=== PATIENT | female | born 1935 | race Asian ===

== ENCOUNTER 2020-01-21 08:48 | Inpatient (IN) | payer MEDICARE, MEDICAID ==
[~2020-01-21] VITALS: Ht 157.5 cm; Wt 60.3 kg
[2020-01-21 09:15] VITALS: BP 149/77
[2020-01-21] MEDS ORDERED: Sodium Chloride 1,900 ML IVLG ONE (09:30)
[2020-01-21 09:39] LABS: HEMATOCRIT 42.9 % (37.0-47.0); MEAN CORPUSCULAR VOLUME 89 FL (80-99); PLATELET COUNT 206 K/UL (150-450); RED BLOOD COUNT 4.83 M/UL (4.20-5.40)
[2020-01-21] MEDS ORDERED: Acetaminophen 500mg (ES) tab ORAL ONE (09:45)
[2020-01-21 09:46] LABS: WHITE BLOOD COUNT 27.1 K/UL (4.8-10.8)
--- NOTE | 2020-01-21 09:46 | Emergency Room Report ---
History of Present Illness General Chief Complaint: Syncope Source: Patient Present Illness HPI This patient is brought in by EMS. Patient reports generalized weakness and an episode of syncope. There is a language barrier and it is difficult to determine whether this was more of a generalized weakness unable to walk or a true syncope. She reports getting influenza vaccine 2 days ago. She denies chest pain or shortness of breath. She denies abdominal pain. She denies dysuria or hematuria. She has no other complaints. 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 Patient History Past Medical History: see triage record, HTN, GERD, other - HLP Social History: Denies: smoking, alcohol use, drug use Reviewed Nursing Documentation: PMH: Agreed; PSxH: Agreed Nursing Documentation-PMH Past Medical History Deferred: No Family Available Past Medical History: No History, Except For Hx Cardiac Problems: Yes Hx Cerebrovascular Accident: Yes Review of Systems All Other Systems: negative except mentioned in HPI Physical Exam Vital Signs Date Time Temp Pulse Resp B/P (MAP) Pulse Ox O2 Delivery O2 Flow Rate FiO2 01/21/20 08:58 100.8 122 26 145/67 (93) 95 Room Air Sp02 EP Interpretation: reviewed, normal General Appearance: no apparent distress, alert, GCS 15, non-toxic Head: normocephalic, atraumatic ENT: hearing grossly normal, no angioedema, normal voice Neck: full range of motion, supple/symm/no masses Respiratory: chest non-tender, lungs clear, normal breath sounds, no respiratory distress, no retraction, no accessory muscle use, speaking full sentences Cardiovascular #1: regular rate, rhythm, no edema, tachycardia Gastrointestinal: normal bowel sounds, non tender, soft, non-distended, no guarding, no rebound Rectal: deferred Musculoskeletal: back normal, normal range of motion, non-tender Neurologic: alert, oriented x3, sensory intact, responsive, speech normal, other - Hx CVA, at baseline per family Psychiatric: judgement/insight normal, memory normal, mood/affect normal, no suicidal/homicidal ideation Skin: normal color Medical Decision Making Diagnostic Impression: Primary Impression: Fever Additional Impressions: Leukocytosis Hypokalemia Pulmonary edema ER Course This patient is a very poor historian. I suspect this is secondary to both her age and the language barrier. The patient's family did not arrive to give me any information to include history. Based on laboratory work-up and my evaluation, I am concerned this patient has COVID-19 with respiratory involvement. The patient did maintain her oxygen saturations in the low 90s. The patient did not require any respiratory intervention. She did remain tachycardic in the 120s during her ED course. She was given some IV fluids gently. She is also given broad-spectrum antibiotics with Rocephin and azithromycin, given her fever and white blood cell count. This patient meets criteria for sepsis. This patient was evaluated in the context of the global COVID-19 pandemic, which necessitated consideration that the patient might be at risk for infection with the [id number] virus that causes COVID-19. Institutional protocols and algorithms that pertain to the evaluation of patients at risk for COVID-19 and the state of rapid change based on information released by multiple regulatory bodies including the CDC and federal and state organizations. These policies and algorithms were followed during the patient's care in the ED. This patient is critically ill. This patient required complex medical decision- making, aggressive intervention, extensive laboratory workup and monitoring. Critical care time: 40 minutes. Addendum: The patient's did finally arrive in the emergency department just before she was to be admitted. There is report that the patient has had a headache over the past couple days. Over the past days she has had generalized weakness to the point where she has been unable to stand up. There are no other specific complaints. She has felt a little nauseated. Laboratory Tests Test 01/21/20 09:00 01/21/20 09:30 White Blood Count 27.1 K/UL (4.8-10.8) *H Red Blood Count 4.83 M/UL (4.20-5.40) Hemoglobin 15.0 G/DL (12.0-16.0) Hematocrit 42.9 % (37.0-47.0) Mean Corpuscular Volume 89 FL (80-99) Mean Corpuscular Hemoglobin 31.0 PG (27.0-31.0) Mean Corpuscular Hemoglobin Concent 34.9 G/DL (32.0-36.0) Red Cell Distribution Width 11.0 % (11.6-14.8) L Platelet Count 206 K/UL (150-450) Mean Platelet Volume 5.4 FL (6.5-10.1) L Neutrophils (%) (Auto) % (45.0-75.0) Lymphocytes (%) (Auto) % (20.0-45.0) Monocytes (%) (Auto) % (1.0-10.0) Eosinophils (%) (Auto) % (0.0-3.0) Basophils (%) (Auto) % (0.0-2.0) Differential Total Cells Counted 100 Neutrophils % (Manual) 83 % (45-75) H Lymphocytes % (Manual) 2 % (20-45) L Monocytes % (Manual) 2 % (1-10) Eosinophils % (Manual) 0 % (0-3) Basophils % (Manual) 0 % (0-2) Band Neutrophils 13 % (0-8) H Platelet Estimate Adequate Platelet Morphology Normal Red Blood Cell Morphology Normal Prothrombin Time 10.9 SEC (9.30-11.50) Prothrombin Time INR 1.0 (0.9-1.1) Activated Partial Thromboplast Time 29 SEC (23-33) D-Dimer 7.21 mg/L FEU (0.00-0.49) H Sodium Level 129 MMOL/L (136-145) L Potassium Level 2.9 MMOL/L (3.5-5.1) L Chloride Level 93 MMOL/L (98-107) L Carbon Dioxide Level 25 MMOL/L (21-32) Anion Gap 11 mmol/L (5-15) Blood Urea Nitrogen 16 mg/dL (7-18) Creatinine 0.7 MG/DL (0.55-1.30) Estimated Glomerular Filtration Rate > 60 mL/min (>60) Glucose Level 155 MG/DL (74-106) H Lactic Acid Level 1.70 mmol/L (0.4-2.0) Calcium Level 8.8 MG/DL (8.5-10.1) Ferritin 964 NG/ML (8-388) H Total Bilirubin 1.4 MG/DL (0.2-1.0) H Direct Bilirubin 0.4 MG/DL (0.0-0.3) H Aspartate Amino Transferase (AST) 26 U/L (15-37) Alanine Aminotransferase (ALT) 17 U/L (12-78) Alkaline Phosphatase 124 U/L (46-116) H Lactate Dehydrogenase 162 U/L (81-234) Total Creatine Kinase 109 U/L (26-308) Creatine Kinase MB 1.1 NG/ML (0.0-3.6) Creatine Kinase MB Relative Index 1.0 Troponin I 0.001 ng/mL (0.000-0.056) C-Reactive Protein, Quantitative 31.6 mg/dL (0.00-0.90) H Total Protein 6.6 G/DL (6.4-8.2) Albumin 3.1 G/DL (3.4-5.0) L Globulin 3.5 g/dL Albumin/Globulin Ratio 0.9 (1.0-2.7) L Urine Color Yellow Urine Appearance Slightly cloudy Urine pH 6.5 (4.5-8.0) Urine Specific [place] 1.015 (1.005-1.035) Urine Protein 3+ (NEGATIVE) H Urine Glucose (UA) Negative (NEGATIVE) Urine Ketones 4+ (NEGATIVE) H Urine Blood 5+ (NEGATIVE) H Urine Nitrite Negative (NEGATIVE) Urine Bilirubin Negative (NEGATIVE) Urine Urobilinogen 4 MG/DL (0.0-1.0) H Urine Leukocyte Esterase 1+ (NEGATIVE) H Urine RBC 15-20 /HPF (0 - 2) H Urine WBC 2-4 /HPF (0 - 2) Urine Squamous Epithelial Cells Few /LPF (NONE/OCC) Urine Bacteria Few /HPF (NONE) Microbiology Date/Time Source Procedure Growth Status 01/21/20 09:20 Nasopharynx SARS-CoV-2 RdRp Gene Assay - Final Complete 01/21/20 09:20 Nasal Nares - Final Complete 01/21/20 09:20 Nasal Nares - Final Complete EKG Diagnostic Results Rate: tachycardiac Rhythm: other - S.tachycardia ST Segments: no acute changes Other Impression LAD, PAC's Rhythm Strip Diag. Results EP Interpretation: yes Rate: 120's Rhythm: no PVC's, other - PAC's, S. Tachycardia Chest X-Ray Diagnostic Results Chest X-Ray Diagnostic Results : Chest X-Ray Ordered: Yes # of Views/Limited/Complete: 1 View Indication: Other - syncope EP Interpretation: Yes Interpretation: other - Diffuse patchy opacities Impression: Other - Pulmonary edema: DD: viral, CHF CT/MRI/US Diagnostic Results CT/MRI/US Diagnostic Results : Imaging Test Ordered: CT head Impression No acute findings. Specifically no intracranial bleed, mass effect or edema. See official report. Last Vital Signs Date Time Temp Pulse Resp B/P (MAP) Pulse Ox O2 Delivery O2 Flow Rate FiO2 01/21/20 08:58 100.8 122 26 145/67 (93) 95 Room Air Disposition: ADMITTED INPATIENT Condition: Serious Referrals: NOT CHOSEN IPA/,REFERRING (PCP) Christine Rodriguez DO Jan 21, 2020 09:46
[2020-01-21 09:59] LABS: ANION GAP 11 mmol/L (5-15); BLOOD UREA NITROGEN 16 mg/dL (7-18); CALCIUM 8.8 MG/DL (8.5-10.1); CARBON DIOXIDE 25 MMOL/L (21-32); CHLORIDE 93 MMOL/L (98-107); CREATININE 0.7 MG/DL (0.55-1.30); POTASSIUM 2.9 MMOL/L (3.5-5.1); SODIUM 129 MMOL/L (136-145)
[2020-01-21] MEDS ORDERED: cefTRIAXone 1 GM in NS 55 ML IV SCH (10:00)
[2020-01-21] MEDS ORDERED: Azithromycin 500 MG in NS 275 ML IV SCH (10:00)
[2020-01-21 10:06] LABS: APPEARANCE,URINE SLIGHTLY CLOUDY; BILIRUBIN, URINE NEGATIVE (NEGATIVE); GLUCOSE, URINE (UA) NEGATIVE (NEGATIVE); KETONES,URINE 4+ (NEGATIVE); LEUKOCYTE ESTERASE ,URINE 1+ (NEGATIVE); NITRITE,URINE NEGATIVE (NEGATIVE); PH,URINE 6.5 (4.5-8.0); PROTEIN,URINE 3+ (NEGATIVE); UROBILINOGEN,URINE 4 MG/DL (0.0-1.0)
[2020-01-21 10:07] LABS: COLOR,URINE YELLOW
[2020-01-21] MEDS ORDERED: dexAMETHasone 10mg/ml Inj IV ONE (10:15)
[2020-01-21 10:16] LABS: ALANINE AMINOTRANSFERASE 17 U/L (12-78); ALBUMIN 3.1 G/DL (3.4-5.0); ALBUMIN/GLOBULIN RATIO 0.9 (1.0-2.7); ALKALINE PHOSPHATASE 124 U/L (46-116); ASPARTATE AMINO TRANSFERASE 26 U/L (15-37); BILIRUBIN,TOTAL 1.4 MG/DL (0.2-1.0); CKMB 1.1 NG/ML (0.0-3.6); CREATINE KINASE 109 U/L (26-308); FERRITIN 964 NG/ML (8-388); LACTATE DEHYDROGENASE 162 U/L (81-234)
[2020-01-21 10:27] LABS: BILIRUBIN,DIRECT 0.4 MG/DL (0.0-0.3)
[2020-01-21 11:00] VITALS: BP 152/82
--- NOTE | 2020-01-21 11:31 | Diagnostic Imaging Report ---
Indications: Syncope Technique: Spiral acquisitions obtained through the brain. Angled axial and coronal 5 x 5 mm slices were reconstructed. Total dose length product 1098 mGycm. CTDI vol(s) 53 mGy. Dose reduction achieved using automated exposure control Comparison: None. Findings: No acute intracranial hemorrhage or edema. No mass effect nor midline shift. There is age-related enlargement of the ventricles and extra axial CSF spaces. There is periventricular deep white matter low-attenuation, consistent with chronic microvascular ischemic changes. Old lacunar infarcts are seen in the basal ganglia bilaterally. The mastoids are clear. There is fairly extensive sphenoid and ethmoid sinus disease. The calvarium is intact. Impression: Chronic and age-related changes. Old bilateral basal ganglia lacunar infarcts. Negative for acute intracranial bleed or mass effect The CT scanner at [facility] is accredited by the [place] [employer] and the scans are performed using protocols designed to limit radiation exposure to as low as reasonably achievable to attain images of sufficient resolution adequate for diagnostic evaluation.
[2020-01-21] MEDS ORDERED: FOSAMAX70 MG ORAL (12:50)
[2020-01-21] MEDS ORDERED: LOSARTAN POTASS50 MG ORAL (12:50)
[2020-01-21] MEDS ORDERED: CREON DR 36,001 EACH PO (12:50)
[2020-01-21] MEDS ORDERED: RESTASIS1 EACH RIGHT EYE (12:50)
[2020-01-21] MEDS ORDERED: AMLODIPINE BESYL5 MG ORAL (12:50)
[2020-01-21] MEDS ORDERED: LEVOCETIRIZINE D5 MG ORAL (12:50)
[2020-01-21] MEDS ORDERED: DEXILANT60 MG ORAL (12:50)
[2020-01-21] MEDS ORDERED: ZOCOR20 M1 ORAL (12:50)
[2020-01-21] MEDS ORDERED: KLONOPIN1 MG ORAL (12:50)
[2020-01-21] MEDS ORDERED: METOPROLOL SUCC25 MG ORAL (12:50)
[2020-01-21 13:20] VITALS: BP 146/80
[2020-01-21] MEDS ORDERED: Albuterol/Ipratropium 3ml neb HHN PRN (14:00)
--- NOTE | 2020-01-21 14:15 | Diagnostic Imaging Report ---
Indication: Palpitations, cardiac arrhythmia Technique: One view of the chest Comparison: none Findings: There is questionable bilateral mild interstitial congestion. The heart size is normal. The aorta is elongated tortuous and ectatic. The heart size is normal. Impression: Questionable mild bilateral interstitial congestion. Correlate with clinical findings Other findings as noted
--- NOTE | 2020-01-21 15:27 | Infectious Diseases Prog Note ---
Assessment/Plan Assessment/Plan Full consult dictated: A) 1) possible sepsis, leukocytosis, fevers 2) source 3) pmh noted 4) allergies - pcn P) 1) ceftriaxone, flagyl and azithromycin 2) check cultures, labs and chest x-ray 3) will f/u 4) thank you Subjective Allergies: Uncoded Allergies: PENICILLIN (Allergy, Unknown, 01/21/20) Objective Last 24 Hour Vital Signs Date Time Temp Pulse Resp B/P (MAP) Pulse Ox O2 Delivery O2 Flow Rate FiO2 01/21/20 14:10 Room Air 01/21/20 13:20 97.7 95 20 146/80 (102) 94 01/21/20 11:00 99.5 110 25 152/82 94 Room Air 01/21/20 10:16 100.0 01/21/20 09:15 100.6 124 30 149/77 95 Room Air 01/21/20 08:58 100.8 122 26 145/67 (93) 95 Room Air Height (Feet): 5 Height (Inches): 3.00 Weight (Pounds): 140 Microbiology Date/Time Source Procedure Growth Status 01/21/20 09:20 Nasopharynx SARS-CoV-2 RdRp Gene Assay - Final Complete 01/21/20 09:20 Nasal Nares - Final Complete 01/21/20 09:20 Nasal Nares - Final Complete Laboratory Tests Test 01/21/20 09:00 01/21/20 09:30 White Blood Count 27.1 K/UL (4.8-10.8) *H Red Blood Count 4.83 M/UL (4.20-5.40) Hemoglobin 15.0 G/DL (12.0-16.0) Hematocrit 42.9 % (37.0-47.0) Mean Corpuscular Volume 89 FL (80-99) Mean Corpuscular Hemoglobin 31.0 PG (27.0-31.0) Mean Corpuscular Hemoglobin Concent 34.9 G/DL (32.0-36.0) Red Cell Distribution Width 11.0 % (11.6-14.8) L Platelet Count 206 K/UL (150-450) Mean Platelet Volume 5.4 FL (6.5-10.1) L Neutrophils (%) (Auto) % (45.0-75.0) Lymphocytes (%) (Auto) % (20.0-45.0) Monocytes (%) (Auto) % (1.0-10.0) Eosinophils (%) (Auto) % (0.0-3.0) Basophils (%) (Auto) % (0.0-2.0) Differential Total Cells Counted 100 Neutrophils % (Manual) 83 % (45-75) H Lymphocytes % (Manual) 2 % (20-45) L Monocytes % (Manual) 2 % (1-10) Eosinophils % (Manual) 0 % (0-3) Basophils % (Manual) 0 % (0-2) Band Neutrophils 13 % (0-8) H Platelet Estimate Adequate Platelet Morphology Normal Red Blood Cell Morphology Normal Prothrombin Time 10.9 SEC (9.30-11.50) Prothromb Time International Ratio 1.0 (0.9-1.1) Activated Partial Thromboplast Time 29 SEC (23-33) D-Dimer 7.21 mg/L FEU (0.00-0.49) H Sodium Level 129 MMOL/L (136-145) L Potassium Level 2.9 MMOL/L (3.5-5.1) L Chloride Level 93 MMOL/L (98-107) L Carbon Dioxide Level 25 MMOL/L (21-32) Anion Gap 11 mmol/L (5-15) Blood Urea Nitrogen 16 mg/dL (7-18) Creatinine 0.7 MG/DL (0.55-1.30) Estimat Glomerular Filtration Rate > 60 mL/min (>60) Glucose Level 155 MG/DL (74-106) H Lactic Acid Level 1.70 mmol/L (0.4-2.0) Calcium Level 8.8 MG/DL (8.5-10.1) Ferritin 964 NG/ML (8-388) H Total Bilirubin 1.4 MG/DL (0.2-1.0) H Direct Bilirubin 0.4 MG/DL (0.0-0.3) H Aspartate Amino Transf (AST/SGOT) 26 U/L (15-37) Alanine Aminotransferase (ALT/SGPT) 17 U/L (12-78) Alkaline Phosphatase 124 U/L (46-116) H Lactate Dehydrogenase 162 U/L (81-234) Total Creatine Kinase 109 U/L (26-308) Creatine Kinase MB 1.1 NG/ML (0.0-3.6) Creatine Kinase MB Relative Index 1.0 Troponin I 0.001 ng/mL (0.000-0.056) C-Reactive Protein, Quantitative 31.6 mg/dL (0.00-0.90) H Total Protein 6.6 G/DL (6.4-8.2) Albumin 3.1 G/DL (3.4-5.0) L Globulin 3.5 g/dL Albumin/Globulin Ratio 0.9 (1.0-2.7) L Urine Color Yellow Urine Appearance Slightly cloudy Urine pH 6.5 (4.5-8.0) Urine Specific [place] 1.015 (1.005-1.035) Urine Protein 3+ (NEGATIVE) H Urine Glucose (UA) Negative (NEGATIVE) Urine Ketones 4+ (NEGATIVE) H Urine Blood 5+ (NEGATIVE) H Urine Nitrite Negative (NEGATIVE) Urine Bilirubin Negative (NEGATIVE) Urine Urobilinogen 4 MG/DL (0.0-1.0) H Urine Leukocyte Esterase 1+ (NEGATIVE) H Urine RBC 15-20 /HPF (0 - 2) H Urine WBC 2-4 /HPF (0 - 2) Urine Squamous Epithelial Cells Few /LPF (NONE/OCC) Urine Bacteria Few /HPF (NONE) Current Medications Medications (Trade) Dose Ordered Sig/Altagracia Route PRN Reason Start Time Stop Time Status Last Admin Dose Admin Acetaminophen (Tylenol) 650 mg Q4H PRN ORAL Mild Pain (Pain Scale 1-3) 01/21/20 14:00 02/20/20 13:59 Acetaminophen (Tylenol) 650 mg Q4H PRN ORAL Temp >100.5 01/21/20 14:00 02/20/20 13:59 Albuterol/ Ipratropium (Albuterol/ Ipratropium) 3 ml Q4H PRN HHN Shortness of Breath 01/21/20 14:00 01/26/20 13:59 Alendronate Sodium (Fosamax) 70 mg ONCE A WEEK ORAL 01/22/20 06:30 02/21/20 06:29 Amlodipine Besylate (Norvasc) 5 mg DAILY ORAL 01/22/20 09:00 02/21/20 08:59 Amylase/Lipase/ Protease (Creon DR 36,000 units cap) 36,000 ea TID ORAL 01/21/20 18:00 04/20/20 17:59 UNV Azithromycin 500 mg/Dextrose 275 ml @ 275 mls/hr Q24HRS IV 01/22/20 09:00 01/28/20 09:59 Ceftriaxone Sodium 1 gm/ Dextrose 55 ml @ 110 mls/hr Q24H IVPB 01/22/20 09:00 01/29/20 08:59 Clonazepam (KlonoPIN) 1 mg Q6H PRN ORAL For Anxiety 01/21/20 15:15 01/28/20 15:14 Heparin Sodium (Porcine) (Heparin 5000 units/ml) 5,000 units EVERY 12 HOURS SUBQ 01/21/20 21:00 03/06/20 20:59 Losartan Potassium (Cozaar) 100 mg DAILY ORAL 01/22/20 09:00 02/21/20 08:59 Metoprolol Succinate (Toprol XL) 25 mg DAILY ORAL 01/22/20 09:00 04/21/20 08:59 Tiny Armijo MD Jan 21, 2020 15:27
[2020-01-21] MEDS ORDERED: Creon DR 36,000 units cap ORAL PRN (15:45)
[2020-01-21] MEDS ORDERED: Isovue-300 100ml vial INJ PRN (17:00)
--- NOTE | 2020-01-21 17:30 | Consultation ---
DATE OF CONSULTATION: 01/21/2020 ADDENDUM CONSULTING PHYSICIAN: Tiny Armijo MD. ATTENDING PHYSICIAN: Silvina Kohli MD. REFERRING PHYSICIAN: Silvina Kohli MD. The patient, again, will be continued on Rocephin, Flagyl, and azithromycin to cover sepsis, leukocytosis, and fevers pending workup. Tiny Armijo M.D. DR: ANA JOB#: [id number] CC:
--- NOTE | 2020-01-21 17:57 | Consultation ---
History of Present Illness General Chief Complaint: Syncope Present Illness Allergies: Uncoded Allergies: PENICILLIN (Allergy, Unknown, 01/21/20) Medication History Scheduled Alendronate Sodium* (Fosamax*), 70 MG ORAL ONCE A WEEK, (Reported) Amlodipine Besylate* (Amlodipine Besylate*), 5 MG ORAL DAILY, (Reported) Clonazepam* (Klonopin*), 1 MG ORAL Q6H, (Reported) Dexlansoprazole (Dexilant), 60 MG ORAL DAILY, (Reported) Levocetirizine Dihydrochloride (Levocetirizine Dihydrochloride), 5 MG ORAL DAILY, (Reported) Lipase/Protease/Amylase (Creon Dr 36,000 Units Capsule), 1 EACH PO TID, (Repor matthias) Losartan Potassium* (Losartan Potassium*), 100 MG ORAL DAILY, (Reported) Metoprolol Succinate* (Metoprolol Succinate*), 25 MG ORAL DAILY, (Reported) Simvastatin (Zocor), 20 MG ORAL BEDTIME, (Reported) Miscellaneous Medications Cyclosporine (Restasis), 1 DROP RIGHT EYE, (Reported) Patient History Healthcare decision maker Resuscitation status Advanced Directive on File Physical Exam Last 24 Hour Vital Signs Date Time Temp Pulse Resp B/P (MAP) Pulse Ox O2 Delivery O2 Flow Rate FiO2 01/21/20 16:00 Room Air 01/21/20 14:10 Room Air 01/21/20 13:20 97.7 95 20 146/80 (102) 94 01/21/20 12:45 99.1 103 24 143/86 95 Room Air 01/21/20 11:00 99.5 110 25 152/82 94 Room Air 01/21/20 10:16 100.0 01/21/20 09:15 100.6 124 30 149/77 95 Room Air 01/21/20 08:58 100.8 122 26 145/67 (93) 95 Room Air Laboratory Tests Test 01/21/20 09:00 01/21/20 09:30 White Blood Count 27.1 K/UL (4.8-10.8) *H Red Blood Count 4.83 M/UL (4.20-5.40) Hemoglobin 15.0 G/DL (12.0-16.0) Hematocrit 42.9 % (37.0-47.0) Mean Corpuscular Volume 89 FL (80-99) Mean Corpuscular Hemoglobin 31.0 PG (27.0-31.0) Mean Corpuscular Hemoglobin Concent 34.9 G/DL (32.0-36.0) Red Cell Distribution Width 11.0 % (11.6-14.8) L Platelet Count 206 K/UL (150-450) Mean Platelet Volume 5.4 FL (6.5-10.1) L Neutrophils (%) (Auto) % (45.0-75.0) Lymphocytes (%) (Auto) % (20.0-45.0) Monocytes (%) (Auto) % (1.0-10.0) Eosinophils (%) (Auto) % (0.0-3.0) Basophils (%) (Auto) % (0.0-2.0) Differential Total Cells Counted 100 Neutrophils % (Manual) 83 % (45-75) H Lymphocytes % (Manual) 2 % (20-45) L Monocytes % (Manual) 2 % (1-10) Eosinophils % (Manual) 0 % (0-3) Basophils % (Manual) 0 % (0-2) Band Neutrophils 13 % (0-8) H Platelet Estimate Adequate Platelet Morphology Normal Red Blood Cell Morphology Normal Prothrombin Time 10.9 SEC (9.30-11.50) Prothromb Time International Ratio 1.0 (0.9-1.1) Activated Partial Thromboplast Time 29 SEC (23-33) D-Dimer 7.21 mg/L FEU (0.00-0.49) H Sodium Level 129 MMOL/L (136-145) L Potassium Level 2.9 MMOL/L (3.5-5.1) L Chloride Level 93 MMOL/L (98-107) L Carbon Dioxide Level 25 MMOL/L (21-32) Anion Gap 11 mmol/L (5-15) Blood Urea Nitrogen 16 mg/dL (7-18) Creatinine 0.7 MG/DL (0.55-1.30) Estimat Glomerular Filtration Rate > 60 mL/min (>60) Glucose Level 155 MG/DL (74-106) H Lactic Acid Level 1.70 mmol/L (0.4-2.0) Calcium Level 8.8 MG/DL (8.5-10.1) Ferritin 964 NG/ML (8-388) H Total Bilirubin 1.4 MG/DL (0.2-1.0) H Direct Bilirubin 0.4 MG/DL (0.0-0.3) H Aspartate Amino Transf (AST/SGOT) 26 U/L (15-37) Alanine Aminotransferase (ALT/SGPT) 17 U/L (12-78) Alkaline Phosphatase 124 U/L (46-116) H Lactate Dehydrogenase 162 U/L (81-234) Total Creatine Kinase 109 U/L (26-308) Creatine Kinase MB 1.1 NG/ML (0.0-3.6) Creatine Kinase MB Relative Index 1.0 Troponin I 0.001 ng/mL (0.000-0.056) C-Reactive Protein, Quantitative 31.6 mg/dL (0.00-0.90) H Total Protein 6.6 G/DL (6.4-8.2) Albumin 3.1 G/DL (3.4-5.0) L Globulin 3.5 g/dL Albumin/Globulin Ratio 0.9 (1.0-2.7) L Urine Color Yellow Urine Appearance Slightly cloudy Urine pH 6.5 (4.5-8.0) Urine Specific [place] 1.015 (1.005-1.035) Urine Protein 3+ (NEGATIVE) H Urine Glucose (UA) Negative (NEGATIVE) Urine Ketones 4+ (NEGATIVE) H Urine Blood 5+ (NEGATIVE) H Urine Nitrite Negative (NEGATIVE) Urine Bilirubin Negative (NEGATIVE) Urine Urobilinogen 4 MG/DL (0.0-1.0) H Urine Leukocyte Esterase 1+ (NEGATIVE) H Urine RBC 15-20 /HPF (0 - 2) H Urine WBC 2-4 /HPF (0 - 2) Urine Squamous Epithelial Cells Few /LPF (NONE/OCC) Urine Bacteria Few /HPF (NONE) Microbiology Date/Time Source Procedure Growth Status 01/21/20 09:20 Nasopharynx SARS-CoV-2 RdRp Gene Assay - Final Complete 01/21/20 09:20 Nasal Nares - Final Complete 01/21/20 09:20 Nasal Nares - Final Complete Height (Feet): 5 Height (Inches): 3.00 Weight (Pounds): 140 Medications Current Medications Medications (Trade) Dose Ordered Sig/Altagracia Route PRN Reason Start Time Stop Time Status Last Admin Dose Admin Acetaminophen (Tylenol) 650 mg Q4H PRN ORAL Mild Pain (Pain Scale 1-3) 01/21/20 14:00 02/20/20 13:59 Acetaminophen (Tylenol) 650 mg Q4H PRN ORAL Temp >100.5 01/21/20 14:00 02/20/20 13:59 Albuterol/ Ipratropium (Albuterol/ Ipratropium) 3 ml Q4H PRN HHN Shortness of Breath 01/21/20 14:00 01/26/20 13:59 Alendronate Sodium (Fosamax) 70 mg ONCE A WEEK ORAL 01/22/20 06:30 02/21/20 06:29 Amlodipine Besylate (Norvasc) 5 mg DAILY ORAL 01/22/20 09:00 02/21/20 08:59 Amylase/Lipase/ Protease (Chelsy HUFF 36,000 units cap) 1 ea TIDPRN PRN ORAL Abdominal cramps 01/21/20 15:45 04/20/20 15:44 Azithromycin 500 mg/Dextrose 275 ml @ 275 mls/hr Q24HRS IV 01/22/20 09:00 01/28/20 09:59 Ceftriaxone Sodium 1 gm/ Dextrose 55 ml @ 110 mls/hr Q24H IVPB 01/22/20 09:00 01/29/20 08:59 Clonazepam (KlonoPIN) 1 mg Q6H PRN ORAL For Anxiety 01/21/20 15:15 01/28/20 15:14 Heparin Sodium (Porcine) (Heparin 5000 units/ml) 5,000 units EVERY 12 HOURS SUBQ 01/21/20 21:00 03/06/20 20:59 Iopamidol (Isovue-300 100ml) 100 ml NOW PRN INJ Radiology Procedure 01/21/20 17:00 01/23/20 16:59 Losartan Potassium (Cozaar) 100 mg DAILY ORAL 01/22/20 09:00 02/21/20 08:59 Metoprolol Succinate (Toprol XL) 25 mg DAILY ORAL 01/22/20 09:00 04/21/20 08:59 Metronidazole 100 ml @ 100 mls/hr Q8HR IVPB 01/21/20 22:00 01/28/20 21:59 Silvina Kohli M.D. Jan 21, 2020 17:57
[2020-01-21] MEDS ORDERED: Creon DR 36,000 units cap ORAL SCH (18:00)
--- NOTE | 2020-01-21 18:33 | History & Physical ---
History of Present Illness General Reason for Hospitalization: Syncope Present Illness HPI This patient is brought in by EMS. Patient reports generalized weakness and an episode of syncope. There is a language barrier and it is difficult to determine whether this was more of a generalized weakness unable to walk or a true syncope. She reports getting influenza vaccine 2 days ago. She denies chest pain or shortness of breath. She denies abdominal pain. She denies dysuria or hematuria. She has no other complaints. on presentation labs notable for leukocytosis, hyponatremia and hypokalemia Allergies: Uncoded Allergies: PENICILLIN (Allergy, Unknown, 01/21/20) COVID-19 Screening Contact w/high risk pt: No Experienced COVID-19 symptoms?: Yes Coronavirus symptoms experienc: Fever (T>100.4F or >38C) Medication History Scheduled Alendronate Sodium* (Fosamax*), 70 MG ORAL ONCE A WEEK, (Reported) Amlodipine Besylate* (Amlodipine Besylate*), 5 MG ORAL DAILY, (Reported) Clonazepam* (Klonopin*), 1 MG ORAL Q6H, (Reported) Dexlansoprazole (Dexilant), 60 MG ORAL DAILY, (Reported) Levocetirizine Dihydrochloride (Levocetirizine Dihydrochloride), 5 MG ORAL DAILY, (Reported) Lipase/Protease/Amylase (Creon Dr 36,000 Units Capsule), 1 EACH PO TID, (Report ed) Losartan Potassium* (Losartan Potassium*), 100 MG ORAL DAILY, (Reported) Metoprolol Succinate* (Metoprolol Succinate*), 25 MG ORAL DAILY, (Reported) Simvastatin (Zocor), 20 MG ORAL BEDTIME, (Reported) Miscellaneous Medications Cyclosporine (Restasis), 1 DROP RIGHT EYE, (Reported) Patient History Healthcare decision maker Resuscitation status Advanced Directive on File Review of Systems Review of Symptoms General ROS: no weight loss or fever Psychological ROS: no depression or mood changes, no memory loss Ophthalmic ROS: no visual changes or eye irritation ENT ROS: no nasal congestion, hearing loss, dizziness Allergy and Immunology ROS: no allergic symptoms or urticaria Hematological and Lymphatic ROS: no swollen glands, unusual bleeding or bruising Endocrine ROS: no polyuria, polydipsia, weight changes, temperature intolerance Respiratory ROS: no cough, shortness of breath, or wheezing Cardiovascular ROS: no chest pain or dyspnea on exertion Gastrointestinal ROS: denies abdominal pain, bright red blood in stool. Musculoskeletal ROS: no myalgias or arthralgias Neurological ROS: no TIA or stroke symptoms Dermatological ROS: no new or changing skin lesions, rashes or pruritis Physical Exam Physical Exam General appearance: alert, cooperative, no distress, appears stated age Head: Normocephalic, without obvious abnormality, atraumatic Eyes: conjunctivae/corneas clear. PERRL, EOM's intact. Fundi benign Throat: Lips, mucosa, and tongue normal. Teeth and gums normal Neck: supple, symmetrical, trachea midline, no adenopathy, thyroid: not enlarged, symmetric, no tenderness/mass/nodules, no carotid bruit and no JVD Lungs: clear to auscultation bilaterally Heart: regular rate and rhythm, S1, S2 normal, no murmur, click, rub or gallop Abdomen: soft, non-tender. Bowel sounds normal. No masses, no organomegaly Extremities: extremities normal, atraumatic, no cyanosis or edema Pulses: 2+ and symmetric Skin: Skin color, texture, turgor normal. No rashes or lesions Neurologic: Grossly normal Last 24 Hour Vital Signs Date Time Temp Pulse Resp B/P (MAP) Pulse Ox O2 Delivery O2 Flow Rate FiO2 01/21/20 16:00 Room Air 01/21/20 14:10 Room Air 01/21/20 13:20 97.7 95 20 146/80 (102) 94 01/21/20 12:45 99.1 103 24 143/86 95 Room Air 01/21/20 11:00 99.5 110 25 152/82 94 Room Air 01/21/20 10:16 100.0 01/21/20 09:15 100.6 124 30 149/77 95 Room Air 01/21/20 08:58 100.8 122 26 145/67 (93) 95 Room Air Laboratory Tests Test 01/21/20 09:00 01/21/20 09:30 White Blood Count 27.1 K/UL (4.8-10.8) *H Red Blood Count 4.83 M/UL (4.20-5.40) Hemoglobin 15.0 G/DL (12.0-16.0) Hematocrit 42.9 % (37.0-47.0) Mean Corpuscular Volume 89 FL (80-99) Mean Corpuscular Hemoglobin 31.0 PG (27.0-31.0) Mean Corpuscular Hemoglobin Concent 34.9 G/DL (32.0-36.0) Red Cell Distribution Width 11.0 % (11.6-14.8) L Platelet Count 206 K/UL (150-450) Mean Platelet Volume 5.4 FL (6.5-10.1) L Neutrophils (%) (Auto) % (45.0-75.0) Lymphocytes (%) (Auto) % (20.0-45.0) Monocytes (%) (Auto) % (1.0-10.0) Eosinophils (%) (Auto) % (0.0-3.0) Basophils (%) (Auto) % (0.0-2.0) Differential Total Cells Counted 100 Neutrophils % (Manual) 83 % (45-75) H Lymphocytes % (Manual) 2 % (20-45) L Monocytes % (Manual) 2 % (1-10) Eosinophils % (Manual) 0 % (0-3) Basophils % (Manual) 0 % (0-2) Band Neutrophils 13 % (0-8) H Platelet Estimate Adequate Platelet Morphology Normal Red Blood Cell Morphology Normal Prothrombin Time 10.9 SEC (9.30-11.50) Prothromb Time International Ratio 1.0 (0.9-1.1) Activated Partial Thromboplast Time 29 SEC (23-33) D-Dimer 7.21 mg/L FEU (0.00-0.49) H Sodium Level 129 MMOL/L (136-145) L Potassium Level 2.9 MMOL/L (3.5-5.1) L Chloride Level 93 MMOL/L (98-107) L Carbon Dioxide Level 25 MMOL/L (21-32) Anion Gap 11 mmol/L (5-15) Blood Urea Nitrogen 16 mg/dL (7-18) Creatinine 0.7 MG/DL (0.55-1.30) Estimat Glomerular Filtration Rate > 60 mL/min (>60) Glucose Level 155 MG/DL (74-106) H Lactic Acid Level 1.70 mmol/L (0.4-2.0) Calcium Level 8.8 MG/DL (8.5-10.1) Ferritin 964 NG/ML (8-388) H Total Bilirubin 1.4 MG/DL (0.2-1.0) H Direct Bilirubin 0.4 MG/DL (0.0-0.3) H Aspartate Amino Transf (AST/SGOT) 26 U/L (15-37) Alanine Aminotransferase (ALT/SGPT) 17 U/L (12-78) Alkaline Phosphatase 124 U/L (46-116) H Lactate Dehydrogenase 162 U/L (81-234) Total Creatine Kinase 109 U/L (26-308) Creatine Kinase MB 1.1 NG/ML (0.0-3.6) Creatine Kinase MB Relative Index 1.0 Troponin I 0.001 ng/mL (0.000-0.056) C-Reactive Protein, Quantitative 31.6 mg/dL (0.00-0.90) H Total Protein 6.6 G/DL (6.4-8.2) Albumin 3.1 G/DL (3.4-5.0) L Globulin 3.5 g/dL Albumin/Globulin Ratio 0.9 (1.0-2.7) L Urine Color Yellow Urine Appearance Slightly cloudy Urine pH 6.5 (4.5-8.0) Urine Specific [place] 1.015 (1.005-1.035) Urine Protein 3+ (NEGATIVE) H Urine Glucose (UA) Negative (NEGATIVE) Urine Ketones 4+ (NEGATIVE) H Urine Blood 5+ (NEGATIVE) H Urine Nitrite Negative (NEGATIVE) Urine Bilirubin Negative (NEGATIVE) Urine Urobilinogen 4 MG/DL (0.0-1.0) H Urine Leukocyte Esterase 1+ (NEGATIVE) H Urine RBC 15-20 /HPF (0 - 2) H Urine WBC 2-4 /HPF (0 - 2) Urine Squamous Epithelial Cells Few /LPF (NONE/OCC) Urine Bacteria Few /HPF (NONE) Microbiology Date/Time Source Procedure Growth Status 01/21/20 09:20 Nasopharynx SARS-CoV-2 RdRp Gene Assay - Final Complete 01/21/20 09:20 Nasal Nares - Final Complete 01/21/20 09:20 Nasal Nares - Final Complete Height (Feet): 5 Height (Inches): 3.00 Weight (Pounds): 140 Medications Current Medications Medications (Trade) Dose Ordered Sig/Altagracia Route PRN Reason Start Time Stop Time Status Last Admin Dose Admin Acetaminophen (Tylenol) 650 mg Q4H PRN ORAL Mild Pain (Pain Scale 1-3) 01/21/20 14:00 02/20/20 13:59 Acetaminophen (Tylenol) 650 mg Q4H PRN ORAL Temp >100.5 01/21/20 14:00 02/20/20 13:59 Albuterol/ Ipratropium (Albuterol/ Ipratropium) 3 ml Q4H PRN HHN Shortness of Breath 01/21/20 14:00 01/26/20 13:59 Alendronate Sodium (Fosamax) 70 mg ONCE A WEEK ORAL 01/22/20 06:30 02/21/20 06:29 Amlodipine Besylate (Norvasc) 5 mg DAILY ORAL 01/22/20 09:00 02/21/20 08:59 Amylase/Lipase/ Protease (Chelsy HUFF 36,000 units cap) 1 ea TIDPRN PRN ORAL Abdominal cramps 01/21/20 15:45 04/20/20 15:44 Azithromycin 500 mg/Dextrose 275 ml @ 275 mls/hr Q24HRS IV 01/22/20 09:00 01/28/20 09:59 Ceftriaxone Sodium 1 gm/ Dextrose 55 ml @ 110 mls/hr Q24H IVPB 01/22/20 09:00 01/29/20 08:59 Clonazepam (KlonoPIN) 1 mg Q6H PRN ORAL For Anxiety 01/21/20 15:15 01/28/20 15:14 Heparin Sodium (Porcine) (Heparin 5000 units/ml) 5,000 units EVERY 12 HOURS SUBQ 01/21/20 21:00 03/06/20 20:59 Iopamidol (Isovue-300 100ml) 100 ml NOW PRN INJ Radiology Procedure 01/21/20 17:00 01/23/20 16:59 Losartan Potassium (Cozaar) 100 mg DAILY ORAL 01/22/20 09:00 02/21/20 08:59 Metoprolol Succinate (Toprol XL) 25 mg DAILY ORAL 01/22/20 09:00 04/21/20 08:59 Metronidazole 100 ml @ 100 mls/hr Q8HR IVPB 01/21/20 22:00 01/28/20 21:59 Assessment/Plan Diagnosis [place] I: #Sepsis - r/o COVID #Leukocytosis #Hyponatremia #Possible syncope #Hypokalemia #HTN #Dementia - tele - IV abx per ID - on ceftriaxone, flagyl, azithro, and vanco - COVID r/o - ID consult - IVF - pulm eval - monitor BP - monitor resp status - cardiology eval for possible syncope [facility] Hospital declaration INPATIENT level of care is warranted for this patient because patient is a 89 year old with who presents with suspicion of . I have a high level of concern because . Patient is at high risk for . Plan of care/treatment include . Patient care is expected to be greater than 2 midnights. OBSERVATION level of care is warranted for this patient. Patient is a 89 year old with who presents with . Patient will be admitted for 1 midnight, but if additional night(s) is/are necessary, patient will be converted to inpatient status for the entire hospitalization Disposition: Once the patient is stable to leave the hospital, I anticipate the patient will likely be discharged to the following environment: Estimated discharge date: I spent 70 minutes on this patient's case, and minutes was dedicated to counseling and/or care coordination. MIPS (Merit-based Incentive Payment System) Applicable CPT: 99290, 40997 CHECK ALL THAT ARE MET: Measure #5 (CHF): All ages. Prescribe LANDEN/ARB upon discharge for patients with left ventricular systolic dysfunction. If not, the reason is clearly documented in the medical chart. Measure #8 (CHF): All ages. Prescribe a beta kushal upon discharge for patients with left ventricular systolic dysfunction. If not, the reason is clearly documented in the medical chart. Measure #47 Advance care plan or surrogate decision maker documented in the medical record. Measure #130 The provider has documented, updated, or reviewed the patients current medication list and has documented it in the patients note. Measure #374 (All): Send report to referring provider. Measure #407(Sepsis due to MSSA bacteremia): Age 18+ Patient treated with a beta-lactam antibiotic (Nafcillin, Oxacillin or Cefazolin) as definitive t herapy. MEDICAL COMPLEXITY High complexity medical decision making (need 2/3 categories) Problem - need 4 points Acute/new problem with new plan for workup (4 points, 1 max) Acute/new problem without additional workup (3 points, 1 max) Unstable chronic problem actively being managed (2 point each, 2 max) Stable chronic problem actively being managed (1 point each, 2 max) Self-limited/transient process (constipation, muscle ache, etc) (1 point each, 2 max) Data - need 4 points Reviewed labs/imaging studies (1 points, 2 max) Independent review of imaging (EKG, xrays, etc) (2 points, 2 max) Discussed case with consult/other MD/RN (2 points, 2 max) High Risk - qualify if have one of the following: Severe exacerbation of acute problem, acute mental status change, IV narcoti cs, monitoring drug levels (vancomycin, INR, tacrolimus etc) Silvina Kohli M.D. Jan 21, 2020 18:33
--- NOTE | 2020-01-21 20:00 | Consultation ---
DATE OF CONSULTATION: 01/21/2020 INFECTIOUS DISEASES CONSULTATION CONSULTING PHYSICIAN: Tiny Armijo MD ATTENDING PHYSICIAN: Cas Pathak MD REFERRING PHYSICIANS: 1. Cas Pathak MD 2. Silvina Kohli MD REASON FOR CONSULTATION: Sepsis, elevated white count, fevers. CHIEF COMPLAINT: The patient's chief complaint coming in to the hospital is sepsis. HISTORY OF PRESENT ILLNESS: This is a very pleasant 84-year-old female who presents to [facility]. The patient has been febrile. She had fairly benign urinalysis. Her COVID testing was negative, but that was the rapid test; the PCR is pending. The patient had initial chest x-ray that showed no obvious consolidation. The patient's white count was 27.1. Infectious Diseases consultation was requested for antibiotic management. The patient currently is on Rocephin and azithromycin. I am adding metronidazole for possible sepsis, leukocytosis, and fevers. MAR was noted. Orders were noted. Notes were reviewed. Of note, the patient's cultures are pending at this time. REVIEW OF SYSTEMS: GENERAL: The patient has generalized weakness and fevers. She has currently no chills. HEAD AND NECK: No head pain, neck stiffness, thrush, or dysphagia. CARDIAC: No chest pain. GASTROINTESTINAL: No nausea, vomiting, or diarrhea. GENITOURINARY: She does have a [place]. PULMONARY: No significant cough, congestion, or shortness of breath. SKIN: No rash or itching EXTREMITIES: No extremity pain. NEUROLOGIC: No seizures. No CVA tenderness. Generalized fatigue. No focal weakness. PAST MEDICAL HISTORY: Includes the following. The patient has a past medical history of hypertension, GERD, and possible hyperlipidemia. She also per the records has history of CVA in the nursing documentation and cardiac issues. ALLERGIES: She has allergy to penicillin. She tolerates Rocephin. SOCIAL HISTORY: Negative for smoking, alcohol, or drug abuse. FAMILY HISTORY: Noncontributory. No mention of exposure to tuberculosis or cancer. MEDICATIONS: Upon reviewing the MAR, she is on the following medications. She is on Rocephin, azithromycin, metoprolol, losartan, amlodipine, heparin, Fosamax, clonazepam, acetaminophen, and albuterol treatments. She was given a dose of dexamethasone. Again, antibiotics are Rocephin and azithromycin. I am adding Flagyl. Outside medications noted and reconciliated. PHYSICAL EXAMINATION: VITAL SIGNS: Temperature 97.7, pulse rate 95, respiratory rate 20, blood pressure 146/80, and saturation 94% on room air. T-max 100.8, pulse rate has been as high as 122, and respiratory rate as high as 26 and 30. GENERAL: The patient is alert, responsive, and in no acute distress. No significant shortness of breath noted. HEAD AND NECK: Oral exam, no thrush. Eye exam, no icterus. Normocephalic. Neck is supple. HEART: Regular. No gallop or murmur. LUNGS: Clear bilaterally. No rhonchi. No obvious rales. ABDOMEN: Soft. Positive bowel sounds. Nontender. SKIN: No rash. MUSCULOSKELETAL: No effusions. No evidence of septic arthritis or joint pain. Legs are without cellulitis. PERIPHERAL VASCULAR: On extremity exam, no gangrene. GENITOURINARY: The patient has a [place]. Urine is fairly clear. LINE SITES: Without phlebitis. NEUROLOGIC: Generalized weakness. Alert and responsive. LABORATORY AND DIAGNOSTIC DATA: White count 27.1, hemoglobin 15.0. Sodium 129, creatinine 0.7. Lactic acid 1.7. UA had only 2-4 white cells. SARS rapid testing was negative. Chest x-ray showed no acute consolidation. There is questionable mild bilateral interstitial congestion. ASSESSMENT AND PLAN: 1. The patient has possible sepsis, leukocytosis, fevers, and SIRS criteria. She came as with some sob; however, chest x-ray is negative. COVID testing, rapid testing is negative. The patient is currently on Rocephin and azithromycin. I am going to add Flagyl. We will continue Rocephin, azithromycin, and Flagyl for possible sepsis, elevated white count, and fevers. Check followup chest x-ray. Check cultures and laboratories. Monitor the patient's leukocytosis. Repeat COVID testing will be done by PCR. Followup chest x-ray has been ordered. The patient may need further imaging if her white count persists; however, there is no diagnosis. Continue Rocephin, azithromycin, and Flagyl for sepsis, leukocytosis, fevers, and SIRS criteria. 2. Hypertension. Blood pressure treatment per primary care team. 3. GERD. 4. HLP, which I think is hyperlipidemia, but I am not sure. 5. Per the records, history of CVA. 6. Cardiac disease. 7. Allergic to penicillin, tolerates cephalosporins. 8. Social History is negative. 9. Family History is noncontributory . 10. MAR was noted. 11. Case was discussed with RN. 12. Continue treatment per primary consultants. Tiny Armijo M.D. DR: Mikala JOB#: [id number] CC: DARI
[2020-01-21] MEDS: Heparin 5000 units/ml inj SUBQ SCH (21:13)
[2020-01-22 04:59] LABS: HEMATOCRIT 42.6 % (37.0-47.0); HEMOGLOBIN 14.4 G/DL (12.0-16.0); MEAN CORPUSCULAR VOLUME 89 FL (80-99); PLATELET COUNT 213 K/UL (150-450); RED BLOOD COUNT 4.81 M/UL (4.20-5.40)
[2020-01-22 05:33] LABS: ALANINE AMINOTRANSFERASE 21 U/L (12-78); ALBUMIN 2.5 G/DL (3.4-5.0); ALBUMIN/GLOBULIN RATIO 0.7 (1.0-2.7); ALKALINE PHOSPHATASE 141 U/L (46-116); ANION GAP 13 mmol/L (5-15); ASPARTATE AMINO TRANSFERASE 19 U/L (15-37); BILIRUBIN,TOTAL 0.6 MG/DL (0.2-1.0); BLOOD UREA NITROGEN 15 mg/dL (7-18); CALCIUM 8.2 MG/DL (8.5-10.1); CARBON DIOXIDE 19 MMOL/L (21-32); CHLORIDE 101 MMOL/L (98-107); CREATININE 0.7 MG/DL (0.55-1.30); PHOSPHORUS 1.7 MG/DL (2.5-4.9); POTASSIUM 3.4 MMOL/L (3.5-5.1); SODIUM 133 MMOL/L (136-145)
[2020-01-22 05:42] LABS: WHITE BLOOD COUNT 34.7 K/UL (4.8-10.8)
[2020-01-22] MEDS ORDERED: Vancomycin 1 GM in D5W 275 ML IVPB ONE (07:30)
[2020-01-22 08:00] VITALS: BP 116/76
[2020-01-22] MEDS ORDERED: Azithromycin 500 MG in D5W 275 ML IV SCH (09:00)
[2020-01-22] MEDS: cefTRIAXone 1 GM in D5W 55 ML IVPB SCH (09:00)
--- NOTE | 2020-01-22 09:18 | General Progress Note ---
Assessment/Plan Assessment/Plan: #Sepsis - r/o COVID #gram pos bacteremia #Leukocytosis #Hyponatremia #Possible syncope #Hypokalemia #HTN #Dementia - replace K - IVF - IV abx per ID - on ceftriaxone, flagyl, azithro, and vanco - COVID r/o - ID consult - IVF - pulm eval - monitor BP - monitor resp status - cardiology eval for possible syncope - continue metop 25 daily - amlodipine 10mg daily - continue losartan 100mg daily Subjective ROS Limited/Unobtainable: No Constitutional: Reports: chills, weakness Cardiovascular: Denies: no symptoms, chest pain, edema, irregular heart rate, lightheadedness, palpitations, syncope, other Neurologic/Psychiatric: Denies: no symptoms, anxiety, depressed, emotional problems, headache, numbness, paresthesia, pre-existing deficit, seizure, tingling, tremors, weakness, other Endocrine: Denies: no symptoms, excessive sweating, flushing, intolerance to cold, intolerance to heat, increased hunger, increased thirst, increased urine, unexplained weight gain, unexplained weight loss, other Hematologic/Lymphatic: Denies: no symptoms, anemia, easy bleeding, easy bruising, other Allergies: Uncoded Allergies: PENICILLIN (Allergy, Unknown, 01/21/20) Subjective continues to have low grade fevers and some chills WBC uptrending Blood cx growing gram pos cocci Objective Last 24 Hour Vital Signs Date Time Temp Pulse Resp B/P (MAP) Pulse Ox O2 Delivery O2 Flow Rate FiO2 01/22/20 08:00 97.6 97 20 116/76 (89) 95 01/22/20 04:45 99.8 01/22/20 04:00 Nasal Cannula 2.0 01/22/20 04:00 102 01/22/20 00:00 Nasal Cannula 2.0 01/21/20 23:36 97 01/21/20 21:42 100.0 01/21/20 20:00 Room Air 01/21/20 19:24 106 01/21/20 16:00 Room Air 01/21/20 14:10 Room Air 01/21/20 13:20 97.7 95 20 146/80 (102) 94 01/21/20 12:45 99.1 103 24 143/86 95 Room Air 10/27/20 11:00 99.5 110 25 152/82 94 Room Air 01/21/20 10:16 100.0 Intake and Output 01/21/20 01/22/20 19:00 07:00 Intake Total 1830 ml 200 ml Balance 1830 ml 200 ml Intake IV Total 1830 ml 200 ml # Voids 1 Laboratory Tests 01/21/20 09:30: Urine Color Yellow, Urine Appearance Slightly cloudy, Urine pH 6.5, Urine Specific [place] 1.015, Urine Protein 3+H, Urine Glucose (UA) Negative, Urine Ketones 4+H, Urine Blood 5+H, Urine Nitrite Negative, Urine Bilirubin Negative, Urine Urobilinogen 4H, Urine Leukocyte Esterase 1+H, Urine RBC 15-20H, Urine WBC 2-4, Urine Squamous Epithelial Cells Few, Urine Bacteria Few 01/22/20 04:00: White Blood Count 34.7*H, Red Blood Count 4.81, Hemoglobin 14.4, Hematocrit 42.6, Mean Corpuscular Volume 89, Mean Corpuscular Hemoglobin 30.0, Mean [place]lee uscular Hemoglobin Concent 33.9, Red Cell Distribution Width 11.0L, Platelet Count 213, Mean Platelet Volume 5.2L, Neutrophils (%) (Auto) , Lymphocytes (%) (Auto) , Monocytes (%) (Auto) , Eosinophils (%) (Auto) , Basophils (%) (Auto) , Differential Total Cells Counted 100, Neutrophils % (Manual) 79H, Lymphocytes % (Manual) 3L, Monocytes % (Manual) 4, Eosinophils % (Manual) 0, Basophils % (Manual) 0, Band Neutrophils 14H, Platelet Estimate Adequate, Platelet Morphology Normal, Red Blood Cell Morphology Normal, Sodium Level 133L, Potassium Level 3.4L, Chloride Level 101, Carbon Dioxide Level 19L, Anion Gap 13, Blood Urea Nitrogen 15, Creatinine 0.7, Estimat Glomerular Filtration Rate > 60, Glucose Level 151H, Calcium Level 8.2L, Phosphorus Level 1.7L, Magnesium Level 2.2, Total Bilirubin 0.6, Aspartate Amino Transf (AST/SGOT) 19, Alanine Aminotransferase (ALT/SGPT) 21, Alkaline Phosphatase 141H, Pro-B-Type Natriuretic Peptide 6214H, Total Protein 5.9L, Albumin 2.5L, Globulin 3.4, Albumin/Globulin Ratio 0.7L Height (Feet): 5 Height (Inches): 3.00 Weight (Pounds): 140 General Appearance: no apparent distress, alert EENT: PERRL/EOMI, normal ENT inspection Neck: non-tender, normal alignment Cardiovascular: normal peripheral pulses, normal rate, regular rhythm Respiratory/Chest: chest wall non-tender, lungs clear Abdomen: normal bowel sounds, non tender Extremities: normal range of motion, non-tender, normal inspection Neurologic: alert, oriented x 3 Silvina Kohli M.D. Jan 22, 2020 09:18
[2020-01-22] MEDS: Metoprolol Succinate XL 25mg tab ORAL SCH (09:30)
[2020-01-22] MEDS: Losartan 50mg tab ORAL SCH (09:31)
[2020-01-22] MEDS: Heparin 5000 units/ml inj SUBQ SCH ×2 (09:32→21:45)
[2020-01-22] MEDS: Potassium Phosphate 15mm/250ml 250 ML IVPB SCH ×2 (11:46→15:09)
[2020-01-22 12:00] VITALS: BP 130/72
--- NOTE | 2020-01-22 12:30 | Consultation ---
DATE OF CONSULTATION: 01/22/2020 PULMONARY CONSULTATION HISTORY OF PRESENT ILLNESS: This is an 84-year-old female who presented to the hospital with fever and shortness of breath. Her x-ray chest was done, which showed mild interstitial congestion, but no definite infiltrates. Remainder workup was negative except for marked leukocytosis 27,000 and now 34,000 this morning. She was also found to have elevated D-dimer, few RBCS on UA . The patient was seen by Diseases specialist and has been started on broad-spectrum antibiotics. Her microbiology so far is negative. However, she was noted to have a blood cultures positivity with gram-positive cocci in 2/2 bottles. Her COVID-19 rapid gene assay has been negative x2. At this time, the patient states she is feeling better. ALLERGIES: Penicillin. PAST MEDICAL HISTORY: Notable for hypertension, GERD, hyperlipidemia, previous CVA. REVIEW OF SYSTEMS: Denies any headaches, hematemesis, melena, or hematochezia. PHYSICAL EXAMINATION: GENERAL: Reveals a 84-year-old female. HEENT: Unremarkable. CHEST: Clear breath sounds bilaterally. ABDOMEN: Soft. EXTREMITIES: There is no edema. NEUROLOGIC: At this time is nonfocal. LABORATORY DATA: Lab testing as discussed above. IMPRESSION: 1. Sepsis with bacteremia. 2. Pulmonary vascular congestion. 3. GERD. 4. Hypertension. 5. Hyperlipidemia. 6. Previous CVA. DISCUSSION: Agree with admission and care. Currently she is saturating well on nasal oxygen. No further pulmonary intervention required. Broad-spectrum antibiotics. Await further cultures. Thierno Payan M.D. DR: Justyn JOB#: [id number] CC: DARI
[2020-01-22 15:57] VITALS: BP 151/74
--- NOTE | 2020-01-22 16:49 | Diagnostic Imaging Report ---
Indication: Chest infection Technique: One view of the chest Comparison: 01/21/2020 Findings: Increasing interstitial and airspace infiltrates are seen diffusely within the lungs bilaterally. The heart is borderline enlarged. There is torturous ectatic and calcified Impression: Increasing bilateral infiltrates versus edema, over one day
--- NOTE | 2020-01-22 17:00 | Consultation ---
DATE OF CONSULTATION: 01/22/2020 GASTROENTEROLOGY CONSULTATION CONSULTING PHYSICIAN: Jarocho Ugalde MD REFERRING PHYSICIAN: Silvina Kohli MD CHIEF COMPLAINT: Failure to thrive. HISTORY OF PRESENT ILLNESS: This is a very pleasant 84-year-old -[place], who was admitted to the hospital mainly for fever and leukocytosis. The patient has not been eating well, so GI consult requested for further evaluation. Since admission, the patient has been evaluated by ID. The patient had white count of over 20,000, and antibiotics. The patient does not like the hospital food. There were no obvious swallowing issues, but according to the nurses, they have to crush the medication to give it to her. PAST MEDICAL HISTORY: Significant for: 1. Hypertension. 2. GERD. 3. Hyperlipidemia. 4. History of CVA. PAST SURGICAL HISTORY: Unknown. ALLERGIES: Penicillin. SOCIAL HISTORY: Denies any history of tobacco, alcohol, or IV drug abuse. FAMILY HISTORY: Noncontributory. REVIEW OF SYSTEMS: Limited. PHYSICAL EXAMINATION: VITAL SIGNS: Temperature is 97.6, T-max is 99.8, pulse is 102, respiratory rate 20, blood pressure 116/76. HEENT: Normocephalic and atraumatic. Sclerae anicteric. NECK: Supple. No evidence of obvious lymphadenopathy. CARDIOVASCULAR: Regular rate and rhythm. Plus S1 and S2. LUNGS: Decreased breath sounds bilaterally based on supine exam. ABDOMEN: Soft, nontender. No rebound. No guarding. No peritoneal sign. EXTREMITIES: No cyanosis. No clubbing. No edema. LABORATORY AND DIAGNOSTIC DATA: White count is 34,000, hemoglobin 14, hematocrit 42, platelet count is 213,000. Chem- 7, sodium 130, potassium 3.4, BUN is 16, creatinine is 0.7. ASSESSMENT: This is an 84-year-old female with leukocytosis of unknown etiology. At this time, she has been followed by ID. GI standpoint mainly is failure to thrive. PLAN: Order swallow evaluation to see what kind of diet can be introduced safely to her. We will order calorie count. We will order Marinol 2.5 mg p.o. b.i.d. Discussion about the PEG on hold at this time given we are waiting for above to be done and also the patient has white count of 34,000, so not stable for it. I want to thank, Dr. Silvina Kohli, for this kind referral. Jarocho Ugalde M.D. DR: Andrae JOB#: [id number] CC: Silvina Kohli MD
[2020-01-22] MEDS: Dronabinol 2.5mg Cap ORAL SCH (19:03)
[2020-01-22 20:00] VITALS: BP 133/74
[2020-01-22] MEDS: Atorvastatin 20mg tab ORAL SCH (21:45)
[2020-01-23] VITALS: BP 125/62
[2020-01-23] MEDS: Pantoprazole Inj IVP SCH (06:24)
[2020-01-23 08:00] VITALS: BP 120/65
[2020-01-23] MEDS: cefTRIAXone 1 GM in D5W 55 ML IVPB SCH ×2 (09:00→18:37)
--- NOTE | 2020-01-23 09:20 | General Progress Note ---
Assessment/Plan Assessment/Plan: #Sepsis - r/o COVID #gram pos bacteremia #Leukocytosis #Hyponatremia #Possible syncope #Hypokalemia #HTN #Dementia - replace K - IVF - IV abx per ID - on ceftriaxone, flagyl, azithro, and vanco - COVID r/o - ID consult - IVF - pulm eval - monitor BP - monitor resp status - cardiology eval for possible syncope - continue metop 25 daily - amlodipine 10mg daily - continue losartan 100mg daily Subjective Allergies: Coded Allergies: PENICILLINS (Verified Allergy, Unknown, 01/23/20) nurse unable to enter a coded PENICILLIN allergy. still need to obtain reaction Subjective continues to have low grade fevers and some chills WBC uptrending Blood cx growing gram pos cocci Objective Last 24 Hour Vital Signs Date Time Temp Pulse Resp B/P (MAP) Pulse Ox O2 Delivery O2 Flow Rate FiO2 01/23/20 08:00 98.1 98 20 120/65 (83) 96 01/23/20 08:00 Nasal Cannula 2.0 01/23/20 05:30 99.0 01/23/20 04:00 Nasal Cannula 2.0 01/23/20 04:00 121 01/23/20 00:00 124 01/23/20 00:00 99.0 118 18 125/62 (83) 98 01/23/20 00:00 Nasal Cannula 2.0 01/22/20 20:00 92 01/22/20 20:00 Nasal Cannula 2.0 01/22/20 20:00 99.3 110 20 133/74 (93) 95 01/22/20 16:30 99.5 01/22/20 16:00 Nasal Cannula 2.0 01/22/20 15:57 100.8 114 20 151/74 (99) 95 01/22/20 15:40 122 01/22/20 12:00 Nasal Cannula 2.0 01/22/20 12:00 100 01/22/20 12:00 99.5 96 20 130/72 (91) 96 01/22/20 09:31 116/76 01/22/20 09:30 97 116/76 01/22/20 09:30 97 116/76 Intake and Output 01/22/20 01/23/20 19:00 07:00 Intake Total 470 ml 100 ml Output Total 600 ml Balance -130 ml 100 ml Intake Oral 470 ml IV Total 100 ml Output Urine Total 600 ml Height (Feet): 5 Height (Inches): 3.00 Weight (Pounds): 140 Silvina Kohli M.D. Jan 23, 2020 09:20
[2020-01-23] MEDS: Vancomycin 750mg/NS 275ml IVPB SCH ×2 (09:36)
[2020-01-23] MEDS: Dronabinol 2.5mg Cap ORAL SCH ×2 (09:37→18:36)
[2020-01-23] MEDS: Metoprolol Succinate XL 25mg tab ORAL SCH (09:38)
[2020-01-23] MEDS: Losartan 50mg tab ORAL SCH (09:38)
[2020-01-23] MEDS: Heparin 5000 units/ml inj SUBQ SCH ×2 (09:40→21:38)
--- NOTE | 2020-01-23 10:31 | Pulmonology Progress Note ---
Subjective ROS Limited/Unobtainable: No Interval Events: None new Constitutional: Reports: no symptoms HEENT: Repors: no symptoms Respiratory: Reports: no symptoms Allergies: Uncoded Allergies: unk (Allergy, Unknown, 01/23/20) Objective Last 24 Hour Vital Signs Date Time Temp Pulse Resp B/P (MAP) Pulse Ox O2 Delivery O2 Flow Rate FiO2 01/23/20 09:38 98 120/65 01/23/20 09:38 120/65 01/23/20 09:38 98 120/65 01/23/20 08:00 98.1 98 20 120/65 (83) 96 01/23/20 08:00 Nasal Cannula 2.0 01/23/20 05:30 99.0 01/23/20 04:00 Nasal Cannula 2.0 01/23/20 04:00 121 01/23/20 00:00 124 01/23/20 00:00 99.0 118 18 125/62 (83) 98 01/23/20 00:00 Nasal Cannula 2.0 01/22/20 20:00 92 01/22/20 20:00 Nasal Cannula 2.0 01/22/20 20:00 99.3 110 20 133/74 (93) 95 01/22/20 16:30 99.5 01/22/20 16:00 Nasal Cannula 2.0 01/22/20 15:57 100.8 114 20 151/74 (99) 95 01/22/20 15:40 122 01/22/20 12:00 Nasal Cannula 2.0 01/22/20 12:00 100 01/22/20 12:00 99.5 96 20 130/72 (91) 96 Intake and Output 01/22/20 01/23/20 19:00 07:00 Intake Total 470 ml 100 ml Output Total 600 ml Balance -130 ml 100 ml Intake Oral 470 ml IV Total 100 ml Output Urine Total 600 ml HEENT: normocephalic Respiratory: chest wall non-tender, lungs clear Cardiovascular: normal peripheral pulses, normal rate Microbiology Date/Time Source Procedure Growth Status 01/22/20 04:30 Nasopharynx SARS-CoV-2 RdRp Gene Assay - Final Complete 01/21/20 09:20 Nasopharynx SARS-CoV-2 RdRp Gene Assay - Final Complete 01/21/20 09:20 Nasal Nares - Final Complete 01/21/20 09:20 Nasal Nares - Final Complete 01/21/20 09:15 Blood Blood Culture - Preliminary Staphylococcus Aureus Resulted 01/21/20 09:00 Blood Blood Culture - Preliminary Staphylococcus Aureus Resulted Current Medications Medications (Trade) Dose Ordered Sig/Altagracia Route PRN Reason Start Time Stop Time Status Last Admin Dose Admin Acetaminophen (Tylenol) 650 mg Q4H PRN ORAL Mild Pain (Pain Scale 1-3) 01/21/20 14:00 02/20/20 13:59 01/22/20 16:00 Acetaminophen (Tylenol) 650 mg Q4H PRN ORAL Temp >100.5 01/21/20 14:00 02/20/20 13:59 01/23/20 05:00 Albuterol/ Ipratropium (Albuterol/ Ipratropium) 3 ml Q4H PRN HHN Shortness of Breath 01/21/20 14:00 01/26/20 13:59 Alendronate Sodium (Fosamax) 70 mg ONCE A WEEK ORAL 01/22/20 06:30 02/21/20 06:29 01/22/20 05:36 Amlodipine Besylate (Norvasc) 5 mg DAILY ORAL 01/22/20 09:00 02/21/20 08:59 01/23/20 09:38 Amylase/Lipase/ Protease (Chelsy HUFF 36,000 units cap) 1 ea TIDPRN PRN ORAL Abdominal cramps 01/21/20 15:45 04/20/20 15:44 Atorvastatin Calcium (Lipitor) 20 mg BEDTIME ORAL 01/22/20 21:00 04/21/20 20:59 01/22/20 21:45 Ceftriaxone Sodium 1 gm/ Dextrose 55 ml @ 110 mls/hr Q24H IVPB 01/22/20 09:00 01/29/20 08:59 Clonazepam (KlonoPIN) 1 mg Q6H PRN ORAL For Anxiety 01/21/20 15:15 01/28/20 15:14 Dronabinol (Marinol) 2.5 mg BID ORAL 01/22/20 18:00 04/21/20 17:59 01/23/20 09:37 Heparin Sodium (Porcine) (Heparin 5000 units/ml) 5,000 units EVERY 12 HOURS SUBQ 01/21/20 21:00 03/06/20 20:59 01/23/20 09:40 Iopamidol (Isovue-300 100ml) 100 ml NOW PRN INJ Radiology Procedure 01/21/20 17:00 01/23/20 16:59 Loratadine (Claritin 10mg) 10 mg DAILY ORAL 01/23/20 09:00 02/22/20 08:59 01/23/20 09:37 Losartan Potassium (Cozaar) 100 mg DAILY ORAL 01/22/20 09:00 02/21/20 08:59 01/23/20 09:38 Metoprolol Succinate (Toprol XL) 25 mg DAILY ORAL 01/22/20 09:00 04/21/20 08:59 01/23/20 09:38 Metronidazole 100 ml @ 100 mls/hr Q8HR IVPB 01/21/20 22:00 01/28/20 21:59 01/23/20 05:01 Pantoprazole (Protonix) 40 mg ACBREAKFAST IVP 01/23/20 06:30 02/22/20 06:29 01/23/20 06:24 Vancomycin HCl (Vanco pharmacy to dose) 1 ea DAILY PRN MISC Per rx protocol 01/22/20 08:00 02/21/20 07:59 Vancomycin HCl 750 mg/Sodium Chloride 275 ml @ 183.333 mls/hr Q24H IVPB 01/23/20 08:00 01/28/20 07:59 01/23/20 09:36 Assessment/Plan Assessment/Plan IMPRESSION: 1. Sepsis with bacteremia. 2. Pulmonary vascular congestion. 3. GERD. 4. Hypertension. 5. Hyperlipidemia. 6. Previous CVA. DISCUSSION: Continue nasal O2. No further pulmonary intervention required. Broad-spectrum antibiotics. Await further cultures. Gil Mattson Omar Syed MD Jan 23, 2020 10:31
[2020-01-23 10:38] LABS: HEMOGLOBIN 14.7 G/DL (12.0-16.0); MEAN CORPUSCULAR VOLUME 92 FL (80-99); PLATELET COUNT 196 K/UL (150-450); RED BLOOD COUNT 4.69 M/UL (4.20-5.40); RED CELL DISTRIBUTION WIDTH 11.5 % (11.6-14.8)
[2020-01-23 10:51] LABS: WHITE BLOOD COUNT 29.1 K/UL (4.8-10.8)
[2020-01-23 10:55] LABS: ANION GAP 6 mmol/L (5-15); BLOOD UREA NITROGEN 15 mg/dL (7-18); CALCIUM 8.1 MG/DL (8.5-10.1); CARBON DIOXIDE 26 MMOL/L (21-32); CHLORIDE 105 MMOL/L (98-107); CREATININE 0.7 MG/DL (0.55-1.30); PHOSPHORUS 2.2 MG/DL (2.5-4.9); POTASSIUM 3.3 MMOL/L (3.5-5.1); SODIUM 137 MMOL/L (136-145)
--- NOTE | 2020-01-23 11:59 | General Progress Note ---
Subjective Date patient seen: Jan 23, 2020 ROS Limited/Unobtainable: No Constitutional: Reports: fever, malaise, weakness HEENT: Reports: no symptoms, eye pain, blurred vision, tearing, double vision, ear pain, ear discharge, nose pain, nose congestion, throat pain, throat swe lling, mouth pain, mouth swelling, other - neck stiffness/apin Cardiovascular: Denies: no symptoms, chest pain, edema, irregular heart rate, lightheadedness, palpitations, syncope, other Respiratory: Denies: no symptoms, cough, orthopnea, shortness of breath, SOB with excertion, SOB at rest, sputum, stridor, wheezing, other Gastrointestinal/Abdominal: Denies: no symptoms, abdomen distended, abdominal pain, black stools, tarry stools, blood in stool, constipated, diarrhea, difficulty swallowing, nausea, poor appetite, poor fluid intake, rectal bleeding, vomiting, other Genitourinary: Denies: no symptoms, burning, discharge, frequency, flank pain, hematuria, incontinence, pain, urgency, other Neurologic/Psychiatric: Denies: no symptoms, anxiety, depressed, emotional problems, headache, numbness, paresthesia, pre-existing deficit, seizure, tingling, tremors, weakness, other Hematologic/Lymphatic: Denies: no symptoms, anemia, easy bleeding, easy bruising, other Allergies: Uncoded Allergies: PCN (Allergy, Unknown, 01/23/20) Subjective resting in bed. complaining of neck pain/stiffness. denies any other s'x including cough, SOB, chest pain, n/v, abd pain, TELLEZ Objective Last 24 Hour Vital Signs Date Time Temp Pulse Resp B/P (MAP) Pulse Ox O2 Delivery O2 Flow Rate FiO2 01/23/20 09:38 98 120/65 01/23/20 09:38 120/65 01/23/20 09:38 98 120/65 01/23/20 08:00 98.1 98 20 120/65 (83) 96 01/23/20 08:00 Nasal Cannula 2.0 01/23/20 05:30 99.0 01/23/20 04:00 Nasal Cannula 2.0 01/23/20 04:00 121 01/23/20 00:00 124 01/23/20 00:00 99.0 118 18 125/62 (83) 98 01/23/20 00:00 Nasal Cannula 2.0 01/22/20 20:00 92 01/22/20 20:00 Nasal Cannula 2.0 01/22/20 20:00 99.3 110 20 133/74 (93) 95 01/22/20 16:30 99.5 01/22/20 16:00 Nasal Cannula 2.0 01/22/20 15:57 100.8 114 20 151/74 (99) 95 01/22/20 15:40 122 01/22/20 12:00 Nasal Cannula 2.0 01/22/20 12:00 100 01/22/20 12:00 99.5 96 20 130/72 (91) 96 Intake and Output 01/22/20 01/23/20 19:00 07:00 Intake Total 470 ml 100 ml Output Total 600 ml Balance -130 ml 100 ml Intake Oral 470 ml IV Total 100 ml Output Urine Total 600 ml Laboratory Tests 01/23/20 10:14: White Blood Count 29.1*H, Red Blood Count 4.69, Hemoglobin 14.7, Hematocrit 43.0, Mean Corpuscular Volume 92, Mean Corpuscular Hemoglobin 31.3H, Mean Corpuscular Hemoglobin Concent 34.2, Red Cell Distribution Width 11.5L, Platelet Count 196, Mean Platelet Volume 5.4L, Neutrophils (%) (Auto) , Lymphocytes (%) (Auto) , Monocytes (%) (Auto) , Eosinophils (%) (Auto) , Basophils (%) (Auto) , Differential Total Cells Counted 100, Neutrophils % (Manual) 83H, Lymphocytes % (Manual) 10L, Monocytes % (Manual) 0L, Eosinophils % (Manual) 0, Basophils % (Manual) 0, Band Neutrophils 7, Platelet Estimate Adequate, Platelet Morphology Normal, Red Blood Cell Morphology Normal, Sodium Level 137, Potassium Level 3.3L , Chloride Level 105, Carbon Dioxide Level 26, Anion Gap 6, Blood Urea Nitrogen 15, Creatinine 0.7, Estimat Glomerular Filtration Rate > 60, Glucose Level 185H, Calcium Level 8.1L, Phosphorus Level 2.2L, Magnesium Level 2.2 Height (Feet): 5 Height (Inches): 3.00 Weight (Pounds): 140 General Appearance: no apparent distress, alert EENT: PERRL/EOMI Neck: limited range of motion, stiff neck Cardiovascular: normal rate, regular rhythm Respiratory/Chest: lungs clear, normal breath sounds Abdomen: non tender, soft Edema: non-pitting Neurologic: alert, oriented x 3 Assessment/Plan Problem List: (1) Bacteremia ICD Codes: R78.81 - Bacteremia SNOMED: 7203863 (2) Leukocytosis ICD Codes: D72.829 - Elevated white blood cell count, unspecified SNOMED: 585192368, 173332365 (3) Hypokalemia ICD Codes: E87.6 - Hypokalemia SNOMED: 00417171, 857999081 (4) Fever ICD Codes: R50.9 - Fever, unspecified SNOMED: 859648008 Status: stable Assessment/Plan: Ms. Walker is a 84 year old female with HTN, HLD who presented with syncope and weakness, found to have S. aureus bacteremia #Severe sepsis #Staph aureus bacteremia #Fever #Leukocytosis -ID following. -BCx with staph aureus, repeat BCx not ordered yet. unclear source of bacteremia. -Continue abx per ID -TTE wnl, no vegetations seen. -Possible CTH +/- LP given stiff neck, will defer to ID -UA relatively benign. -rapid COVID neg x2. PCR COVID test pending. -Continue COVID isolation for now. -PT once COVID neg. #HTN - continue metop 25 daily - amlodipine 10mg daily - continue losartan 100mg daily #Hypokalemia -replete -trend BMP Extra 32 mins spent on chart review of hospital record, including labs, imaging, medications and home service consultant notes. Camden Dominique MD Jan 23, 2020 11:59
[2020-01-23 12:00] VITALS: BP 142/71
--- NOTE | 2020-01-23 13:06 | Consultation ---
History of Present Illness General Date patient seen: Jan 23, 2020 Reason for Hospitalization: Syncope Present Illness HPI 84-year-old female [facility] patient presented with significant leukocytosis abnormal labs weakness failure to thrive admitted for care there care and management. BMI 22 low albumin seen by GI surgery called to evaluate assist with care patient seen, patient evaluated, chart reviewed Allergies: Coded Allergies: PENICILLINS (Verified Allergy, Unknown, 01/23/20) nurse unable to enter a coded PENICILLIN allergy. still need to obtain reaction COVID-19 Screening Contact w/high risk pt: No Experienced COVID-19 symptoms?: Yes Coronavirus symptoms experienc: Fever (T>100.4F or >38C) Medication History Scheduled Alendronate Sodium* (Fosamax*), 70 MG ORAL ONCE A WEEK, (Reported) Amlodipine Besylate* (Amlodipine Besylate*), 5 MG ORAL DAILY, (Reported) Clonazepam* (Klonopin*), 1 MG ORAL Q6H, (Reported) Dexlansoprazole (Dexilant), 60 MG ORAL DAILY, (Reported) Levocetirizine Dihydrochloride (Levocetirizine Dihydrochloride), 5 MG ORAL DAILY, (Reported) Lipase/Protease/Amylase (Creon Dr 36,000 Units Capsule), 1 EACH PO TID, (Reported) Losartan Potassium* (Losartan Potassium*), 100 MG ORAL DAILY, (Reported) Metoprolol Succinate* (Metoprolol Succinate*), 25 MG ORAL DAILY, (Reported) Simvastatin (Zocor), 20 MG ORAL BEDTIME, (Reported) Miscellaneous Medications Cyclosporine (Restasis), 1 DROP RIGHT EYE, (Reported) Patient History Limited by: age, medical condition History Provided By: Medical Record, PMD Healthcare decision maker Resuscitation status Advanced Directive on File Past Medical/Surgical History Past Medical/Surgical History: (1) Pulmonary edema (2) Hypokalemia (3) Leukocytosis (4) Fever (5) Bacteremia Review of Systems Review of Symptoms General ROS: no weight loss or fever Psychological ROS: no depression or mood changes, no memory loss Ophthalmic ROS: no visual changes or eye irritation ENT ROS: no nasal congestion, hearing loss, dizziness Allergy and Immunology ROS: no allergic symptoms or urticaria Hematological and Lymphatic ROS: no swollen glands, unusual bleeding or bruising Endocrine ROS: no polyuria, polydipsia, weight changes, temperature intolerance Respiratory ROS: no cough, shortness of breath, or wheezing Cardiovascular ROS: no chest pain or dyspnea on exertion Gastrointestinal ROS: denies abdominal pain, bright red blood in stool. Musculoskeletal ROS: no myalgias or arthralgias Neurological ROS: no TIA or stroke symptoms Dermatological ROS: no new or changing skin lesions, rashes or pruritis Physical Exam Physical Exam General appearance: alert, cooperative, no distress, appears stated age Head: Normocephalic, without obvious abnormality, atraumatic Eyes: conjunctivae/corneas clear. PERRL, EOM's intact. Fundi benign Throat: Lips, mucosa, and tongue normal. Teeth and gums normal Neck: supple, symmetrical, trachea midline, no adenopathy, thyroid: not enlarged, symmetric, no tenderness/mass/nodules, no carotid bruit and no JVD Lungs: clear to auscultation bilaterally Heart: regular rate and rhythm, S1, S2 normal, no murmur, click, rub or gallop Abdomen: soft, non-tender. Bowel sounds normal. No masses, no organomegaly Extremities: extremities normal, atraumatic, no cyanosis or edema Pulses: 2+ and symmetric Skin: Skin color, texture, turgor normal. No rashes or lesions Neurologic: Grossly normal Last 24 Hour Vital Signs Date Time Temp Pulse Resp B/P (MAP) Pulse Ox O2 Delivery O2 Flow Rate FiO2 01/23/20 09:38 98 120/65 01/23/20 09:38 120/65 01/23/20 09:38 98 120/65 01/23/20 08:00 98.1 98 20 120/65 (83) 96 01/23/20 08:00 99 01/23/20 08:00 Nasal Cannula 2.0 01/23/20 05:30 99.0 01/23/20 04:00 Nasal Cannula 2.0 01/23/20 04:00 121 01/23/20 00:00 124 01/23/20 00:00 99.0 118 18 125/62 (83) 98 01/23/20 00:00 Nasal Cannula 2.0 01/22/20 20:00 92 01/22/20 20:00 Nasal Cannula 2.0 01/22/20 20:00 99.3 110 20 133/74 (93) 95 01/22/20 16:30 99.5 01/22/20 16:00 Nasal Cannula 2.0 01/22/20 15:57 100.8 114 20 151/74 (99) 95 01/22/20 15:40 122 Intake and Output 01/22/20 01/23/20 19:00 07:00 Intake Total 470 ml 100 ml Output Total 600 ml Balance -130 ml 100 ml Intake Oral 470 ml IV Total 100 ml Output Urine Total 600 ml Laboratory Tests Test 01/23/20 10:14 White Blood Count 29.1 K/UL (4.8-10.8) *H Red Blood Count 4.69 M/UL (4.20-5.40) Hemoglobin 14.7 G/DL (12.0-16.0) Hematocrit 43.0 % (37.0-47.0) Mean Corpuscular Volume 92 FL (80-99) Mean Corpuscular Hemoglobin 31.3 PG (27.0-31.0) H Mean Corpuscular Hemoglobin Concent 34.2 G/DL (32.0-36.0) Red Cell Distribution Width 11.5 % (11.6-14.8) L Platelet Count 196 K/UL (150-450) Mean Platelet Volume 5.4 FL (6.5-10.1) L Neutrophils (%) (Auto) % (45.0-75.0) Lymphocytes (%) (Auto) % (20.0-45.0) Monocytes (%) (Auto) % (1.0-10.0) Eosinophils (%) (Auto) % (0.0-3.0) Basophils (%) (Auto) % (0.0-2.0) Differential Total Cells Counted 100 Neutrophils % (Manual) 83 % (45-75) H Lymphocytes % (Manual) 10 % (20-45) L Monocytes % (Manual) 0 % (1-10) L Eosinophils % (Manual) 0 % (0-3) Basophils % (Manual) 0 % (0-2) Band Neutrophils 7 % (0-8) Platelet Estimate Adequate Platelet Morphology Normal Red Blood Cell Morphology Normal Sodium Level 137 MMOL/L (136-145) Potassium Level 3.3 MMOL/L (3.5-5.1) L Chloride Level 105 MMOL/L (98-107) Carbon Dioxide Level 26 MMOL/L (21-32) Anion Gap 6 mmol/L (5-15) Blood Urea Nitrogen 15 mg/dL (7-18) Creatinine 0.7 MG/DL (0.55-1.30) Estimat Glomerular Filtration Rate > 60 mL/min (>60) Glucose Level 185 MG/DL (74-106) H Calcium Level 8.1 MG/DL (8.5-10.1) L Phosphorus Level 2.2 MG/DL (2.5-4.9) L Magnesium Level 2.2 MG/DL (1.8-2.4) Height (Feet): 5 Height (Inches): 3.00 Weight (Pounds): 140 Medications Current Medications Medications (Trade) Dose Ordered Sig/Altagracia Route PRN Reason Start Time Stop Time Status Last Admin Dose Admin Acetaminophen (Tylenol) 650 mg Q4H PRN ORAL Mild Pain (Pain Scale 1-3) 01/21/20 14:00 02/20/20 13:59 01/22/20 16:00 Acetaminophen (Tylenol) 650 mg Q4H PRN ORAL Temp >100.5 01/21/20 14:00 02/20/20 13:59 01/23/20 05:00 Albuterol/ Ipratropium (Albuterol/ Ipratropium) 3 ml Q4H PRN HHN Shortness of Breath 01/21/20 14:00 01/26/20 13:59 Alendronate Sodium (Fosamax) 70 mg ONCE A WEEK ORAL 01/22/20 06:30 02/21/20 06:29 01/22/20 05:36 Amlodipine Besylate (Norvasc) 5 mg DAILY ORAL 01/22/20 09:00 02/21/20 08:59 01/23/20 09:38 Amylase/Lipase/ Protease (Chelsy HUFF 36,000 units cap) 1 ea TIDPRN PRN ORAL Abdominal cramps 01/21/20 15:45 04/20/20 15:44 Atorvastatin Calcium (Lipitor) 20 mg BEDTIME ORAL 01/22/20 21:00 04/21/20 20:59 01/22/20 21:45 Clonazepam (KlonoPIN) 1 mg Q6H PRN ORAL For Anxiety 01/21/20 15:15 01/28/20 15:14 Dronabinol (Marinol) 2.5 mg BID ORAL 01/22/20 18:00 04/21/20 17:59 01/23/20 09:37 Heparin Sodium (Porcine) (Heparin 5000 units/ml) 5,000 units EVERY 12 HOURS SUBQ 01/21/20 21:00 03/06/20 20:59 01/23/20 09:40 Iopamidol (Isovue-300 100ml) 100 ml NOW PRN INJ Radiology Procedure 01/21/20 17:00 01/23/20 16:59 Loratadine (Claritin 10mg) 10 mg DAILY ORAL 01/23/20 09:00 02/22/20 08:59 01/23/20 09:37 Losartan Potassium (Cozaar) 100 mg DAILY ORAL 01/22/20 09:00 02/21/20 08:59 01/23/20 09:38 Metoprolol Succinate (Toprol XL) 25 mg DAILY ORAL 01/22/20 09:00 04/21/20 08:59 01/23/20 09:38 Metronidazole 100 ml @ 100 mls/hr Q8HR IVPB 01/21/20 22:00 01/28/20 21:59 01/23/20 05:01 Pantoprazole (Protonix) 40 mg ACBREAKFAST IVP 01/23/20 06:30 02/22/20 06:29 01/23/20 06:24 Potassium Phosphate 20 mm/ Sodium Chloride 281.6667 ml @ 46.944 m... ONCE IV 01/23/20 13:30 01/23/20 14:30 01/23/20 13:00 Potassium Chloride (K-Dur) 40 meq ONCE ORAL 01/23/20 12:30 01/23/20 13:30 01/23/20 12:59 Vancomycin HCl (Vanco pharmacy to dose) 1 ea DAILY PRN MISC Per rx protocol 01/22/20 08:00 02/21/20 07:59 Vancomycin HCl 750 mg/Sodium Chloride 275 ml @ 183.333 mls/hr Q24H IVPB 01/23/20 08:00 01/28/20 07:59 01/23/20 09:36 Assessment/Plan Problem List: (1) Pulmonary edema ICD Codes: J81.1 - Chronic pulmonary edema SNOMED: 97053627 (2) Hypokalemia ICD Codes: E87.6 - Hypokalemia SNOMED: 49146879, 841108270 (3) Leukocytosis Assessment & Plan: 84-year-old female afebrile hemodynamic stable bacteremia leukocytosis LFTs okay hypoalbuminemia BMI 22 failure to thrive. UTI /pna on antibiotics appreciate ID input. Agree with GI as to calorie count feeding trial swallow eval and continue Marinol. May need feeding tube given failure to thrive. Will follow with recommendations Participation's care No acute intracranial hemorrhage or edema. No mass effect nor midline shift. There is age-related enlargement of the ventricles and extra axial CSF spaces. There is periventricular deep white matter low-attenuation, consistent with chronic microvascular ischemic changes. Old lacunar infarcts are seen in the basal ganglia bilaterally. The mastoids are clear. There is fairly extensive sphenoid and ethmoid sinus disease. The calvarium is intact. Impression: Chronic and age-related changes. Old bilateral basal ganglia lacunar infarcts. Negative for acute intracranial bleed or mass effect Increasing interstitial and airspace infiltrates are seen diffusely within the lungs bilaterally. The heart is borderline enlarged. There is torturous ectatic and calcified Impression: Increasing bilateral infiltrates versus edema, over one day ICD Codes: D72.829 - Elevated white blood cell count, unspecified SNOMED: 378117024, 406414767 (4) Fever ICD Codes: R50.9 - Fever, unspecified SNOMED: 617943340 (5) Bacteremia ICD Codes: R78.81 - Bacteremia SNOMED: 4717018 Alvarado Tolliver Jan 23, 2020 13:06
[2020-01-23] MEDS ORDERED: Potassium Phosphate 20 MM in NS 275 ML IV SCH (13:30)
--- NOTE | 2020-01-23 13:52 | General Progress Note ---
Subjective ROS Limited/Unobtainable: No Allergies: Coded Allergies: PENICILLINS (Verified Allergy, Unknown, 01/23/20) nurse unable to enter a coded PENICILLIN allergy. still need to obtain reaction Objective Last 24 Hour Vital Signs Date Time Temp Pulse Resp B/P (MAP) Pulse Ox O2 Delivery O2 Flow Rate FiO2 01/23/20 12:00 99.2 107 20 142/71 (94) 94 01/23/20 09:38 98 120/65 01/23/20 09:38 120/65 01/23/20 09:38 98 120/65 01/23/20 08:00 98.1 98 20 120/65 (83) 96 01/23/20 08:00 99 01/23/20 08:00 Nasal Cannula 2.0 01/23/20 05:30 99.0 01/23/20 04:00 Nasal Cannula 2.0 01/23/20 04:00 121 01/23/20 00:00 124 01/23/20 00:00 99.0 118 18 125/62 (83) 98 01/23/20 00:00 Nasal Cannula 2.0 01/22/20 20:00 92 01/22/20 20:00 Nasal Cannula 2.0 01/22/20 20:00 99.3 110 20 133/74 (93) 95 01/22/20 16:30 99.5 01/22/20 16:00 Nasal Cannula 2.0 01/22/20 15:57 100.8 114 20 151/74 (99) 95 01/22/20 15:40 122 Intake and Output 01/22/20 01/23/20 19:00 07:00 Intake Total 470 ml 100 ml Output Total 600 ml Balance -130 ml 100 ml Intake Oral 470 ml IV Total 100 ml Output Urine Total 600 ml Laboratory Tests 01/23/20 10:14: White Blood Count 29.1*H, Red Blood Count 4.69, Hemoglobin 14.7, Hematocrit 43.0, Mean Corpuscular Volume 92, Mean Corpuscular Hemoglobin 31.3H, Mean Corpuscular Hemoglobin Concent 34.2, Red Cell Distribution Width 11.5L, Platelet Count 196, Mean Platelet Volume 5.4L, Neutrophils (%) (Auto) , Lymphocytes (%) (Auto) , Monocytes (%) (Auto) , Eosinophils (%) (Auto) , Basophils (%) (Auto) , Differential Total Cells Counted 100, Neutrophils % (Manual) 83H, Lymphocytes % (Manual) 10L, Monocytes % (Manual) 0L, Eosinophils % (Manual) 0, Basophils % (Manual) 0, Band Neutrophils 7, Platelet Estimate Adequate, Platelet Morphology Normal, Red Blood Cell Morphology Normal, Sodium Level 137, Potassium Level 3.3L , Chloride Level 105, Carbon Dioxide Level 26, Anion Gap 6, Blood Urea Nitrogen 15, Creatinine 0.7, Estimat Glomerular Filtration Rate > 60, Glucose Level 185H, Calcium Level 8.1L, Phosphorus Level 2.2L, Magnesium Level 2.2 Height (Feet): 5 Height (Inches): 3.00 Weight (Pounds): 140 General Appearance: no apparent distress EENT: normal ENT inspection Neck: supple Cardiovascular: normal rate Respiratory/Chest: decreased breath sounds Abdomen: hypoactive bowel sounds Extremities: non-tender Assessment/Plan Status: stable Assessment/Plan: 1. Hypertension. 2. GERD. 3. Hyperlipidemia. 4. History of CVA. 5. FTT marinol add ensure TID calorie count swallow eval abx per ID will Jarocho Clarke MD Jan 23, 2020 13:52
--- NOTE | 2020-01-23 15:36 | Infectious Diseases Prog Note ---
Assessment/Plan Assessment/Plan ASSESSMENT AND PLAN: 1. staph aureus bacteremia, sepsis, leukocytosis, fevers, ? pna, ? cap, ? aspiration risk, staph aureus septic emboli, ? endocarditis, ? meningitis, TELLEZ, neck pain - vancomycin, ceftriaxone, flagyl - consider CT scan - chest, abdomen and pelvis - consider LP - monitor labs, cultures, chest x-ray - f/u on TTE, may need KENNETH if bacteremia persists - communicated with Dr. Dominique 2. Hypertension. Blood pressure treatment per primary care team. 3. GERD. 4. HLP, which I think is hyperlipidemia, but I am not sure. 5. Per the records, history of CVA. 6. Cardiac disease. 7. Allergic to penicillin, tolerates cephalosporins. 8. Social History is negative. 9. Family History is noncontributory . 10. MAR was noted. 11. Case was discussed with RN. 12. Continue treatment per primary consultants. Subjective Constitutional: Reports: fever, fatigue HEENT: Reports: other - neck pain; Denies: dysphagia, congestion Respiratory: Denies: shortness of breath Cardiovascular: Denies: chest pain, palpitations Gastrointestinal/Abdominal: Denies: nausea, vomiting, diarrhea Genitourinary: Reports: other - no nieves Neurologic: Reports: headache Psychiatric: Reports: other - NA Skin: Denies: rash Hematologic: Denies: bleeding Musculoskeletal: Denies: pain Allergies: Coded Allergies: PENICILLINS (Verified Allergy, Unknown, 01/23/20) nurse unable to enter a coded PENICILLIN allergy. still need to obtain reaction Objective Last 24 Hour Vital Signs Date Time Temp Pulse Resp B/P (MAP) Pulse Ox O2 Delivery O2 Flow Rate FiO2 01/23/20 12:00 99.2 107 20 142/71 (94) 94 01/23/20 12:00 90 01/23/20 09:38 98 120/65 01/23/20 09:38 120/65 01/23/20 09:38 98 120/65 01/23/20 08:00 98.1 98 20 120/65 (83) 96 01/23/20 08:00 99 01/23/20 08:00 Nasal Cannula 2.0 01/23/20 05:30 99.0 01/23/20 04:00 Nasal Cannula 2.0 01/23/20 04:00 121 01/23/20 00:00 124 10/29/20 00:00 99.0 118 18 125/62 (83) 98 01/23/20 00:00 Nasal Cannula 2.0 01/22/20 20:00 92 01/22/20 20:00 Nasal Cannula 2.0 01/22/20 20:00 99.3 110 20 133/74 (93) 95 01/22/20 16:30 99.5 01/22/20 16:00 Nasal Cannula 2.0 01/22/20 15:57 100.8 114 20 151/74 (99) 95 01/22/20 15:40 122 Height (Feet): 5 Height (Inches): 3.00 Weight (Pounds): 140 General Appearance: no acute distress HEENT: normocephalic, atraumatic, anicteric, mucous membranes moist Respiratory/Chest: crackles/rales, rhonchi - bilaterally Cardiovascular: normal rate, regular rhythm, no gallop/murmur, no JVD Abdomen: normal bowel sounds, soft, non tender, no organomegaly, non distended Genitourinary: other - no nieves, no cva pain Extremities: no cyanosis Skin: no rash Neurologic/Psychiatric: manager intelligence II-XII grossly normal, alert, responsive Lymphatic: no neck adenopathy Musculoskeletal: no effusion Chest x-ray - 01/22/20 - Procedure: XRAY Chest 1v Indication: Chest infection Technique: One view of the chest Comparison: 01/21/2020 Findings: Increasing interstitial and airspace infiltrates are seen diffusely within the lungs bilaterally. The heart is borderline enlarged. There is torturous ectatic and calcified Impression: Increasing bilateral infiltrates versus edema, over one day Microbiology Date/Time Source Procedure Growth Status 01/22/20 20:10 Blood Blood Culture - Preliminary Resulted 01/22/20 19:50 Blood Blood Culture - Preliminary Resulted 01/22/20 04:30 Nasopharynx SARS-CoV-2 RdRp Gene Assay - Final Complete 01/21/20 09:20 Nasopharynx SARS-CoV-2 RdRp Gene Assay - Final Complete 01/21/20 09:20 Nasal Nares - Final Complete 01/21/20 09:20 Nasal Nares - Final Complete 01/21/20 09:15 Blood Blood Culture - Preliminary Staphylococcus Aureus Resulted 01/21/20 09:00 Blood Blood Culture - Preliminary Staphylococcus Aureus Resulted Laboratory Tests Test 01/23/20 10:14 White Blood Count 29.1 K/UL (4.8-10.8) *H Red Blood Count 4.69 M/UL (4.20-5.40) Hemoglobin 14.7 G/DL (12.0-16.0) Hematocrit 43.0 % (37.0-47.0) Mean Corpuscular Volume 92 FL (80-99) Mean Corpuscular Hemoglobin 31.3 PG (27.0-31.0) H Mean Corpuscular Hemoglobin Concent 34.2 G/DL (32.0-36.0) Red Cell Distribution Width 11.5 % (11.6-14.8) L Platelet Count 196 K/UL (150-450) Mean Platelet Volume 5.4 FL (6.5-10.1) L Neutrophils (%) (Auto) % (45.0-75.0) Lymphocytes (%) (Auto) % (20.0-45.0) Monocytes (%) (Auto) % (1.0-10.0) Eosinophils (%) (Auto) % (0.0-3.0) Basophils (%) (Auto) % (0.0-2.0) Differential Total Cells Counted 100 Neutrophils % (Manual) 83 % (45-75) H Lymphocytes % (Manual) 10 % (20-45) L Monocytes % (Manual) 0 % (1-10) L Eosinophils % (Manual) 0 % (0-3) Basophils % (Manual) 0 % (0-2) Band Neutrophils 7 % (0-8) Platelet Estimate Adequate Platelet Morphology Normal Red Blood Cell Morphology Normal Sodium Level 137 MMOL/L (136-145) Potassium Level 3.3 MMOL/L (3.5-5.1) L Chloride Level 105 MMOL/L (98-107) Carbon Dioxide Level 26 MMOL/L (21-32) Anion Gap 6 mmol/L (5-15) Blood Urea Nitrogen 15 mg/dL (7-18) Creatinine 0.7 MG/DL (0.55-1.30) Estimat Glomerular Filtration Rate > 60 mL/min (>60) Glucose Level 185 MG/DL (74-106) H Calcium Level 8.1 MG/DL (8.5-10.1) L Phosphorus Level 2.2 MG/DL (2.5-4.9) L Magnesium Level 2.2 MG/DL (1.8-2.4) Current Medications Medications (Trade) Dose Ordered Sig/Altagracia Route PRN Reason Start Time Stop Time Status Last Admin Dose Admin Acetaminophen (Tylenol) 650 mg Q4H PRN ORAL Mild Pain (Pain Scale 1-3) 01/21/20 14:00 02/20/20 13:59 01/22/20 16:00 Acetaminophen (Tylenol) 650 mg Q4H PRN ORAL Temp >100.5 01/21/20 14:00 02/20/20 13:59 01/23/20 05:00 Albuterol/ Ipratropium (Albuterol/ Ipratropium) 3 ml Q4H PRN HHN Shortness of Breath 01/21/20 14:00 01/26/20 13:59 Alendronate Sodium (Fosamax) 70 mg ONCE A WEEK ORAL 01/22/20 06:30 02/21/20 06:29 01/22/20 05:36 Amlodipine Besylate (Norvasc) 5 mg DAILY ORAL 01/22/20 09:00 02/21/20 08:59 01/23/20 09:38 Amylase/Lipase/ Protease (Chelsy HUFF 36,000 units cap) 1 ea TIDPRN PRN ORAL Abdominal cramps 01/21/20 15:45 04/20/20 15:44 Atorvastatin Calcium (Lipitor) 20 mg BEDTIME ORAL 01/22/20 21:00 04/21/20 20:59 01/22/20 21:45 Clonazepam (KlonoPIN) 1 mg Q6H PRN ORAL For Anxiety 01/21/20 15:15 01/28/20 15:14 Dronabinol (Marinol) 2.5 mg BID ORAL 01/22/20 18:00 04/21/20 17:59 01/23/20 09:37 Heparin Sodium (Porcine) (Heparin 5000 units/ml) 5,000 units EVERY 12 HOURS SUBQ 01/21/20 21:00 03/06/20 20:59 01/23/20 09:40 Iopamidol (Isovue-300 100ml) 100 ml NOW PRN INJ Radiology Procedure 01/21/20 17:00 01/23/20 16:59 Loratadine (Claritin 10mg) 10 mg DAILY ORAL 01/23/20 09:00 02/22/20 08:59 01/23/20 09:37 Losartan Potassium (Cozaar) 100 mg DAILY ORAL 01/22/20 09:00 02/21/20 08:59 01/23/20 09:38 Metoprolol Succinate (Toprol XL) 25 mg DAILY ORAL 01/22/20 09:00 04/21/20 08:59 01/23/20 09:38 Pantoprazole (Protonix) 40 mg ACBREAKFAST IVP 01/23/20 06:30 02/22/20 06:29 01/23/20 06:24 [facility] 1 [facility]a DAILY PRN MISC Per rx protocol 01/22/20 08:00 02/21/20 07:59 Vancomycin HCl 750 mg/Sodium Chloride 275 ml @ 183.333 mls/hr Q24H IVPB 01/23/20 08:00 01/28/20 07:59 01/23/20 09:36 Tiny Armijo MD Jan 23, 2020 15:36
[2020-01-23] MEDS: Atorvastatin 20mg tab ORAL SCH (21:37)
[2020-01-24 04:46] LABS: HEMATOCRIT 37.8 % (37.0-47.0); HEMOGLOBIN 13.7 G/DL (12.0-16.0); MEAN CORPUSCULAR VOLUME 89 FL (80-99); PLATELET COUNT 174 K/UL (150-450); RED BLOOD COUNT 4.27 M/UL (4.20-5.40); RED CELL DISTRIBUTION WIDTH 12.6 % (11.6-14.8)
[2020-01-24 04:50] LABS: BLOOD UREA NITROGEN 15 mg/dL (7-18); CALCIUM 8.1 MG/DL (8.5-10.1); CARBON DIOXIDE 26 MMOL/L (21-32); CHLORIDE 105 MMOL/L (98-107); CREATININE 0.6 MG/DL (0.55-1.30); PHOSPHORUS 1.9 MG/DL (2.5-4.9); POTASSIUM 3.5 MMOL/L (3.5-5.1); SODIUM 140 MMOL/L (136-145)
[2020-01-24 04:56] LABS: WHITE BLOOD COUNT 22.9 K/UL (4.8-10.8)
[2020-01-24] MEDS: Pantoprazole Inj IVP SCH (06:10)
--- NOTE | 2020-01-24 06:59 | Pulmonology Progress Note ---
Subjective ROS Limited/Unobtainable: No Interval Events: None new Constitutional: Reports: fever, fatigue HEENT: Repors: no symptoms Respiratory: Reports: no symptoms Gastrointestinal/Abdominal: Denies: nausea, vomiting, diarrhea Psychiatric: Reports: other - NA Skin: Denies: rash Musculoskeletal: Denies: pain Allergies: Coded Allergies: PENICILLINS (Verified Allergy, Unknown, 01/23/20) nurse unable to enter a coded PENICILLIN allergy. still need to obtain reaction Objective Last 24 Hour Vital Signs Date Time Temp Pulse Resp B/P (MAP) Pulse Ox O2 Delivery O2 Flow Rate FiO2 01/24/20 04:00 118 01/24/20 04:00 Nasal Cannula 2.0 01/24/20 00:00 Nasal Cannula 2.0 01/24/20 00:00 104 01/23/20 20:00 105 01/23/20 20:00 Nasal Cannula 2.0 01/23/20 16:00 Nasal Cannula 2.0 01/23/20 16:00 112 01/23/20 12:00 99.2 107 20 142/71 (94) 94 01/23/20 12:00 Nasal Cannula 2.0 01/23/20 12:00 90 01/23/20 09:38 98 120/65 01/23/20 09:38 120/65 01/23/20 09:38 98 120/65 01/23/20 08:00 98.1 98 20 120/65 (83) 96 01/23/20 08:00 99 01/23/20 08:00 Nasal Cannula 2.0 Intake and Output 01/23/20 01/24/20 19:00 07:00 Intake Total 998.330 ml 55 ml Output Total 650 ml 800 ml Balance 348.330 ml -745 ml Intake Oral 350 ml IV Total 648.330 ml 55 ml Output Urine Total 650 ml 800 ml # Bowel Movements 1 HEENT: normocephalic Respiratory: chest wall non-tender, lungs clear Cardiovascular: normal peripheral pulses, normal rate Microbiology Date/Time Source Procedure Growth Status 01/22/20 20:10 Blood Blood Culture - Final Staphylococcus Aureus Complete 01/22/20 19:50 Blood Blood Culture - Final Staphylococcus Aureus Complete 01/22/20 04:30 Nasopharynx Coronavirus COVID-19 PCR ([facility]) - Final Complete 01/22/20 04:30 Nasopharynx SARS-CoV-2 RdRp Gene Assay - Final Complete 01/21/20 09:20 Nasopharynx SARS-CoV-2 RdRp Gene Assay - Final Complete 01/21/20 09:20 Nasal Nares - Final Complete 01/21/20 09:20 Nasal Nares - Final Complete 01/21/20 09:15 Blood Blood Culture - Final Staphylococcus Aureus - Mrsa Complete 01/21/20 09:00 Blood Blood Culture - Final Staphylococcus Aureus - Mrsa Complete Laboratory Tests 01/23/20 10:14: White Blood Count 29.1*H, Red Blood Count 4.69, Hemoglobin 14.7, Hematocrit 43.0, Mean Corpuscular Volume 92, Mean Corpuscular Hemoglobin 31.3H, Mean Corpuscular Hemoglobin Concent 34.2, Red Cell Distribution Width 11.5L, Platelet Count 196, Mean Platelet Volume 5.4L, Neutrophils (%) (Auto) , Lymphocytes (%) (Auto) , Monocytes (%) (Auto) , Eosinophils (%) (Auto) , Basophils (%) (Auto) , Differential Total Cells Counted 100, Neutrophils % (Manual) 83H, Lymphocytes % (Manual) 10L, Monocytes % (Manual) 0L, Eosinophils % (Manual) 0, Basophils % (Manual) 0, Band Neutrophils 7, Platelet Estimate Adequate, Platelet Morphology Normal, Red Blood Cell Morphology Normal, Sodium Level 137, Potassium Level 3.3L , Chloride Level 105, Carbon Dioxide Level 26, Anion Gap 6, Blood Urea Nitrogen 15, Creatinine 0.7, Estimat Glomerular Filtration Rate > 60, Glucose Level 185H, Calcium Level 8.1L, Phosphorus Level 2.2L, Magnesium Level 2.2 01/24/20 03:25: White Blood Count 22.9*H, Red Blood Count 4.27, Hemoglobin 13.7, Hematocrit 37.8, Mean Corpuscular Volume 89, Mean Corpuscular Hemoglobin 31.9H, Mean Corpuscular Hemoglobin Concent 36.1H, Red Cell Distribution Width 12.6, Platelet Count 174, Mean Platelet Volume 6.0L, Neutrophils (%) (Auto) , Lymphocytes (%) (Auto) , Monocytes (%) (Auto) , Eosinophils (%) (Auto) , Basophils (%) (Auto) , Neutrophils % (Manual) [Pending], Lymphocytes % (Manual) [Pending], Platelet Estimate [Pending], Platelet Morphology [Pending], Sodium Level 140, Potassium Level 3.5, Chloride Level 105, Carbon Dioxide Level 26, Blood Urea Nitrogen 15, Creatinine 0.6, Estimat Glomerular Filtration Rate > 60, Glucose Level 167H, Calcium Level 8.1L, Phosphorus Level 1.9L, Magnesium Level 2.1 Current Medications Medications (Trade) Dose Ordered Sig/Altagracia Route PRN Reason Start Time Stop Time Status Last Admin Dose Admin Acetaminophen (Tylenol) 650 mg Q4H PRN ORAL Mild Pain (Pain Scale 1-3) 01/21/20 14:00 02/20/20 13:59 01/22/20 16:00 Acetaminophen (Tylenol) 650 mg Q4H PRN ORAL Temp >100.5 01/21/20 14:00 02/20/20 13:59 01/23/20 05:00 Albuterol/ Ipratropium (Albuterol/ Ipratropium) 3 ml Q4H PRN HHN Shortness of Breath 01/21/20 14:00 01/26/20 13:59 Alendronate Sodium (Fosamax) 70 mg ONCE A WEEK ORAL 01/22/20 06:30 02/21/20 06:29 01/22/20 05:36 Amlodipine Besylate (Norvasc) 5 mg DAILY ORAL 01/22/20 09:00 02/21/20 08:59 01/23/20 09:38 Amylase/Lipase/ Protease (Chelsy HUFF 36,000 units cap) 1 ea TIDPRN PRN ORAL Abdominal cramps 01/21/20 15:45 04/20/20 15:44 Atorvastatin Calcium (Lipitor) 20 mg BEDTIME ORAL 01/22/20 21:00 04/21/20 20:59 01/23/20 21:37 Ceftriaxone Sodium 1 gm/ Dextrose 55 ml @ 110 mls/hr Q24H IVPB 01/23/20 17:00 01/30/20 16:59 01/23/20 18:37 Clonazepam (KlonoPIN) 1 mg Q6H PRN ORAL For Anxiety 01/21/20 15:15 01/28/20 15:14 Dronabinol (Marinol) 2.5 mg BID ORAL 01/22/20 18:00 04/21/20 17:59 10/29/20 18:36 Heparin Sodium (Porcine) (Heparin 5000 units/ml) 5,000 units EVERY 12 HOURS SUBQ 01/21/20 21:00 03/06/20 20:59 01/23/20 21:38 Loratadine (Claritin 10mg) 10 mg DAILY ORAL 01/23/20 09:00 02/22/20 08:59 01/23/20 09:37 Losartan Potassium (Cozaar) 100 mg DAILY ORAL 01/22/20 09:00 02/21/20 08:59 01/23/20 09:38 Metoprolol Succinate (Toprol XL) 25 mg DAILY ORAL 01/22/20 09:00 04/21/20 08:59 01/23/20 09:38 Metronidazole 100 ml @ 100 mls/hr Q8HR IVPB 01/23/20 22:00 01/30/20 21:59 01/24/20 06:10 Pantoprazole (Protonix) 40 mg ACBREAKFAST IVP 01/23/20 06:30 02/22/20 06:29 01/24/20 06:10 Vancomycin HCl ([facility] pharmacy to dose) 1 ea DAILY PRN MISC Per rx protocol 01/22/20 08:00 02/21/20 07:59 Vancomycin HCl 750 mg/Sodium Chloride 275 ml @ 183.333 mls/hr Q24H IVPB 01/23/20 08:00 01/28/20 07:59 01/23/20 09:36 Assessment/Plan Assessment/Plan IMPRESSION: 1. Sepsis with bacteremia. 2. Pulmonary vascular congestion. 3. GERD. 4. Hypertension. 5. Hyperlipidemia. 6. Previous CVA. DISCUSSION: Continue nasal O2. No additional pulmonary intervention required. Broad-spectrum antibiotics. Will follow Gil Mattson Omar Syed MD Jan 24, 2020 06:59
[2020-01-24 08:00] VITALS: BP 146/75
[2020-01-24] MEDS: Vancomycin 750mg/NS 275ml IVPB SCH ×2 (09:19)
[2020-01-24] MEDS: Metoprolol Succinate XL 25mg tab ORAL SCH ×2 (09:20→12:08)
[2020-01-24] MEDS: Heparin 5000 units/ml inj SUBQ SCH ×2 (09:24→21:12)
--- NOTE | 2020-01-24 09:40 | General Progress Note ---
Subjective ROS Limited/Unobtainable: Yes Allergies: Coded Allergies: PENICILLINS (Verified Allergy, Unknown, 01/23/20) nurse unable to enter a coded PENICILLIN allergy. still need to obtain reaction Objective Last 24 Hour Vital Signs Date Time Temp Pulse Resp B/P (MAP) Pulse Ox O2 Delivery O2 Flow Rate FiO2 01/24/20 08:00 97.5 102 20 146/75 (98) 95 01/24/20 08:00 Nasal Cannula 2.0 01/24/20 04:00 118 01/24/20 04:00 Nasal Cannula 2.0 01/24/20 00:00 Nasal Cannula 2.0 01/24/20 00:00 104 01/23/20 20:00 105 01/23/20 20:00 Nasal Cannula 2.0 01/23/20 16:00 Nasal Cannula 2.0 01/23/20 16:00 112 01/23/20 12:00 99.2 107 20 142/71 (94) 94 01/23/20 12:00 Nasal Cannula 2.0 01/23/20 12:00 90 Intake and Output 01/23/20 01/24/20 19:00 07:00 Intake Total 998.330 ml 55 ml Output Total 650 ml 1000 ml Balance 348.330 ml -945 ml Intake Oral 350 ml IV Total 648.330 ml 55 ml Output Urine Total 650 ml 1000 ml # Bowel Movements 1 Laboratory Tests 01/23/20 10:14: White Blood Count 29.1*H, Red Blood Count 4.69, Hemoglobin 14.7, Hematocrit 43.0, Mean Corpuscular Volume 92, Mean Corpuscular Hemoglobin 31.3H, Mean Corpuscular Hemoglobin Concent 34.2, Red Cell Distribution Width 11.5L, Platelet Count 196, Mean Platelet Volume 5.4L, Neutrophils (%) (Auto) , Lymphocytes (%) (Auto) , Monocytes (%) (Auto) , Eosinophils (%) (Auto) , Basophils (%) (Auto) , Differential Total Cells Counted 100, Neutrophils % (Manual) 83H, Lymphocytes % (Manual) 10L, Monocytes % (Manual) 0L, Eosinophils % (Manual) 0, Basophils % (Manual) 0, Band Neutrophils 7, Platelet Estimate Adequate, Platelet Morphology Normal, Red Blood Cell Morphology Normal, Sodium Level 137, Potassium Level 3.3L , Chloride Level 105, Carbon Dioxide Level 26, Anion Gap 6, Blood Urea Nitrogen 15, Creatinine 0.7, Estimat Glomerular Filtration Rate > 60, Glucose Level 185H, Calcium Level 8.1L, Phosphorus Level 2.2L, Magnesium Level 2.2 01/24/20 03:25: White Blood Count 22.9*H, Red Blood Count 4.27, Hemoglobin 13.7, Hematocrit 37.8, Mean Corpuscular Volume 89, Mean Corpuscular Hemoglobin 31.9H, Mean Corpuscular Hemoglobin Concent 36.1H, Red Cell Distribution Width 12.6, Platelet Count 174, Mean Platelet Volume 6.0L, Neutrophils (%) (Auto) , Lymphocytes (%) (Auto) , Monocytes (%) (Auto) , Eosinophils (%) (Auto) , Basophils (%) (Auto) , Differential Total Cells Counted 100, Neutrophils % (Manual) 82H, Lymphocytes % (Manual) 10L, Monocytes % (Manual) 7, Eosinophils % (Manual) 0, Basophils % (Manual) 0, Band Neutrophils 1, Platelet Estimate Adequate, Platelet Morphology Normal, Red Blood Cell Morphology Normal, Sodium Level 140, Potassium Level 3.5, Chloride Level 105, Carbon Dioxide Level 26, Blood Urea Nitrogen 15, Creatinine 0.6, Estimat Glomerular Filtration Rate > 60, Glucose Level 167H, Calcium Level 8.1L, Phosphorus Level 1.9L, Magnesium Level 2.1 Height (Feet): 5 Height (Inches): 3.00 Weight (Pounds): 140 General Appearance: alert EENT: normal ENT inspection Neck: supple Cardiovascular: normal rate Respiratory/Chest: decreased breath sounds Abdomen: hypoactive bowel sounds Extremities: non-tender Assessment/Plan Status: stable Assessment/Plan: 1. Hypertension. 2. GERD. 3. Hyperlipidemia. 4. History of CVA. 5. FTT marinol ensure TID calorie count swallow eval appreciated abx per ID will Jarocho Clarke MD Jan 24, 2020 09:40
--- NOTE | 2020-01-24 11:05 | General Progress Note ---
Assessment/Plan Status: stable Assessment/Plan: #Sepsis - r/o COVID #gram pos bacteremia #Leukocytosis #Hyponatremia #Possible syncope #Hypokalemia #HTN #Dementia - replace phos - IVF - IV abx per ID - on ceftriaxone, flagyl, azithro, and vanco - COVID r/o - ID consult - IVF - pulm eval - monitor BP - monitor resp status - cardiology eval for possible syncope - continue metop 25 daily - amlodipine 10mg daily - continue losartan 100mg daily Subjective ROS Limited/Unobtainable: No Constitutional: Reports: weakness HEENT: Denies: no symptoms, eye pain, blurred vision, tearing, double vision, ear pain, ear discharge, nose pain, nose congestion, throat pain, throat swelling, mouth pain, mouth swelling, other Cardiovascular: Denies: no symptoms, chest pain, edema, irregular heart rate, lightheadedness, palpitations, syncope, other Gastrointestinal/Abdominal: Denies: no symptoms, abdomen distended, abdominal pain, black stools, tarry stools, blood in stool, constipated, diarrhea, difficulty swallowing, nausea, poor appetite, poor fluid intake, rectal bleeding, vomiting, other Genitourinary: Denies: no symptoms, burning, discharge, frequency, flank pain, hematuria, incontinence, pain, urgency, other Neurologic/Psychiatric: Denies: no symptoms, anxiety, depressed, emotional problems, headache, numbness, paresthesia, pre-existing deficit, seizure, tingling, tremors, weakness, other Endocrine: Denies: no symptoms, excessive sweating, flushing, intolerance to cold, intolerance to heat, increased hunger, increased thirst, increased urine, unexplained weight gain, unexplained weight loss, other Allergies: Coded Allergies: PENICILLINS (Verified Allergy, Unknown, 01/23/20) nurse unable to enter a coded PENICILLIN allergy. still need to obtain reaction All Systems: reviewed and negative except above Subjective continues to have low grade fevers and some chills WBC uptrending Blood cx growing gram pos cocci Objective Last 24 Hour Vital Signs Date Time Temp Pulse Resp B/P (MAP) Pulse Ox O2 Delivery O2 Flow Rate FiO2 01/24/20 08:00 97.5 102 20 146/75 (98) 95 01/24/20 08:00 Nasal Cannula 2.0 01/24/20 04:00 118 01/24/20 04:00 Nasal Cannula 2.0 01/24/20 00:00 Nasal Cannula 2.0 01/24/20 00:00 104 01/23/20 20:00 105 01/23/20 20:00 Nasal Cannula 2.0 01/23/20 16:00 Nasal Cannula 2.0 01/23/20 16:00 112 01/23/20 12:00 99.2 107 20 142/71 (94) 94 01/23/20 12:00 Nasal Cannula 2.0 01/23/20 12:00 90 Intake and Output 01/23/20 01/24/20 19:00 07:00 Intake Total 998.330 ml 55 ml Output Total 650 ml 1000 ml Balance 348.330 ml -945 ml Intake Oral 350 ml IV Total 648.330 ml 55 ml Output Urine Total 650 ml 1000 ml # Bowel Movements 1 Laboratory Tests 01/24/20 03:25: White Blood Count 22.9*H, Red Blood Count 4.27, Hemoglobin 13.7, Hematocrit 37.8, Mean Corpuscular Volume 89, Mean Corpuscular Hemoglobin 31.9H, Mean Corpuscular Hemoglobin Concent 36.1H, Red Cell Distribution Width 12.6, Platelet Count 174, Mean Platelet Volume 6.0L, Neutrophils (%) (Auto) , Lymphocytes (%) (Auto) , Monocytes (%) (Auto) , Eosinophils (%) (Auto) , Basophils (%) (Auto) , Differential Total Cells Counted 100, Neutrophils % (Manual) 82H, Lymphocytes % (Manual) 10L, Monocytes % (Manual) 7, Eosinophils % (Manual) 0, Basophils % (Manual) 0, Band Neutrophils 1, Platelet Estimate Adequate, Platelet Morphology Normal, Red Blood Cell Morphology Normal, Sodium Level 140, Potassium Level 3.5, Chloride Level 105, Carbon Dioxide Level 26, Blood Urea Nitrogen 15, Creatinine 0.6, Estimat Glomerular Filtration Rate > 60, Glucose Level 167H, Calcium Level 8.1L, Phosphorus Level 1.9L, Magnesium Level 2.1 Height (Feet): 5 Height (Inches): 3.00 Weight (Pounds): 140 Silvina Kohli M.D. Jan 24, 2020 11:05
--- NOTE | 2020-01-24 11:47 | General Progress Note ---
Advance Care Planning Advance Care Planning Advance Care Planning [facility] An independent Hospitalist group, where every patient is our [facility] Internal Medicine Hospitalist Advanced Care Planning Note Please contact us at Date of Discussion: A [id number] discussion with the patient regarding the patient's advanced care planning took place during this hospitalization on the above date. The discussion included the explanation and discussion of advance directives and associated forms/documents, as well as the patient's current code status. We also discussed at length the patient's medical conditions (both acute and chroni c), general prognosis, treatment options, and goals of care. The following summarizes the discussion: Advance Care Planning/Goals of Care: - Will attempt to fill out an AD and/or POLST with the patient prior to discharge, if not already completed - Continue current evaluation and management of any acute and chronic medical issues - Will continue to support the patient/family - Will continue to discuss both short- and long-term goals of care DPOA-HC/Surrogate Decision Maker: Son (Christian Walker) Code Status: Full Code Advanced Care Planning Forms/Documents Completed: Deferred until later encounter/visit A total of 16 minutes was spent on this discussion, including counseling, answering questions, and completing, if any, pertinent advanced care planning forms/documents. Time of note may not reflect time of encounter. Camden Dominique MD Jan 24, 2020 11:47
--- NOTE | 2020-01-24 11:52 | General Progress Note ---
Subjective Date patient seen: Jan 24, 2020 Constitutional: Reports: no symptoms, chills, diaphoresis, fever, malaise, weakness, other HEENT: Denies: no symptoms, eye pain, blurred vision, tearing, double vision, ear pain, ear discharge, nose pain, nose congestion, throat pain, throat swelling, mouth pain, mouth swelling, other Cardiovascular: Denies: no symptoms, chest pain, edema, irregular heart rate, lightheadedness, palpitations, syncope, other Respiratory: Denies: no symptoms, cough, orthopnea, shortness of breath, SOB with excertion, SOB at rest, sputum, stridor, wheezing, other Gastrointestinal/Abdominal: Denies: no symptoms, abdomen distended, abdominal pain, black stools, tarry stools, blood in stool, constipated, diarrhea, difficulty swallowing, nausea, poor appetite, poor fluid intake, rectal bleeding, vomiting, other Genitourinary: Denies: no symptoms, burning, discharge, frequency, flank pain, hematuria, incontinence, pain, urgency, other Neurologic/Psychiatric: Denies: no symptoms, anxiety, depressed, emotional problems, headache, numbness, paresthesia, pre-existing deficit, seizure, tingling, tremors, weakness, other Allergies: Coded Allergies: PENICILLINS (Verified Allergy, Unknown, 01/23/20) nurse unable to enter a coded PENICILLIN allergy. still need to obtain reaction Subjective resting in bed, wants to go home. also wants to drink water and eat something (has been NPO for CT scan). denies any other symptoms. overall feels slightly improved. Objective Last 24 Hour Vital Signs Date Time Temp Pulse Resp B/P (MAP) Pulse Ox O2 Delivery O2 Flow Rate FiO2 01/24/20 08:00 97.5 102 20 146/75 (98) 95 01/24/20 08:00 Nasal Cannula 2.0 01/24/20 04:00 118 01/24/20 04:00 Nasal Cannula 2.0 01/24/20 00:00 Nasal Cannula 2.0 01/24/20 00:00 104 01/23/20 20:00 105 01/23/20 20:00 Nasal Cannula 2.0 01/23/20 16:00 Nasal Cannula 2.0 01/23/20 16:00 112 01/23/20 12:00 99.2 107 20 142/71 (94) 94 01/23/20 12:00 Nasal Cannula 2.0 01/23/20 12:00 90 Intake and Output 01/23/20 01/24/20 19:00 07:00 Intake Total 998.330 ml 55 ml Output Total 650 ml 1000 ml Balance 348.330 ml -945 ml Intake Oral 350 ml IV Total 648.330 ml 55 ml Output Urine Total 650 ml 1000 ml # Bowel Movements 1 Laboratory Tests 01/24/20 03:25: White Blood Count 22.9*H, Red Blood Count 4.27, Hemoglobin 13.7, Hematocrit 37.8, Mean Corpuscular Volume 89, Mean Corpuscular Hemoglobin 31.9H, Mean Corpuscular Hemoglobin Concent 36.1H, Red Cell Distribution Width 12.6, Platelet Count 174, Mean Platelet Volume 6.0L, Neutrophils (%) (Auto) , Lymphocytes (%) (Auto) , Monocytes (%) (Auto) , Eosinophils (%) (Auto) , Basophils (%) (Auto) , Differential Total Cells Counted 100, Neutrophils % (Manual) 82H, Lymphocytes % (Manual) 10L, Monocytes % (Manual) 7, Eosinophils % (Manual) 0, Basophils % (Manual) 0, Band Neutrophils 1, Platelet Estimate Adequate, Platelet Morphology Normal, Red Blood Cell Morphology Normal, Sodium Level 140, Potassium Level 3.5, Chloride Level 105, Carbon Dioxide Level 26, Blood Urea Nitrogen 15, Creatinine 0.6, Estimat Glomerular Filtration Rate > 60, Glucose Level 167H, Calcium Level 8.1L, Phosphorus Level 1.9L, Magnesium Level 2.1 Height (Feet): 5 Height (Inches): 3.00 Weight (Pounds): 140 General Appearance: no apparent distress, alert EENT: PERRL/EOMI Neck: supple Cardiovascular: normal rate, regular rhythm Respiratory/Chest: lungs clear, normal breath sounds Abdomen: non tender, soft Edema: non-pitting Neurologic: alert, oriented x 3, normal mood/affect Assessment/Plan Problem List: (1) Bacteremia ICD Codes: R78.81 - Bacteremia SNOMED: 7370411 (2) Leukocytosis ICD Codes: D72.829 - Elevated white blood cell count, unspecified SNOMED: 064197012, 133005692 (3) Hypokalemia ICD Codes: E87.6 - Hypokalemia SNOMED: 64407930, 920120338 (4) Fever ICD Codes: R50.9 - Fever, unspecified SNOMED: 595483258 Status: stable Assessment/Plan: Ms. Walker is a 84 year old female with HTN, HLD who presented with syncope and weakness, found to have S. aureus bacteremia #Severe sepsis #MRSA bacteremia #Fever #Leukocytosis -ID following. -BCx + MRSA (01/21, and 01/22, still bacteremic). repeat BCx until clearance. -Continue abx per ID -TTE wnl, no vegetations seen. -CTH with old infarcts seen, no acute pathology. -CT A/P/C ordered per ID to eval for source of infectioln. -Possible LP given stiff neck, will defer to ID -UA relatively benign. -rapid COVID neg x2. PCR COVID neg x1. remove isolation. -PT ordered #HTN - continue metop 25 daily - amlodipine 10mg daily - continue losartan 100mg daily #Hypokalemia -replete -trend BMP Time spent on encounter, 38 mins. 25 on counseling, coordination of care. d/w RN, consultants. Time of note doesn't accurately reflect time of encounter. Camden Dominique MD Jan 24, 2020 11:52
[2020-01-24 12:00] VITALS: BP 146/87
[2020-01-24] MEDS: Dronabinol 2.5mg Cap ORAL SCH ×2 (12:06→18:12)
[2020-01-24] MEDS: Losartan 50mg tab ORAL SCH (12:08)
[2020-01-24] MEDS ORDERED: Potassium Phosphate 15mm/250ml 250 ML IVPB SCH (12:30)
--- NOTE | 2020-01-24 15:41 | Diagnostic Imaging Report ---
CLINICAL INDICATION:Staph aureus bacteremia, sepsis,, history of septic emboli, possible history of endocarditis leukocytosis, fevers, history of cardiac disease TECHNIQUE: Patient ingested oral contrast . IV administration nonionic contrast. Multiphasic spiral acquisitions obtained through the chest, abdomen, and pelvis. Multiplanar reconstructions were generated. Total dose length product 582 mGycm. CTDIvol(s) 2, 63, 4, 4 mGy. Radiation dose was minimized using automated exposure control COMPARISON: none FINDINGS Chest: Irregular patchy and nodular airspace airspace opacities are seen scattered throughout both lungs. There are posterior dependent atelectatic changes. There are small bilateral pleural effusions. There is suggestion of mild pulmonary venous congestion. The heart is mildly enlarged. No pericardial effusion. No mediastinal or hilar mass or adenopathy. Included portion of the thyroid is unremarkable. Unremarkable esophagus. No axillary or chest wall mass or adenopathy. Abdomen pelvis: Normal appendix. No evidence of diverticulosis or diverticulitis. No small bowel distention. Ingested contrast is seen throughout the entire small bowel and most of the colon. No small bowel distention. No small bowel wall thickening. No free or loculated intraperitoneal gas or fluid is evident. There is a small duodenal diverticulum incidentally noted. The liver demonstrates 2 subcentimeter low-attenuation lesions in segment 4A. The gallbladder is unremarkable. Bile ducts are nondilated. The pancreas is unremarkable. 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 There is a 12 mm nodule in the left adrenal. This demonstrates nonspecific attenuation. The kidneys demonstrate bilateral parapelvic cysts, as well as subcentimeter low-attenuation cortical lesions which most likely represent benign simple cysts. The uterus and adnexal structures are unremarkable. The bladder contains a Escalante catheter. There is a small amount of urine within the bladder despite the Escalante catheter. The bones are unremarkable except for mild degenerative spondylosis changes. IMPRESSION: Lungs demonstrate bilateral multifocal patchy and nodular infiltrates. This most likely represents multifocal pneumonia, May correlate with stated clinical history of suspected septic emboli. Generalized pulmonary venous congestion, may indicate central venous hypertension Small bilateral pleural effusions Mild cardiomegaly No acute abdominal or pelvic abnormality 12 mm left adrenal nodule. This is nonspecific in appearance. 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
--- NOTE | 2020-01-24 16:49 | Surgery Progress Note ---
Surgery Progress Note Subjective Additional Comments afebrile, HD stable comfortable labs noted. wbc trending down exam stable Objective Last 24 Hour Vital Signs Date Time Temp Pulse Resp B/P (MAP) Pulse Ox O2 Delivery O2 Flow Rate FiO2 01/24/20 16:00 95 01/24/20 12:08 102 146/75 01/24/20 12:08 146/75 01/24/20 12:07 102 146/75 01/24/20 12:00 Nasal Cannula 2.0 01/24/20 12:00 104 01/24/20 12:00 98.4 106 20 146/87 (106) 97 01/24/20 08:00 97.5 102 20 146/75 (98) 95 01/24/20 08:00 Nasal Cannula 2.0 01/24/20 08:00 104 01/24/20 04:00 118 01/24/20 04:00 Nasal Cannula 2.0 01/24/20 00:00 Nasal Cannula 2.0 01/24/20 00:00 104 01/23/20 20:00 105 01/23/20 20:00 Nasal Cannula 2.0 I&O Intake and Output 01/23/20 01/24/20 19:00 07:00 Intake Total 998.330 ml 55 ml Output Total 650 ml 1000 ml Balance 348.330 ml -945 ml Intake Oral 350 ml IV Total 648.330 ml 55 ml Output Urine Total 650 ml 1000 ml # Bowel Movements 1 Dressing: saturated Cardiovascular: RSR Respiratory: decreased breath sounds Abdomen: non-tender, present bowel sounds Extremities: no tenderness, no cyanosis Laboratory Tests Test 01/24/20 03:25 White Blood Count 22.9 K/UL (4.8-10.8) *H Red Blood Count 4.27 M/UL (4.20-5.40) Hemoglobin 13.7 G/DL (12.0-16.0) Hematocrit 37.8 % (37.0-47.0) Mean Corpuscular Volume 89 FL (80-99) Mean Corpuscular Hemoglobin 31.9 PG (27.0-31.0) H Mean Corpuscular Hemoglobin Concent 36.1 G/DL (32.0-36.0) H Red Cell Distribution Width 12.6 % (11.6-14.8) Platelet Count 174 K/UL (150-450) Mean Platelet Volume 6.0 FL (6.5-10.1) L Neutrophils (%) (Auto) % (45.0-75.0) Lymphocytes (%) (Auto) % (20.0-45.0) Monocytes (%) (Auto) % (1.0-10.0) Eosinophils (%) (Auto) % (0.0-3.0) Basophils (%) (Auto) % (0.0-2.0) Differential Total Cells Counted 100 Neutrophils % (Manual) 82 % (45-75) H Lymphocytes % (Manual) 10 % (20-45) L Monocytes % (Manual) 7 % (1-10) Eosinophils % (Manual) 0 % (0-3) Basophils % (Manual) 0 % (0-2) Band Neutrophils 1 % (0-8) Platelet Estimate Adequate Platelet Morphology Normal Red Blood Cell Morphology Normal Sodium Level 140 MMOL/L (136-145) Potassium Level 3.5 MMOL/L (3.5-5.1) Chloride Level 105 MMOL/L (98-107) Carbon Dioxide Level 26 MMOL/L (21-32) Blood Urea Nitrogen 15 mg/dL (7-18) Creatinine 0.6 MG/DL (0.55-1.30) Estimat Glomerular Filtration Rate > 60 mL/min (>60) Glucose Level 167 MG/DL (74-106) H Calcium Level 8.1 MG/DL (8.5-10.1) L Phosphorus Level 1.9 MG/DL (2.5-4.9) L Magnesium Level 2.1 MG/DL (1.8-2.4) Plan Problems: (1) Pulmonary edema (2) Hypokalemia (3) Leukocytosis Assessment & Plan: 84-year-old female afebrile hemodynamic stable bacteremia leukocytosis LFTs okay hypoalbuminemia BMI 22 failure to thrive. UTI /pna on antibiotics appreciate ID input. Agree with GI as to calorie count feeding trial swallow eval and continue Marinol. May need feeding tube given failure to thrive. Will follow with recommendations Participation's care No acute intracranial hemorrhage or edema. No mass effect nor midline shift. There is age-related enlargement of the ventricles and extra axial CSF spaces. There is periventricular deep white matter low-attenuation, consistent with chronic microvascular ischemic changes. Old lacunar infarcts are seen in the basal ganglia bilaterally. The mastoids are clear. There is fairly extensive sphenoid and ethmoid sinus disease. The calvarium is intact. Impression: Chronic and age-related changes. Old bilateral basal ganglia lacunar infarcts. Negative for acute intracranial bleed or mass effect Increasing interstitial and airspace infiltrates are seen diffusely within the lungs bilaterally. The heart is borderline enlarged. There is torturous ectatic and calcified Impression: Increasing bilateral infiltrates versus edema, over one day (4) Fever (5) Bacteremia Alvarado Tolliver Jan 24, 2020 16:49
[2020-01-24] MEDS: cefTRIAXone 1 GM in D5W 55 ML IVPB SCH (18:12)
[2020-01-24] MEDS: Atorvastatin 20mg tab ORAL SCH (21:08)
[2020-01-25] MEDS: Pantoprazole Inj IVP SCH (05:47)
[2020-01-25] MEDS ORDERED: Tubing IV Secondary IV ONE (06:59)
[2020-01-25] MEDS ORDERED: NS 275ml ONE (06:59)
[2020-01-25 08:00] VITALS: BP 124/68
--- NOTE | 2020-01-25 08:15 | General Progress Note ---
Subjective ROS Limited/Unobtainable: No Allergies: Coded Allergies: PENICILLINS (Verified Allergy, Unknown, 01/23/20) nurse unable to enter a coded PENICILLIN allergy. still need to obtain reaction Objective Last 24 Hour Vital Signs Date Time Temp Pulse Resp B/P (MAP) Pulse Ox O2 Delivery O2 Flow Rate FiO2 01/25/20 08:00 100.0 76 18 124/68 (86) 96 01/25/20 07:10 95 Nasal Cannula 2.0 28 01/25/20 04:00 88 01/25/20 04:00 Nasal Cannula 2.0 01/25/20 00:00 95 01/25/20 00:00 Nasal Cannula 2.0 01/24/20 20:01 98 01/24/20 20:00 Nasal Cannula 2.0 01/24/20 19:43 95 Nasal Cannula 2.0 28 01/24/20 16:00 Nasal Cannula 2.0 01/24/20 16:00 95 01/24/20 12:08 102 146/75 01/24/20 12:08 146/75 01/24/20 12:07 102 146/75 01/24/20 12:00 Nasal Cannula 2.0 01/24/20 12:00 104 01/24/20 12:00 98.4 106 20 146/87 (106) 97 Intake and Output 01/24/20 01/25/20 19:00 07:00 Intake Total 730 ml 400 ml Output Total 800 ml 400 ml Balance -70 ml 0 ml Intake Oral 730 ml 300 ml IV Total 100 ml Output Urine Total 800 ml 400 ml # Bowel Movements 2 IMPRESSION: Lungs demonstrate bilateral multifocal patchy and nodular infiltrates. This most likely represents multifocal pneumonia, May correlate with stated clinical history of suspected septic emboli. Generalized pulmonary venous congestion, may indicate central venous hypertension Small bilateral pleural effusions Mild cardiomegaly No acute abdominal or pelvic abnormality 12 mm left adrenal nodule. This is nonspecific in appearance. 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 Hypertension. 2. GERD. 3. Hyperlipidemia. 4. History of CVA. 5. FTT 6. PNA marinol ensure TID calorie count swallow eval appreciated abx per ID abd/chest CT reviewed will Jarocho Clarke MD Jan 25, 2020 08:15
--- NOTE | 2020-01-25 08:37 | Diagnostic Imaging Report ---
EXAM: XR Chest, 1 View CLINICAL HISTORY: INFECT TECHNIQUE: Frontal view of the chest. COMPARISON: No relevant prior studies available. FINDINGS/IMPRESSION: Low lung volume secondary to poor inspiration. Mild, patchy airspace opacity within the left upper lung field, suspicious for infiltrate. Follow-up 2 view chest radiograph recommended. No pleural effusion or pneumothorax. Cardiomegaly. Calcified aorta.
[2020-01-25] MEDS: Losartan 50mg tab ORAL SCH (09:00)
[2020-01-25] MEDS: Dronabinol 2.5mg Cap ORAL SCH ×2 (09:00→17:05)
[2020-01-25] MEDS: Metoprolol Succinate XL 25mg tab ORAL SCH (09:00)
[2020-01-25] MEDS: Heparin 5000 units/ml inj SUBQ SCH ×2 (09:02→20:03)
[2020-01-25] MEDS: Vancomycin 750mg/NS 275ml IVPB SCH ×6 (09:02→23:12)
--- NOTE | 2020-01-25 09:04 | Surgery Progress Note ---
Surgery Progress Note Subjective Additional Comments leukocytosis comfortable no n/v no complaints Objective Last 24 Hour Vital Signs Date Time Temp Pulse Resp B/P (MAP) Pulse Ox O2 Delivery O2 Flow Rate FiO2 01/25/20 09:00 76 124/68 01/25/20 09:00 124/68 01/25/20 09:00 76 124/68 01/25/20 08:00 100.0 76 18 124/68 (86) 96 01/25/20 07:10 95 Nasal Cannula 2.0 28 01/25/20 04:00 88 01/25/20 04:00 Nasal Cannula 2.0 01/25/20 00:00 95 01/25/20 00:00 Nasal Cannula 2.0 01/24/20 20:01 98 01/24/20 20:00 Nasal Cannula 2.0 01/24/20 19:43 95 Nasal Cannula 2.0 28 01/24/20 16:00 Nasal Cannula 2.0 01/24/20 16:00 95 01/24/20 12:08 102 146/75 01/24/20 12:08 146/75 01/24/20 12:07 102 146/75 01/24/20 12:00 Nasal Cannula 2.0 01/24/20 12:00 104 01/24/20 12:00 98.4 106 20 146/87 (106) 97 I&O Intake and Output 01/24/20 01/25/20 19:00 07:00 Intake Total 730 ml 400 ml Output Total 800 ml 400 ml Balance -70 ml 0 ml Intake Oral 730 ml 300 ml IV Total 100 ml Output Urine Total 800 ml 400 ml # Bowel Movements 2 Dressing: saturated Cardiovascular: RSR Respiratory: decreased breath sounds Abdomen: soft, non-tender, present bowel sounds Extremities: no tenderness, no cyanosis Laboratory Tests Test 01/25/20 07:40 Vancomycin Level Trough Pending Plan Problems: (1) Pulmonary edema (2) Hypokalemia (3) Leukocytosis Assessment & Plan: 84-year-old female afebrile hemodynamic stable bacteremia leukocytosis LFTs okay hypoalbuminemia BMI 22 failure to thrive. UTI /pna on antibiotics appreciate ID input. Agree with GI as to calorie count feeding trial swallow eval and continue Marinol. May need feeding tube given failure to thrive. Will follow with recommendations Participation's care No acute intracranial hemorrhage or edema. No mass effect nor midline shift. There is age-related enlargement of the ventricles and extra axial CSF spaces. There is periventricular deep white matter low-attenuation, consistent with chronic microvascular ischemic changes. Old lacunar infarcts are seen in the basal ganglia bilaterally. The mastoids are clear. There is fairly extensive sphenoid and ethmoid sinus disease. The calvarium is intact. Impression: Chronic and age-related changes. Old bilateral basal ganglia lacunar infarcts. Negative for acute intracranial bleed or mass effect Increasing interstitial and airspace infiltrates are seen diffusely within the lungs bilaterally. The heart is borderline enlarged. There is torturous ectatic and calcified Impression: Increasing bilateral infiltrates versus edema, over one day (4) Fever (5) Bacteremia Alvarado Tolliver Jan 25, 2020 09:04
[2020-01-25 11:03] LABS: ANION GAP 6 mmol/L (5-15); BLOOD UREA NITROGEN 17 mg/dL (7-18); CALCIUM 7.5 MG/DL (8.5-10.1); CARBON DIOXIDE 29 MMOL/L (21-32); CHLORIDE 104 MMOL/L (98-107); CREATININE 0.5 MG/DL (0.55-1.30); POTASSIUM 3.5 MMOL/L (3.5-5.1); SODIUM 139 MMOL/L (136-145)
[2020-01-25 11:04] LABS: BASOPHILS % (AUTO) 0.3 % (0.0-2.0); EOSINOPHILS % (AUTO) 0.3 % (0.0-3.0); HEMATOCRIT 36.9 % (37.0-47.0); HEMOGLOBIN 12.6 G/DL (12.0-16.0); LYMPHOCYTES % (AUTO) 11.6 % (20.0-45.0); MEAN CORPUSCULAR VOLUME 93 FL (80-99); MONOCYTES % (AUTO) 8.9 % (1.0-10.0); NEUTROPHILS % (AUTO) 78.9 % (45.0-75.0); PLATELET COUNT 180 K/UL (150-450); RED BLOOD COUNT 3.98 M/UL (4.20-5.40); RED CELL DISTRIBUTION WIDTH 11.4 % (11.6-14.8); WHITE BLOOD COUNT 16.9 K/UL (4.8-10.8)
--- NOTE | 2020-01-25 11:17 | General Progress Note ---
Subjective Date patient seen: Jan 25, 2020 ROS Limited/Unobtainable: No Constitutional: Denies: no symptoms, chills, diaphoresis, fever, malaise, weakness, other HEENT: Reports: no symptoms, eye pain, blurred vision, tearing, double vision, ear pain, ear discharge, nose pain, nose congestion, throat pain, throat swell ing, mouth pain, mouth swelling, other - headache Cardiovascular: Denies: no symptoms, chest pain, edema, irregular heart rate, lightheadedness, palpitations, syncope, other Respiratory: Denies: no symptoms, cough, orthopnea, shortness of breath, SOB with excertion, SOB at rest, sputum, stridor, wheezing, other Gastrointestinal/Abdominal: Denies: no symptoms, abdomen distended, abdominal pain, black stools, tarry stools, blood in stool, constipated, diarrhea, difficulty swallowing, nausea, poor appetite, poor fluid intake, rectal bleeding, vomiting, other Genitourinary: Denies: no symptoms, burning, discharge, frequency, flank pain, hematuria, incontinence, pain, urgency, other Neurologic/Psychiatric: Denies: no symptoms, anxiety, depressed, emotional problems, headache, numbness, paresthesia, pre-existing deficit, seizure, tingl ing, tremors, weakness, other Allergies: Coded Allergies: PENICILLINS (Verified Allergy, Unknown, 01/23/20) nurse unable to enter a coded PENICILLIN allergy. still need to obtain reaction Subjective resting in bed, having a lot of headache, didn't ask for pain meds. denies any other symptoms. neck pain resolved. wants to go home. Objective Last 24 Hour Vital Signs Date Time Temp Pulse Resp B/P (MAP) Pulse Ox O2 Delivery O2 Flow Rate FiO2 01/25/20 09:00 Nasal Cannula 2.0 01/25/20 09:00 76 124/68 01/25/20 09:00 124/68 01/25/20 09:00 76 124/68 01/25/20 08:00 100.0 76 18 124/68 (86) 96 01/25/20 08:00 91 01/25/20 07:10 95 Nasal Cannula 2.0 28 01/25/20 04:00 88 01/25/20 04:00 Nasal Cannula 2.0 01/25/20 00:00 95 01/25/20 00:00 Nasal Cannula 2.0 01/24/20 20:01 98 01/24/20 20:00 Nasal Cannula 2.0 01/24/20 19:43 95 Nasal Cannula 2.0 28 01/24/20 16:00 Nasal Cannula 2.0 01/24/20 16:00 95 01/24/20 12:08 102 146/75 01/24/20 12:08 146/75 01/24/20 12:07 102 146/75 01/24/20 12:00 Nasal Cannula 2.0 01/24/20 12:00 104 01/24/20 12:00 98.4 106 20 146/87 (106) 97 Intake and Output 01/24/20 01/25/20 19:00 07:00 Intake Total 730 ml 400 ml Output Total 800 ml 400 ml Balance -70 ml 0 ml Intake Oral 730 ml 300 ml IV Total 100 ml Output Urine Total 800 ml 400 ml # Bowel Movements 2 Laboratory Tests 01/25/20 07:40: White Blood Count 16.9H, Red Blood Count 3.98L, Hemoglobin 12.6, Hematocrit 36.9L, Mean Corpuscular Volume 93, Mean Corpuscular Hemoglobin 31.6H, Mean Corpuscular Hemoglobin Concent 34.1, Red Cell Distribution Width 11.4L, Platelet Count 180, Mean Platelet Volume 6.0L, Neutrophils (%) (Auto) 78.9H, Lymphocytes (%) (Auto) 11.6L, Monocytes (%) (Auto) 8.9, Eosinophils (%) (Auto) 0.3, Basophils (%) (Auto) 0.3, Sodium Level 139, Potassium Level 3.5, Chloride Level 104, Carbon Dioxide Level 29, Anion Gap 6, Blood Urea Nitrogen 17, Creatinine 0.5L, Estimat Glomerular Filtration Rate > 60, Glucose Level 138H, Calcium Level 7.5L, Vancomycin Level Trough 1.3L Height (Feet): 5 Height (Inches): 3.00 Weight (Pounds): 140 General Appearance: alert, mild distress EENT: PERRL/EOMI Neck: supple Cardiovascular: normal rate, regular rhythm Respiratory/Chest: lungs clear, normal breath sounds Abdomen: non tender, soft Edema: non-pitting Neurologic: alert, oriented x 3 Assessment/Plan Problem List: (1) Bacteremia ICD Codes: R78.81 - Bacteremia SNOMED: 2986235 (2) Leukocytosis ICD Codes: D72.829 - Elevated white blood cell count, unspecified SNOMED: 208297660, 814042291 (3) Hypokalemia ICD Codes: E87.6 - Hypokalemia SNOMED: 88936325, 970607700 (4) Fever ICD Codes: R50.9 - Fever, unspecified SNOMED: 914014413 Status: stable Assessment/Plan: Ms. Walker is a 84 year old female with HTN, HLD who presented with syncope and weakness, found to have S. aureus bacteremia #Severe sepsis #MRSA bacteremia #Fever #Leukocytosis #Multifocal PNA -ID following. -BCx + MRSA (01/21, and 01/22, still bacteremic). repeat BCx until clearance. (01/23, NGTD) -Continue abx per ID -TTE wnl, no vegetations seen. -CTH with old infarcts seen, no acute pathology. -CT A/P/C ordered per ID to eval for source of infection -> multifocal PNA seen, but no respiratory symptoms. -UA relatively benign. -rapid COVID neg x2. PCR COVID neg x1. remove isolation. -PT ordered -Remove nieves. get patient out of bed #Headache -Tylenol q6h scheduled, given language barrier and patient not asking for it. #HTN - continue metop 25 daily - amlodipine 10mg daily - continue losartan 100mg daily #Hypokalemia -replete -trend BMP Time spent on encounter, 40 mins. 25 on counseling, coordination of care. d/w RN, consultants. Time of note doesn't accurately reflect time of encounter. Camden Dominique MD Jan 25, 2020 11:17
--- NOTE | 2020-01-25 11:25 | Pulmonology Progress Note ---
Subjective ROS Limited/Unobtainable: No Interval Events: None new Constitutional: Reports: fever, fatigue HEENT: Repors: no symptoms Respiratory: Reports: no symptoms Gastrointestinal/Abdominal: Denies: nausea, vomiting, diarrhea Psychiatric: Reports: other - NA Skin: Denies: rash Musculoskeletal: Denies: pain Allergies: Coded Allergies: PENICILLINS (Verified Allergy, Unknown, 01/23/20) nurse unable to enter a coded PENICILLIN allergy. still need to obtain reaction All Systems: reviewed and negative except above Objective Last 24 Hour Vital Signs Date Time Temp Pulse Resp B/P (MAP) Pulse Ox O2 Delivery O2 Flow Rate FiO2 01/25/20 09:00 Nasal Cannula 2.0 01/25/20 09:00 76 124/68 01/25/20 09:00 124/68 01/25/20 09:00 76 124/68 01/25/20 08:00 100.0 76 18 124/68 (86) 96 01/25/20 08:00 91 01/25/20 07:10 95 Nasal Cannula 2.0 28 01/25/20 04:00 88 01/25/20 04:00 Nasal Cannula 2.0 01/25/20 00:00 95 01/25/20 00:00 Nasal Cannula 2.0 01/24/20 20:01 98 01/24/20 20:00 Nasal Cannula 2.0 01/24/20 19:43 95 Nasal Cannula 2.0 28 01/24/20 16:00 Nasal Cannula 2.0 01/24/20 16:00 95 01/24/20 12:08 102 146/75 01/24/20 12:08 146/75 01/24/20 12:07 102 146/75 01/24/20 12:00 Nasal Cannula 2.0 01/24/20 12:00 104 01/24/20 12:00 98.4 106 20 146/87 (106) 97 Intake and Output 01/24/20 01/25/20 19:00 07:00 Intake Total 730 ml 400 ml Output Total 800 ml 400 ml Balance -70 ml 0 ml Intake Oral 730 ml 300 ml IV Total 100 ml Output Urine Total 800 ml 400 ml # Bowel Movements 2 HEENT: normocephalic Respiratory: chest wall non-tender, lungs clear Cardiovascular: normal peripheral pulses, normal rate Microbiology Date/Time Source Procedure Growth Status 01/24/20 03:30 Blood Blood Culture - Preliminary Resulted 01/24/20 03:25 Blood Blood Culture - Preliminary Resulted 01/22/20 20:10 Blood Blood Culture - Final Staphylococcus Aureus Complete 01/22/20 19:50 Blood Blood Culture - Final Staphylococcus Aureus Complete Laboratory Tests 01/25/20 07:40: White Blood Count 16.9H, Red Blood Count 3.98L, Hemoglobin 12.6, Hematocrit 36.9L, Mean Corpuscular Volume 93, Mean Corpuscular Hemoglobin 31.6H, Mean Corpuscular Hemoglobin Concent 34.1, Red Cell Distribution Width 11.4L, Platelet Count 180, Mean Platelet Volume 6.0L, Neutrophils (%) (Auto) 78.9H, Lymphocytes (%) (Auto) 11.6L, Monocytes (%) (Auto) 8.9, Eosinophils (%) (Auto) 0.3, Basophils (%) (Auto) 0.3, Sodium Level 139, Potassium Level 3.5, Chloride Level 104, Carbon Dioxide Level 29, Anion Gap 6, Blood Urea Nitrogen 17, Creatinine 0.5L, Estimat Glomerular Filtration Rate > 60, Glucose Level 138H, Calcium Level 7.5L, Vancomycin Level Trough 1.3L Current Medications Medications (Trade) Dose Ordered Sig/Altagracia Route PRN Reason Start Time Stop Time Status Last Admin Dose Admin Acetaminophen (Tylenol) 650 mg Q4H PRN ORAL Temp >100.5 01/21/20 14:00 02/20/20 13:59 01/23/20 05:00 Acetaminophen (Tylenol) 650 mg Q4H PRN ORAL Mild Pain (Pain Scale 1-3) 01/21/20 14:00 02/20/20 13:59 01/25/20 10:50 Acetaminophen (Tylenol) 650 mg Q6H ORAL 01/25/20 11:30 02/24/20 11:29 Albuterol/ Ipratropium (Albuterol/ Ipratropium) 3 ml Q4H PRN HHN Shortness of Breath 01/21/20 14:00 02/01/20 13:59 Alendronate Sodium (Fosamax) 70 mg ONCE A WEEK ORAL 01/22/20 06:30 02/21/20 06:29 01/22/20 05:36 Amlodipine Besylate (Norvasc) 5 mg DAILY ORAL 01/22/20 09:00 02/21/20 08:59 01/24/20 12:07 Amylase/Lipase/ Protease (Chelsy HUFF 36,000 units cap) 1 ea TIDPRN PRN ORAL Abdominal cramps 01/21/20 15:45 04/20/20 15:44 Atorvastatin Calcium (Lipitor) 20 mg BEDTIME ORAL 01/22/20 21:00 04/21/20 20:59 01/24/20 21:08 Ceftriaxone Sodium 1 gm/ Dextrose 55 ml @ 110 mls/hr Q24H IVPB 01/23/20 17:00 01/30/20 16:59 01/24/20 18:12 Clonazepam (KlonoPIN) 1 mg Q6H PRN ORAL For Anxiety 01/21/20 15:15 01/28/20 15:14 Dronabinol (Marinol) 2.5 mg BID ORAL 01/22/20 18:00 04/21/20 17:59 01/25/20 09:00 Heparin Sodium (Porcine) (Heparin 5000 units/ml) 5,000 units EVERY 12 HOURS SUBQ 01/21/20 21:00 03/06/20 20:59 01/25/20 09:02 Loratadine (Claritin 10mg) 10 mg DAILY ORAL 01/23/20 09:00 02/22/20 08:59 01/25/20 09:00 Losartan Potassium (Cozaar) 100 mg DAILY ORAL 01/22/20 09:00 02/21/20 08:59 01/25/20 09:00 Metoprolol Succinate (Toprol XL) 25 mg DAILY ORAL 01/22/20 09:00 04/21/20 08:59 01/25/20 09:00 Metronidazole 100 ml @ 100 mls/hr Q8HR IVPB 01/23/20 22:00 01/30/20 21:59 01/25/20 05:07 Pantoprazole (Protonix) 40 mg ACBREAKFAST IVP 01/23/20 06:30 02/22/20 06:29 01/25/20 05:47 Vancomycin HCl (Vanco pharmacy to dose) 1 ea DAILY PRN MISC Per rx protocol 01/22/20 08:00 02/21/20 07:59 Vancomycin HCl 750 mg/Sodium Chloride 275 ml @ 183.333 mls/hr Q12HR@1100,2300 IVPB 01/25/20 11:00 01/30/20 10:59 Assessment/Plan Assessment/Plan IMPRESSION: 1. Sepsis with bacteremia. 2. Pulmonary vascular congestion. 3. GERD. 4. Hypertension. 5. Hyperlipidemia. 6. Previous CVA. DISCUSSION: Continue nasal O2. No additional pulmonary intervention required. Broad-spectrum antibiotics. Will follow Thierno Payan M.D. Thierno Payan MD Jan 25, 2020 11:25
[2020-01-25 12:00] VITALS: BP 135/65
--- NOTE | 2020-01-25 14:39 | Infectious Diseases Prog Note ---
Assessment/Plan Assessment/Plan ASSESSMENT AND PLAN: 1. staph aureus bacteremia, sepsis, leukocytosis, fevers, ? pna, ? cap, ? aspiration risk, staph aureus septic emboli, ? endocarditis, ? meningitis, TELLEZ, neck pain - vancomycin, ceftriaxone, flagyl - CT - abdomen/pelvis/chest - noted, ? pna, ? septic emboli, no abscess - monitor labs, f/u on c cultures, monitor chest x-ray - surveillance blood cultures persists - f/u on TTE, may need KENNETH if bacteremia persists 2. Hypertension. Blood pressure treatment per primary care team. 3. GERD. 4. HLP, which I think is hyperlipidemia, but I am not sure. 5. Per the records, history of CVA. 6. Cardiac disease. 7. Allergic to penicillin, tolerates cephalosporins. 8. Social History is negative. 9. Family History is noncontributory . 10. MAR was noted. 11. Case was discussed with RN. 12. Continue treatment per primary consultants. Subjective Constitutional: Denies: fever HEENT: Denies: congestion Respiratory: Denies: shortness of breath Cardiovascular: Denies: chest pain Gastrointestinal/Abdominal: Denies: nausea, vomiting, diarrhea Genitourinary: Reports: other - no nieves Neurologic: Denies: headache Psychiatric: Denies: depression Skin: Denies: rash Hematologic: Denies: bleeding Musculoskeletal: Denies: pain Allergies: Coded Allergies: PENICILLINS (Verified Allergy, Unknown, 01/23/20) nurse unable to enter a coded PENICILLIN allergy. still need to obtain reaction Objective Last 24 Hour Vital Signs Date Time Temp Pulse Resp B/P (MAP) Pulse Ox O2 Delivery O2 Flow Rate FiO2 01/25/20 12:00 85 01/25/20 09:00 Nasal Cannula 2.0 01/25/20 09:00 76 124/68 01/25/20 09:00 124/68 01/25/20 09:00 76 124/68 01/25/20 08:00 100.0 76 18 124/68 (86) 96 01/25/20 08:00 91 01/25/20 07:10 95 Nasal Cannula 2.0 28 01/25/20 04:00 88 01/25/20 04:00 Nasal Cannula 2.0 01/25/20 00:00 95 01/25/20 00:00 Nasal Cannula 2.0 01/24/20 20:01 98 01/24/20 20:00 Nasal Cannula 2.0 01/24/20 19:43 95 Nasal Cannula 2.0 28 01/24/20 16:00 Nasal Cannula 2.0 01/24/20 16:00 95 Height (Feet): 5 Height (Inches): 3.00 Weight (Pounds): 140 General Appearance: no acute distress HEENT: normocephalic, atraumatic, anicteric, mucous membranes moist Respiratory/Chest: lungs clear, normal breath sounds, no respiratory distress, no accessory muscle use Cardiovascular: normal rate, regular rhythm, no gallop/murmur, no JVD Abdomen: normal bowel sounds, soft, non tender, no organomegaly, non distended Genitourinary: other - no fooley Extremities: no cyanosis Skin: no rash 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 The heart is borderline enlarged. There is torturous ectatic and calcified Impression: Increasing bilateral infiltrates versus edema, over one day Microbiology Date/Time Source Procedure Growth Status 01/24/20 03:30 Blood Blood Culture - Preliminary Resulted 01/24/20 03:25 Blood Blood Culture - Preliminary Resulted 01/22/20 20:10 Blood Blood Culture - Final Staphylococcus Aureus Complete 01/22/20 19:50 Blood Blood Culture - Final Staphylococcus Aureus Complete Laboratory Tests Test 01/25/20 07:40 White Blood Count 16.9 K/UL (4.8-10.8) H Red Blood Count 3.98 M/UL (4.20-5.40) L Hemoglobin 12.6 G/DL (12.0-16.0) Hematocrit 36.9 % (37.0-47.0) L Mean Corpuscular Volume 93 FL (80-99) Mean Corpuscular Hemoglobin 31.6 PG (27.0-31.0) H Mean Corpuscular Hemoglobin Concent 34.1 G/DL (32.0-36.0) Red Cell Distribution Width 11.4 % (11.6-14.8) L Platelet Count 180 K/UL (150-450) Mean Platelet Volume 6.0 FL (6.5-10.1) L Neutrophils (%) (Auto) 78.9 % (45.0-75.0) H Lymphocytes (%) (Auto) 11.6 % (20.0-45.0) L Monocytes (%) (Auto) 8.9 % (1.0-10.0) Eosinophils (%) (Auto) 0.3 % (0.0-3.0) Basophils (%) (Auto) 0.3 % (0.0-2.0) Sodium Level 139 MMOL/L (136-145) Potassium Level 3.5 MMOL/L (3.5-5.1) Chloride Level 104 MMOL/L (98-107) Carbon Dioxide Level 29 MMOL/L (21-32) Anion Gap 6 mmol/L (5-15) Blood Urea Nitrogen 17 mg/dL (7-18) Creatinine 0.5 MG/DL (0.55-1.30) L Estimat Glomerular Filtration Rate > 60 mL/min (>60) Glucose Level 138 MG/DL (74-106) H Calcium Level 7.5 MG/DL (8.5-10.1) L Vancomycin Level Trough 1.3 ug/mL (5.0-12.0) L Current Medications Medications (Trade) Dose Ordered Sig/Altagracia Route PRN Reason Start Time Stop Time Status Last Admin Dose Admin Acetaminophen (Tylenol) 650 mg Q4H PRN ORAL Temp >100.5 01/21/20 14:00 02/20/20 13:59 01/23/20 05:00 Acetaminophen (Tylenol) 650 mg Q4H PRN ORAL Mild Pain (Pain Scale 1-3) 01/21/20 14:00 02/20/20 13:59 01/25/20 10:50 Acetaminophen (Tylenol) 650 mg Q6H ORAL 01/25/20 11:30 02/24/20 11:29 Albuterol/ Ipratropium (Albuterol/ Ipratropium) 3 ml Q4H PRN HHN Shortness of Breath 01/21/20 14:00 02/01/20 13:59 Alendronate Sodium (Fosamax) 70 mg ONCE A WEEK ORAL 01/22/20 06:30 02/21/20 06:29 01/22/20 05:36 Amlodipine Besylate (Norvasc) 5 mg DAILY ORAL 01/22/20 09:00 02/21/20 08:59 01/24/20 12:07 Amylase/Lipase/ Protease (Chelsy HUFF 36,000 units cap) 1 ea TIDPRN PRN ORAL Abdominal cramps 01/21/20 15:45 04/20/20 15:44 Atorvastatin Calcium (Lipitor) 20 mg BEDTIME ORAL 01/22/20 21:00 04/21/20 20:59 01/24/20 21:08 Ceftriaxone Sodium 1 gm/ Dextrose 55 ml @ 110 mls/hr Q24H IVPB 01/23/20 17:00 01/30/20 16:59 01/24/20 18:12 Clonazepam (KlonoPIN) 1 mg Q6H PRN ORAL For Anxiety 01/21/20 15:15 01/28/20 15:14 Dronabinol (Marinol) 2.5 mg BID ORAL 01/22/20 18:00 04/21/20 17:59 01/25/20 09:00 Heparin Sodium (Porcine) (Heparin 5000 units/ml) 5,000 units EVERY 12 HOURS SUBQ 01/21/20 21:00 03/06/20 20:59 01/25/20 09:02 Loratadine (Claritin 10mg) 10 mg DAILY ORAL 01/23/20 09:00 02/22/20 08:59 01/25/20 09:00 Losartan Potassium (Cozaar) 100 mg DAILY ORAL 01/22/20 09:00 02/21/20 08:59 01/25/20 09:00 Metoprolol Succinate (Toprol XL) 25 mg DAILY ORAL 01/22/20 09:00 04/21/20 08:59 01/25/20 09:00 Metronidazole 100 ml @ 100 mls/hr Q8HR IVPB 01/23/20 22:00 01/30/20 21:59 01/25/20 14:05 Pantoprazole (Protonix) 40 mg ACBREAKFAST IVP 01/23/20 06:30 02/22/20 06:29 01/25/20 05:47 Vancomycin HCl (Vanco pharmacy to dose) 1 ea DAILY PRN MISC Per rx protocol 01/22/20 08:00 02/21/20 07:59 Vancomycin HCl 750 mg/Sodium Chloride 275 ml @ 183.333 mls/hr Q12HR@1100,2300 IVPB 01/25/20 11:00 01/30/20 10:59 01/25/20 11:34 Tiny Armijo MD Jan 25, 2020 14:38
--- NOTE | 2020-01-25 14:48 | Infectious Diseases Prog Note ---
Assessment/Plan Assessment/Plan ASSESSMENT AND PLAN: 1. staph aureus bacteremia - mrsa bacteremia, sepsis, leukocytosis, fevers, ? pna, ? cap, ? aspiration risk, ? staph aureus septic emboli, ? endocarditis - vancomycin, ceftriaxone, flagyl - CT - abdomen/pelvis/chest - noted, ? pna, ? septic emboli, no abscess - monitor labs, f/u on c cultures, monitor chest x-ray - surveillance blood cultures persists - f/u on TTE, may need KENNETH if bacteremia persists 2. Hypertension. Blood pressure treatment per primary care team. 3. GERD. 4. HLP, which I think is hyperlipidemia, but I am not sure. 5. Per the records, history of CVA. 6. Cardiac disease. 7. Allergic to penicillin, tolerates cephalosporins. 8. Social History is negative. 9. Family History is noncontributory . 10. MAR was noted. 11. Case was discussed with RN. 12. Continue treatment per primary consultants. Subjective Constitutional: Reports: fever - lgt, fatigue HEENT: Reports: other - ? neck pain ; Denies: congestion Respiratory: Denies: shortness of breath Cardiovascular: Denies: chest pain Gastrointestinal/Abdominal: Denies: nausea, vomiting, diarrhea Genitourinary: Reports: other - no nieves Neurologic: Reports: other; Denies: headache Psychiatric: Reports: other - NA Skin: Denies: rash Hematologic: Denies: bleeding Musculoskeletal: Reports: pain - ? neck pain Allergies: Coded Allergies: PENICILLINS (Verified Allergy, Unknown, 01/23/20) nurse unable to enter a coded PENICILLIN allergy. still need to obtain reaction Objective Last 24 Hour Vital Signs Date Time Temp Pulse Resp B/P (MAP) Pulse Ox O2 Delivery O2 Flow Rate FiO2 01/25/20 12:00 85 01/25/20 09:00 Nasal Cannula 2.0 01/25/20 09:00 76 124/68 01/25/20 09:00 124/68 01/25/20 09:00 76 124/68 01/25/20 08:00 100.0 76 18 124/68 (86) 96 01/25/20 08:00 91 01/25/20 07:10 95 Nasal Cannula 2.0 28 01/25/20 04:00 88 01/25/20 04:00 Nasal Cannula 2.0 01/25/20 00:00 95 01/25/20 00:00 Nasal Cannula 2.0 01/24/20 20:01 98 01/24/20 20:00 Nasal Cannula 2.0 01/24/20 19:43 95 Nasal Cannula 2.0 28 01/24/20 16:00 Nasal Cannula 2.0 01/24/20 16:00 95 Height (Feet): 5 Height (Inches): 3.00 Weight (Pounds): 140 General Appearance: no acute distress HEENT: normocephalic, atraumatic, anicteric, mucous membranes moist, EOMI, pharynx normal, supple, no JVD Respiratory/Chest: no accessory muscle use, crackles/rales, rhonchi - bilaterally Cardiovascular: normal rate, regular rhythm, no gallop/murmur, no JVD Abdomen: normal bowel sounds, soft, non tender, no organomegaly, non distended Genitourinary: other - no nieves, no cva pain Extremities: no cyanosis Skin: no rash 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 The heart is borderline enlarged. There is torturous ectatic and calcified Impression: Increasing bilateral infiltrates versus edema, over one day Chest x-ray - 01/25/20 - Procedure: XRAY Chest 1v EXAM: XR Chest, 1 View CLINICAL HISTORY: INFECT TECHNIQUE: Frontal view of the chest. COMPARISON: No relevant prior studies available. FINDINGS/IMPRESSION: Low lung volume secondary to poor inspiration. Mild, patchy airspace opacity within the left upper lung field, suspicious for infiltrate. Follow-up 2 view chest radiograph recommended. No pleural effusion or pneumothorax. CT chest/abdomen/pelvis: IMPRESSION: Lungs demonstrate bilateral multifocal patchy and nodular infiltrates. This most likely represents multifocal pneumonia, May correlate with stated clinical history of suspected septic emboli. Generalized pulmonary venous congestion, may indicate central venous hypertension Small bilateral pleural effusions Mild cardiomegaly No acute abdominal or pelvic abnormality 12 mm left adrenal nodule. This is nonspecific in appearance. 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 Nieves catheter within the bladder Other findings as noted, including bilateral renal parapelvic cysts, probable bilateral renal cortical cysts, degenerative spondylosis changes, duodenal diverticulum, probable subce Microbiology Date/Time Source Procedure Growth Status 01/24/20 03:30 Blood Blood Culture - Preliminary Resulted 01/22/20 04:30 Nasopharynx Coronavirus COVID-19 PCR ([facility]) - Final Complete Microbiology Date/Time Source Procedure Growth Status 01/24/20 03:30 Blood Blood Culture - Preliminary Resulted 01/24/20 03:25 Blood Blood Culture - Preliminary Resulted 01/22/20 20:10 Blood Blood Culture - Final Staphylococcus Aureus Complete 01/22/20 19:50 Blood Blood Culture - Final Staphylococcus Aureus Complete Laboratory Tests Test 01/25/20 07:40 White Blood Count 16.9 K/UL (4.8-10.8) H Red Blood Count 3.98 M/UL (4.20-5.40) L Hemoglobin 12.6 G/DL (12.0-16.0) Hematocrit 36.9 % (37.0-47.0) L Mean Corpuscular Volume 93 FL (80-99) Mean Corpuscular Hemoglobin 31.6 PG (27.0-31.0) H Mean Corpuscular Hemoglobin Concent 34.1 G/DL (32.0-36.0) Red Cell Distribution Width 11.4 % (11.6-14.8) L Platelet Count 180 K/UL (150-450) Mean Platelet Volume 6.0 FL (6.5-10.1) L Neutrophils (%) (Auto) 78.9 % (45.0-75.0) H Lymphocytes (%) (Auto) 11.6 % (20.0-45.0) L Monocytes (%) (Auto) 8.9 % (1.0-10.0) Eosinophils (%) (Auto) 0.3 % (0.0-3.0) Basophils (%) (Auto) 0.3 % (0.0-2.0) Sodium Level 139 MMOL/L (136-145) Potassium Level 3.5 MMOL/L (3.5-5.1) Chloride Level 104 MMOL/L (98-107) Carbon Dioxide Level 29 MMOL/L (21-32) Anion Gap 6 mmol/L (5-15) Blood Urea Nitrogen 17 mg/dL (7-18) Creatinine 0.5 MG/DL (0.55-1.30) L Estimat Glomerular Filtration Rate > 60 mL/min (>60) Glucose Level 138 MG/DL (74-106) H Calcium Level 7.5 MG/DL (8.5-10.1) L Vancomycin Level Trough 1.3 ug/mL (5.0-12.0) L Current Medications Medications (Trade) Dose Ordered Sig/Altagracia Route PRN Reason Start Time Stop Time Status Last Admin Dose Admin Acetaminophen (Tylenol) 650 mg Q4H PRN ORAL Temp >100.5 01/21/20 14:00 02/20/20 13:59 01/23/20 05:00 Acetaminophen (Tylenol) 650 mg Q4H PRN ORAL Mild Pain (Pain Scale 1-3) 01/21/20 14:00 02/20/20 13:59 01/25/20 10:50 Acetaminophen (Tylenol) 650 mg Q6H ORAL 01/25/20 11:30 02/24/20 11:29 Albuterol/ Ipratropium (Albuterol/ Ipratropium) 3 ml Q4H PRN HHN Shortness of Breath 01/21/20 14:00 02/01/20 13:59 Alendronate Sodium (Fosamax) 70 mg ONCE A WEEK ORAL 01/22/20 06:30 02/21/20 06:29 01/22/20 05:36 Amlodipine Besylate (Norvasc) 5 mg DAILY ORAL 01/22/20 09:00 02/21/20 08:59 01/24/20 12:07 Amylase/Lipase/ Protease (Chelsy HUFF 36,000 units cap) 1 ea TIDPRN PRN ORAL Abdominal cramps 01/21/20 15:45 04/20/20 15:44 Atorvastatin Calcium (Lipitor) 20 mg BEDTIME ORAL 01/22/20 21:00 04/21/20 20:59 01/24/20 21:08 Ceftriaxone Sodium 1 gm/ Dextrose 55 ml @ 110 mls/hr Q24H IVPB 01/23/20 17:00 01/30/20 16:59 01/24/20 18:12 Clonazepam (KlonoPIN) 1 mg Q6H PRN ORAL For Anxiety 01/21/20 15:15 01/28/20 15:14 Dronabinol (Marinol) 2.5 mg BID ORAL 01/22/20 18:00 04/21/20 17:59 01/25/20 09:00 Heparin Sodium (Porcine) (Heparin 5000 units/ml) 5,000 units EVERY 12 HOURS SUBQ 01/21/20 21:00 03/06/20 20:59 01/25/20 09:02 Loratadine (Claritin 10mg) 10 mg DAILY ORAL 01/23/20 09:00 02/22/20 08:59 01/25/20 09:00 Losartan Potassium (Cozaar) 100 mg DAILY ORAL 01/22/20 09:00 02/21/20 08:59 01/25/20 09:00 Metoprolol Succinate (Toprol XL) 25 mg DAILY ORAL 01/22/20 09:00 04/21/20 08:59 01/25/20 09:00 Metronidazole 100 ml @ 100 mls/hr Q8HR IVPB 01/23/20 22:00 01/30/20 21:59 01/25/20 14:05 Pantoprazole (Protonix) 40 mg ACBREAKFAST IVP 01/23/20 06:30 02/22/20 06:29 01/25/20 05:47 Vancomycin HCl (Vanco pharmacy to dose) 1 ea DAILY PRN MISC Per rx protocol 01/22/20 08:00 02/21/20 07:59 Vancomycin HCl 750 mg/Sodium Chloride 275 ml @ 183.333 mls/hr Q12HR@1100,2300 IVPB 01/25/20 11:00 01/30/20 10:59 01/25/20 11:34 Tiny Armijo MD Jan 25, 2020 14:48
[2020-01-25 16:00] VITALS: BP 120/72
[2020-01-25] MEDS: cefTRIAXone 1 GM in D5W 55 ML IVPB SCH (17:05)
--- NOTE | 2020-01-25 19:17 | General Progress Note ---
Assessment/Plan Status: stable Assessment/Plan: #Sepsis - r/o COVID #gram pos bacteremia #Leukocytosis #Hyponatremia #Possible syncope #Hypokalemia #HTN #Dementia - replace phos - IVF - IV abx per ID - on ceftriaxone, flagyl, azithro, and vanco - COVID r/o - ID consult - IVF - pulm eval - monitor BP - monitor resp status - cardiology eval for possible syncope - continue metop 25 daily - amlodipine 10mg daily - continue losartan 100mg daily Subjective ROS Limited/Unobtainable: No Constitutional: Reports: weakness HEENT: Denies: no symptoms, eye pain, blurred vision, tearing, double vision, ear pain, ear discharge, nose pain, nose congestion, throat pain, throat swelling, mouth pain, mouth swelling, other Cardiovascular: Denies: no symptoms, chest pain, edema, irregular heart rate, lightheadedness, palpitations, syncope, other Respiratory: Denies: no symptoms, cough, orthopnea, shortness of breath, SOB with excertion, SOB at rest, sputum, stridor, wheezing, other Gastrointestinal/Abdominal: Denies: no symptoms, abdomen distended, abdominal pain, black stools, tarry stools, blood in stool, constipated, diarrhea, difficulty swallowing, nausea, poor appetite, poor fluid intake, rectal bl eeding, vomiting, other Genitourinary: Denies: no symptoms, burning, discharge, frequency, flank pain, hematuria, incontinence, pain, urgency, other Neurologic/Psychiatric: Denies: no symptoms, anxiety, depressed, emotional problems, headache, numbness, paresthesia, pre-existing deficit, seizure, tingling, tremors, weakness, other Endocrine: Denies: no symptoms, excessive sweating, flushing, intolerance to cold, intolerance to heat, increased hunger, increased thirst, increased urine, unexplained weight gain, unexplained weight loss, other Hematologic/Lymphatic: Denies: no symptoms, anemia, easy bleeding, easy bruising, other Allergies: Coded Allergies: PENICILLINS (Verified Allergy, Unknown, 01/23/20) nurse unable to enter a coded PENICILLIN allergy. still need to obtain reaction All Systems: reviewed and negative except above Subjective continues to have low grade fevers and some chills WBC uptrending Blood cx growing gram pos cocci Objective Last 24 Hour Vital Signs Date Time Temp Pulse Resp B/P (MAP) Pulse Ox O2 Delivery O2 Flow Rate FiO2 01/25/20 16:00 97.9 82 18 120/72 (88) 96 01/25/20 16:00 80 01/25/20 12:00 97.9 86 20 135/65 (88) 96 01/25/20 12:00 85 01/25/20 09:00 Nasal Cannula 2.0 01/25/20 09:00 76 124/68 01/25/20 09:00 124/68 01/25/20 09:00 76 124/68 01/25/20 08:00 100.0 76 18 124/68 (86) 96 01/25/20 08:00 91 01/25/20 07:10 95 Nasal Cannula 2.0 28 01/25/20 04:00 88 01/25/20 04:00 Nasal Cannula 2.0 01/25/20 00:00 95 01/25/20 00:00 Nasal Cannula 2.0 01/24/20 20:01 98 01/24/20 20:00 Nasal Cannula 2.0 01/24/20 19:43 95 Nasal Cannula 2.0 28 Intake and Output 01/24/20 01/25/20 19:00 07:00 Intake Total 730 ml 400 ml Output Total 800 ml 400 ml Balance -70 ml 0 ml Intake Oral 730 ml 300 ml IV Total 100 ml Output Urine Total 800 ml 400 ml # Bowel Movements 2 Laboratory Tests 01/25/20 07:40: White Blood Count 16.9H, Red Blood Count 3.98L, Hemoglobin 12.6, Hematocrit 36.9L, Mean Corpuscular Volume 93, Mean Corpuscular Hemoglobin 31.6H, Mean Corpuscular Hemoglobin Concent 34.1, Red Cell Distribution Width 11.4L, Platelet Count 180, Mean Platelet Volume 6.0L, Neutrophils (%) (Auto) 78.9H, Lymphocytes (%) (Auto) 11.6L, Monocytes (%) (Auto) 8.9, Eosinophils (%) (Auto) 0.3, Basophils (%) (Auto) 0.3, Sodium Level 139, Potassium Level 3.5, Chloride Level 104, Carbon Dioxide Level 29, Anion Gap 6, Blood Urea Nitrogen 17, Creatinine 0.5L, Estimat Glomerular Filtration Rate > 60, Glucose Level 138H, Calcium Level 7.5L, Vancomycin Level Trough 1.3L Height (Feet): 5 Height (Inches): 3.00 Weight (Pounds): 140 Silvina Kohli M.D. Jan 25, 2020 19:17
[2020-01-25 20:00] VITALS: BP 128/68
[2020-01-25] MEDS: Atorvastatin 20mg tab ORAL SCH (20:03)
[2020-01-26] VITALS: BP 146/72
[2020-01-26 04:00] VITALS: BP 153/87
[2020-01-26] MEDS: Pantoprazole Inj IVP SCH (06:16)
--- NOTE | 2020-01-26 07:41 | General Progress Note ---
Subjective ROS Limited/Unobtainable: Yes Allergies: Coded Allergies: PENICILLINS (Verified Allergy, Unknown, 01/23/20) nurse unable to enter a coded PENICILLIN allergy. still need to obtain reaction Objective Last 24 Hour Vital Signs Date Time Temp Pulse Resp B/P (MAP) Pulse Ox O2 Delivery O2 Flow Rate FiO2 01/26/20 04:00 99.4 98 20 153/87 (109) 94 01/26/20 04:00 99 01/26/20 00:00 91 01/26/20 00:00 99.7 93 20 146/72 (96) 95 01/25/20 21:00 Nasal Cannula 1.0 01/25/20 20:00 94 Nasal Cannula 1.0 24 01/25/20 20:00 101 01/25/20 20:00 99.7 81 20 128/68 (88) 98 01/25/20 16:00 97.9 82 18 120/72 (88) 96 01/25/20 16:00 80 01/25/20 12:00 97.9 86 20 135/65 (88) 96 01/25/20 12:00 85 01/25/20 09:00 Nasal Cannula 2.0 01/25/20 09:00 76 124/68 01/25/20 09:00 124/68 01/25/20 09:00 76 124/68 01/25/20 08:00 100.0 76 18 124/68 (86) 96 01/25/20 08:00 91 Intake and Output 01/25/20 01/26/20 19:00 07:00 # Bowel Movements 2 1 Height (Feet): 5 Height (Inches): 3.00 Weight (Pounds): 140 General Appearance: no apparent distress EENT: normal ENT inspection Neck: supple Cardiovascular: normal rate Respiratory/Chest: decreased breath sounds Abdomen: normal bowel sounds, non tender, soft Extremities: non-tender Assessment/Plan Status: stable Assessment/Plan: 1. Hypertension. 2. GERD. 3. Hyperlipidemia. 4. History of CVA. 5. FTT 6. PNA marinol ensure TID calorie count swallow eval appreciated abx per IDneg stool for C.diff abd/chest CT reviewed will Jarocho Clarke MD Jan 26, 2020 07:41
[2020-01-26 08:00] VITALS: BP 128/68
[2020-01-26 08:29] LABS: ANION GAP 11 mmol/L (5-15); BLOOD UREA NITROGEN 12 mg/dL (7-18); CALCIUM 7.3 MG/DL (8.5-10.1); CARBON DIOXIDE 27 MMOL/L (21-32); CHLORIDE 100 MMOL/L (98-107); CREATININE 0.5 MG/DL (0.55-1.30); SODIUM 137 MMOL/L (136-145)
[2020-01-26 08:35] LABS: HEMATOCRIT 36.9 % (37.0-47.0); HEMOGLOBIN 12.7 G/DL (12.0-16.0); MEAN CORPUSCULAR VOLUME 92 FL (80-99); PLATELET COUNT 183 K/UL (150-450); RED BLOOD COUNT 4.01 M/UL (4.20-5.40); RED CELL DISTRIBUTION WIDTH 11.1 % (11.6-14.8); WHITE BLOOD COUNT 18.1 K/UL (4.8-10.8)
[2020-01-26] MEDS: Dronabinol 2.5mg Cap ORAL SCH ×2 (08:35→16:56)
[2020-01-26] MEDS: Losartan 50mg tab ORAL SCH (08:35)
[2020-01-26] MEDS: Metoprolol Succinate XL 25mg tab ORAL SCH (08:35)
--- NOTE | 2020-01-26 08:35 | Pulmonology Progress Note ---
Subjective ROS Limited/Unobtainable: Yes Interval Events: None new Constitutional: Reports: fever - lgt, fatigue HEENT: Repors: no symptoms Respiratory: Reports: no symptoms Gastrointestinal/Abdominal: Denies: nausea, vomiting, diarrhea Psychiatric: Reports: other - NA Skin: Denies: rash Musculoskeletal: Reports: pain - ? neck pain Allergies: Coded Allergies: PENICILLINS (Verified Allergy, Unknown, 01/23/20) nurse unable to enter a coded PENICILLIN allergy. still need to obtain reaction All Systems: reviewed and negative except above Objective Last 24 Hour Vital Signs Date Time Temp Pulse Resp B/P (MAP) Pulse Ox O2 Delivery O2 Flow Rate FiO2 01/26/20 04:00 99.4 98 20 153/87 (109) 94 01/26/20 04:00 99 01/26/20 00:00 91 01/26/20 00:00 99.7 93 20 146/72 (96) 95 01/25/20 21:00 Nasal Cannula 1.0 01/25/20 20:00 94 Nasal Cannula 1.0 24 01/25/20 20:00 101 01/25/20 20:00 99.7 81 20 128/68 (88) 98 01/25/20 16:00 97.9 82 18 120/72 (88) 96 01/25/20 16:00 80 01/25/20 12:00 97.9 86 20 135/65 (88) 96 01/25/20 12:00 85 01/25/20 09:00 Nasal Cannula 2.0 01/25/20 09:00 76 124/68 01/25/20 09:00 124/68 01/25/20 09:00 76 124/68 Intake and Output 01/25/20 01/26/20 19:00 07:00 # Bowel Movements 2 1 HEENT: normocephalic Respiratory: chest wall non-tender, lungs clear Cardiovascular: normal peripheral pulses, normal rate Microbiology Date/Time Source Procedure Growth Status 01/25/20 18:00 Stool Clostridium difficile Toxin Assay - Final Complete 01/24/20 03:30 Blood Blood Culture - Preliminary Resulted 01/24/20 03:25 Blood Blood Culture - Preliminary Resulted Laboratory Tests 01/26/20 06:55: White Blood Count [Pending], Red Blood Count [Pending], Hemoglobin [Pending], Hematocrit [Pending], Mean Corpuscular Volume [Pending], Mean Corpuscular Hemoglobin [Pending], Mean Corpuscular Hemoglobin Concent [Pending], Red Cell Distribution Width [Pending], Platelet Count [Pending], Mean Platelet Volume [Pending], Neutrophils (%) (Auto) [Pending], Lymphocytes (%) (Auto) [Pending], Monocytes (%) (Auto) [Pending], Eosinophils (%) (Auto) [Pending], Basophils (%) (Auto) [Pending], Sodium Level 137, Potassium Level 3.0L, Chloride Level 100, Carbon Dioxide Level 27, Anion Gap 11, Blood Urea Nitrogen 12, Creatinine 0.5L, Estimat Glomerular Filtration Rate > 60, Glucose Level 120H, Calcium Level 7.3L, Phosphorus Level [Pending], Magnesium Level [Pending] Current Medications Medications (Trade) Dose Ordered Sig/Altagracia Route PRN Reason Start Time Stop Time Status Last Admin Dose Admin Acetaminophen (Tylenol) 650 mg Q4H PRN ORAL Temp >100.5 01/21/20 14:00 02/20/20 13:59 01/23/20 05:00 Acetaminophen (Tylenol) 650 mg Q4H PRN ORAL Mild Pain (Pain Scale 1-3) 01/21/20 14:00 02/20/20 13:59 01/25/20 10:50 Acetaminophen (Tylenol) 650 mg Q6H ORAL 01/25/20 11:30 02/24/20 11:29 01/26/20 05:14 Albuterol/ Ipratropium (Albuterol/ Ipratropium) 3 ml Q4H PRN HHN Shortness of Breath 01/21/20 14:00 02/01/20 13:59 Alendronate Sodium (Fosamax) 70 mg ONCE A WEEK ORAL 01/22/20 06:30 02/21/20 06:29 01/22/20 05:36 Amlodipine Besylate (Norvasc) 5 mg DAILY ORAL 01/22/20 09:00 02/21/20 08:59 01/24/20 12:07 Amylase/Lipase/ Protease (Creon DR 36,000 units cap) 1 ea TIDPRN PRN ORAL Abdominal cramps 01/21/20 15:45 04/20/20 15:44 Atorvastatin Calcium (Lipitor) 20 mg BEDTIME ORAL 01/22/20 21:00 04/21/20 20:59 01/25/20 20:03 Ceftriaxone Sodium 1 gm/ Dextrose 55 ml @ 110 mls/hr Q24H IVPB 01/23/20 17:00 01/30/20 16:59 01/25/20 17:05 Clonazepam (KlonoPIN) 1 mg Q6H PRN ORAL For Anxiety 01/21/20 15:15 01/28/20 15:14 Dronabinol (Marinol) 2.5 mg BID ORAL 01/22/20 18:00 04/21/20 17:59 01/25/20 17:05 Heparin Sodium (Porcine) (Heparin 5000 units/ml) 5,000 units EVERY 12 HOURS SUBQ 01/21/20 21:00 03/06/20 20:59 01/25/20 20:03 Loratadine (Claritin 10mg) 10 mg DAILY ORAL 01/23/20 09:00 02/22/20 08:59 01/25/20 09:00 Losartan Potassium (Cozaar) 100 mg DAILY ORAL 01/22/20 09:00 02/21/20 08:59 01/25/20 09:00 Metoprolol Succinate (Toprol XL) 25 mg DAILY ORAL 01/22/20 09:00 04/21/20 08:59 01/25/20 09:00 Metronidazole 100 ml @ 100 mls/hr Q8HR IVPB 01/23/20 22:00 01/30/20 21:59 01/26/20 05:13 Pantoprazole (Protonix) 40 mg ACBREAKFAST IVP 01/23/20 06:30 02/22/20 06:29 01/26/20 06:16 Vancomycin HCl (Vanco pharmacy to dose) 1 ea DAILY PRN MISC Per rx protocol 01/22/20 08:00 02/21/20 07:59 Vancomycin HCl 750 mg/Sodium Chloride 275 ml @ 183.333 mls/hr Q12HR@1100,2300 IVPB 01/25/20 11:00 01/30/20 10:59 01/25/20 23:12 Assessment/Plan Assessment/Plan IMPRESSION: 1. Sepsis with bacteremia. 2. Pulmonary vascular congestion. 3. GERD. 4. Hypertension. 5. Hyperlipidemia. 6. Previous CVA. DISCUSSION: Continue nasal O2. No additional pulmonary intervention required. Broad-spectrum antibiotics. Will follow Gil Mattson Omar Syed MD Jan 26, 2020 08:35
[2020-01-26] MEDS: Heparin 5000 units/ml inj SUBQ SCH ×2 (08:38→21:17)
[2020-01-26 09:21] LABS: PHOSPHORUS 3.2 MG/DL (2.5-4.9)
--- NOTE | 2020-01-26 10:58 | Surgery Progress Note ---
Surgery Progress Note Subjective Additional Comments wbc trending down family at bedside working with pt/ot Objective Last 24 Hour Vital Signs Date Time Temp Pulse Resp B/P (MAP) Pulse Ox O2 Delivery O2 Flow Rate FiO2 01/26/20 09:48 96 17 95 Nasal Cannula 2.0 28 01/26/20 09:48 95 Nasal Cannula 2.0 24 01/26/20 09:00 Nasal Cannula 1.0 01/26/20 08:36 98 128/68 01/26/20 08:35 98 128/68 01/26/20 08:35 128/68 01/26/20 08:00 97.7 98 18 128/68 (88) 01/26/20 08:00 83 01/26/20 04:00 99.4 98 20 153/87 (109) 94 01/26/20 04:00 99 01/26/20 00:00 91 01/26/20 00:00 99.7 93 20 146/72 (96) 95 01/25/20 21:00 Nasal Cannula 1.0 01/25/20 20:00 94 Nasal Cannula 1.0 24 01/25/20 20:00 101 01/25/20 20:00 99.7 81 20 128/68 (88) 98 01/25/20 16:00 97.9 82 18 120/72 (88) 96 01/25/20 16:00 80 01/25/20 12:00 97.9 86 20 135/65 (88) 96 01/25/20 12:00 85 I&O Intake and Output 01/25/20 01/26/20 19:00 07:00 # Bowel Movements 2 1 Cardiovascular: RSR Respiratory: clear Abdomen: soft, non-tender, present bowel sounds Extremities: no edema, no tenderness, no cyanosis Laboratory Tests Test 01/26/20 06:55 White Blood Count 18.1 K/UL (4.8-10.8) H Red Blood Count 4.01 M/UL (4.20-5.40) L Hemoglobin 12.7 G/DL (12.0-16.0) Hematocrit 36.9 % (37.0-47.0) L Mean Corpuscular Volume 92 FL (80-99) Mean Corpuscular Hemoglobin 31.5 PG (27.0-31.0) H Mean Corpuscular Hemoglobin Concent 34.3 G/DL (32.0-36.0) Red Cell Distribution Width 11.1 % (11.6-14.8) L Platelet Count 183 K/UL (150-450) Mean Platelet Volume 6.0 FL (6.5-10.1) L Neutrophils (%) (Auto) % (45.0-75.0) Lymphocytes (%) (Auto) % (20.0-45.0) Monocytes (%) (Auto) % (1.0-10.0) Eosinophils (%) (Auto) % (0.0-3.0) Basophils (%) (Auto) % (0.0-2.0) Neutrophils % (Manual) Pending Lymphocytes % (Manual) Pending Platelet Estimate Pending Platelet Morphology Pending Sodium Level 137 MMOL/L (136-145) Potassium Level 3.0 MMOL/L (3.5-5.1) L Chloride Level 100 MMOL/L (98-107) Carbon Dioxide Level 27 MMOL/L (21-32) Anion Gap 11 mmol/L (5-15) Blood Urea Nitrogen 12 mg/dL (7-18) Creatinine 0.5 MG/DL (0.55-1.30) L Estimat Glomerular Filtration Rate > 60 mL/min (>60) Glucose Level 120 MG/DL (74-106) H Calcium Level 7.3 MG/DL (8.5-10.1) L Phosphorus Level 3.2 MG/DL (2.5-4.9) Magnesium Level 2.5 MG/DL (1.8-2.4) H Plan Problems: (1) Pulmonary edema (2) Hypokalemia (3) Leukocytosis Assessment & Plan: 84-year-old female afebrile hemodynamic stable bacteremia leukocytosis LFTs okay hypoalbuminemia BMI 22 failure to thrive. UTI /pna on antibiotics appreciate ID input. Agree with GI as to calorie count feeding trial swallow eval and continue Marinol. May need feeding tube given failure to thrive. Will follow with recommendations Participation's care labs improving on abx cont abx comfortable diet as tolerated No acute intracranial hemorrhage or edema. No mass effect nor midline shift. There is age-related enlargement of the ventricles and extra axial CSF spaces. There is periventricular deep white matter low-attenuation, consistent with chronic microvascular ischemic changes. Old lacunar infarcts are seen in the basal ganglia bilaterally. The mastoids are clear. There is fairly extensive sphenoid and ethmoid sinus disease. The calvarium is intact. Impression: Chronic and age-related changes. Old bilateral basal ganglia lacunar infarcts. Negative for acute intracranial bleed or mass effect Increasing interstitial and airspace infiltrates are seen diffusely within the lungs bilaterally. The heart is borderline enlarged. There is torturous ectatic and calcified Impression: Increasing bilateral infiltrates versus edema, over one day (4) Fever (5) Bacteremia Alvarado Tolliver Jan 26, 2020 10:58
[2020-01-26] MEDS: Vancomycin 750mg/NS 275ml IVPB SCH ×2 (11:33)
[2020-01-26 12:00] VITALS: BP 136/72
--- NOTE | 2020-01-26 12:50 | General Progress Note ---
Assessment/Plan Status: stable Assessment/Plan: #Sepsis - r/o COVID #staff bacteremia #Leukocytosis #Hyponatremia #Possible syncope #Hypokalemia #HTN #Dementia - c diff neg - repeat blood cx - IV abx per ID - COVID r/o - pulm eval - monitor BP - monitor resp status - cardiology eval for possible syncope - continue metop 25 daily - amlodipine 10mg daily - continue losartan 100mg daily Subjective Allergies: Coded Allergies: PENICILLINS (Verified Allergy, Unknown, 01/23/20) nurse unable to enter a coded PENICILLIN allergy. still need to obtain reaction All Systems: reviewed and negative except above Subjective IMPRESSION: Lungs demonstrate bilateral multifocal patchy and nodular infiltrates. This most likely represents multifocal pneumonia, May correlate with stated clinical history of suspected septic emboli. blood cx growing staph + diarrhea neg c diff Objective Last 24 Hour Vital Signs Date Time Temp Pulse Resp B/P (MAP) Pulse Ox O2 Delivery O2 Flow Rate FiO2 01/26/20 12:00 98.8 89 18 136/72 (93) 01/26/20 09:48 96 17 95 Nasal Cannula 2.0 28 01/26/20 09:48 95 Nasal Cannula 2.0 24 01/26/20 09:00 Nasal Cannula 1.0 01/26/20 08:36 98 128/68 01/26/20 08:35 98 128/68 01/26/20 08:35 128/68 01/26/20 08:00 97.7 98 18 128/68 (88) 01/26/20 08:00 83 01/26/20 04:00 99.4 98 20 153/87 (109) 94 01/26/20 04:00 99 01/26/20 00:00 91 01/26/20 00:00 99.7 93 20 146/72 (96) 95 01/25/20 21:00 Nasal Cannula 1.0 01/25/20 20:00 94 Nasal Cannula 1.0 24 01/25/20 20:00 101 01/25/20 20:00 99.7 81 20 128/68 (88) 98 01/25/20 16:00 97.9 82 18 120/72 (88) 96 01/25/20 16:00 80 Intake and Output 01/25/20 01/26/20 19:00 07:00 # Bowel Movements 2 1 Laboratory Tests 01/26/20 06:55: White Blood Count 18.1H, Red Blood Count 4.01L, Hemoglobin 12.7, Hematocrit 36.9L, Mean Corpuscular Volume 92, Mean Corpuscular Hemoglobin 31.5H, Mean Corpuscular Hemoglobin Concent 34.3, Red Cell Distribution Width 11.1L, Platelet Count 183, Mean Platelet Volume 6.0L, Neutrophils (%) (Auto) , Lymphocytes (%) (Auto) , Monocytes (%) (Auto) , Eosinophils (%) (Auto) , Basophils (%) (Auto) , Differential Total Cells Counted 100, Neutrophils % (Manual) 78H, Lymphocytes % (Manual) 14L, Monocytes % (Manual) 6, Eosinophils % (Manual) 0, Basophils % (Manual) 0, Band Neutrophils 2, Platelet Estimate Adequate, Platelet Morphology Normal, Red Blood Cell Morphology Normal, Sodium Level 137, Potassium Level 3.0L , Chloride Level 100, Carbon Dioxide Level 27, Anion Gap 11, Blood Urea Nitrogen 12, Creatinine 0.5L, Estimat Glomerular Filtration Rate > 60, Glucose Level 120H , Calcium Level 7.3L, Phosphorus Level 3.2, Magnesium Level 2.5H Height (Feet): 5 Height (Inches): 3.00 Weight (Pounds): 140 Silvina Kohli M.D. Jan 26, 2020 12:50
[2020-01-26 16:00] VITALS: BP 157/84
--- NOTE | 2020-01-26 16:07 | General Progress Note ---
Subjective Date patient seen: Jan 26, 2020 ROS Limited/Unobtainable: No Constitutional: Denies: no symptoms, chills, diaphoresis, fever, malaise, weakness, other HEENT: Denies: no symptoms, eye pain, blurred vision, tearing, double vision, ear pain, ear discharge, nose pain, nose congestion, throat pain, throat swelling, mouth pain, mouth swelling, other Cardiovascular: Denies: no symptoms, chest pain, edema, irregular heart rate, lightheadedness, palpitations, syncope, other Respiratory: Denies: no symptoms, cough, orthopnea, shortness of breath, SOB with excertion, SOB at rest, sputum, stridor, wheezing, other Gastrointestinal/Abdominal: Denies: no symptoms, abdomen distended, abdominal pain, black stools, tarry stools, blood in stool, constipated, diarrhea, difficulty swallowing, nausea, poor appetite, poor fluid intake, rectal bleeding, vomiting, other Genitourinary: Denies: no symptoms, burning, discharge, frequency, flank pain, hematuria, incontinence, pain, urgency, other Neurologic/Psychiatric: Denies: no symptoms, anxiety, depressed, emotional pr oblems, headache, numbness, paresthesia, pre-existing deficit, seizure, tingling, tremors, weakness, other Allergies: Coded Allergies: PENICILLINS (Verified Allergy, Unknown, 01/23/20) nurse unable to enter a coded PENICILLIN allergy. still need to obtain reaction Subjective sleeping in bed with eyes covered. Headache improved, no neck pain. no other issues. Objective Last 24 Hour Vital Signs Date Time Temp Pulse Resp B/P (MAP) Pulse Ox O2 Delivery O2 Flow Rate FiO2 01/26/20 12:00 98.8 89 18 136/72 (93) 01/26/20 12:00 85 01/26/20 09:48 96 17 95 Nasal Cannula 2.0 28 01/26/20 09:48 95 Nasal Cannula 2.0 24 01/26/20 09:00 Nasal Cannula 1.0 01/26/20 08:36 98 128/68 01/26/20 08:35 98 128/68 01/26/20 08:35 128/68 01/26/20 08:00 97.7 98 18 128/68 (88) 01/26/20 08:00 83 01/26/20 04:00 99.4 98 20 153/87 (109) 94 01/26/20 04:00 99 01/26/20 00:00 91 01/26/20 00:00 99.7 93 20 146/72 (96) 95 01/25/20 21:00 Nasal Cannula 1.0 01/25/20 20:00 94 Nasal Cannula 1.0 24 01/25/20 20:00 101 01/25/20 20:00 99.7 81 20 128/68 (88) 98 Intake and Output 01/25/20 01/26/20 19:00 07:00 # Bowel Movements 2 1 Laboratory Tests 01/26/20 06:55: White Blood Count 18.1H, Red Blood Count 4.01L, Hemoglobin 12.7, Hematocrit 36.9L, Mean Corpuscular Volume 92, Mean Corpuscular Hemoglobin 31.5H, Mean Corpuscular Hemoglobin Concent 34.3, Red Cell Distribution Width 11.1L, Platelet Count 183, Mean Platelet Volume 6.0L, Neutrophils (%) (Auto) , Lymphocytes (%) (Auto) , Monocytes (%) (Auto) , Eosinophils (%) (Auto) , Basophils (%) (Auto) , Differential Total Cells Counted 100, Neutrophils % (Manual) 78H, Lymphocytes % (Manual) 14L, Monocytes % (Manual) 6, Eosinophils % (Manual) 0, Basophils % (Manual) 0, Band Neutrophils 2, Platelet Estimate Adequate, Platelet Morphology Normal, Red Blood Cell Morphology Normal, Sodium Level 137, Potassium Level 3.0L , Chloride Level 100, Carbon Dioxide Level 27, Anion Gap 11, Blood Urea Nitrogen 12, Creatinine 0.5L, Estimat Glomerular Filtration Rate > 60, Glucose Level 120H , Calcium Level 7.3L, Phosphorus Level 3.2, Magnesium Level 2.5H Height (Feet): 5 Height (Inches): 3.00 Weight (Pounds): 140 General Appearance: no apparent distress, alert EENT: PERRL/EOMI Neck: supple Cardiovascular: normal rate, regular rhythm Respiratory/Chest: lungs clear, normal breath sounds Abdomen: non tender, soft Edema: non-pitting Neurologic: alert, oriented x 3 Assessment/Plan Problem List: (1) Bacteremia ICD Codes: R78.81 - Bacteremia SNOMED: 1780874 (2) Leukocytosis ICD Codes: D72.829 - Elevated white blood cell count, unspecified SNOMED: 507678347, 672985668 (3) Hypokalemia ICD Codes: E87.6 - Hypokalemia SNOMED: 74903205, 902213664 (4) Fever ICD Codes: R50.9 - Fever, unspecified SNOMED: 189911605 Status: stable Assessment/Plan: Ms. Walker is a 84 year old female with HTN, HLD who presented with syncope and weakness, found to have S. aureus bacteremia #Severe sepsis #MRSA bacteremia #Fever #Leukocytosis #Multifocal PNA -ID following. -BCx + MRSA (01/21, and 01/22, still bacteremic). repeat BCx until clearance. (01/23, NGTD) -Continue abx per ID -TTE wnl, no vegetations seen. -CTH with old infarcts seen, no acute pathology. -CT A/P/C ordered per ID to eval for source of infection -> multifocal PNA seen, but no respiratory symptoms. -UA relatively benign. -rapid COVID neg x2. PCR COVID neg x1. remove isolation. -PT ordered -Remove nieves. get patient out of bed #Headache -Tylenol q6h scheduled, given language barrier and patient not asking for it. #HTN - continue metop 25 daily - amlodipine 10mg daily - continue losartan 100mg daily #Hypokalemia -replete -trend BMP Time spent on encounter, 37 mins. 25 on counseling, coordination of care. d/w RN, consultants. Time of note doesn't accurately reflect time of encounter. Camden Dominique MD Jan 26, 2020 16:07
[2020-01-26] MEDS ORDERED: Tubing IV Secondary IV ONE (16:54)
[2020-01-26] MEDS ORDERED: NS 275ml ONE (16:54)
[2020-01-26] MEDS: cefTRIAXone 1 GM in D5W 55 ML IVPB SCH (16:55)
[2020-01-26 20:00] VITALS: BP 102/63
[2020-01-26] MEDS: Atorvastatin 20mg tab ORAL SCH (21:15)
[2020-01-27] VITALS: BP 136/78
[2020-01-27] MEDS: Vancomycin 1gm in Dextrose 275ml IVPB SCH ×3 (00:03→16:00)
[2020-01-27 04:00] VITALS: BP 117/70
[2020-01-27] MEDS: Pantoprazole Inj IVP SCH (05:41)
[2020-01-27 08:00] VITALS: BP 128/65
[2020-01-27] MEDS: Metoprolol Succinate XL 25mg tab ORAL SCH (08:21)
[2020-01-27] MEDS: Dronabinol 2.5mg Cap ORAL SCH ×2 (08:21→17:49)
[2020-01-27] MEDS: Losartan 50mg tab ORAL SCH (08:21)
[2020-01-27] MEDS: Heparin 5000 units/ml inj SUBQ SCH ×2 (08:23→20:25)
--- NOTE | 2020-01-27 08:47 | General Progress Note ---
Subjective ROS Limited/Unobtainable: Yes - c/o headache Allergies: Coded Allergies: PENICILLINS (Verified Allergy, Unknown, 01/23/20) nurse unable to enter a coded PENICILLIN allergy. still need to obtain reaction Objective Last 24 Hour Vital Signs Date Time Temp Pulse Resp B/P (MAP) Pulse Ox O2 Delivery O2 Flow Rate FiO2 01/27/20 08:21 81 128/65 01/27/20 08:21 128/65 01/27/20 08:21 81 128/65 01/27/20 08:00 96.6 81 18 128/65 (86) 99 01/27/20 04:00 97.7 77 20 117/70 (86) 97 01/27/20 04:00 78 01/27/20 00:00 97.7 85 24 136/78 (97) 95 01/27/20 00:00 88 01/26/20 21:00 Nasal Cannula 2.0 01/26/20 20:43 95 Nasal Cannula 2.0 28 01/26/20 20:41 91 18 94 Nasal Cannula 2.0 28 01/26/20 20:00 97.0 93 22 102/63 (76) 97 01/26/20 20:00 85 01/26/20 17:32 97.1 100 18 01/26/20 17:29 99.9 01/26/20 16:00 99.9 102 18 157/84 (108) 94 01/26/20 16:00 106 01/26/20 12:00 98.8 89 18 136/72 (93) 01/26/20 12:00 85 01/26/20 09:48 96 17 95 Nasal Cannula 2.0 28 01/26/20 09:48 95 Nasal Cannula 2.0 24 01/26/20 09:00 Nasal Cannula 1.0 Intake and Output 01/26/20 01/27/20 19:00 07:00 Intake Total 240 ml Output Total 100 ml 650 ml Balance -100 ml -410 ml Intake Oral 240 ml Output Urine Total 100 ml 650 ml # Bowel Movements 2 1 Laboratory Tests 01/26/20 22:18: Vancomycin Level Trough 4.5L Height (Feet): 5 Height (Inches): 3.00 Weight (Pounds): 140 General Appearance: alert EENT: normal ENT inspection Neck: supple Cardiovascular: normal rate Respiratory/Chest: decreased breath sounds Abdomen: normal bowel sounds, non tender, soft Extremities: non-tender Assessment/Plan Status: stable Assessment/Plan: 1. Hypertension. 2. GERD. 3. Hyperlipidemia. 4. History of CVA. 5. FTT 6. PNA marinol>>will increase to 5 mg ensure TID calorie count swallow eval appreciated abx per ID neg stool for C.diff abd/chest CT reviewed will Jarocho Clarke MD Jan 27, 2020 08:47
[2020-01-27] MEDS ORDERED: Dronabinol 2.5mg Cap ORAL SCH (09:00)
[2020-01-27 09:05] LABS: BASOPHILS % (AUTO) 0.6 % (0.0-2.0); EOSINOPHILS % (AUTO) 0.2 % (0.0-3.0); HEMATOCRIT 36.7 % (37.0-47.0); HEMOGLOBIN 12.3 G/DL (12.0-16.0); LYMPHOCYTES % (AUTO) 11.7 % (20.0-45.0); MEAN CORPUSCULAR VOLUME 93 FL (80-99); MONOCYTES % (AUTO) 7.4 % (1.0-10.0); NEUTROPHILS % (AUTO) 80.2 % (45.0-75.0); PLATELET COUNT 199 K/UL (150-450); RED BLOOD COUNT 3.95 M/UL (4.20-5.40); RED CELL DISTRIBUTION WIDTH 11.2 % (11.6-14.8); WHITE BLOOD COUNT 14.5 K/UL (4.8-10.8)
[2020-01-27 09:23] LABS: ANION GAP 5 mmol/L (5-15); BLOOD UREA NITROGEN 10 mg/dL (7-18); CALCIUM 7.6 MG/DL (8.5-10.1); CARBON DIOXIDE 29 MMOL/L (21-32); CHLORIDE 102 MMOL/L (98-107); CREATININE 0.5 MG/DL (0.55-1.30); POTASSIUM 3.5 MMOL/L (3.5-5.1); SODIUM 136 MMOL/L (136-145)
[2020-01-27] MEDS ORDERED: Dronabinol 2.5mg Cap ORAL ONE (10:00)
--- NOTE | 2020-01-27 10:27 | Pulmonology Progress Note ---
Subjective ROS Limited/Unobtainable: Yes - c/o headache Interval Events: None new Constitutional: Reports: fever - lgt, fatigue HEENT: Repors: no symptoms Respiratory: Reports: no symptoms Gastrointestinal/Abdominal: Denies: nausea, vomiting, diarrhea Psychiatric: Reports: other - NA Skin: Denies: rash Musculoskeletal: Reports: pain - ? neck pain Allergies: Coded Allergies: PENICILLINS (Verified Allergy, Unknown, 01/23/20) nurse unable to enter a coded PENICILLIN allergy. still need to obtain reaction All Systems: reviewed and negative except above Objective Last 24 Hour Vital Signs Date Time Temp Pulse Resp B/P (MAP) Pulse Ox O2 Delivery O2 Flow Rate FiO2 01/27/20 08:21 81 128/65 01/27/20 08:21 128/65 01/27/20 08:21 81 128/65 01/27/20 08:00 77 01/27/20 08:00 96.6 81 18 128/65 (86) 99 01/27/20 04:00 97.7 77 20 117/70 (86) 97 01/27/20 04:00 78 01/27/20 00:00 97.7 85 24 136/78 (97) 95 01/27/20 00:00 88 01/26/20 21:00 Nasal Cannula 2.0 01/26/20 20:43 95 Nasal Cannula 2.0 28 01/26/20 20:41 91 18 94 Nasal Cannula 2.0 28 01/26/20 20:00 97.0 93 22 102/63 (76) 97 01/26/20 20:00 85 01/26/20 17:32 97.1 100 18 01/26/20 17:29 99.9 01/26/20 16:00 99.9 102 18 157/84 (108) 94 01/26/20 16:00 106 01/26/20 12:00 98.8 89 18 136/72 (93) 01/26/20 12:00 85 Intake and Output 01/26/20 01/27/20 19:00 07:00 Intake Total 240 ml Output Total 100 ml 650 ml Balance -100 ml -410 ml Intake Oral 240 ml Output Urine Total 100 ml 650 ml # Bowel Movements 2 1 HEENT: normocephalic Respiratory: chest wall non-tender, lungs clear Cardiovascular: normal peripheral pulses, normal rate Microbiology Date/Time Source Procedure Growth Status 10/31/20 18:00 Stool Clostridium difficile Toxin Assay - Final Complete Laboratory Tests 01/26/20 22:18: Vancomycin Level Trough 4.5L 01/27/20 08:20: White Blood Count 14.5H, Red Blood Count 3.95L, Hemoglobin 12.3, Hematocrit 36.7L, Mean Corpuscular Volume 93, Mean Corpuscular Hemoglobin 31.2H, Mean Corpuscular Hemoglobin Concent 33.6, Red Cell Distribution Width 11.2L, Platelet Count 199, Mean Platelet Volume 5.8L, Neutrophils (%) (Auto) 80.2H, Lymphocytes (%) (Auto) 11.7L, Monocytes (%) (Auto) 7.4, Eosinophils (%) (Auto) 0.2, Basophils (%) (Auto) 0.6, Sodium Level 136, Potassium Level 3.5, Chloride Level 102, Carbon Dioxide Level 29, Anion Gap 5, Blood Urea Nitrogen 10, Creatinine 0.5L, Estimat Glomerular Filtration Rate > 60, Glucose Level 127H, Calcium Level 7.6L Current Medications Medications (Trade) Dose Ordered Sig/Altagracia Route PRN Reason Start Time Stop Time Status Last Admin Dose Admin Acetaminophen (Tylenol) 650 mg Q4H PRN ORAL Temp >100.5 01/21/20 14:00 02/20/20 13:59 01/23/20 05:00 Acetaminophen (Tylenol) 650 mg Q4H PRN ORAL Mild Pain (Pain Scale 1-3) 01/21/20 14:00 02/20/20 13:59 01/25/20 10:50 Acetaminophen (Tylenol) 650 mg Q6H ORAL 01/25/20 11:30 02/24/20 11:29 01/27/20 05:29 Albuterol/ Ipratropium (Albuterol/ Ipratropium) 3 ml Q4H PRN HHN Shortness of Breath 01/21/20 14:00 02/01/20 13:59 Alendronate Sodium (Fosamax) 70 mg ONCE A WEEK ORAL 01/22/20 06:30 02/21/20 06:29 01/22/20 05:36 Amlodipine Besylate (Norvasc) 5 mg DAILY ORAL 01/22/20 09:00 02/21/20 08:59 01/27/20 08:21 Amylase/Lipase/ Protease (Chelsy HUFF 36,000 units cap) 1 ea TIDPRN PRN ORAL Abdominal cramps 01/21/20 15:45 04/20/20 15:44 Atorvastatin Calcium (Lipitor) 20 mg BEDTIME ORAL 01/22/20 21:00 04/21/20 20:59 01/26/20 21:15 Ceftriaxone Sodium 1 gm/ Dextrose 55 ml @ 110 mls/hr Q24H IVPB 01/23/20 17:00 01/30/20 16:59 01/26/20 16:55 Clonazepam (KlonoPIN) 1 mg Q6H PRN ORAL For Anxiety 01/27/20 09:15 02/03/20 09:14 Dronabinol (Marinol) 5 mg BID ORAL 01/27/20 18:00 04/26/20 17:59 Heparin Sodium (Porcine) (Heparin 5000 units/ml) 5,000 units EVERY 12 HOURS SUBQ 01/21/20 21:00 03/06/20 20:59 01/27/20 08:23 Loratadine (Claritin 10mg) 10 mg DAILY ORAL 01/23/20 09:00 02/22/20 08:59 01/27/20 08:21 Losartan Potassium (Cozaar) 100 mg DAILY ORAL 01/22/20 09:00 02/21/20 08:59 01/27/20 08:21 Metoprolol Succinate (Toprol XL) 25 mg DAILY ORAL 01/22/20 09:00 04/21/20 08:59 01/27/20 08:21 Metronidazole 100 ml @ 100 mls/hr Q8HR IVPB 01/23/20 22:00 01/30/20 21:59 01/27/20 05:30 Pantoprazole (Protonix) 40 mg ACBREAKFAST IVP 01/23/20 06:30 02/22/20 06:29 01/27/20 05:41 Vancomycin HCl (Vanco pharmacy to dose) 1 ea DAILY PRN MISC Per rx protocol 01/22/20 08:00 02/21/20 07:59 Vancomycin HCl 1 gm/Dextrose 275 ml @ 184 mls/hr Q8H IVPB 01/27/20 00:00 02/01/20 00:00 01/27/20 09:41 Assessment/Plan Assessment/Plan IMPRESSION: 1. Sepsis with bacteremia. 2. Pulmonary vascular congestion. 3. GERD. 4. Hypertension. 5. Hyperlipidemia. 6. Previous CVA. DISCUSSION: Continue nasal O2. No additional pulmonary intervention required. Broad-spectrum antibiotics. Will follow Gil Mattson Omar Syed MD Jan 27, 2020 10:27
[2020-01-27 12:00] VITALS: BP 127/68
--- NOTE | 2020-01-27 13:11 | General Progress Note ---
Assessment/Plan Status: stable Assessment/Plan: #Sepsis - r/o COVID #staph bacteremia #Leukocytosis #Hyponatremia #Possible syncope #Hypokalemia #HTN #Dementia - repeat blood cx - plan for KENNETH - cardiology consulted - IV abx per ID - COVID r/o - pulm eval - monitor BP - monitor resp status - cardiology eval for possible syncope - continue metop 25 daily - amlodipine 10mg daily - continue losartan 100mg daily Subjective ROS Limited/Unobtainable: No Constitutional: Reports: weakness HEENT: Denies: no symptoms, eye pain, blurred vision, tearing, double vision, ear pain, ear discharge, nose pain, nose congestion, throat pain, throat swelling, mouth pain, mouth swelling, other Cardiovascular: Denies: no symptoms, chest pain, edema, irregular heart rate, lightheadedness, palpitations, syncope, other Respiratory: Denies: no symptoms, cough, orthopnea, shortness of breath, SOB with excertion, SOB at rest, sputum, stridor, wheezing, other Gastrointestinal/Abdominal: Denies: no symptoms, abdomen distended, abdominal pain, black stools, tarry stools, blood in stool, constipated, diarrhea, difficulty swallowing, nausea, poor appetite, poor fluid intake, rectal bleeding, vomiting, other Neurologic/Psychiatric: Denies: no symptoms, anxiety, depressed, emotional problems, headache, numbness, paresthesia, pre-existing deficit, seizure, tingling, tremors, weakness, other Endocrine: Denies: no symptoms, excessive sweating, flushing, intolerance to cold, intolerance to heat, increased hunger, increased thirst, increased urine, unexplained weight gain, unexplained weight loss, other Hematologic/Lymphatic: Denies: no symptoms, anemia, easy bleeding, easy bruising, other Allergies: Coded Allergies: PENICILLINS (Verified Allergy, Unknown, 01/23/20) nurse unable to enter a coded PENICILLIN allergy. still need to obtain reaction All Systems: reviewed and negative except above Subjective IMPRESSION: Lungs demonstrate bilateral multifocal patchy and nodular infiltrates. This most likely represents multifocal pneumonia, May correlate with stated clinical history of suspected septic emboli. blood cx growing staph + diarrhea neg c diff plan for KENNETH Objective Last 24 Hour Vital Signs Date Time Temp Pulse Resp B/P (MAP) Pulse Ox O2 Delivery O2 Flow Rate FiO2 01/27/20 12:00 97.9 80 18 127/68 (87) 98 01/27/20 09:00 Room Air 01/27/20 08:21 81 128/65 01/27/20 08:21 128/65 01/27/20 08:21 81 128/65 01/27/20 08:00 77 01/27/20 08:00 96.6 81 18 128/65 (86) 99 01/27/20 04:00 97.7 77 20 117/70 (86) 97 01/27/20 04:00 78 01/27/20 00:00 97.7 85 24 136/78 (97) 95 01/27/20 00:00 88 01/26/20 21:00 Nasal Cannula 2.0 01/26/20 20:43 95 Nasal Cannula 2.0 28 01/26/20 20:41 91 18 94 Nasal Cannula 2.0 28 01/26/20 20:00 97.0 93 22 102/63 (76) 97 01/26/20 20:00 85 01/26/20 17:32 97.1 100 18 01/26/20 17:29 99.9 01/26/20 16:00 99.9 102 18 157/84 (108) 94 01/26/20 16:00 106 Intake and Output 01/26/20 01/27/20 19:00 07:00 Intake Total 240 ml Output Total 100 ml 650 ml Balance -100 ml -410 ml Intake Oral 240 ml Output Urine Total 100 ml 650 ml # Bowel Movements 2 1 Laboratory Tests 01/26/20 22:18: Vancomycin Level Trough 4.5L 01/27/20 08:20: White Blood Count 14.5H, Red Blood Count 3.95L, Hemoglobin 12.3, Hematocrit 36.7L, Mean Corpuscular Volume 93, Mean Corpuscular Hemoglobin 31.2H, Mean Corpuscular Hemoglobin Concent 33.6, Red Cell Distribution Width 11.2L, Platelet Count 199, Mean Platelet Volume 5.8L, Neutrophils (%) (Auto) 80.2H, Lymphocytes (%) (Auto) 11.7L, Monocytes (%) (Auto) 7.4, Eosinophils (%) (Auto) 0.2, Basophils (%) (Auto) 0.6, Sodium Level 136, Potassium Level 3.5, Chloride Level 102, Carbon Dioxide Level 29, Anion Gap 5, Blood Urea Nitrogen 10, Creatinine 0.5L, Estimat Glomerular Filtration Rate > 60, Glucose Level 127H, Calcium Level 7.6L Height (Feet): 5 Height (Inches): 3.00 Weight (Pounds): 140 Silvina Kohli M.D. Jan 27, 2020 13:11
--- NOTE | 2020-01-27 14:24 | General Progress Note ---
Subjective Date patient seen: Jan 27, 2020 ROS Limited/Unobtainable: No Constitutional: Denies: no symptoms, chills, diaphoresis, fever, malaise, weakness, other HEENT: Denies: no symptoms, eye pain, blurred vision, tearing, double vision, ear pain, ear discharge, nose pain, nose congestion, throat pain, throat swelling, mouth pain, mouth swelling, other Cardiovascular: Denies: no symptoms, chest pain, edema, irregular heart rate, lightheadedness, palpitations, syncope, other Respiratory: Denies: no symptoms, cough, orthopnea, shortness of breath, SOB with excertion, SOB at rest, sputum, stridor, wheezing, other Gastrointestinal/Abdominal: Denies: no symptoms, abdomen distended, abdominal pain, black stools, tarry stools, blood in stool, constipated, diarrhea, difficulty swallowing, nausea, poor appetite, poor fluid intake, rectal bleeding, vomiting, other Genitourinary: Denies: no symptoms, burning, discharge, frequency, flank pain, hematuria, incontinence, pain, urgency, other Neurologic/Psychiatric: Denies: no symptoms, anxiety, depressed, emotional pr oblems, headache, numbness, paresthesia, pre-existing deficit, seizure, tingling, tremors, weakness, other Allergies: Coded Allergies: PENICILLINS (Verified Allergy, Unknown, 01/23/20) nurse unable to enter a coded PENICILLIN allergy. still need to obtain reaction Subjective headache much better. no other symptoms. has no appetite. Objective Last 24 Hour Vital Signs Date Time Temp Pulse Resp B/P (MAP) Pulse Ox O2 Delivery O2 Flow Rate FiO2 01/27/20 12:00 82 01/27/20 12:00 97.9 80 18 127/68 (87) 98 01/27/20 09:00 Room Air 01/27/20 08:21 81 128/65 01/27/20 08:21 128/65 01/27/20 08:21 81 128/65 01/27/20 08:00 77 01/27/20 08:00 96.6 81 18 128/65 (86) 99 01/27/20 04:00 97.7 77 20 117/70 (86) 97 01/27/20 04:00 78 01/27/20 00:00 97.7 85 24 136/78 (97) 95 01/27/20 00:00 88 01/26/20 21:00 Nasal Cannula 2.0 01/26/20 20:43 95 Nasal Cannula 2.0 28 01/26/20 20:41 91 18 94 Nasal Cannula 2.0 28 01/26/20 20:00 97.0 93 22 102/63 (76) 97 01/26/20 20:00 85 01/26/20 17:32 97.1 100 18 01/26/20 17:29 99.9 01/26/20 16:00 99.9 102 18 157/84 (108) 94 01/26/20 16:00 106 Intake and Output 01/26/20 01/27/20 19:00 07:00 Intake Total 240 ml Output Total 100 ml 650 ml Balance -100 ml -410 ml Intake Oral 240 ml Output Urine Total 100 ml 650 ml # Bowel Movements 2 1 Laboratory Tests 01/26/20 22:18: Vancomycin Level Trough 4.5L 01/27/20 08:20: White Blood Count 14.5H, Red Blood Count 3.95L, Hemoglobin 12.3, Hematocrit 36.7L, Mean Corpuscular Volume 93, Mean Corpuscular Hemoglobin 31.2H, Mean Corpuscular Hemoglobin Concent 33.6, Red Cell Distribution Width 11.2L, Platelet Count 199, Mean Platelet Volume 5.8L, Neutrophils (%) (Auto) 80.2H, Lymphocytes (%) (Auto) 11.7L, Monocytes (%) (Auto) 7.4, Eosinophils (%) (Auto) 0.2, Basophils (%) (Auto) 0.6, Sodium Level 136, Potassium Level 3.5, Chloride Level 102, Carbon Dioxide Level 29, Anion Gap 5, Blood Urea Nitrogen 10, Creatinine 0.5L, Estimat Glomerular Filtration Rate > 60, Glucose Level 127H, Calcium Level 7.6L Height (Feet): 5 Height (Inches): 3.00 Weight (Pounds): 140 General Appearance: no apparent distress, alert EENT: PERRL/EOMI Neck: supple Cardiovascular: normal rate, regular rhythm Respiratory/Chest: lungs clear, normal breath sounds Abdomen: non tender, soft Edema: non-pitting Neurologic: alert, oriented x 3 Assessment/Plan Problem List: (1) Bacteremia ICD Codes: R78.81 - Bacteremia SNOMED: 1232003 (2) Leukocytosis ICD Codes: D72.829 - Elevated white blood cell count, unspecified SNOMED: 006968033, 412584092 (3) Hypokalemia ICD Codes: E87.6 - Hypokalemia SNOMED: 43118854, 900622055 (4) Fever ICD Codes: R50.9 - Fever, unspecified SNOMED: 246907042 Status: stable Assessment/Plan: Ms. Wakler is a 84 year old female with HTN, HLD who presented with syncope and weakness, found to have S. aureus bacteremia #Severe sepsis #MRSA bacteremia #Fever #Leukocytosis #Multifocal PNA -ID following. -BCx + MRSA (01/21, and 01/22, 01/23 still bacteremic). repeat BCx ordered 01/26, f/u for clearance. -Continue abx per ID -TTE wnl, no vegetations seen. -CTH with old infarcts seen, no acute pathology. -CT A/P/C ordered per ID to eval for source of infection -> multifocal PNA seen, but no respiratory symptoms. -UA relatively benign. -rapid COVID neg x2. PCR COVID neg x1. remove isolation. -PT ordered -Remove nieves. get patient out of bed #Headache -Tylenol q6h scheduled, given language barrier and patient not asking for it. #HTN - continue metop 25 daily - amlodipine 10mg daily - continue losartan 100mg daily #Hypokalemia -replete -trend BMP #Low appetite #Suspected depression #Flat affect -GI following -Marinol increased to 5 mg -Start remeron 15 mg qhs. monitor. Time spent on encounter, 37 mins. 25 on counseling, coordination of care. d/w RN, consultants. Time of note doesn't accurately reflect time of encounter. Camden Dominique MD Jan 27, 2020 14:23
--- NOTE | 2020-01-27 14:28 | Surgery Progress Note ---
Surgery Progress Note Subjective Additional Comments no acute events feels better no n/v/f/c labs noted exam stable Objective Last 24 Hour Vital Signs Date Time Temp Pulse Resp B/P (MAP) Pulse Ox O2 Delivery O2 Flow Rate FiO2 01/27/20 12:00 82 01/27/20 12:00 97.9 80 18 127/68 (87) 98 01/27/20 09:00 Room Air 01/27/20 08:21 81 128/65 01/27/20 08:21 128/65 01/27/20 08:21 81 128/65 01/27/20 08:00 77 01/27/20 08:00 96.6 81 18 128/65 (86) 99 01/27/20 04:00 97.7 77 20 117/70 (86) 97 01/27/20 04:00 78 01/27/20 00:00 97.7 85 24 136/78 (97) 95 01/27/20 00:00 88 01/26/20 21:00 Nasal Cannula 2.0 01/26/20 20:43 95 Nasal Cannula 2.0 28 01/26/20 20:41 91 18 94 Nasal Cannula 2.0 28 01/26/20 20:00 97.0 93 22 102/63 (76) 97 01/26/20 20:00 85 01/26/20 17:32 97.1 100 18 01/26/20 17:29 99.9 01/26/20 16:00 99.9 102 18 157/84 (108) 94 01/26/20 16:00 106 I&O Intake and Output 01/26/20 01/27/20 19:00 07:00 Intake Total 240 ml Output Total 100 ml 650 ml Balance -100 ml -410 ml Intake Oral 240 ml Output Urine Total 100 ml 650 ml # Bowel Movements 2 1 Dressing: other Wound: other Cardiovascular: RSR Respiratory: decreased breath sounds Abdomen: soft, non-tender, present bowel sounds Extremities: no tenderness, no cyanosis Laboratory Tests Test 01/26/20 22:18 01/27/20 08:20 Vancomycin Level Trough 4.5 ug/mL (5.0-12.0) L White Blood Count 14.5 K/UL (4.8-10.8) H Red Blood Count 3.95 M/UL (4.20-5.40) L Hemoglobin 12.3 G/DL (12.0-16.0) Hematocrit 36.7 % (37.0-47.0) L Mean Corpuscular Volume 93 FL (80-99) Mean Corpuscular Hemoglobin 31.2 PG (27.0-31.0) H Mean Corpuscular Hemoglobin Concent 33.6 G/DL (32.0-36.0) Red Cell Distribution Width 11.2 % (11.6-14.8) L Platelet Count 199 K/UL (150-450) Mean Platelet Volume 5.8 FL (6.5-10.1) L Neutrophils (%) (Auto) 80.2 % (45.0-75.0) H Lymphocytes (%) (Auto) 11.7 % (20.0-45.0) L Monocytes (%) (Auto) 7.4 % (1.0-10.0) Eosinophils (%) (Auto) 0.2 % (0.0-3.0) Basophils (%) (Auto) 0.6 % (0.0-2.0) Sodium Level 136 MMOL/L (136-145) Potassium Level 3.5 MMOL/L (3.5-5.1) Chloride Level 102 MMOL/L (98-107) Carbon Dioxide Level 29 MMOL/L (21-32) Anion Gap 5 mmol/L (5-15) Blood Urea Nitrogen 10 mg/dL (7-18) Creatinine 0.5 MG/DL (0.55-1.30) L Estimat Glomerular Filtration Rate > 60 mL/min (>60) Glucose Level 127 MG/DL (74-106) H Calcium Level 7.6 MG/DL (8.5-10.1) L Plan Problems: (1) Pulmonary edema (2) Hypokalemia (3) Leukocytosis Assessment & Plan: 84-year-old female afebrile hemodynamic stable bacteremia leukocytosis LFTs okay hypoalbuminemia BMI 22 failure to thrive. UTI /pna on antibiotics appreciate ID input. Agree with GI as to calorie count feeding trial swallow eval and continue Marinol. May need feeding tube given failure to thrive. Will follow with recommendations Participation's care labs improving on abx cont abx comfortable diet as tolerated diet as tolerated No acute intracranial hemorrhage or edema. No mass effect nor midline shift. There is age-related enlargement of the ventricles and extra axial CSF spaces. There is periventricular deep white matter low-attenuation, consistent with chronic microvascular ischemic changes. Old lacunar infarcts are seen in the basal ganglia bilaterally. The mastoids are clear. There is fairly extensive sphenoid and ethmoid sinus disease. The calvarium is intact. Impression: Chronic and age-related changes. Old bilateral basal ganglia lacunar infarcts. Negative for acute intracranial bleed or mass effect Increasing interstitial and airspace infiltrates are seen diffusely within the lungs bilaterally. The heart is borderline enlarged. There is torturous ectatic and calcified Impression: Increasing bilateral infiltrates versus edema, over one day (4) Fever (5) Bacteremia ShareeAlvarado Jan 27, 2020 14:28
--- NOTE | 2020-01-27 14:56 | Consultation ---
History of Present Illness General Date patient seen: Jan 27, 2020 Time patient seen: 14:48 Chief Complaint: Syncope Reason for Consultation: Endocarditis Present Illness HPI This patient is brought in by EMS. Patient reports generalized weakness and an episode of syncope. There is a language barrier and it is difficult to determine whether this was more of a generalized weakness unable to walk or a true syncope. She reports getting influenza vaccine 2 days ago. She denies chest pain or shortness of breath. She denies abdominal pain. She denies dysuria or hematuria. She has no other complaints. Cardiology consulted for KENNETH to evaluate for endocarditis given persistent bacteremia Allergies: Coded Allergies: PENICILLINS (Verified Allergy, Unknown, 01/23/20) nurse unable to enter a coded PENICILLIN allergy. still need to obtain reaction Medication History Scheduled Alendronate Sodium* (Fosamax*), 70 MG ORAL ONCE A WEEK, (Reported) Amlodipine Besylate* (Amlodipine Besylate*), 5 MG ORAL DAILY, (Reported) Clonazepam* (Klonopin*), 1 MG ORAL Q6H, (Reported) Dexlansoprazole (Dexilant), 60 MG ORAL DAILY, (Reported) Levocetirizine Dihydrochloride (Levocetirizine Dihydrochloride), 5 MG ORAL DAILY, (Reported) Lipase/Protease/Amylase (Creon Dr 36,000 Units Capsule), 1 EACH PO TID, (Reported) Losartan Potassium* (Losartan Potassium*), 100 MG ORAL DAILY, (Reported) Metoprolol Succinate* (Metoprolol Succinate*), 25 MG ORAL DAILY, (Reported) Simvastatin (Zocor), 20 MG ORAL BEDTIME, (Reported) Miscellaneous Medications Cyclosporine (Restasis), 1 DROP RIGHT EYE, (Reported) Patient History Healthcare decision maker Resuscitation status Advanced Directive on File Review of Systems Constitutional: Reports: no symptoms Eye: Reports: no symptoms ENT: Reports: no symptoms Respiratory: Reports: no symptoms Cardiovascular: Reports: no symptoms Gastrointestinal: Reports: no symptoms Musculoskeletal: Reports: no symptoms Skin: Reports: no symptoms Psychiatric: Reports: no symptoms Neurological: Reports: no symptoms Endocrine: Reports: no symptoms Physical Exam General Appearance: no apparent distress, lethargic Lines, tubes and drains: peripheral HEENT: normocephalic, atraumatic Neck: non-tender, supple Respiratory/Chest: chest wall non-tender, lungs clear Cardiovascular/Chest: normal peripheral pulses, normal rate, regularly irregular Abdomen: normal bowel sounds, decreased bowel sounds, distended Extremities: normal range of motion, normal inspection Skin Exam: warm/dry 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, no motor/sensory deficits Last 24 Hour Vital Signs Date Time Temp Pulse Resp B/P (MAP) Pulse Ox O2 Delivery O2 Flow Rate FiO2 01/27/20 12:00 82 01/27/20 12:00 97.9 80 18 127/68 (87) 98 01/27/20 09:00 Room Air 01/27/20 08:21 81 128/65 01/27/20 08:21 128/65 01/27/20 08:21 81 128/65 01/27/20 08:00 77 01/27/20 08:00 96.6 81 18 128/65 (86) 99 01/27/20 04:00 97.7 77 20 117/70 (86) 97 01/27/20 04:00 78 01/27/20 00:00 97.7 85 24 136/78 (97) 95 01/27/20 00:00 88 01/26/20 21:00 Nasal Cannula 2.0 01/26/20 20:43 95 Nasal Cannula 2.0 28 01/26/20 20:41 91 18 94 Nasal Cannula 2.0 28 01/26/20 20:00 97.0 93 22 102/63 (76) 97 01/26/20 20:00 85 01/26/20 17:32 97.1 100 18 01/26/20 17:29 99.9 01/26/20 16:00 99.9 102 18 157/84 (108) 94 01/26/20 16:00 106 Intake and Output 01/26/20 01/27/20 19:00 07:00 Intake Total 240 ml Output Total 100 ml 650 ml Balance -100 ml -410 ml Intake Oral 240 ml Output Urine Total 100 ml 650 ml # Bowel Movements 2 1 Laboratory Tests Test 01/26/20 22:18 01/27/20 08:20 Vancomycin Level Trough 4.5 ug/mL (5.0-12.0) L White Blood Count 14.5 K/UL (4.8-10.8) H Red Blood Count 3.95 M/UL (4.20-5.40) L Hemoglobin 12.3 G/DL (12.0-16.0) Hematocrit 36.7 % (37.0-47.0) L Mean Corpuscular Volume 93 FL (80-99) Mean Corpuscular Hemoglobin 31.2 PG (27.0-31.0) H Mean Corpuscular Hemoglobin Concent 33.6 G/DL (32.0-36.0) Red Cell Distribution Width 11.2 % (11.6-14.8) L Platelet Count 199 K/UL (150-450) Mean Platelet Volume 5.8 FL (6.5-10.1) L Neutrophils (%) (Auto) 80.2 % (45.0-75.0) H Lymphocytes (%) (Auto) 11.7 % (20.0-45.0) L Monocytes (%) (Auto) 7.4 % (1.0-10.0) Eosinophils (%) (Auto) 0.2 % (0.0-3.0) Basophils (%) (Auto) 0.6 % (0.0-2.0) Sodium Level 136 MMOL/L (136-145) Potassium Level 3.5 MMOL/L (3.5-5.1) Chloride Level 102 MMOL/L (98-107) Carbon Dioxide Level 29 MMOL/L (21-32) Anion Gap 5 mmol/L (5-15) Blood Urea Nitrogen 10 mg/dL (7-18) Creatinine 0.5 MG/DL (0.55-1.30) L Estimat Glomerular Filtration Rate > 60 mL/min (>60) Glucose Level 127 MG/DL (74-106) H Calcium Level 7.6 MG/DL (8.5-10.1) L Height (Feet): 5 Height (Inches): 3.00 Weight (Pounds): 140 Medications Current Medications Medications (Trade) Dose Ordered Sig/Altagracia Route PRN Reason Start Time Stop Time Status Last Admin Dose Admin Acetaminophen (Tylenol) 650 mg Q4H PRN ORAL Temp >100.5 01/21/20 14:00 02/20/20 13:59 01/23/20 05:00 Acetaminophen (Tylenol) 650 mg Q4H PRN ORAL Mild Pain (Pain Scale 1-3) 01/21/20 14:00 02/20/20 13:59 01/25/20 10:50 Acetaminophen (Tylenol) 650 mg Q6H ORAL 01/25/20 11:30 02/24/20 11:29 01/27/20 11:27 Albuterol/ Ipratropium (Albuterol/ Ipratropium) 3 ml Q4H PRN HHN Shortness of Breath 01/21/20 14:00 02/01/20 13:59 Alendronate Sodium (Fosamax) 70 mg ONCE A WEEK ORAL 01/22/20 06:30 02/21/20 06:29 01/22/20 05:36 Amlodipine Besylate (Norvasc) 5 mg DAILY ORAL 01/22/20 09:00 02/21/20 08:59 01/27/20 08:21 Amylase/Lipase/ Protease (Chelsy HUFF 36,000 units cap) 1 ea TIDPRN PRN ORAL Abdominal cramps 01/21/20 15:45 04/20/20 15:44 Atorvastatin Calcium (Lipitor) 20 mg BEDTIME ORAL 01/22/20 21:00 04/21/20 20:59 01/26/20 21:15 Clonazepam (KlonoPIN) 1 mg Q6H PRN ORAL For Anxiety 01/27/20 09:15 02/03/20 09:14 Dronabinol (Marinol) 5 mg BID ORAL 01/27/20 18:00 04/26/20 17:59 Heparin Sodium (Porcine) (Heparin 5000 units/ml) 5,000 units EVERY 12 HOURS SUBQ 01/21/20 21:00 03/06/20 20:59 01/27/20 08:23 Loratadine (Claritin 10mg) 10 mg DAILY ORAL 01/23/20 09:00 02/22/20 08:59 01/27/20 08:21 Losartan Potassium (Cozaar) 100 mg DAILY ORAL 01/22/20 09:00 02/21/20 08:59 01/27/20 08:21 Metoprolol Succinate (Toprol XL) 25 mg DAILY ORAL 01/22/20 09:00 04/21/20 08:59 01/27/20 08:21 Mirtazapine (Remeron) 15 mg BEDTIME ORAL 01/27/20 21:00 04/26/20 20:59 Pantoprazole (Protonix) 40 mg ACBREAKFAST IVP 01/23/20 06:30 02/22/20 06:29 01/27/20 05:41 Vancomycin HCl (Vanco pharmacy to dose) 1 ea DAILY PRN MISC Per rx protocol 01/22/20 08:00 02/21/20 07:59 Vancomycin HCl 1 gm/Dextrose 275 ml @ 184 mls/hr Q8H IVPB 01/27/20 00:00 02/01/20 00:00 01/27/20 09:41 Assessment/Plan Status: stable Assessment/Plan: ASSESSMENT #Severe sepsis #MRSA bacteremia #Fever #Leukocytosis #Multifocal PNA #Headache #HTN #Hypokalemia #Low appetite #Suspected depression #syncope PLAN: Arrange for KENNETH NPO Continue metoprolol, norvasc, losartan for HTN DASH diet Continue broad spectrum antibiotics Rodney Huggins MD Jan 27, 2020 14:56
--- NOTE | 2020-01-27 14:59 | Infectious Diseases Prog Note ---
Assessment/Plan Assessment/Plan ASSESSMENT AND PLAN: 1. staph aureus bacteremia - mrsa bacteremia, sepsis, leukocytosis, fevers, ? pna, ? cap, ? aspiration risk, ? staph aureus septic emboli, ? endocarditis - vancomycin, discontinue other antibiotics - CT - abdomen/pelvis/chest - noted, ? pna, ? septic emboli, no abscess - monitor labs and chest x-ray, leukocytosis better - surveillance blood cultures persistently + - TTE results - no discrete vegetations per report - likely will need KENNETH - d/w Dr. Dominique about cardiology consult and KENNETH 2. Hypertension. Blood pressure treatment per primary care team. 3. GERD. 4. HLP, which I think is hyperlipidemia, but I am not sure. 5. Per the records, history of CVA. 6. Cardiac disease. 7. Allergic to penicillin, tolerates cephalosporins. 8. Social History is negative. 9. Family History is noncontributory . 10. MAR was noted. 11. Case was discussed with RN. 12. Continue treatment per primary consultants. Subjective Constitutional: Reports: fever - low grade temps noted HEENT: Reports: other - no neck pain ; Denies: congestion Respiratory: Denies: shortness of breath Cardiovascular: Denies: chest pain Gastrointestinal/Abdominal: Denies: nausea, vomiting, diarrhea Genitourinary: Reports: other - no nieves Neurologic: Denies: headache Psychiatric: Denies: depression Skin: Denies: rash Hematologic: Denies: bleeding Musculoskeletal: Denies: pain Allergies: Coded Allergies: PENICILLINS (Verified Allergy, Unknown, 01/23/20) nurse unable to enter a coded PENICILLIN allergy. still need to obtain reaction Objective Last 24 Hour Vital Signs Date Time Temp Pulse Resp B/P (MAP) Pulse Ox O2 Delivery O2 Flow Rate FiO2 01/27/20 12:00 82 01/27/20 12:00 97.9 80 18 127/68 (87) 98 01/27/20 09:00 Room Air 01/27/20 08:21 81 128/65 01/27/20 08:21 128/65 01/27/20 08:21 81 128/65 01/27/20 08:00 77 01/27/20 08:00 96.6 81 18 128/65 (86) 99 01/27/20 04:00 97.7 77 20 117/70 (86) 97 01/27/20 04:00 78 01/27/20 00:00 97.7 85 24 136/78 (97) 95 01/27/20 00:00 88 01/26/20 21:00 Nasal Cannula 2.0 01/26/20 20:43 95 Nasal Cannula 2.0 28 01/26/20 20:41 91 18 94 Nasal Cannula 2.0 28 01/26/20 20:00 97.0 93 22 102/63 (76) 97 01/26/20 20:00 85 01/26/20 17:32 97.1 100 18 01/26/20 17:29 99.9 01/26/20 16:00 99.9 102 18 157/84 (108) 94 01/26/20 16:00 106 Height (Feet): 5 Height (Inches): 3.00 Weight (Pounds): 140 General Appearance: no acute distress HEENT: normocephalic, atraumatic, anicteric, mucous membranes moist, EOMI, supple, no JVD Respiratory/Chest: no respiratory distress, no accessory muscle use, crackles/rales, rhonchi - bilaterally Cardiovascular: normal rate, regular rhythm, no gallop/murmur Abdomen: soft, non tender, no organomegaly, non distended Genitourinary: other - no nieves Extremities: no cyanosis Skin: no rash Neurologic/Psychiatric: alert, responsive Lymphatic: no neck adenopathy Musculoskeletal: no effusion, other - no septic joints or joint pain Chest x-ray - 01/22/20 - Procedure: XRAY Chest 1v Indication: Chest infection Technique: One view of the chest Comparison: 01/21/2020 Findings: Increasing interstitial and airspace infiltrates are seen diffusely within the lungs bilaterally. The heart is borderline enlarged. There is torturous ectatic and calcified Impression: Increasing bilateral infiltrates versus edema, over one day Chest x-ray - 01/25/20 - Procedure: XRAY Chest 1v EXAM: XR Chest, 1 View CLINICAL HISTORY: INFECT TECHNIQUE: Frontal view of the chest. COMPARISON: No relevant prior studies available. FINDINGS/IMPRESSION: Low lung volume secondary to poor inspiration. Mild, patchy airspace opacity within the left upper lung field, suspicious for infiltrate. Follow-up 2 view chest radiograph recommended. No pleural effusion or pneumothorax. CT chest/abdomen/pelvis: IMPRESSION: Lungs demonstrate bilateral multifocal patchy and nodular infi ltrates. This most likely represents multifocal pneumonia, May correlate with stated clinical history of suspected septic emboli. Generalized pulmonary venous congestion, may indicate central venous hypertension Small bilateral pleural effusions Mild cardiomegaly No acute abdominal or pelvic abnormality 12 mm left adrenal nodule. This is nonspecific in appearance. 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 Nieves catheter within the bladder Other findings as noted, including bilateral renal parapelvic cysts, probable bilateral renal cortical cysts, degenerative spondylosis changes, duodenal diverticulum, probable subce Microbiology Date/Time Source Procedure Growth Status 01/25/20 18:00 Stool Clostridium difficile Toxin Assay - Final Complete 01/24/20 03:30 Blood Blood Culture - Preliminary Resulted 01/22/20 04:30 Nasopharynx Coronavirus COVID-19 PCR ([facility]) - Final Complete Microbiology Date/Time Source Procedure Growth Status 01/25/20 18:00 Stool Clostridium difficile Toxin Assay - Final Complete Laboratory Tests Test 01/26/20 22:18 01/27/20 08:20 Vancomycin Level Trough 4.5 ug/mL (5.0-12.0) L White Blood Count 14.5 K/UL (4.8-10.8) H Red Blood Count 3.95 M/UL (4.20-5.40) L Hemoglobin 12.3 G/DL (12.0-16.0) Hematocrit 36.7 % (37.0-47.0) L Mean Corpuscular Volume 93 FL (80-99) Mean Corpuscular Hemoglobin 31.2 PG (27.0-31.0) H Mean Corpuscular Hemoglobin Concent 33.6 G/DL (32.0-36.0) Red Cell Distribution Width 11.2 % (11.6-14.8) L Platelet Count 199 K/UL (150-450) Mean Platelet Volume 5.8 FL (6.5-10.1) L Neutrophils (%) (Auto) 80.2 % (45.0-75.0) H Lymphocytes (%) (Auto) 11.7 % (20.0-45.0) L Monocytes (%) (Auto) 7.4 % (1.0-10.0) Eosinophils (%) (Auto) 0.2 % (0.0-3.0) Basophils (%) (Auto) 0.6 % (0.0-2.0) Sodium Level 136 MMOL/L (136-145) Potassium Level 3.5 MMOL/L (3.5-5.1) Chloride Level 102 MMOL/L (98-107) Carbon Dioxide Level 29 MMOL/L (21-32) Anion Gap 5 mmol/L (5-15) Blood Urea Nitrogen 10 mg/dL (7-18) Creatinine 0.5 MG/DL (0.55-1.30) L Estimat Glomerular Filtration Rate > 60 mL/min (>60) Glucose Level 127 MG/DL (74-106) H Calcium Level 7.6 MG/DL (8.5-10.1) L Current Medications Medications (Trade) Dose Ordered Sig/Altagracia Route PRN Reason Start Time Stop Time Status Last Admin Dose Admin Acetaminophen (Tylenol) 650 mg Q4H PRN ORAL Temp >100.5 01/21/20 14:00 02/20/20 13:59 01/23/20 05:00 Acetaminophen (Tylenol) 650 mg Q4H PRN ORAL Mild Pain (Pain Scale 1-3) 01/21/20 14:00 02/20/20 13:59 01/25/20 10:50 Acetaminophen (Tylenol) 650 mg Q6H ORAL 01/25/20 11:30 02/24/20 11:29 01/27/20 11:27 Albuterol/ Ipratropium (Albuterol/ Ipratropium) 3 ml Q4H PRN HHN Shortness of Breath 01/21/20 14:00 02/01/20 13:59 Alendronate Sodium (Fosamax) 70 mg ONCE A WEEK ORAL 01/22/20 06:30 02/21/20 06:29 01/22/20 05:36 Amlodipine Besylate (Norvasc) 5 mg DAILY ORAL 01/22/20 09:00 02/21/20 08:59 01/27/20 08:21 Amylase/Lipase/ Protease (Chelsy HUFF 36,000 units cap) 1 ea TIDPRN PRN ORAL Abdominal cramps 01/21/20 15:45 04/20/20 15:44 Atorvastatin Calcium (Lipitor) 20 mg BEDTIME ORAL 01/22/20 21:00 04/21/20 20:59 01/26/20 21:15 Ceftriaxone Sodium 1 gm/ Dextrose 55 ml @ 110 mls/hr Q24H IVPB 01/23/20 17:00 01/30/20 16:59 01/26/20 16:55 Clonazepam (KlonoPIN) 1 mg Q6H PRN ORAL For Anxiety 01/27/20 09:15 02/03/20 09:14 Dronabinol (Marinol) 5 mg BID ORAL 01/27/20 18:00 04/26/20 17:59 Heparin Sodium (Porcine) (Heparin 5000 units/ml) 5,000 units EVERY 12 HOURS SUBQ 01/21/20 21:00 03/06/20 20:59 01/27/20 08:23 Loratadine (Claritin 10mg) 10 mg DAILY ORAL 01/23/20 09:00 02/22/20 08:59 01/27/20 08:21 Losartan Potassium (Cozaar) 100 mg DAILY ORAL 01/22/20 09:00 02/21/20 08:59 01/27/20 08:21 Metoprolol Succinate (Toprol XL) 25 mg DAILY ORAL 01/22/20 09:00 04/21/20 08:59 01/27/20 08:21 Metronidazole 100 ml @ 100 mls/hr Q8HR IVPB 01/23/20 22:00 01/30/20 21:59 01/27/20 14:06 Mirtazapine (Remeron) 15 mg BEDTIME ORAL 01/27/20 21:00 04/26/20 20:59 Pantoprazole (Protonix) 40 mg ACBREAKFAST IVP 01/23/20 06:30 02/22/20 06:29 01/27/20 05:41 Vancomycin HCl (Vanco pharmacy to dose) 1 ea DAILY PRN MISC Per rx protocol 01/22/20 08:00 02/21/20 07:59 Vancomycin HCl 1 gm/Dextrose 275 ml @ 184 mls/hr Q8H IVPB 01/27/20 00:00 02/01/20 00:00 01/27/20 09:41 Tiny Armijo MD Jan 27, 2020 14:59
[2020-01-27 16:00] VITALS: BP 135/69
[2020-01-27 20:00] VITALS: BP 139/82
[2020-01-27] MEDS: Atorvastatin 20mg tab ORAL SCH (20:24)
[2020-01-28] VITALS (8 sets, daily range): BP systolic 111–154; BP diastolic 67–86
[2020-01-28] MEDS: Vancomycin 1gm in Dextrose 275ml IVPB SCH ×4 (00:08→23:03)
[2020-01-28] MEDS: Pantoprazole Inj IVP SCH (05:53)
--- NOTE | 2020-01-28 06:55 | General Progress Note ---
Subjective ROS Limited/Unobtainable: No Allergies: Coded Allergies: PENICILLINS (Verified Allergy, Unknown, 01/23/20) nurse unable to enter a coded PENICILLIN allergy. still need to obtain reaction Objective Last 24 Hour Vital Signs Date Time Temp Pulse Resp B/P (MAP) Pulse Ox O2 Delivery O2 Flow Rate FiO2 01/28/20 04:00 97.3 99 16 143/85 (104) 92 01/28/20 00:00 98.1 102 16 145/81 (102) 92 01/27/20 21:00 Room Air 01/27/20 20:00 98.2 110 16 139/82 (101) 92 01/27/20 16:00 97.9 81 18 135/69 (91) 96 01/27/20 16:00 88 01/27/20 12:00 82 01/27/20 12:00 97.9 80 18 127/68 (87) 98 01/27/20 09:00 Room Air 01/27/20 08:21 81 128/65 01/27/20 08:21 128/65 01/27/20 08:21 81 128/65 01/27/20 08:00 77 01/27/20 08:00 96.6 81 18 128/65 (86) 99 Intake and Output 01/27/20 01/28/20 19:00 07:00 Intake Total 368 ml Output Total 800 ml Balance -800 ml 368 ml IV Total 368 ml Output Urine Total 800 ml # Voids 1 3 # Bowel Movements 1 1 Laboratory Tests 01/27/20 08:20: White Blood Count 14.5H, Red Blood Count 3.95L, Hemoglobin 12.3, Hematocrit 36.7L, Mean Corpuscular Volume 93, Mean Corpuscular Hemoglobin 31.2H, Mean Corpuscular Hemoglobin Concent 33.6, Red Cell Distribution Width 11.2L, Platelet Count 199, Mean Platelet Volume 5.8L, Neutrophils (%) (Auto) 80.2H, Lymphocytes (%) (Auto) 11.7L, Monocytes (%) (Auto) 7.4, Eosinophils (%) (Auto) 0.2, Basophils (%) (Auto) 0.6, Sodium Level 136, Potassium Level 3.5, Chloride Level 102, Carbon Dioxide Level 29, Anion Gap 5, Blood Urea Nitrogen 10, Creatinine 0.5L, Estimat Glomerular Filtration Rate > 60, Glucose Level 127H, Calcium Level 7.6L Height (Feet): 5 Height (Inches): 3.00 Weight (Pounds): 140 General Appearance: no apparent distress EENT: normal ENT inspection Neck: supple Cardiovascular: normal rate Respiratory/Chest: lungs clear Abdomen: hypoactive bowel sounds Extremities: non-tender Assessment/Plan Status: stable Assessment/Plan: 1. Hypertension. 2. GERD. 3. Hyperlipidemia. 4. History of CVA. 5. FTT 6. PNA marinol> 5 mg ensure TID calorie count swallow eval appreciated abx per ID neg stool for C.diff abd/chest CT reviewed will Jarocho Clarke MD Jan 28, 2020 06:55
[2020-01-28 07:24] LABS: BASOPHILS % (AUTO) 0.6 % (0.0-2.0); EOSINOPHILS % (AUTO) 0.3 % (0.0-3.0); HEMOGLOBIN 13.6 G/DL (12.0-16.0); LYMPHOCYTES % (AUTO) 11.1 % (20.0-45.0); MEAN CORPUSCULAR VOLUME 94 FL (80-99); MONOCYTES % (AUTO) 6.5 % (1.0-10.0); NEUTROPHILS % (AUTO) 81.6 % (45.0-75.0); PLATELET COUNT 256 K/UL (150-450); RED BLOOD COUNT 4.37 M/UL (4.20-5.40); RED CELL DISTRIBUTION WIDTH 11.1 % (11.6-14.8); WHITE BLOOD COUNT 13.5 K/UL (4.8-10.8)
[2020-01-28 07:49] LABS: ANION GAP 8 mmol/L (5-15); BLOOD UREA NITROGEN 7 mg/dL (7-18); CALCIUM 7.8 MG/DL (8.5-10.1); CARBON DIOXIDE 27 MMOL/L (21-32); CHLORIDE 100 MMOL/L (98-107); CREATININE 0.5 MG/DL (0.55-1.30); POTASSIUM 3.4 MMOL/L (3.5-5.1); SODIUM 135 MMOL/L (136-145)
--- NOTE | 2020-01-28 08:38 | General Progress Note ---
Subjective Constitutional: Denies: no symptoms, chills, diaphoresis, fever, malaise, weakness, other HEENT: Denies: no symptoms, eye pain, blurred vision, tearing, double vision, ear pain, ear discharge, nose pain, nose congestion, throat pain, throat swelling, mouth pain, mouth swelling, other Cardiovascular: Denies: no symptoms, chest pain, edema, irregular heart rate, lightheadedness, palpitations, syncope, other Respiratory: Denies: no symptoms, cough, orthopnea, shortness of breath, SOB with excertion, SOB at rest, sputum, stridor, wheezing, other Gastrointestinal/Abdominal: Denies: no symptoms, abdomen distended, abdominal pain, black stools, tarry stools, blood in stool, constipated, diarrhea, difficulty swallowing, nausea, poor appetite, poor fluid intake, rectal bleeding, vomiting, other Genitourinary: Denies: no symptoms, burning, discharge, frequency, flank pain, hematuria, incontinence, pain, urgency, other Neurologic/Psychiatric: Denies: no symptoms, anxiety, depressed, emotional problems, headache, numbness, paresthesia, pre-existing deficit, seizure, tingling, tremors, weakness, other Endocrine: Denies: no symptoms, excessive sweating, flushing, intolerance to cold, intolerance to heat, increased hunger, increased thirst, increased urine, unexplained weight gain, unexplained weight loss, other Hematologic/Lymphatic: Denies: no symptoms, anemia, easy bleeding, easy bruising, other Allergies: Coded Allergies: PENICILLINS (Verified Allergy, Unknown, 01/23/20) nurse unable to enter a coded PENICILLIN allergy. still need to obtain reaction Subjective no acute events overnight. Has poor oral consumption. No fevers. Pending KENNETH possibly today. Objective Last 24 Hour Vital Signs Date Time Temp Pulse Resp B/P (MAP) Pulse Ox O2 Delivery O2 Flow Rate FiO2 01/28/20 08:00 98.0 95 20 148/80 (102) 99 01/28/20 04:00 97.3 99 16 143/85 (104) 92 01/28/20 00:00 98.1 102 16 145/81 (102) 92 01/27/20 21:00 Room Air 01/27/20 20:00 98.2 110 16 139/82 (101) 92 01/27/20 16:00 97.9 81 18 135/69 (91) 96 01/27/20 16:00 88 01/27/20 12:00 82 01/27/20 12:00 97.9 80 18 127/68 (87) 98 01/27/20 09:00 Room Air Intake and Output 01/27/20 01/28/20 19:00 07:00 Intake Total 368 ml Output Total 800 ml Balance -800 ml 368 ml IV Total 368 ml Output Urine Total 800 ml # Voids 1 3 # Bowel Movements 1 1 Laboratory Tests 01/28/20 07:06: White Blood Count 13.5H, Red Blood Count 4.37, Hemoglobin 13.6, Hematocrit 41.0, Mean Corpuscular Volume 94, Mean Corpuscular Hemoglobin 31.2H, Mean Corpuscular Hemoglobin Concent 33.3, Red Cell Distribution Width 11.1L, Platelet Count 256, Mean Platelet Volume 5.7L, Neutrophils (%) (Auto) 81.6H, Lymphocytes (%) (Auto) 11.1L, Monocytes (%) (Auto) 6.5, Eosinophils (%) (Auto) 0.3, Basophils (%) (Auto) 0.6, Sodium Level 135L, Potassium Level 3.4L, Chloride Level 100, Carbon Dioxide Level 27, Anion Gap 8, Blood Urea Nitrogen 7, Creatinine 0.5L, Estimat Glomerular Filtration Rate > 60, Glucose Level 116H, Calcium Level 7.8L, Vancomycin Level Trough 14.6H Height (Feet): 5 Height (Inches): 3.00 Weight (Pounds): 140 General Appearance: no apparent distress, alert, alert oriented x3 EENT: PERRL/EOMI Neck: non-tender, supple Cardiovascular: normal rate, regular rhythm, no JVD Respiratory/Chest: lungs clear, normal breath sounds, no respiratory distress Abdomen: normal bowel sounds, non tender, soft Extremities: normal range of motion, non-tender Edema: no edema noted Arm (L), no edema noted Arm (R), no edema noted Leg (L), no edema noted Leg (R), no edema noted Pedal (L), no edema noted Pedal (R), no edema noted Generalized 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 Aaron is a 84 year old female with HTN, HLD who presented with syncope and weakness, found to have S. aureus bacteremia #Severe sepsis #MRSA bacteremia #Fever #Leukocytosis #Multifocal PNA -ID following. -BCx + MRSA (01/21, and 01/22, 01/23 still bacteremic). repeat BCx ordered 01/26, f/u for clearance. -Continue abx per ID -TTE wnl, no vegetations seen. -CTH with old infarcts seen, no acute pathology. -CT A/P/C ordered per ID to eval for source of infection -> multifocal PNA seen, but no respiratory symptoms. -UA relatively benign. -rapid COVID neg x2. PCR COVID neg x1. remove isolation. -PT ordered -Remove nieves. get patient out of bed - Pending KENNETH today per Dr. Huggins #Headache -Tylenol q6h scheduled, given language barrier and patient not asking for it. #HTN - continue metop 25 daily - amlodipine 10mg daily - continue losartan 100mg daily #Hypokalemia -replete -trend BMP #Low appetite #Suspected depression #Flat affect -GI following -Marinol continue 5 mg -continue remeron 15 mg qhs. monitor. Time spent on encounter, 31 mins. 21 on counseling, coordination of care. d/w RN, consultants. Time of note doesn't accurately reflect time of encounter. Kyle Sauer D.O Jan 28, 2020 08:38
--- NOTE | 2020-01-28 08:57 | General Progress Note ---
Assessment/Plan Status: stable Assessment/Plan: #Sepsis - r/o COVID #staph bacteremia #Leukocytosis #Hyponatremia #Possible syncope #Hypokalemia #HTN #Dementia - repeat blood cx - plan for KENNETH - cardiology consulted - IV abx per ID - COVID r/o - pulm eval - monitor BP - monitor resp status - cardiology eval for possible syncope - continue metop 25 daily - amlodipine 10mg daily - continue losartan 100mg daily Subjective Allergies: Coded Allergies: PENICILLINS (Verified Allergy, Unknown, 01/23/20) nurse unable to enter a coded PENICILLIN allergy. still need to obtain reaction Subjective IMPRESSION: Lungs demonstrate bilateral multifocal patchy and nodular infiltrates. This most likely represents multifocal pneumonia, May correlate with stated clinical history of suspected septic emboli. blood cx growing staph + diarrhea neg c diff plan for KENNETH Objective Last 24 Hour Vital Signs Date Time Temp Pulse Resp B/P (MAP) Pulse Ox O2 Delivery O2 Flow Rate FiO2 01/28/20 08:00 98.0 95 20 148/80 (102) 99 01/28/20 04:00 97.3 99 16 143/85 (104) 92 01/28/20 00:00 98.1 102 16 145/81 (102) 92 01/27/20 21:00 Room Air 01/27/20 20:00 98.2 110 16 139/82 (101) 92 01/27/20 16:00 97.9 81 18 135/69 (91) 96 01/27/20 16:00 88 01/27/20 12:00 82 01/27/20 12:00 97.9 80 18 127/68 (87) 98 01/27/20 09:00 Room Air Intake and Output 01/27/20 01/28/20 19:00 07:00 Intake Total 368 ml Output Total 800 ml Balance -800 ml 368 ml IV Total 368 ml Output Urine Total 800 ml # Voids 1 3 # Bowel Movements 1 1 Laboratory Tests 01/28/20 07:06: White Blood Count 13.5H, Red Blood Count 4.37, Hemoglobin 13.6, Hematocrit 41.0, Mean Corpuscular Volume 94, Mean Corpuscular Hemoglobin 31.2H, Mean Corpuscular Hemoglobin Concent 33.3, Red Cell Distribution Width 11.1L, Platelet Count 256, Mean Platelet Volume 5.7L, Neutrophils (%) (Auto) 81.6H, Lymphocytes (%) (Auto) 11.1L, Monocytes (%) (Auto) 6.5, Eosinophils (%) (Auto) 0.3, Basophils (%) (Auto) 0.6, Sodium Level 135L, Potassium Level 3.4L, Chloride Level 100, Carbon Dioxide Level 27, Anion Gap 8, Blood Urea Nitrogen 7, Creatinine 0.5L, Estimat Glomerular Filtration Rate > 60, Glucose Level 116H, Calcium Level 7.8L, Vancomycin Level Trough 14.6H Height (Feet): 5 Height (Inches): 3.00 Weight (Pounds): 140 Silvina Kohli M.D. Jan 28, 2020 08:57
[2020-01-28] MEDS: Losartan 50mg tab ORAL SCH ×2 (09:00→14:09)
[2020-01-28] MEDS: Dronabinol 2.5mg Cap ORAL SCH ×2 (09:00→17:33)
[2020-01-28] MEDS: Heparin 5000 units/ml inj SUBQ SCH ×2 (09:00→21:09)
[2020-01-28] MEDS: Metoprolol Succinate XL 25mg tab ORAL SCH ×2 (09:00→14:09)
--- NOTE | 2020-01-28 10:27 | Surgery Progress Note ---
Surgery Progress Note Subjective Additional Comments afebrile, HD stable comfortable n on/v Objective Last 24 Hour Vital Signs Date Time Temp Pulse Resp B/P (MAP) Pulse Ox O2 Delivery O2 Flow Rate FiO2 01/28/20 09:00 Room Air 01/28/20 09:00 95 148/80 01/28/20 09:00 148/80 01/28/20 09:00 95 148/80 01/28/20 08:00 98.0 95 20 148/80 (102) 99 01/28/20 04:00 97.3 99 16 143/85 (104) 92 01/28/20 00:00 98.1 102 16 145/81 (102) 92 01/27/20 21:00 Room Air 01/27/20 20:00 98.2 110 16 139/82 (101) 92 01/27/20 16:00 97.9 81 18 135/69 (91) 96 01/27/20 16:00 88 01/27/20 12:00 82 01/27/20 12:00 97.9 80 18 127/68 (87) 98 I&O Intake and Output 01/27/20 01/28/20 19:00 07:00 Intake Total 368 ml Output Total 800 ml Balance -800 ml 368 ml IV Total 368 ml Output Urine Total 800 ml # Voids 1 3 # Bowel Movements 1 1 Cardiovascular: RSR Respiratory: decreased breath sounds Abdomen: non-tender, present bowel sounds Extremities: no edema, no tenderness Laboratory Tests Test 01/28/20 07:06 White Blood Count 13.5 K/UL (4.8-10.8) H Red Blood Count 4.37 M/UL (4.20-5.40) Hemoglobin 13.6 G/DL (12.0-16.0) Hematocrit 41.0 % (37.0-47.0) Mean Corpuscular Volume 94 FL (80-99) Mean Corpuscular Hemoglobin 31.2 PG (27.0-31.0) H Mean Corpuscular Hemoglobin Concent 33.3 G/DL (32.0-36.0) Red Cell Distribution Width 11.1 % (11.6-14.8) L Platelet Count 256 K/UL (150-450) Mean Platelet Volume 5.7 FL (6.5-10.1) L Neutrophils (%) (Auto) 81.6 % (45.0-75.0) H Lymphocytes (%) (Auto) 11.1 % (20.0-45.0) L Monocytes (%) (Auto) 6.5 % (1.0-10.0) Eosinophils (%) (Auto) 0.3 % (0.0-3.0) Basophils (%) (Auto) 0.6 % (0.0-2.0) Sodium Level 135 MMOL/L (136-145) L Potassium Level 3.4 MMOL/L (3.5-5.1) L Chloride Level 100 MMOL/L (98-107) Carbon Dioxide Level 27 MMOL/L (21-32) Anion Gap 8 mmol/L (5-15) Blood Urea Nitrogen 7 mg/dL (7-18) Creatinine 0.5 MG/DL (0.55-1.30) L Estimat Glomerular Filtration Rate > 60 mL/min (>60) Glucose Level 116 MG/DL (74-106) H Calcium Level 7.8 MG/DL (8.5-10.1) L Vancomycin Level Trough 14.6 ug/mL (5.0-12.0) H Plan Problems: (1) Pulmonary edema (2) Hypokalemia (3) Leukocytosis Assessment & Plan: 84-year-old female afebrile hemodynamic stable bacteremia leukocytosis LFTs okay hypoalbuminemia BMI 22 failure to thrive. UTI /pna on antibiotics appreciate ID input. Agree with GI as to calorie count feeding trial swallow eval and continue Marinol. May need feeding tube given failure to thrive. Will follow with recommendations Participation's care labs improving on abx cont abx comfortable diet as tolerated No acute intracranial hemorrhage or edema. No mass effect nor midline shift. There is age-related enlargement of the ventricles and extra axial CSF spaces. There is periventricular deep white matter low-attenuation, consistent with chronic microvascular ischemic changes. Old lacunar infarcts are seen in the basal ganglia bilaterally. The mastoids are clear. There is fairly extensive sphenoid and ethmoid sinus disease. The calvarium is intact. Impression: Chronic and age-related changes. Old bilateral basal ganglia lacunar infarcts. Negative for acute intracranial bleed or mass effect Increasing interstitial and airspace infiltrates are seen diffusely within the lungs bilaterally. The heart is borderline enlarged. There is torturous ectatic and calcified Impression: Increasing bilateral infiltrates versus edema, over one day (4) Fever (5) Bacteremia Alvarado Tolliver Jan 28, 2020 10:27
--- NOTE | 2020-01-28 10:52 | Pulmonology Progress Note ---
Subjective ROS Limited/Unobtainable: No Interval Events: None new Constitutional: Reports: fever - low grade temps noted HEENT: Repors: no symptoms Respiratory: Reports: no symptoms Cardiovascular: Reports: no symptoms Gastrointestinal/Abdominal: Denies: nausea, vomiting, diarrhea Psychiatric: Denies: depression Skin: Denies: rash Musculoskeletal: Denies: pain Allergies: Coded Allergies: PENICILLINS (Verified Allergy, Unknown, 01/23/20) nurse unable to enter a coded PENICILLIN allergy. still need to obtain reaction All Systems: reviewed and negative except above Objective Last 24 Hour Vital Signs Date Time Temp Pulse Resp B/P (MAP) Pulse Ox O2 Delivery O2 Flow Rate FiO2 01/28/20 10:43 97.9 98 20 143/83 (103) 99 01/28/20 09:00 Room Air 01/28/20 09:00 95 148/80 01/28/20 09:00 148/80 01/28/20 09:00 95 148/80 01/28/20 08:00 98.0 95 20 148/80 (102) 99 01/28/20 04:00 97.3 99 16 143/85 (104) 92 01/28/20 00:00 98.1 102 16 145/81 (102) 92 01/27/20 21:00 Room Air 01/27/20 20:00 98.2 110 16 139/82 (101) 92 01/27/20 16:00 97.9 81 18 135/69 (91) 96 01/27/20 16:00 88 01/27/20 12:00 82 01/27/20 12:00 97.9 80 18 127/68 (87) 98 Intake and Output 01/27/20 01/28/20 19:00 07:00 Intake Total 368 ml Output Total 800 ml Balance -800 ml 368 ml IV Total 368 ml Output Urine Total 800 ml # Voids 1 3 # Bowel Movements 1 1 HEENT: normocephalic Respiratory: chest wall non-tender, lungs clear Cardiovascular: normal peripheral pulses, normal rate Microbiology Date/Time Source Procedure Growth Status 01/25/20 18:00 Stool Clostridium difficile Toxin Assay - Final Complete Laboratory Tests 01/28/20 07:06: White Blood Count 13.5H, Red Blood Count 4.37, Hemoglobin 13.6, Hematocrit 41.0, Mean Corpuscular Volume 94, Mean Corpuscular Hemoglobin 31.2H, Mean Corpuscular Hemoglobin Concent 33.3, Red Cell Distribution Width 11.1L, Platelet Count 256, Mean Platelet Volume 5.7L, Neutrophils (%) (Auto) 81.6H, Lymphocytes (%) (Auto) 11.1L, Monocytes (%) (Auto) 6.5, Eosinophils (%) (Auto) 0.3, Basophils (%) (Auto) 0.6, Sodium Level 135L, Potassium Level 3.4L, Chloride Level 100, Carbon Dioxide Level 27, Anion Gap 8, Blood Urea Nitrogen 7, Creatinine 0.5L, Estimat Glomerular Filtration Rate > 60, Glucose Level 116H, Calcium Level 7.8L, Vanco mycin Level Trough 14.6H Current Medications Medications (Trade) Dose Ordered Sig/Altagracia Route PRN Reason Start Time Stop Time Status Last Admin Dose Admin Acetaminophen (Tylenol) 650 mg Q4H PRN ORAL Temp >100.5 01/21/20 14:00 02/20/20 13:59 01/23/20 05:00 Acetaminophen (Tylenol) 650 mg Q4H PRN ORAL Mild Pain (Pain Scale 1-3) 01/21/20 14:00 02/20/20 13:59 01/25/20 10:50 Acetaminophen (Tylenol) 650 mg Q6H ORAL 01/25/20 11:30 02/24/20 11:29 01/28/20 05:53 Albuterol/ Ipratropium (Albuterol/ Ipratropium) 3 ml Q4H PRN HHN Shortness of Breath 01/21/20 14:00 02/01/20 13:59 Alendronate Sodium (Fosamax) 70 mg ONCE A WEEK ORAL 01/22/20 06:30 02/21/20 06:29 01/22/20 05:36 Amlodipine Besylate (Norvasc) 5 mg DAILY ORAL 01/22/20 09:00 02/21/20 08:59 01/27/20 08:21 Amylase/Lipase/ Protease (Chelsy HUFF 36,000 units cap) 1 ea TIDPRN PRN ORAL Abdominal cramps 01/21/20 15:45 04/20/20 15:44 Atorvastatin Calcium (Lipitor) 20 mg BEDTIME ORAL 01/22/20 21:00 04/21/20 20:59 01/27/20 20:24 Clonazepam (KlonoPIN) 1 mg Q6H PRN ORAL For Anxiety 01/27/20 09:15 02/03/20 09:14 Dronabinol (Marinol) 5 mg BID ORAL 01/27/20 18:00 04/26/20 17:59 01/27/20 17:49 Heparin Sodium (Porcine) (Heparin 5000 units/ml) 5,000 units EVERY 12 HOURS SUBQ 01/21/20 21:00 03/06/20 20:59 01/27/20 20:25 Loratadine (Claritin 10mg) 10 mg DAILY ORAL 01/23/20 09:00 02/22/20 08:59 01/27/20 08:21 Losartan Potassium (Cozaar) 100 mg DAILY ORAL 01/22/20 09:00 02/21/20 08:59 01/27/20 08:21 Metoprolol Succinate (Toprol XL) 25 mg DAILY ORAL 01/22/20 09:00 04/21/20 08:59 01/27/20 08:21 Mirtazapine (Remeron) 15 mg BEDTIME ORAL 01/27/20 21:00 04/26/20 20:59 01/27/20 20:24 Pantoprazole (Protonix) 40 mg ACBREAKFAST IVP 01/23/20 06:30 02/22/20 06:29 01/28/20 05:53 Potassium Chloride 100 ml @ 100 mls/hr Q1HR IVPB 01/28/20 10:00 01/28/20 11:59 01/28/20 10:37 Vancomycin HCl (Vanco pharmacy to dose) 1 ea DAILY PRN MISC Per rx protocol 01/22/20 08:00 02/21/20 07:59 Vancomycin HCl 1 gm/Dextrose 275 ml @ 184 mls/hr Q8H IVPB 01/27/20 00:00 02/01/20 00:00 01/28/20 08:36 Assessment/Plan Assessment/Plan IMPRESSION: 1. Sepsis with bacteremia. 2. Pulmonary vascular congestion. 3. GERD. 4. Hypertension. 5. Hyperlipidemia. 6. Previous CVA. DISCUSSION: Continue nasal O2. No additional pulmonary intervention required. Broad-spectrum antibiotics. Will follow Gil Mattson Omar Syed MD Jan 28, 2020 10:52
[2020-01-28] MEDS: Acyclovir 200mg Cap ORAL SCH ×2 (14:08→21:05)
[2020-01-28] MEDS: Atorvastatin 20mg tab ORAL SCH (21:05)
[2020-01-29] VITALS: BP 114/66
[2020-01-29 04:00] VITALS: BP 129/69
--- NOTE | 2020-01-29 04:12 | Cardiology Report ---
APPROVED REPORT EXAM: Two-dimensional and M-mode echocardiogram with Doppler and color Doppler. INDICATION [employer] M-Mode DIMENSIONS IVSd1.3 (0.7-1.1cm)Left Atrium (MM)4.0 (1.6-4.0cm) LVDd3.8 (3.5-5.6cm)Aortic Root3.0 (2.0-3.7cm) PWd1.0 (0.7-1.1cm)Aortic Cusp Exc.1.8 (1.5-2.0cm) IVSs1.7 cmEPSS0.5 (>1.0cm) LVDs1.8 (2.5-4.0cm) PWs1.8 cm <Conclusion> Technically difficult study due to poor acoustic windows. Study quality precludes accurate assessment of regional wall motion. Normal left ventricular chamber size, systolic function and wall motion. Left ventricular ejection fraction estimated to be 60 %. Mild left ventricular hypertrophy. No evidence of pericardial effusion. All other cardiac chamber sizes are within normal limits. Focal aortic valve sclerosis with adequate cusp excursion. Thickened mitral valve leaflets with normal excursion. Mitral annulus and aortic root calcification. Pulmonic valve not well visualized. Normal tricuspid valve structure. IVC is normal in size with physiological collapse. No discrete vegetations seen, however SBE may not be excluded by transthoracic 2-D echo. A color flow and spectral Doppler study was performed and revealed: No aortic regurgitation. Trace mitral regurgitation. Mitral diastolic velocities suggest mild left ventricular diastolic dysfunction (Grade I). Trace tricuspid regurgitation. Tricuspid systolic velocities suggests peak right ventricular systolic pressure of 31 mmHg. No pulmonic regurgitation present.
--- NOTE | 2020-01-29 04:19 | Cardiology Report ---
APPROVED REPORT EKG Measurement Heart [id number] <Conclusion> Sinus tachycardia with premature atrial complexes Left axis deviation Abnormal ECG
[2020-01-29] MEDS: Pantoprazole Inj IVP SCH (05:54)
[2020-01-29] MEDS: Acyclovir 200mg Cap ORAL SCH ×3 (05:54→21:06)
[2020-01-29 05:58] LABS: BASOPHILS % (AUTO) 0.5 % (0.0-2.0); EOSINOPHILS % (AUTO) 0.1 % (0.0-3.0); HEMATOCRIT 43.3 % (37.0-47.0); HEMOGLOBIN 14.2 G/DL (12.0-16.0); LYMPHOCYTES % (AUTO) 11.6 % (20.0-45.0); MEAN CORPUSCULAR VOLUME 95 FL (80-99); MONOCYTES % (AUTO) 6.7 % (1.0-10.0); PLATELET COUNT 323 K/UL (150-450); RED BLOOD COUNT 4.56 M/UL (4.20-5.40); WHITE BLOOD COUNT 14.8 K/UL (4.8-10.8)
[2020-01-29 06:30] LABS: ALANINE AMINOTRANSFERASE 78 U/L (12-78); ALBUMIN 2.2 G/DL (3.4-5.0); ALBUMIN/GLOBULIN RATIO 0.6 (1.0-2.7); ALKALINE PHOSPHATASE 141 U/L (46-116); ANION GAP 7 mmol/L (5-15); ASPARTATE AMINO TRANSFERASE 65 U/L (15-37); BILIRUBIN,TOTAL 0.5 MG/DL (0.2-1.0); BLOOD UREA NITROGEN 9 mg/dL (7-18); CALCIUM 7.9 MG/DL (8.5-10.1); CARBON DIOXIDE 27 MMOL/L (21-32); CHLORIDE 101 MMOL/L (98-107); CREATININE 0.6 MG/DL (0.55-1.30); POTASSIUM 3.6 MMOL/L (3.5-5.1); SODIUM 135 MMOL/L (136-145)
[2020-01-29 06:54] LABS: PHOSPHORUS 2.5 MG/DL (2.5-4.9)
[2020-01-29 08:00] VITALS: BP 116/63
--- NOTE | 2020-01-29 08:00 | Pulmonology Progress Note ---
Subjective ROS Limited/Unobtainable: No Interval Events: None new Constitutional: Reports: no symptoms HEENT: Repors: no symptoms Respiratory: Reports: no symptoms Cardiovascular: Reports: no symptoms Gastrointestinal/Abdominal: Denies: nausea, vomiting, diarrhea Psychiatric: Denies: depression Skin: Denies: rash Musculoskeletal: Denies: pain Allergies: Coded Allergies: PENICILLINS (Verified Allergy, Unknown, 01/23/20) nurse unable to enter a coded PENICILLIN allergy. still need to obtain reaction All Systems: reviewed and negative except above Objective Last 24 Hour Vital Signs Date Time Temp Pulse Resp B/P (MAP) Pulse Ox O2 Delivery O2 Flow Rate FiO2 01/29/20 06:24 98.1 01/29/20 04:00 98.1 99 20 129/69 (89) 95 01/29/20 00:00 99.0 94 20 114/66 (82) 99 01/28/20 23:33 98.1 01/28/20 21:00 Room Air 01/28/20 20:00 98.1 99 20 111/67 (82) 98 01/28/20 19:38 93 Room Air 21 01/28/20 19:37 102 18 93 Room Air 21 01/28/20 16:00 97.8 111 20 140/81 (100) 94 01/28/20 14:09 107 139/86 01/28/20 14:09 139/86 01/28/20 14:00 108 139/86 (103) 01/28/20 12:00 97.7 105 20 154/84 (107) 94 01/28/20 11:23 98 143/83 01/28/20 10:43 97.9 98 20 143/83 (103) 99 01/28/20 09:00 Room Air 01/28/20 08:00 98.0 95 20 148/80 (102) 99 Intake and Output 01/28/20 01/29/20 19:00 07:00 Intake Total 550 ml Balance 550 ml IV Total 550 ml # Voids 2 2 # Bowel Movements 3 HEENT: normocephalic Respiratory: chest wall non-tender, lungs clear Cardiovascular: normal peripheral pulses, normal rate Laboratory Tests 01/29/20 04:54: White Blood Count 14.8H, Red Blood Count 4.56, Hemoglobin 14.2, Hematocrit 43.3, Mean Corpuscular Volume 95, Mean Corpuscular Hemoglobin 31.1H, Mean Corpuscular Hemoglobin Concent 32.7, Red Cell Distribution Width 11.0L, Platelet Count 323, Mean Platelet Volume 5.1L, Neutrophils (%) (Auto) 81.0H, Lymphocytes (%) (Auto) 11.6L, Monocytes (%) (Auto) 6.7, Eosinophils (%) (Auto) 0.1, Basophils (%) (Auto) 0.5, Sodium Level 135L, Potassium Level 3.6, Chloride Level 101, Carbon Dioxide Level 27, Anion Gap 7, Blood Urea Nitrogen 9, Creatinine 0.6, Estimat Glomerular Filtration Rate > 60, Glucose Level 113H, Calcium Level 7.9L, Phosphorus Level 2.5, Magnesium Level 2.0, Total Bilirubin 0.5, Aspartate Amino Transf (AST/SGOT) 65H, Alanine Aminotransferase (ALT/SGPT) 78, Alkaline Phosphatase 141H, Total Protein 5.9L, Albumin 2.2L, Globulin 3.7, Albumin/Dena bulin Ratio 0.6L Current Medications Medications (Trade) Dose Ordered Sig/Altagracia Route PRN Reason Start Time Stop Time Status Last Admin Dose Admin Acetaminophen (Tylenol) 650 mg Q4H PRN ORAL Temp >100.5 01/21/20 14:00 02/20/20 13:59 01/23/20 05:00 Acetaminophen (Tylenol) 650 mg Q4H PRN ORAL Mild Pain (Pain Scale 1-3) 01/21/20 14:00 02/20/20 13:59 01/25/20 10:50 Acetaminophen (Tylenol) 650 mg Q6H ORAL 01/25/20 11:30 02/24/20 11:29 01/29/20 05:54 Acyclovir (Zovirax) 400 mg EVERY 8 HOURS ORAL 01/28/20 14:00 02/27/20 13:59 01/29/20 05:54 Albuterol/ Ipratropium (Albuterol/ Ipratropium) 3 ml Q4H PRN HHN Shortness of Breath 01/21/20 14:00 02/01/20 13:59 Alendronate Sodium (Fosamax) 70 mg ONCE A WEEK ORAL 01/22/20 06:30 02/21/20 06:29 01/22/20 05:36 Amlodipine Besylate (Norvasc) 5 mg DAILY ORAL 01/22/20 09:00 02/21/20 08:59 01/28/20 11:23 Amylase/Lipase/ Protease (Chelsy HUFF 36,000 units cap) 1 ea TIDPRN PRN ORAL Abdominal cramps 01/21/20 15:45 04/20/20 15:44 Atorvastatin Calcium (Lipitor) 20 mg BEDTIME ORAL 01/22/20 21:00 04/21/20 20:59 01/28/20 21:05 Clonazepam (KlonoPIN) 1 mg Q6H PRN ORAL For Anxiety 01/27/20 09:15 02/03/20 09:14 Dronabinol (Marinol) 5 mg BID ORAL 01/27/20 18:00 04/26/20 17:59 01/28/20 17:33 Heparin Sodium (Porcine) (Heparin 5000 units/ml) 5,000 units EVERY 12 HOURS SUBQ 01/21/20 21:00 03/06/20 20:59 01/28/20 21:09 Loratadine (Claritin 10mg) 10 mg DAILY ORAL 01/23/20 09:00 02/22/20 08:59 01/27/20 08:21 Losartan Potassium (Cozaar) 100 mg DAILY ORAL 01/22/20 09:00 02/21/20 08:59 01/28/20 14:09 Metoprolol Succinate (Toprol XL) 25 mg DAILY ORAL 01/22/20 09:00 04/21/20 08:59 01/28/20 14:09 Mirtazapine (Remeron) 15 mg BEDTIME ORAL 01/27/20 21:00 04/26/20 20:59 01/28/20 21:05 Pantoprazole (Protonix) 40 mg ACBREAKFAST IVP 01/23/20 06:30 02/22/20 06:29 01/29/20 05:54 Vancomycin HCl (Vanco pharmacy to dose) 1 ea DAILY PRN MISC Per rx protocol 01/22/20 08:00 02/21/20 07:59 Vancomycin HCl 1 gm/Dextrose 275 ml @ 184 mls/hr Q8H IVPB 01/27/20 00:00 02/01/20 00:00 01/28/20 23:03 Assessment/Plan Assessment/Plan IMPRESSION: 1. Sepsis with bacteremia. 2. Pulmonary vascular congestion. 3. GERD. 4. Hypertension. 5. Hyperlipidemia. 6. Previous CVA. DISCUSSION: Continue nasal O2. prn Currently saturating well on RA No additional pulmonary intervention required. Broad-spectrum antibiotics. Will follow Gil Mattson Omar Syed MD Jan 29, 2020 08:00
[2020-01-29] MEDS: Dronabinol 2.5mg Cap ORAL SCH ×2 (09:00→17:21)
[2020-01-29] MEDS: Losartan 50mg tab ORAL SCH (09:00)
[2020-01-29] MEDS: Metoprolol Succinate XL 25mg tab ORAL SCH (09:00)
--- NOTE | 2020-01-29 09:08 | Surgery Progress Note ---
Surgery Progress Note Subjective Additional Comments leukocytsis exam stable no complaints resting Objective Last 24 Hour Vital Signs Date Time Temp Pulse Resp B/P (MAP) Pulse Ox O2 Delivery O2 Flow Rate FiO2 01/29/20 08:09 95 Room Air 21 01/29/20 08:08 98 15 95 Room Air 21 01/29/20 06:24 98.1 01/29/20 04:00 98.1 99 20 129/69 (89) 95 01/29/20 00:00 99.0 94 20 114/66 (82) 99 01/28/20 23:33 98.1 01/28/20 21:00 Room Air 01/28/20 20:00 98.1 99 20 111/67 (82) 98 01/28/20 19:38 93 Room Air 01/28/20 19:37 102 18 93 Room Air 21 01/28/20 16:00 97.8 111 20 140/81 (100) 94 01/28/20 14:09 107 139/86 01/28/20 14:09 139/86 01/28/20 14:00 108 139/86 (103) 01/28/20 12:00 97.7 105 20 154/84 (107) 94 01/28/20 11:23 98 143/83 01/28/20 10:43 97.9 98 20 143/83 (103) 99 I&O Intake and Output 01/28/20 01/29/20 19:00 07:00 Intake Total 550 ml Balance 550 ml IV Total 550 ml # Voids 2 2 # Bowel Movements 3 Dressing: saturated Cardiovascular: RSR Respiratory: decreased breath sounds Abdomen: soft, non-tender, present bowel sounds Extremities: no edema, no tenderness, no cyanosis Laboratory Tests Test 01/29/20 04:54 White Blood Count 14.8 K/UL (4.8-10.8) H Red Blood Count 4.56 M/UL (4.20-5.40) Hemoglobin 14.2 G/DL (12.0-16.0) Hematocrit 43.3 % (37.0-47.0) Mean Corpuscular Volume 95 FL (80-99) Mean Corpuscular Hemoglobin 31.1 PG (27.0-31.0) H Mean Corpuscular Hemoglobin Concent 32.7 G/DL (32.0-36.0) Red Cell Distribution Width 11.0 % (11.6-14.8) L Platelet Count 323 K/UL (150-450) Mean Platelet Volume 5.1 FL (6.5-10.1) L Neutrophils (%) (Auto) 81.0 % (45.0-75.0) H Lymphocytes (%) (Auto) 11.6 % (20.0-45.0) L Monocytes (%) (Auto) 6.7 % (1.0-10.0) Eosinophils (%) (Auto) 0.1 % (0.0-3.0) Basophils (%) (Auto) 0.5 % (0.0-2.0) Sodium Level 135 MMOL/L (136-145) L Potassium Level 3.6 MMOL/L (3.5-5.1) Chloride Level 101 MMOL/L (98-107) Carbon Dioxide Level 27 MMOL/L (21-32) Anion Gap 7 mmol/L (5-15) Blood Urea Nitrogen 9 mg/dL (7-18) Creatinine 0.6 MG/DL (0.55-1.30) Estimat Glomerular Filtration Rate > 60 mL/min (>60) Glucose Level 113 MG/DL (74-106) H Calcium Level 7.9 MG/DL (8.5-10.1) L Phosphorus Level 2.5 MG/DL (2.5-4.9) Magnesium Level 2.0 MG/DL (1.8-2.4) Total Bilirubin 0.5 MG/DL (0.2-1.0) Aspartate Amino Transf (AST/SGOT) 65 U/L (15-37) H Alanine Aminotransferase (ALT/SGPT) 78 U/L (12-78) Alkaline Phosphatase 141 U/L (46-116) H Total Protein 5.9 G/DL (6.4-8.2) L Albumin 2.2 G/DL (3.4-5.0) L Globulin 3.7 g/dL Albumin/Globulin Ratio 0.6 (1.0-2.7) L Plan Problems: (1) Pulmonary edema (2) Hypokalemia (3) Leukocytosis Assessment & Plan: 84-year-old female afebrile hemodynamic stable bacteremia leukocytosis LFTs okay hypoalbuminemia BMI 22 failure to thrive. UTI /pna on antibiotics appreciate ID input. Agree with GI as to calorie count feeding trial swallow eval and continue Marinol. May need feeding tube given failure to thrive. Will follow with recommendations Participation's care labs improving on abx cont abx comfortable diet as tolerated No acute intracranial hemorrhage or edema. No mass effect nor midline shift. There is age-related enlargement of the ventricles and extra axial CSF spaces. There is periventricular deep white matter low-attenuation, consistent with chronic microvascular ischemic changes. Old lacunar infarcts are seen in the basal ganglia bilaterally. The mastoids are clear. There is fairly extensive sphenoid and ethmoid sinus disease. The calvarium is intact. Impression: Chronic and age-related changes. Old bilateral basal ganglia lacunar infarcts. Negative for acute intracranial bleed or mass effect Increasing interstitial and airspace infiltrates are seen diffusely within the lungs bilaterally. The heart is borderline enlarged. There is torturous ectatic and calcified Impression: Increasing bilateral infiltrates versus edema, over one day (4) Fever (5) Bacteremia Alvarado Tolliver Jan 29, 2020 09:08
[2020-01-29] MEDS: Vancomycin 1gm in Dextrose 275ml IVPB SCH ×3 (10:09→21:06)
[2020-01-29] MEDS: Heparin 5000 units/ml inj SUBQ SCH ×2 (10:10→21:05)
--- NOTE | 2020-01-29 10:14 | General Progress Note ---
Subjective ROS Limited/Unobtainable: No Allergies: Coded Allergies: PENICILLINS (Verified Allergy, Unknown, 01/23/20) nurse unable to enter a coded PENICILLIN allergy. still need to obtain reaction Objective Last 24 Hour Vital Signs Date Time Temp Pulse Resp B/P (MAP) Pulse Ox O2 Delivery O2 Flow Rate FiO2 01/29/20 09:00 99 116/63 01/29/20 09:00 129/69 01/29/20 09:00 99 116/63 01/29/20 08:09 95 Room Air 21 01/29/20 08:08 98 15 95 Room Air 21 01/29/20 06:24 98.1 01/29/20 04:00 98.1 99 20 129/69 (89) 95 01/29/20 00:00 99.0 94 20 114/66 (82) 99 01/28/20 23:33 98.1 01/28/20 21:00 Room Air 01/28/20 20:00 98.1 99 20 111/67 (82) 98 01/28/20 19:38 93 Room Air 21 01/28/20 19:37 102 18 93 Room Air 21 01/28/20 16:00 97.8 111 20 140/81 (100) 94 01/28/20 14:09 107 139/86 01/28/20 14:09 139/86 01/28/20 14:00 108 139/86 (103) 01/28/20 12:00 97.7 105 20 154/84 (107) 94 01/28/20 11:23 98 143/83 01/28/20 10:43 97.9 98 20 143/83 (103) 99 Intake and Output 01/28/20 01/29/20 19:00 07:00 Intake Total 550 ml Balance 550 ml IV Total 550 ml # Voids 2 2 # Bowel Movements 3 Laboratory Tests 01/29/20 04:54: White Blood Count 14.8H, Red Blood Count 4.56, Hemoglobin 14.2, Hematocrit 43.3, Mean Corpuscular Volume 95, Mean Corpuscular Hemoglobin 31.1H, Mean Corpuscular Hemoglobin Concent 32.7, Red Cell Distribution Width 11.0L, Platelet Count 323, Mean Platelet Volume 5.1L, Neutrophils (%) (Auto) 81.0H, Lymphocytes (%) (Auto) 11.6L, Monocytes (%) (Auto) 6.7, Eosinophils (%) (Auto) 0.1, Basophils (%) (Auto) 0.5, Sodium Level 135L, Potassium Level 3.6, Chloride Level 101, Carbon Dioxide Level 27, Anion Gap 7, Blood Urea Nitrogen 9, Creatinine 0.6, Estimat Glomerular Filtration Rate > 60, Glucose Level 113H, Calcium Level 7.9L, Phosphorus Level 2.5, Magnesium Level 2.0, Total Bilirubin 0.5, Aspartate Amino Transf (AST/SGOT) 65H, Alanine Aminotransferase (ALT/SGPT) 78, Alkaline Phosphatase 141H, Total Protein 5.9L, Albumin 2.2L, Globulin 3.7, Albumin/Globulin Ratio 0.6L Height (Feet): 5 Height (Inches): 3.00 Weight (Pounds): 140 General Appearance: no apparent distress EENT: normal ENT inspection Neck: supple Cardiovascular: normal rate Respiratory/Chest: decreased breath sounds Abdomen: normal bowel sounds, non tender, soft Extremities: non-tender Assessment/Plan Status: stable Assessment/Plan: 1. Hypertension. 2. GERD. 3. Hyperlipidemia. 4. History of CVA. 5. FTT 6. PNA 7. bacteremia marinol> 5 mg ensure TID calorie count swallow eval appreciated abx per ID neg stool for C.diff abd/chest CT reviewed ? pending KENNETH will Jarocho Clarke MD Jan 29, 2020 10:13
[2020-01-29 12:00] VITALS: BP 119/75
--- NOTE | 2020-01-29 12:01 | General Progress Note ---
Subjective Constitutional: Denies: no symptoms, chills, diaphoresis, fever, malaise, weakness, other HEENT: Denies: no symptoms, eye pain, blurred vision, tearing, double vision, ear pain, ear discharge, nose pain, nose congestion, throat pain, throat swelling, mouth pain, mouth swelling, other Cardiovascular: Denies: no symptoms, chest pain, edema, irregular heart rate, lightheadedness, palpitations, syncope, other Respiratory: Denies: no symptoms, cough, orthopnea, shortness of breath, SOB with excertion, SOB at rest, sputum, stridor, wheezing, other Gastrointestinal/Abdominal: Denies: no symptoms, abdomen distended, abdominal pain, black stools, tarry stools, blood in stool, constipated, diarrhea, difficulty swallowing, nausea, poor appetite, poor fluid intake, rectal bleeding, vomiting, other Genitourinary: Denies: no symptoms, burning, discharge, frequency, flank pain, hematuria, incontinence, pain, urgency, other Neurologic/Psychiatric: Denies: no symptoms, anxiety, depressed, emotional problems, headache, numbness, paresthesia, pre-existing deficit, seizure, tingling, tremors, weakness, other Endocrine: Denies: no symptoms, excessive sweating, flushing, intolerance to cold, intolerance to heat, increased hunger, increased thirst, increased urine, unexplained weight gain, unexplained weight loss, other Hematologic/Lymphatic: Denies: no symptoms, anemia, easy bleeding, easy bruising, other Allergies: Coded Allergies: PENICILLINS (Verified Allergy, Unknown, 01/23/20) nurse unable to enter a coded PENICILLIN allergy. still need to obtain reaction Subjective no acute events overnight. at bedside and helped with translation. Patient having increased worsening headache. Headache located in frontal lobe and occipatl region. Has pain when flexing head forward. No vision changes, neurological deficits or fevers. KENNETH cancelled due to herpes infection on lip. Objective Last 24 Hour Vital Signs Date Time Temp Pulse Resp B/P (MAP) Pulse Ox O2 Delivery O2 Flow Rate FiO2 01/29/20 09:00 Room Air 01/29/20 09:00 99 116/63 01/29/20 09:00 129/69 01/29/20 09:00 99 116/63 01/29/20 08:09 95 Room Air 21 01/29/20 08:08 98 15 95 Room Air 21 01/29/20 08:00 97.9 99 20 116/63 (80) 93 01/29/20 06:24 98.1 01/29/20 04:00 98.1 99 20 129/69 (89) 95 01/29/20 00:00 99.0 94 20 114/66 (82) 99 01/28/20 23:33 98.1 01/28/20 21:00 Room Air 01/28/20 20:00 98.1 99 20 111/67 (82) 98 01/28/20 19:38 93 Room Air 21 01/28/20 19:37 102 18 93 Room Air 21 01/28/20 16:00 97.8 111 20 140/81 (100) 94 01/28/20 14:09 107 139/86 01/28/20 14:09 139/86 01/28/20 14:00 108 139/86 (103) 01/28/20 12:00 97.7 105 20 154/84 (107) 94 Intake and Output 01/28/20 01/29/20 19:00 07:00 Intake Total 550 ml Balance 550 ml IV Total 550 ml # Voids 2 2 # Bowel Movements 3 Laboratory Tests 01/29/20 04:54: White Blood Count 14.8H, Red Blood Count 4.56, Hemoglobin 14.2, Hematocrit 43.3, Mean Corpuscular Volume 95, Mean Corpuscular Hemoglobin 31.1H, Mean Corpuscular Hemoglobin Concent 32.7, Red Cell Distribution Width 11.0L, Platelet Count 323, Mean Platelet Volume 5.1L, Neutrophils (%) (Auto) 81.0H, Lymphocytes (%) (Auto) 11.6L, Monocytes (%) (Auto) 6.7, Eosinophils (%) (Auto) 0.1, Basophils (%) (Auto) 0.5, Sodium Level 135L, Potassium Level 3.6, Chloride Level 101, Carbon Dioxide Level 27, Anion Gap 7, Blood Urea Nitrogen 9, Creatinine 0.6, Estimat Glomerular Filtration Rate > 60, Glucose Level 113H, Calcium Level 7.9L, Phosphorus Level 2.5, Magnesium Level 2.0, Total Bilirubin 0.5, Aspartate Amino Transf (AST/SGOT) 65H, Alanine Aminotransferase (ALT/SGPT) 78, Alkaline Phosphatase 141H, Total Protein 5.9L, Albumin 2.2L, Globulin 3.7, Albumin/Globulin Ratio 0.6L Height (Feet): 5 Height (Inches): 3.00 Weight (Pounds): 140 General Appearance: mild distress, alert oriented x3, other - some tenderness to cervical paraspinal region EENT: PERRL/EOMI Neck: limited range of motion, paraspinous muscle tender, stiff neck, tenderness Cardiovascular: normal rate, regular rhythm, no JVD Respiratory/Chest: chest wall non-tender, lungs clear, no respiratory distress Abdomen: non tender, soft, no mass Extremities: normal range of motion Edema: no edema noted Arm (L), no edema noted Arm (R), no edema noted Leg (L), no edema noted Leg (R), no edema noted Pedal (L), no edema noted Pedal (R), no edema noted Generalized 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 Walker is a 84 year old female with HTN, HLD who presented with syncope and weakness, found to have S. 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 -CTH with old infarcts seen, no acute pathology. -CT A/P/C ordered per ID to eval for source of infection -> multifocal PNA seen, but no respiratory symptoms. - KENNETH cancelled yesterday due to fear of HSV transmission, will be able to do KENNETH in a few days once HSV starts crusting - F/u LP to r/o meningitis/encephalitis as etiology of headaches -PT ordered #Headache -Tylenol q6h scheduled, given language barrier and patient not asking for it. #HTN - continue metop 25 daily - amlodipine 5mg daily - continue losartan 100mg daily #Hypokalemia -replete -trend BMP #Low appetite #Suspected depression #Flat affect -GI following -Marinol continue 5 mg -continue remeron 15 mg qhs. monitor. CODE: Full DVT: Heparin 5000U BID Time spent on encounter, 35 mins. 21 on counseling, coordination of care. d/w RN, consultants. Time of note doesn't accurately reflect time of encounter. Kyle Sauer D.O Jan 29, 2020 12:01
--- NOTE | 2020-01-29 14:19 | Infectious Diseases Prog Note ---
Assessment/Plan Assessment/Plan ASSESSMENT AND PLAN: 1. mrsa bacteremia, sepsis, leukocytosis, fevers, ? endocarditis, persistent bacteremia, ? other source ? pna? staph aureus septic emboli, ? endocarditis persistent TELLEZ - ? meningitis oral herpes simplex virus infection - vancomycin - d/w pharmacy about vancomycin dosing for therapeutic trough - acyclovir - day # 2 - CT - abdomen/pelvis/chest - noted, ? pna, ? septic emboli, no abscess - monitor labs and chest x-ray, surveillance blood cultures - surveillance blood cultures persistently + - TTE results - no discrete vegetations per report - KENNETH planned for persistent bacteremia, ? endocarditis - will order indium scan for persistent bacteremia - LP to rule out meningitis - d/w Dr. Sauer - d/w cardiology 2. Hypertension. Blood pressure treatment per primary care team. 3. GERD. 4. HLP, which I think is hyperlipidemia, but I am not sure. 5. Per the records, history of CVA. 6. Cardiac disease. 7. Allergic to penicillin, tolerates cephalosporins. 8. Social History is negative. 9. Family History is noncontributory . 10. MAR was noted. 11. Case was discussed with RN. 12. Continue treatment per primary consultants. 13. multiple orders entered Subjective Constitutional: Reports: fatigue; Denies: fever HEENT: Reports: other - oral lesions Respiratory: Denies: shortness of breath Cardiovascular: Denies: chest pain Gastrointestinal/Abdominal: Denies: nausea, vomiting Genitourinary: Reports: other - no nieves, no cva pain Neurologic: Reports: headache Psychiatric: Reports: other - NA Skin: Denies: rash Hematologic: Denies: bleeding Musculoskeletal: Denies: pain Allergies: Coded Allergies: PENICILLINS (Verified Allergy, Unknown, 01/23/20) nurse unable to enter a coded PENICILLIN allergy. still need to obtain reaction Objective Last 24 Hour Vital Signs Date Time Temp Pulse Resp B/P (MAP) Pulse Ox O2 Delivery O2 Flow Rate FiO2 01/29/20 12:00 98.8 119 18 119/75 (90) 94 01/29/20 09:00 Room Air 01/29/20 09:00 99 116/63 01/29/20 09:00 129/69 01/29/20 09:00 99 116/63 01/29/20 08:09 95 Room Air 21 01/29/20 08:08 98 15 95 Room Air 21 01/29/20 08:00 97.9 99 20 116/63 (80) 93 01/29/20 06:24 98.1 01/29/20 04:00 98.1 99 20 129/69 (89) 95 01/29/20 00:00 99.0 94 20 114/66 (82) 99 01/28/20 23:33 98.1 01/28/20 21:00 Room Air 01/28/20 20:00 98.1 99 20 111/67 (82) 98 01/28/20 19:38 93 Room Air 21 01/28/20 19:37 102 18 93 Room Air 21 01/28/20 16:00 97.8 111 20 140/81 (100) 94 01/28/20 14:09 107 139/86 01/28/20 14:09 139/86 01/28/20 14:00 108 139/86 (103) Height (Feet): 5 Height (Inches): 3.00 Weight (Pounds): 140 General Appearance: no acute distress HEENT: normocephalic Respiratory/Chest: lungs clear, normal breath sounds, no respiratory distress Cardiovascular: normal rate, regular rhythm, no gallop/murmur, no JVD Abdomen: normal bowel sounds, soft, non tender, no organomegaly, non distended Genitourinary: other - no nieves Extremities: no cyanosis Skin: no rash Neurologic/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 The heart is borderline enlarged. There is torturous ectatic and calcified Impression: Increasing bilateral infiltrates versus edema, over one day Chest x-ray - 01/25/20 - Procedure: XRAY Chest 1v EXAM: XR Chest, 1 View CLINICAL HISTORY: INFECT TECHNIQUE: Frontal view of the chest. COMPARISON: No relevant prior studies available. FINDINGS/IMPRESSION: Low lung volume secondary to poor inspiration. Mild, patchy airspace opacity within the left upper lung field, suspicious for infiltrate. Follow-up 2 view chest radiograph recommended. No pleural effusion or pneumothorax. CT chest/abdomen/pelvis: IMPRESSION: Lungs demonstrate bilateral multifocal patchy and nodular infiltrates. This most likely represents multifocal pneumonia, May correlate with stated clinical history of suspected septic emboli. Generalized pulmonary venous congestion, may indicate central venous hypertension Small bilateral pleural effusions Mild cardiomegaly No acute abdominal or pelvic abnormality 12 mm left adrenal nodule. This is nonspecific in appearance. 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 Nieves catheter within the bladder Other findings as noted, including bilateral renal parapelvic cysts, probable bilateral renal cortical cysts, degenerative spondylosis changes, duodenal diverticulum, probable subce Microbiology Date/Time Source Procedure Growth Status 01/26/20 07:00 Blood Blood Culture - Preliminary Resulted 01/25/20 18:00 Stool Clostridium difficile Toxin Assay - Final Complete 01/22/20 04:30 Nasopharynx Coronavirus COVID-19 PCR ([facility]) - Final Complete Microbiology Date/Time Source Procedure Growth Status 01/26/20 07:00 Blood Blood Culture - Preliminary Resulted 01/25/20 18:00 Stool Clostridium difficile Toxin Assay - Final Complete 01/22/20 04:30 Nasopharynx Coronavirus COVID-19 PCR ([facility]) - Final Complete Laboratory Tests Test 01/29/20 04:54 White Blood Count 14.8 K/UL (4.8-10.8) H Red Blood Count 4.56 M/UL (4.20-5.40) Hemoglobin 14.2 G/DL (12.0-16.0) Hematocrit 43.3 % (37.0-47.0) Mean Corpuscular Volume 95 FL (80-99) Mean Corpuscular Hemoglobin 31.1 PG (27.0-31.0) H Mean Corpuscular Hemoglobin Concent 32.7 G/DL (32.0-36.0) Red Cell Distribution Width 11.0 % (11.6-14.8) L Platelet Count 323 K/UL (150-450) Mean Platelet Volume 5.1 FL (6.5-10.1) L Neutrophils (%) (Auto) 81.0 % (45.0-75.0) H Lymphocytes (%) (Auto) 11.6 % (20.0-45.0) L Monocytes (%) (Auto) 6.7 % (1.0-10.0) Eosinophils (%) (Auto) 0.1 % (0.0-3.0) Basophils (%) (Auto) 0.5 % (0.0-2.0) Sodium Level 135 MMOL/L (136-145) L Potassium Level 3.6 MMOL/L (3.5-5.1) Chloride Level 101 MMOL/L (98-107) Carbon Dioxide Level 27 MMOL/L (21-32) Anion Gap 7 mmol/L (5-15) Blood Urea Nitrogen 9 mg/dL (7-18) Creatinine 0.6 MG/DL (0.55-1.30) Estimat Glomerular Filtration Rate > 60 mL/min (>60) Glucose Level 113 MG/DL (74-106) H Calcium Level 7.9 MG/DL (8.5-10.1) L Phosphorus Level 2.5 MG/DL (2.5-4.9) Magnesium Level 2.0 MG/DL (1.8-2.4) Total Bilirubin 0.5 MG/DL (0.2-1.0) Aspartate Amino Transf (AST/SGOT) 65 U/L (15-37) H Alanine Aminotransferase (ALT/SGPT) 78 U/L (12-78) Alkaline Phosphatase 141 U/L (46-116) H Total Protein 5.9 G/DL (6.4-8.2) L Albumin 2.2 G/DL (3.4-5.0) L Globulin 3.7 g/dL Albumin/Globulin Ratio 0.6 (1.0-2.7) L Current Medications Medications (Trade) Dose Ordered Sig/Altagracia Route PRN Reason Start Time Stop Time Status Last Admin Dose Admin Acetaminophen (Tylenol) 650 mg Q4H PRN ORAL Temp >100.5 01/21/20 14:00 02/20/20 13:59 01/23/20 05:00 Acetaminophen (Tylenol) 650 mg Q4H PRN ORAL Mild Pain (Pain Scale 1-3) 01/21/20 14:00 02/20/20 13:59 01/25/20 10:50 Acetaminophen (Tylenol) 650 mg Q6H ORAL 01/25/20 11:30 02/24/20 11:29 01/29/20 11:46 Acyclovir (Zovirax) 400 mg EVERY 8 HOURS ORAL 01/28/20 14:00 02/27/20 13:59 01/29/20 05:54 Albuterol/ Ipratropium (Albuterol/ Ipratropium) 3 ml Q4H PRN HHN Shortness of Breath 01/21/20 14:00 02/01/20 13:59 Alendronate Sodium (Fosamax) 70 mg ONCE A WEEK ORAL 01/22/20 06:30 02/21/20 06:29 01/29/20 10:13 Amlodipine Besylate (Norvasc) 5 mg DAILY ORAL 01/22/20 09:00 02/21/20 08:59 01/28/20 11:23 Amylase/Lipase/ Protease (Chelsy HUFF 36,000 units cap) 1 ea TIDPRN PRN ORAL Abdominal cramps 01/21/20 15:45 04/20/20 15:44 Atorvastatin Calcium (Lipitor) 20 mg BEDTIME ORAL 01/22/20 21:00 04/21/20 20:59 01/28/20 21:05 Clonazepam (KlonoPIN) 1 mg Q6H PRN ORAL For Anxiety 01/27/20 09:15 02/03/20 09:14 Dronabinol (Marinol) 5 mg BID ORAL 01/27/20 18:00 04/26/20 17:59 01/28/20 17:33 Heparin Sodium (Porcine) (Heparin 5000 units/ml) 5,000 units EVERY 12 HOURS SUBQ 01/21/20 21:00 03/06/20 20:59 01/28/20 21:09 Ibuprofen (Motrin) 600 mg Q6H PRN ORAL pain 4-10 01/29/20 11:45 02/28/20 11:44 Loratadine (Claritin 10mg) 10 mg DAILY ORAL 01/23/20 09:00 02/22/20 08:59 01/27/20 08:21 Losartan Potassium (Cozaar) 100 mg DAILY ORAL 01/22/20 09:00 02/21/20 08:59 01/28/20 14:09 Metoprolol Succinate (Toprol XL) 25 mg DAILY ORAL 01/22/20 09:00 04/21/20 08:59 01/28/20 14:09 Mirtazapine (Remeron) 15 mg BEDTIME ORAL 01/27/20 21:00 04/26/20 20:59 01/28/20 21:05 Pantoprazole (Protonix) 40 mg ACBREAKFAST IVP 01/23/20 06:30 02/22/20 06:29 01/29/20 05:54 Vancomycin HCl (Vanco pharmacy to dose) 1 ea DAILY PRN MISC Per rx protocol 01/22/20 08:00 02/21/20 07:59 Vancomycin HCl 1 gm/Dextrose 275 ml @ 184 mls/hr Q8H IVPB 01/27/20 00:00 02/01/20 00:00 01/28/20 23:03 Tiny Armijo MD Jan 29, 2020 14:19
--- NOTE | 2020-01-29 15:17 | General Progress Note ---
Assessment/Plan Status: stable Assessment/Plan: #Sepsis - r/o COVID #staph bacteremia #Leukocytosis #Hyponatremia #Possible syncope #Hypokalemia #HTN #Dementia - repeat blood cx - plan for KENNETH - cardiology consulted - IV abx per ID - COVID r/o - pulm eval - monitor BP - monitor resp status - cardiology eval for possible syncope - continue metop 25 daily - amlodipine 10mg daily - continue losartan 100mg daily Subjective ROS Limited/Unobtainable: No Constitutional: Reports: weakness HEENT: Denies: no symptoms, eye pain, blurred vision, tearing, double vision, ear pain, ear discharge, nose pain, nose congestion, throat pain, throat swelling, mouth pain, mouth swelling, other Cardiovascular: Denies: no symptoms, chest pain, edema, irregular heart rate, lightheadedness, palpitations, syncope, other Respiratory: Denies: no symptoms, cough, orthopnea, shortness of breath, SOB with excertion, SOB at rest, sputum, stridor, wheezing, other Allergies: Coded Allergies: PENICILLINS (Verified Allergy, Unknown, 01/23/20) nurse unable to enter a coded PENICILLIN allergy. still need to obtain reaction Subjective IMPRESSION: Lungs demonstrate bilateral multifocal patchy and nodular infiltrates. This most likely represents multifocal pneumonia, May correlate with stated clinical history of suspected septic emboli. blood cx growing staph + diarrhea neg c diff plan for KENNETH Objective Last 24 Hour Vital Signs Date Time Temp Pulse Resp B/P (MAP) Pulse Ox O2 Delivery O2 Flow Rate FiO2 01/29/20 12:00 98.8 119 18 119/75 (90) 94 01/29/20 09:00 Room Air 01/29/20 09:00 99 116/63 01/29/20 09:00 129/69 01/29/20 09:00 99 116/63 01/29/20 08:09 95 Room Air 21 01/29/20 08:08 98 15 95 Room Air 21 01/29/20 08:00 97.9 99 20 116/63 (80) 93 01/29/20 06:24 98.1 01/29/20 04:00 98.1 99 20 129/69 (89) 95 01/29/20 00:00 99.0 94 20 114/66 (82) 99 01/28/20 23:33 98.1 01/28/20 21:00 Room Air 01/28/20 20:00 98.1 99 20 111/67 (82) 98 01/28/20 19:38 93 Room Air 21 01/28/20 19:37 102 18 93 Room Air 21 01/28/20 16:00 97.8 111 20 140/81 (100) 94 Intake and Output 01/28/20 01/29/20 19:00 07:00 Intake Total 550 ml Balance 550 ml IV Total 550 ml # Voids 2 2 # Bowel Movements 3 Laboratory Tests 01/29/20 04:54: White Blood Count 14.8H, Red Blood Count 4.56, Hemoglobin 14.2, Hematocrit 43.3, Mean Corpuscular Volume 95, Mean Corpuscular Hemoglobin 31.1H, Mean Corpuscular Hemoglobin Concent 32.7, Red Cell Distribution Width 11.0L, Platelet Count 323, Mean Platelet Volume 5.1L, Neutrophils (%) (Auto) 81.0H, Lymphocytes (%) (Auto) 11.6L, Monocytes (%) (Auto) 6.7, Eosinophils (%) (Auto) 0.1, Basophils (%) (Auto) 0.5, Sodium Level 135L, Potassium Level 3.6, Chloride Level 101, Carbon Dioxide Level 27, Anion Gap 7, Blood Urea Nitrogen 9, Creatinine 0.6, Estimat Glomerular Filtration Rate > 60, Glucose Level 113H, Calcium Level 7.9L, Phosphorus Level 2.5, Magnesium Level 2.0, Total Bilirubin 0.5, Aspartate Amino Transf (AST/SGOT) 65H, Alanine Aminotransferase (ALT/SGPT) 78, Alkaline Phosphatase 141H, Total Protein 5.9L, Albumin 2.2L, Globulin 3.7, Albumin/Globulin Ratio 0.6L Height (Feet): 5 Height (Inches): 3.00 Weight (Pounds): 140 Silvina Kohli M.D. Jan 29, 2020 15:17
[2020-01-29 16:00] VITALS: BP 122/68
[2020-01-29 20:00] VITALS: BP 120/65
[2020-01-29] MEDS: Atorvastatin 20mg tab ORAL SCH (21:06)
[2020-01-30] VITALS: BP 137/69
[2020-01-30 04:00] VITALS: BP 133/73
[2020-01-30] MEDS: Vancomycin 1gm in Dextrose 275ml IVPB SCH ×3 (06:07→21:32)
[2020-01-30] MEDS: Pantoprazole Inj IVP SCH (06:07)
[2020-01-30] MEDS: Acyclovir 200mg Cap ORAL SCH ×3 (06:07→21:33)
[2020-01-30 06:21] LABS: BASOPHILS % (AUTO) 0.5 % (0.0-2.0); EOSINOPHILS % (AUTO) 0.1 % (0.0-3.0); HEMATOCRIT 38.8 % (37.0-47.0); HEMOGLOBIN 12.8 G/DL (12.0-16.0); LYMPHOCYTES % (AUTO) 15.1 % (20.0-45.0); MEAN CORPUSCULAR VOLUME 95 FL (80-99); MONOCYTES % (AUTO) 6.7 % (1.0-10.0); NEUTROPHILS % (AUTO) 77.6 % (45.0-75.0); PLATELET COUNT 346 K/UL (150-450); RED BLOOD COUNT 4.09 M/UL (4.20-5.40); RED CELL DISTRIBUTION WIDTH 11.3 % (11.6-14.8); WHITE BLOOD COUNT 13.1 K/UL (4.8-10.8)
[2020-01-30 06:34] LABS: ANION GAP 6 mmol/L (5-15); BLOOD UREA NITROGEN 8 mg/dL (7-18); CALCIUM 7.9 MG/DL (8.5-10.1); CARBON DIOXIDE 28 MMOL/L (21-32); CHLORIDE 103 MMOL/L (98-107); CREATININE 0.6 MG/DL (0.55-1.30); PHOSPHORUS 3.2 MG/DL (2.5-4.9); POTASSIUM 3.5 MMOL/L (3.5-5.1); SODIUM 137 MMOL/L (136-145)
[2020-01-30 08:00] VITALS: BP 135/79
--- NOTE | 2020-01-30 09:30 | Pulmonology Progress Note ---
Subjective ROS Limited/Unobtainable: No Interval Events: None new Constitutional: Reports: fatigue; Denies: fever HEENT: Repors: no symptoms Respiratory: Reports: no symptoms Cardiovascular: Reports: no symptoms Gastrointestinal/Abdominal: Denies: nausea, vomiting Psychiatric: Reports: other - NA Skin: Denies: rash Musculoskeletal: Denies: pain Allergies: Coded Allergies: PENICILLINS (Verified Allergy, Unknown, 01/23/20) nurse unable to enter a coded PENICILLIN allergy. still need to obtain reaction All Systems: reviewed and negative except above Objective Last 24 Hour Vital Signs Date Time Temp Pulse Resp B/P (MAP) Pulse Ox O2 Delivery O2 Flow Rate FiO2 01/30/20 09:26 94 Room Air 21 01/30/20 09:24 98 16 94 Room Air 21 01/30/20 08:00 99.7 102 18 135/79 (97) 96 01/30/20 04:00 97.4 104 19 133/73 (93) 93 01/30/20 00:00 97.6 108 19 137/69 (91) 94 01/29/20 21:00 Room Air 01/29/20 20:18 95 Room Air 21 01/29/20 20:18 101 18 95 Room Air 21 01/29/20 20:00 98.1 105 19 120/65 (83) 93 01/29/20 16:00 98.1 92 20 122/68 (86) 94 01/29/20 12:00 97 01/29/20 12:00 98.8 119 18 119/75 (90) 94 Intake and Output 01/29/20 01/30/20 19:00 07:00 Intake Total 495 ml 1555 ml Output Total 100 ml 500 ml Balance 395 ml 1055 ml Intake Oral 120 ml 480 ml IV Total 375 ml 1075 ml Output Urine Total 100 ml 500 ml # Voids 3 # Bowel Movements 1 1 HEENT: normocephalic Respiratory: chest wall non-tender, lungs clear Cardiovascular: normal peripheral pulses, normal rate Laboratory Tests 01/30/20 05:39: White Blood Count 13.1H, Red Blood Count 4.09L, Hemoglobin 12.8, Hematocrit 38.8, Mean Corpuscular Volume 95, Mean Corpuscular Hemoglobin 31.4H, Mean Corpuscular Hemoglobin Concent 33.1, Red Cell Distribution Width 11.3L, Platelet Count 346, Mean Platelet Volume 5.3L, Neutrophils (%) (Auto) 77.6H, Lymphocytes (%) (Auto) 15.1L, Monocytes (%) (Auto) 6.7, Eosinophils (%) (Auto) 0.1, Basophils (%) (Auto) 0.5, Sodium Level 137, Potassium Level 3.5, Chloride Level 103, Carbon Dioxide Level 28, Anion Gap 6, Blood Urea Nitrogen 8, Creatinine 0.6, Estimat Glomerular Filtration Rate > 60, Glucose Level 124H, Calcium Level 7.9L, Phosphorus Level 3.2, Magnesium Level 1.8 Current Medications Medications (Trade) Dose Ordered Sig/Altagracia Route PRN Reason Start Time Stop Time Status Last Admin Dose Admin Acetaminophen (Tylenol) 650 mg Q4H PRN ORAL Temp >100.5 01/21/20 14:00 02/20/20 13:59 01/23/20 05:00 Acetaminophen (Tylenol) 650 mg Q4H PRN ORAL Mild Pain (Pain Scale 1-3) 01/21/20 14:00 02/20/20 13:59 01/25/20 10:50 Acetaminophen (Tylenol) 650 mg Q6H ORAL 01/25/20 11:30 02/24/20 11:29 01/30/20 06:08 Acyclovir (Zovirax) 400 mg EVERY 8 HOURS ORAL 01/28/20 14:00 02/27/20 13:59 01/30/20 06:07 Albuterol/ Ipratropium (Albuterol/ Ipratropium) 3 ml Q4H PRN HHN Shortness of Breath 01/21/20 14:00 02/01/20 13:59 Alendronate Sodium (Fosamax) 70 mg ONCE A WEEK ORAL 01/22/20 06:30 02/21/20 06:29 01/29/20 10:13 Amlodipine Besylate (Norvasc) 5 mg DAILY ORAL 01/22/20 09:00 02/21/20 08:59 01/28/20 11:23 Amylase/Lipase/ Protease (Chelsy DR 36,000 units cap) 1 ea TIDPRN PRN ORAL Abdominal cramps 01/21/20 15:45 04/20/20 15:44 Atorvastatin Calcium (Lipitor) 20 mg BEDTIME ORAL 01/22/20 21:00 04/21/20 20:59 01/29/20 21:06 Clonazepam (KlonoPIN) 1 mg Q6H PRN ORAL For Anxiety 01/27/20 09:15 02/03/20 09:14 Dronabinol (Marinol) 5 mg BID ORAL 01/27/20 18:00 04/26/20 17:59 01/29/20 17:21 Heparin Sodium (Porcine) (Heparin 5000 units/ml) 5,000 units EVERY 12 HOURS SUBQ 01/21/20 21:00 03/06/20 20:59 01/29/20 21:05 Ibuprofen (Motrin) 600 mg Q6H PRN ORAL pain 4-10 01/29/20 11:45 02/28/20 11:44 Loratadine (Claritin 10mg) 10 mg DAILY ORAL 01/23/20 09:00 02/22/20 08:59 01/27/20 08:21 Losartan Potassium (Cozaar) 100 mg DAILY ORAL 01/22/20 09:00 02/21/20 08:59 01/28/20 14:09 Metoprolol Succinate (Toprol XL) 25 mg DAILY ORAL 01/22/20 09:00 04/21/20 08:59 01/28/20 14:09 Mirtazapine (Remeron) 15 mg BEDTIME ORAL 01/27/20 21:00 04/26/20 20:59 01/29/20 21:06 Pantoprazole (Protonix) 40 mg ACBREAKFAST IVP 01/23/20 06:30 02/22/20 06:29 01/30/20 06:07 Sodium Chloride 1,000 ml @ 100 mls/hr Q10H IV 01/29/20 14:15 01/30/20 20:14 01/30/20 00:18 Vancomycin HCl (Vanco pharmacy to dose) 1 ea DAILY PRN MISC Per rx protocol 01/22/20 08:00 02/21/20 07:59 Vancomycin HCl 1 gm/Dextrose 275 ml @ 184 mls/hr Q8HR IVPB 01/29/20 14:15 02/03/20 14:14 01/30/20 06:07 Assessment/Plan Assessment/Plan IMPRESSION: 1. Sepsis with bacteremia. 2. Pulmonary vascular congestion. 3. GERD. 4. Hypertension. 5. Hyperlipidemia. 6. Previous CVA. DISCUSSION: Continue nasal O2. prn Currently saturating well on RA No additional pulmonary intervention required. Broad-spectrum antibiotics. Will follow Gil Mattson Omar Syed MD Jan 30, 2020 09:30
[2020-01-30] MEDS: Losartan 50mg tab ORAL SCH (09:33)
[2020-01-30] MEDS: Dronabinol 2.5mg Cap ORAL SCH ×2 (09:34→17:23)
[2020-01-30] MEDS: Metoprolol Succinate XL 25mg tab ORAL SCH (09:34)
[2020-01-30] MEDS: Heparin 5000 units/ml inj SUBQ SCH ×2 (09:43→21:34)
--- NOTE | 2020-01-30 09:57 | General Progress Note ---
Assessment/Plan Status: stable Assessment/Plan: #Sepsis - r/o COVID #staph bacteremia #Leukocytosis #Hyponatremia #Possible syncope #Hypokalemia #HTN #Dementia - repeat blood cx - plan for KENNETH - cardiology consulted - IV abx per ID - COVID r/o - pulm eval - monitor BP - monitor resp status - cardiology eval for possible syncope - continue metop 25 daily - amlodipine 10mg daily - continue losartan 100mg daily Subjective Allergies: Coded Allergies: PENICILLINS (Verified Allergy, Unknown, 01/23/20) nurse unable to enter a coded PENICILLIN allergy. still need to obtain reaction Subjective IMPRESSION: Lungs demonstrate bilateral multifocal patchy and nodular infiltrates. This most likely represents multifocal pneumonia, May correlate with stated clinical history of suspected septic emboli. blood cx growing staph + diarrhea neg c diff plan for KENNETH Objective Last 24 Hour Vital Signs Date Time Temp Pulse Resp B/P (MAP) Pulse Ox O2 Delivery O2 Flow Rate FiO2 01/30/20 09:35 98 135/79 01/30/20 09:34 98 135/79 01/30/20 09:33 135/79 01/30/20 09:26 94 Room Air 21 01/30/20 09:24 98 16 94 Room Air 21 01/30/20 08:00 99.7 102 18 135/79 (97) 96 01/30/20 04:00 97.4 104 19 133/73 (93) 93 01/30/20 00:00 97.6 108 19 137/69 (91) 94 01/29/20 21:00 Room Air 01/29/20 20:18 95 Room Air 21 01/29/20 20:18 101 18 95 Room Air 21 01/29/20 20:00 98.1 105 19 120/65 (83) 93 01/29/20 16:00 98.1 92 20 122/68 (86) 94 01/29/20 12:00 97 01/29/20 12:00 98.8 119 18 119/75 (90) 94 Intake and Output 01/29/20 01/30/20 19:00 07:00 Intake Total 495 ml 1555 ml Output Total 100 ml 500 ml Balance 395 ml 1055 ml Intake Oral 120 ml 480 ml IV Total 375 ml 1075 ml Output Urine Total 100 ml 500 ml # Voids 3 # Bowel Movements 1 1 Laboratory Tests 01/30/20 05:39: White Blood Count 13.1H, Red Blood Count 4.09L, Hemoglobin 12.8, Hematocrit 38.8, Mean Corpuscular Volume 95, Mean Corpuscular Hemoglobin 31.4H, Mean Corpuscular Hemoglobin Concent 33.1, Red Cell Distribution Width 11.3L, Platelet Count 346, Mean Platelet Volume 5.3L, Neutrophils (%) (Auto) 77.6H, Lymphocytes (%) (Auto) 15.1L, Monocytes (%) (Auto) 6.7, Eosinophils (%) (Auto) 0.1, Basophils (%) (Auto) 0.5, Sodium Level 137, Potassium Level 3.5, Chloride Level 103, Carbon Dioxide Level 28, Anion Gap 6, Blood Urea Nitrogen 8, Creatinine 0.6, Estimat Glomerular Filtration Rate > 60, Glucose Level 124H, Calcium Level 7.9L, Phosphorus Level 3.2, Magnesium Level 1.8 Height (Feet): 5 Height (Inches): 3.00 Weight (Pounds): 140 Silvina Kohli M.D. Jan 30, 2020 09:57
--- NOTE | 2020-01-30 10:06 | General Progress Note ---
Subjective ROS Limited/Unobtainable: No Allergies: Coded Allergies: PENICILLINS (Verified Allergy, Unknown, 01/23/20) nurse unable to enter a coded PENICILLIN allergy. still need to obtain reaction Objective Last 24 Hour Vital Signs Date Time Temp Pulse Resp B/P (MAP) Pulse Ox O2 Delivery O2 Flow Rate FiO2 01/30/20 09:35 98 135/79 01/30/20 09:34 98 135/79 01/30/20 09:33 135/79 01/30/20 09:26 94 Room Air 21 01/30/20 09:24 98 16 94 Room Air 21 01/30/20 08:00 99.7 102 18 135/79 (97) 96 01/30/20 04:00 97.4 104 19 133/73 (93) 93 01/30/20 00:00 97.6 108 19 137/69 (91) 94 01/29/20 21:00 Room Air 01/29/20 20:18 95 Room Air 21 01/29/20 20:18 101 18 95 Room Air 21 01/29/20 20:00 98.1 105 19 120/65 (83) 93 01/29/20 16:00 98.1 92 20 122/68 (86) 94 01/29/20 12:00 97 01/29/20 12:00 98.8 119 18 119/75 (90) 94 Intake and Output 01/29/20 01/30/20 19:00 07:00 Intake Total 495 ml 1555 ml Output Total 100 ml 500 ml Balance 395 ml 1055 ml Intake Oral 120 ml 480 ml IV Total 375 ml 1075 ml Output Urine Total 100 ml 500 ml # Voids 3 # Bowel Movements 1 1 Laboratory Tests 01/30/20 05:39: White Blood Count 13.1H, Red Blood Count 4.09L, Hemoglobin 12.8, Hematocrit 38.8, Mean Corpuscular Volume 95, Mean Corpuscular Hemoglobin 31.4H, Mean Corpuscular Hemoglobin Concent 33.1, Red Cell Distribution Width 11.3L, Platelet Count 346, Mean Platelet Volume 5.3L, Neutrophils (%) (Auto) 77.6H, Lymphocytes (%) (Auto) 15.1L, Monocytes (%) (Auto) 6.7, Eosinophils (%) (Auto) 0.1, Basophils (%) (Auto) 0.5, Sodium Level 137, Potassium Level 3.5, Chloride Level 103, Carbon Dioxide Level 28, Anion Gap 6, Blood Urea Nitrogen 8, Creatinine 0.6, Estimat Glomerular Filtration Rate > 60, Glucose Level 124H, Calcium Level 7.9L, Phosphorus Level 3.2, Magnesium Level 1.8 Height (Feet): 5 Height (Inches): 3.00 Weight (Pounds): 140 General Appearance: alert EENT: normal ENT inspection Neck: supple Cardiovascular: normal rate Respiratory/Chest: decreased breath sounds Abdomen: normal bowel sounds, non tender, soft Extremities: non-tender Assessment/Plan Status: stable Assessment/Plan: 1. Hypertension. 2. GERD. 3. Hyperlipidemia. 4. History of CVA. 5. FTT 6. PNA 7. bacteremia marinol> 5 mg ensure TID calorie count swallow eval appreciated abx per ID neg stool for C.diff abd/chest CT reviewed ? pending KENNETH will Jarocho Clarke MD Jan 30, 2020 10:06
[2020-01-30 11:39] VITALS: BP 131/75
--- NOTE | 2020-01-30 13:39 | Diagnostic Imaging Report ---
Indication: Shortness of breath Technique: One view of the chest Comparison: 01/25/2020 Findings: Previously demonstrated peripheral infiltrates have improved. Lungs and pleural spaces currently clear. The heart size is normal. The aorta is tortuous. Impression: Improved bilateral infiltrates, over 5 days
--- NOTE | 2020-01-30 13:54 | General Progress Note ---
Subjective Constitutional: Reports: malaise; Denies: no symptoms, chills, diaphoresis, fever, weakness, other HEENT: Denies: no symptoms, eye pain, blurred vision, tearing, double vision, ear pain, ear discharge, nose pain, nose congestion, throat pain, throat swelling, mouth pain, mouth swelling, other Cardiovascular: Denies: no symptoms, chest pain, edema, irregular heart rate, lightheadedness, palpitations, syncope, other Respiratory: Denies: no symptoms, cough, orthopnea, shortness of breath, SOB with excertion, SOB at rest, sputum, stridor, wheezing, other Gastrointestinal/Abdominal: Denies: no symptoms, abdomen distended, abdominal pain, black stools, tarry stools, blood in stool, constipated, diarrhea, difficulty swallowing, nausea, poor appetite, poor fluid intake, rectal bleeding, vomiting, other Genitourinary: Denies: no symptoms, burning, discharge, frequency, flank pain, hematuria, incontinence, pain, urgency, other Neurologic/Psychiatric: Reports: headache; Denies: no symptoms, anxiety, depressed, emotional problems, numbness, paresthesia, pre-existing deficit, seizure, tingling, tremors, weakness, other Endocrine: Denies: no symptoms, excessive sweating, flushing, intolerance to cold, intolerance to heat, increased hunger, increased thirst, increased urine, unexplained weight gain, unexplained weight loss, other Hematologic/Lymphatic: Denies: no symptoms, anemia, easy bleeding, easy bruising, other Allergies: Coded Allergies: PENICILLINS (Verified Allergy, Unknown, 01/23/20) nurse unable to enter a coded PENICILLIN allergy. still need to obtain reaction Subjective no acute events overnight. Headache still persist. No fevers. BC still positive. Pending KENNETH and LP tomorrow. Objective Last 24 Hour Vital Signs Date Time Temp Pulse Resp B/P (MAP) Pulse Ox O2 Delivery O2 Flow Rate FiO2 01/30/20 11:39 98.8 98 19 131/75 (93) 95 01/30/20 09:35 98 135/79 01/30/20 09:34 98 135/79 01/30/20 09:33 135/79 01/30/20 09:26 94 Room Air 21 01/30/20 09:24 98 16 94 Room Air 21 11/5/20 09:00 Room Air 01/30/20 08:00 99.7 102 18 135/79 (97) 96 01/30/20 04:00 97.4 104 19 133/73 (93) 93 01/30/20 00:00 97.6 108 19 137/69 (91) 94 01/29/20 21:00 Room Air 01/29/20 20:18 95 Room Air 21 01/29/20 20:18 101 18 95 Room Air 21 01/29/20 20:00 98.1 105 19 120/65 (83) 93 01/29/20 16:00 98.1 92 20 122/68 (86) 94 Intake and Output 01/29/20 01/30/20 19:00 07:00 Intake Total 495 ml 1555 ml Output Total 100 ml 500 ml Balance 395 ml 1055 ml Intake Oral 120 ml 480 ml IV Total 375 ml 1075 ml Output Urine Total 100 ml 500 ml # Voids 3 # Bowel Movements 1 1 Laboratory Tests 01/30/20 05:39: White Blood Count 13.1H, Red Blood Count 4.09L, Hemoglobin 12.8, Hematocrit 38.8, Mean Corpuscular Volume 95, Mean Corpuscular Hemoglobin 31.4H, Mean Corpuscular Hemoglobin Concent 33.1, Red Cell Distribution Width 11.3L, Platelet Count 346, Mean Platelet Volume 5.3L, Neutrophils (%) (Auto) 77.6H, Lymphocytes (%) (Auto) 15.1L, Monocytes (%) (Auto) 6.7, Eosinophils (%) (Auto) 0.1, Basophils (%) (Auto) 0.5, Sodium Level 137, Potassium Level 3.5, Chloride Level 103, Carbon Dioxide Level 28, Anion Gap 6, Blood Urea Nitrogen 8, Creatinine 0.6, Estimat Glomerular Filtration Rate > 60, Glucose Level 124H, Calcium Level 7.9L, Phosphorus Level 3.2, Magnesium Level 1.8 01/30/20 13:10: Vancomycin Level Trough [Pending] Height (Feet): 5 Height (Inches): 3.00 Weight (Pounds): 140 General Appearance: alert, mild distress, alert oriented x3 EENT: PERRL/EOMI Neck: non-tender, normal inspection Cardiovascular: normal rate, regular rhythm, no JVD Respiratory/Chest: lungs clear, normal breath sounds, no respiratory distress Abdomen: normal bowel sounds, non tender, soft Extremities: normal range of motion, non-tender Edema: no edema noted Arm (L), no edema noted Arm (R), no edema noted Leg (L), no edema noted Leg (R), no edema noted Pedal (L), no edema noted Pedal (R), no edema noted Generalized Neurologic: intern retail II-XII grossly normal, oriented x 3 Assessment/Plan Status: stable Assessment/Plan: Ms. Walker is a 84 year old female with HTN, HLD who presented with syncope and weakness, found to have S. 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 - CT A/P/C ordered per ID to eval for source of infection -> multifocal PNA seen, but no respiratory symptoms. - Tylenol, Ibuprofen prn headaches - continue metop 25 daily - amlodipine 5mg daily - continue losartan 100mg daily - Marinol continue 5 mg - continue Remeron 15 mg qhs. monitor. - nutritional consult, continue nutritional supplements - IVF - PT - CM - consult Dr. Ortega ID, recs appreciated - consult Dr. Ugalde GI, recs appreciated - consult Dr. Kohli, Nephrology, recs appreciated - consult Dr. Payan, Pulm, recs appreciated - consult Dr. Nye, Cardiology, recs appreciated CODE: Full DVT: Heparin 5000U BID GI: PPI Diet: Cardiac Dispo: pending clearance of bacteremia, KENNETH and LP tomorrow Time spent on encounter, 31 mins. 21 on counseling, coordination of care. d/w RN, consultants. Time of note doesn't accurately reflect time of encounter. Kyle Saeur D.O Jan 30, 2020 13:54
--- NOTE | 2020-01-30 14:48 | Surgery Progress Note ---
Surgery Progress Note Subjective Symptoms: improved, tolerating diet Objective Last 24 Hour Vital Signs Date Time Temp Pulse Resp B/P (MAP) Pulse Ox O2 Delivery O2 Flow Rate FiO2 01/30/20 11:39 98.8 98 19 131/75 (93) 95 01/30/20 09:35 98 135/79 01/30/20 09:34 98 135/79 01/30/20 09:33 135/79 01/30/20 09:26 94 Room Air 21 01/30/20 09:24 98 16 94 Room Air 01/30/20 09:00 Room Air 01/30/20 08:00 99.7 102 18 135/79 (97) 96 01/30/20 04:00 97.4 104 19 133/73 (93) 93 01/30/20 00:00 97.6 108 19 137/69 (91) 94 01/29/20 21:00 Room Air 01/29/20 20:18 95 Room Air 01/29/20 20:18 101 18 95 Room Air 21 01/29/20 20:00 98.1 105 19 120/65 (83) 93 01/29/20 16:00 98.1 92 20 122/68 (86) 94 I&O Intake and Output 01/29/20 01/30/20 19:00 07:00 Intake Total 495 ml 1555 ml Output Total 100 ml 500 ml Balance 395 ml 1055 ml Intake Oral 120 ml 480 ml IV Total 375 ml 1075 ml Output Urine Total 100 ml 500 ml # Voids 3 # Bowel Movements 1 1 Dressing: saturated Cardiovascular: RSR Respiratory: decreased breath sounds Abdomen: non-tender, present bowel sounds Extremities: no edema, no cyanosis Laboratory Tests Test 01/30/20 05:39 01/30/20 13:10 White Blood Count 13.1 K/UL (4.8-10.8) H Red Blood Count 4.09 M/UL (4.20-5.40) L Hemoglobin 12.8 G/DL (12.0-16.0) Hematocrit 38.8 % (37.0-47.0) Mean Corpuscular Volume 95 FL (80-99) Mean Corpuscular Hemoglobin 31.4 PG (27.0-31.0) H Mean Corpuscular Hemoglobin Concent 33.1 G/DL (32.0-36.0) Red Cell Distribution Width 11.3 % (11.6-14.8) L Platelet Count 346 K/UL (150-450) Mean Platelet Volume 5.3 FL (6.5-10.1) L Neutrophils (%) (Auto) 77.6 % (45.0-75.0) H Lymphocytes (%) (Auto) 15.1 % (20.0-45.0) L Monocytes (%) (Auto) 6.7 % (1.0-10.0) Eosinophils (%) (Auto) 0.1 % (0.0-3.0) Basophils (%) (Auto) 0.5 % (0.0-2.0) Sodium Level 137 MMOL/L (136-145) Potassium Level 3.5 MMOL/L (3.5-5.1) Chloride Level 103 MMOL/L (98-107) Carbon Dioxide Level 28 MMOL/L (21-32) Anion Gap 6 mmol/L (5-15) Blood Urea Nitrogen 8 mg/dL (7-18) Creatinine 0.6 MG/DL (0.55-1.30) Estimat Glomerular Filtration Rate > 60 mL/min (>60) Glucose Level 124 MG/DL (74-106) H Calcium Level 7.9 MG/DL (8.5-10.1) L Phosphorus Level 3.2 MG/DL (2.5-4.9) Magnesium Level 1.8 MG/DL (1.8-2.4) Vancomycin Level Trough 15.9 ug/mL (5.0-12.0) H Plan Problems: (1) Pulmonary edema (2) Hypokalemia (3) Leukocytosis Assessment & Plan: 84-year-old female afebrile hemodynamic stable bacteremia leukocytosis LFTs okay hypoalbuminemia BMI 22 failure to thrive. UTI /pna on antibiotics appreciate ID input. Agree with GI as to calorie count feeding trial swallow eval and continue Marinol. May need feeding tube given failure to thrive. Will follow with recommendations Participation's care labs improving on abx cont abx comfortable diet as tolerated No acute intracranial hemorrhage or edema. No mass effect nor midline shift. There is age-related enlargement of the ventricles and extra axial CSF spaces. There is periventricular deep white matter low-attenuation, consistent with chronic microvascular ischemic changes. Old lacunar infarcts are seen in the basal ganglia bilaterally. The mastoids are clear. There is fairly extensive sphenoid and ethmoid sinus disease. The calvarium is intact. Impression: Chronic and age-related changes. Old bilateral basal ganglia lacunar infarcts. Negative for acute intracranial bleed or mass effect Increasing interstitial and airspace infiltrates are seen diffusely within the lungs bilaterally. The heart is borderline enlarged. There is torturous ectatic and calcified Impression: Increasing bilateral infiltrates versus edema, over one day (4) Fever (5) Bacteremia Alvarado Tolliver Jan 30, 2020 14:48
[2020-01-30 16:00] VITALS: BP 129/76
[2020-01-30 20:00] VITALS: BP 105/59
[2020-01-30] MEDS: Atorvastatin 20mg tab ORAL SCH (21:33)
[2020-01-31] VITALS (16 sets, daily range): BP systolic 102–152; BP diastolic 55–89
[2020-01-31 05:12] LABS: BASOPHILS % (AUTO) 0.8 % (0.0-2.0); EOSINOPHILS % (AUTO) 0.9 % (0.0-3.0); HEMOGLOBIN 12.2 G/DL (12.0-16.0); MEAN CORPUSCULAR VOLUME 95 FL (80-99); MONOCYTES % (AUTO) 7.3 % (1.0-10.0); NEUTROPHILS % (AUTO) 69.1 % (45.0-75.0); PLATELET COUNT 382 K/UL (150-450); RED BLOOD COUNT 3.87 M/UL (4.20-5.40); RED CELL DISTRIBUTION WIDTH 11.6 % (11.6-14.8); WHITE BLOOD COUNT 8.5 K/UL (4.8-10.8)
[2020-01-31] MEDS: Vancomycin 1gm in Dextrose 275ml IVPB SCH ×3 (05:39→21:45)
[2020-01-31] MEDS: Pantoprazole Inj IVP SCH (05:40)
[2020-01-31] MEDS: Acyclovir 200mg Cap ORAL SCH ×3 (05:40→21:36)
[2020-01-31 05:41] LABS: ANION GAP 6 mmol/L (5-15); BLOOD UREA NITROGEN 5 mg/dL (7-18); CALCIUM 8.1 MG/DL (8.5-10.1); CARBON DIOXIDE 29 MMOL/L (21-32); CHLORIDE 108 MMOL/L (98-107); CREATININE 0.5 MG/DL (0.55-1.30); POTASSIUM 3.6 MMOL/L (3.5-5.1); SODIUM 143 MMOL/L (136-145)
[2020-01-31] MEDS: Dronabinol 2.5mg Cap ORAL SCH ×2 (08:23→17:04)
[2020-01-31] MEDS: Losartan 50mg tab ORAL SCH (08:23)
[2020-01-31] MEDS: Metoprolol Succinate XL 25mg tab ORAL SCH (08:24)
[2020-01-31] MEDS: Heparin 5000 units/ml inj SUBQ SCH ×2 (08:25→21:38)
--- NOTE | 2020-01-31 09:33 | Pulmonology Progress Note ---
Subjective ROS Limited/Unobtainable: No Interval Events: None new Constitutional: Reports: fatigue; Denies: fever HEENT: Repors: no symptoms Respiratory: Reports: no symptoms Cardiovascular: Reports: no symptoms Gastrointestinal/Abdominal: Denies: nausea, vomiting Psychiatric: Reports: other - NA Skin: Denies: rash Musculoskeletal: Denies: pain Allergies: Coded Allergies: PENICILLINS (Verified Allergy, Unknown, 01/23/20) nurse unable to enter a coded PENICILLIN allergy. still need to obtain reaction All Systems: reviewed and negative except above Objective Last 24 Hour Vital Signs Date Time Temp Pulse Resp B/P (MAP) Pulse Ox O2 Delivery O2 Flow Rate FiO2 01/31/20 09:00 Room Air 01/31/20 08:25 86 132/75 01/31/20 08:24 86 132/75 01/31/20 08:23 132/75 01/31/20 08:00 98.0 86 18 132/75 (94) 96 01/31/20 04:00 98.3 98 18 136/69 (91) 96 01/31/20 00:00 98.1 94 20 110/57 (74) 96 01/30/20 21:49 95 Room Air 21 01/30/20 21:47 93 18 95 Room Air 21 01/30/20 21:00 Room Air 01/30/20 20:00 97.6 97 18 105/59 (74) 96 01/30/20 16:00 98.1 89 17 129/76 (93) 96 01/30/20 11:39 98.8 98 19 131/75 (93) 95 01/30/20 09:35 98 135/79 01/30/20 09:34 98 135/79 01/30/20 09:33 135/79 Intake and Output 01/30/20 01/31/20 19:00 07:00 Intake Total 1590 ml 459 ml Output Total 1200 ml Balance 1590 ml -741 ml Intake Oral 240 ml IV Total 1350 ml 459 ml Output Urine Total 1200 ml # Bowel Movements 1 HEENT: normocephalic Respiratory: chest wall non-tender, lungs clear Cardiovascular: normal peripheral pulses, normal rate Laboratory Tests 01/30/20 13:10: Vancomycin Level Trough 15.9H 01/31/20 04:43: White Blood Count 8.5, Red Blood Count 3.87L, Hemoglobin 12.2, Hematocrit 37.0, Mean Corpuscular Volume 95, Mean Corpuscular Hemoglobin 31.5H, Mean Corpuscular Hemoglobin Concent 33.0, Red Cell Distribution Width 11.6, Platelet Count 382, Mean Platelet Volume 5.0L, Neutrophils (%) (Auto) 69.1, Lymphocytes (%) (Auto) 22.0, Monocytes (%) (Auto) 7.3, Eosinophils (%) (Auto) 0.9, Basophils (%) (Auto) 0.8, CSF Herpes Simplex II DNA (PCR) [Pending], Sodium Level 143, Potassium Level 3.6, Chloride Level 108H, Carbon Dioxide Level 29, Anion Gap 6, Blood Urea Nitrogen 5L, Creatinine 0.5L, Estimat Glomerular Filtration Rate > 60, Glucose Level 118H, Calcium Level 8.1L, Magnesium Level 1.9, Cytomegalovirus DNA Qual (PCR) [Pending], Herpes Simplex Virus I DNA (PCR) [Pending] Current Medications Medications (Trade) Dose Ordered Sig/Altagracia Route PRN Reason Start Time Stop Time Status Last Admin Dose Admin Acetaminophen (Tylenol) 650 mg Q4H PRN ORAL Temp >100.5 01/21/20 14:00 02/20/20 13:59 01/23/20 05:00 Acetaminophen (Tylenol) 650 mg Q4H PRN ORAL Mild Pain (Pain Scale 1-3) 01/21/20 14:00 02/20/20 13:59 01/25/20 10:50 Acetaminophen (Tylenol) 650 mg Q6H ORAL 01/25/20 11:30 02/24/20 11:29 01/31/20 05:41 Acyclovir (Zovirax) 400 mg EVERY 8 HOURS ORAL 01/28/20 14:00 02/27/20 13:59 01/31/20 05:40 Albuterol/ Ipratropium (Albuterol/ Ipratropium) 3 ml Q4H PRN HHN Shortness of Breath 01/21/20 14:00 02/01/20 13:59 Alendronate Sodium (Fosamax) 70 mg ONCE A WEEK ORAL 01/22/20 06:30 02/21/20 06:29 01/29/20 10:13 Amlodipine Besylate (Norvasc) 5 mg DAILY ORAL 01/22/20 09:00 02/21/20 08:59 01/31/20 08:25 Amylase/Lipase/ Protease (Chelsy HUFF 36,000 units cap) 1 ea TIDPRN PRN ORAL Abdominal cramps 01/21/20 15:45 04/20/20 15:44 Atorvastatin Calcium (Lipitor) 20 mg BEDTIME ORAL 01/22/20 21:00 04/21/20 20:59 01/30/20 21:33 Clonazepam (KlonoPIN) 1 mg Q6H PRN ORAL For Anxiety 01/27/20 09:15 02/03/20 09:14 Dronabinol (Marinol) 5 mg BID ORAL 01/27/20 18:00 04/26/20 17:59 01/31/20 08:23 Heparin Sodium (Porcine) (Heparin 5000 units/ml) 5,000 units EVERY 12 HOURS SUBQ 01/21/20 21:00 03/06/20 20:59 01/30/20 21:34 Ibuprofen (Motrin) 600 mg Q6H PRN ORAL pain 4-10 01/29/20 11:45 02/28/20 11:44 01/31/20 08:24 Loratadine (Claritin 10mg) 10 mg DAILY ORAL 01/23/20 09:00 02/22/20 08:59 01/31/20 08:24 Losartan Potassium (Cozaar) 100 mg DAILY ORAL 01/22/20 09:00 02/21/20 08:59 01/31/20 08:23 Metoprolol Succinate (Toprol XL) 25 mg DAILY ORAL 01/22/20 09:00 04/21/20 08:59 01/31/20 08:24 Mirtazapine (Remeron) 15 mg BEDTIME ORAL 01/27/20 21:00 04/26/20 20:59 01/30/20 21:33 Pantoprazole (Protonix) 40 mg ACBREAKFAST IVP 01/23/20 06:30 02/22/20 06:29 01/31/20 05:40 Vancomycin HCl (Vanco pharmacy to dose) 1 ea DAILY PRN MISC Per rx protocol 01/22/20 08:00 02/21/20 07:59 Vancomycin HCl 1 gm/Dextrose 275 ml @ 184 mls/hr Q8HR IVPB 01/29/20 14:15 02/03/20 14:14 01/31/20 05:39 Assessment/Plan Assessment/Plan IMPRESSION: 1. Sepsis with bacteremia. 2. Pulmonary vascular congestion. 3. GERD. 4. Hypertension. 5. Hyperlipidemia. 6. Previous CVA. DISCUSSION: Currently saturating well on RA No additional pulmonary intervention required. Broad-spectrum antibiotics. Will follow Gil Mattson Omar Syed MD Jan 31, 2020 09:33
[2020-01-31] MEDS ORDERED: HYDROcodone/Acetamin 10/325 tab ORAL PRN (10:15)
--- NOTE | 2020-01-31 10:20 | General Progress Note ---
Subjective Constitutional: Denies: no symptoms, chills, diaphoresis, fever, malaise, weakness, other HEENT: Denies: no symptoms, eye pain, blurred vision, tearing, double vision, ear pain, ear discharge, nose pain, nose congestion, throat pain, throat swelling, mouth pain, mouth swelling, other Cardiovascular: Denies: no symptoms, chest pain, edema, irregular heart rate, lightheadedness, palpitations, syncope, other Respiratory: Denies: no symptoms, cough, orthopnea, shortness of breath, SOB with excertion, SOB at rest, sputum, stridor, wheezing, other Gastrointestinal/Abdominal: Denies: no symptoms, abdomen distended, abdominal pain, black stools, tarry stools, blood in stool, constipated, diarrhea, difficulty swallowing, nausea, poor appetite, poor fluid intake, rectal bleeding, vomiting, other Genitourinary: Denies: no symptoms, burning, discharge, frequency, flank pain, hematuria, incontinence, pain, urgency, other Neurologic/Psychiatric: Reports: headache; Denies: no symptoms, anxiety, depressed, emotional problems, numbness, paresthesia, pre-existing deficit, seizure, tingling, tremors, weakness, other Endocrine: Denies: no symptoms, excessive sweating, flushing, intolerance to cold, intolerance to heat, increased hunger, increased thirst, increased urine, unexplained weight gain, unexplained weight loss, other Hematologic/Lymphatic: Denies: no symptoms, anemia, easy bleeding, easy bruising, other Allergies: Coded Allergies: PENICILLINS (Verified Allergy, Unknown, 01/23/20) nurse unable to enter a coded PENICILLIN allergy. still need to obtain reaction Subjective no acute events overnight. Headache still persist. No fevers. WBC normalized today. Pending KENNETH and LP today. Objective Last 24 Hour Vital Signs Date Time Temp Pulse Resp B/P (MAP) Pulse Ox O2 Delivery O2 Flow Rate FiO2 01/31/20 09:00 Room Air 01/31/20 08:25 86 132/75 01/31/20 08:24 86 132/75 01/31/20 08:23 132/75 01/31/20 08:00 98.0 86 18 132/75 (94) 96 01/31/20 04:00 98.3 98 18 136/69 (91) 96 11/6/20 00:00 98.1 94 20 110/57 (74) 96 01/30/20 21:49 95 Room Air 21 01/30/20 21:47 93 18 95 Room Air 21 01/30/20 21:00 Room Air 01/30/20 20:00 97.6 97 18 105/59 (74) 96 01/30/20 16:00 98.1 89 17 129/76 (93) 96 01/30/20 11:39 98.8 98 19 131/75 (93) 95 Intake and Output 01/30/20 01/31/20 19:00 07:00 Intake Total 1590 ml 459 ml Output Total 1200 ml Balance 1590 ml -741 ml Intake Oral 240 ml IV Total 1350 ml 459 ml Output Urine Total 1200 ml # Bowel Movements 1 Laboratory Tests 01/30/20 13:10: Vancomycin Level Trough 15.9H 01/31/20 04:43: White Blood Count 8.5, Red Blood Count 3.87L, Hemoglobin 12.2, Hematocrit 37.0, Mean Corpuscular Volume 95, Mean Corpuscular Hemoglobin 31.5H, Mean Corpuscular Hemoglobin Concent 33.0, Red Cell Distribution Width 11.6, Platelet Count 382, Mean Platelet Volume 5.0L, Neutrophils (%) (Auto) 69.1, Lymphocytes (%) (Auto) 22.0, Monocytes (%) (Auto) 7.3, Eosinophils (%) (Auto) 0.9, Basophils (%) (Auto) 0.8, CSF Herpes Simplex II DNA (PCR) [Pending], Sodium Level 143, Potassium Level 3.6, Chloride Level 108H, Carbon Dioxide Level 29, Anion Gap 6, Blood Urea Nitrogen 5L, Creatinine 0.5L, Estimat Glomerular Filtration Rate > 60, Glucose Level 118H, Calcium Level 8.1L, Magnesium Level 1.9, Cytomegalovirus DNA Qual (PCR) [Pending], Herpes Simplex Virus I DNA (PCR) [Pending] 01/31/20 10:10: Prothrombin Time [Pending], Prothromb Time International Ratio [Pending], Activated Partial Thromboplast Time [Pending] Height (Feet): 5 Height (Inches): 3.00 Weight (Pounds): 140 General Appearance: moderate distress, alert oriented x3 EENT: PERRL/EOMI Neck: non-tender, normal alignment Cardiovascular: normal rate, regular rhythm, no JVD Respiratory/Chest: lungs clear, normal breath sounds, respiratory distress Abdomen: non tender, soft, no mass Extremities: normal range of motion, non-tender Edema: no edema noted Arm (L), no edema noted Arm (R), no edema noted Leg (L), no edema noted Leg (R), no edema noted Pedal (L), no edema noted Pedal (R), no edema noted Generalized Neurologic: manager local II-XII grossly normal, alert, oriented x 3, responsive Skin: normal pigmentation, warm/dry Assessment/Plan Status: stable Assessment/Plan: Ms. Walker is a 84 year old female with HTN, HLD who presented with syncope and weakness, found to have S. 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 - CT A/P/C ordered per ID to eval for source of infection -> multifocal PNA seen, but no respiratory symptoms. - Tylenol, Ibuprofen prn headaches - pain control - continue metop 25 daily - amlodipine 5mg daily - continue losartan 100mg daily - Marinol continue 5 mg - continue Remeron 15 mg qhs. monitor. - nutritional consult, continue nutritional supplements - IVF - PT - CM - consult Dr. Ortega ID, recs appreciated - consult Dr. Ugalde GI, recs appreciated - consult Dr. Kohli, Nephrology, recs appreciated - consult Dr. Payan, Pulm, recs appreciated - consult Dr. Nye, Cardiology, recs appreciated CODE: Full DVT: Heparin 5000U BID GI: PPI Diet: Cardiac Dispo: pending clearance of bacteremia, KENNETH and LP today Time spent on encounter, 33 mins. 21 on counseling, coordination of care. d/w RN, consultants. Time of note doesn't accurately reflect time of encounter. Kyle Sauer D.O Jan 31, 2020 10:20
[2020-01-31] MEDS ORDERED: Metoclopramide 10mg/2ml Inj IVP SCH (10:30)
[2020-01-31] MEDS ORDERED: Midazolam 2mg/2ml Inj ONE (11:19)
[2020-01-31] MEDS ORDERED: Lidocaine 1% Plain 30 ml INJ ONE (11:31)
--- NOTE | 2020-01-31 11:59 | General Progress Note ---
Subjective ROS Limited/Unobtainable: No Allergies: Coded Allergies: PENICILLINS (Verified Allergy, Unknown, 01/23/20) nurse unable to enter a coded PENICILLIN allergy. still need to obtain reaction Objective Last 24 Hour Vital Signs Date Time Temp Pulse Resp B/P (MAP) Pulse Ox O2 Delivery O2 Flow Rate FiO2 01/31/20 09:00 Room Air 01/31/20 08:25 86 132/75 01/31/20 08:24 86 132/75 01/31/20 08:23 132/75 01/31/20 08:00 98.0 86 18 132/75 (94) 96 01/31/20 04:00 98.3 98 18 136/69 (91) 96 01/31/20 00:00 98.1 94 20 110/57 (74) 96 01/30/20 21:49 95 Room Air 21 01/30/20 21:47 93 18 95 Room Air 21 01/30/20 21:00 Room Air 01/30/20 20:00 97.6 97 18 105/59 (74) 96 01/30/20 16:00 98.1 89 17 129/76 (93) 96 Intake and Output 01/30/20 01/31/20 19:00 07:00 Intake Total 1590 ml 459 ml Output Total 1200 ml Balance 1590 ml -741 ml Intake Oral 240 ml IV Total 1350 ml 459 ml Output Urine Total 1200 ml # Bowel Movements 1 Laboratory Tests 01/30/20 13:10: Vancomycin Level Trough 15.9H 01/31/20 04:43: White Blood Count 8.5, Red Blood Count 3.87L, Hemoglobin 12.2, Hematocrit 37.0, Mean Corpuscular Volume 95, Mean Corpuscular Hemoglobin 31.5H, Mean Corpuscular Hemoglobin Concent 33.0, Red Cell Distribution Width 11.6, Platelet Count 382, Mean Platelet Volume 5.0L, Neutrophils (%) (Auto) 69.1, Lymphocytes (%) (Auto) 22.0, Monocytes (%) (Auto) 7.3, Eosinophils (%) (Auto) 0.9, Basophils (%) (Auto) 0.8, CSF Herpes Simplex II DNA (PCR) [Pending], Sodium Level 143, Potassium Level 3.6, Chloride Level 108H, Carbon Dioxide Level 29, Anion Gap 6, Blood Urea Nitrogen 5L, Creatinine 0.5L, Estimat Glomerular Filtration Rate > 60, Glucose Level 118H, Calcium Level 8.1L, Magnesium Level 1.9, Cytomegalovirus DNA Qual (PCR) [Pending], Herpes Simplex Virus I DNA (PCR) [Pending] 01/31/20 10:10: Prothrombin Time 10.7, Prothromb Time International Ratio 1.0, Activated Partial Thromboplast Time 25 Height (Feet): 5 Height (Inches): 3.00 Weight (Pounds): 140 General Appearance: alert EENT: normal ENT inspection Neck: supple Cardiovascular: normal rate Respiratory/Chest: decreased breath sounds Abdomen: normal bowel sounds, non tender, soft Extremities: non-tender Assessment/Plan Status: stable Assessment/Plan: 1. Hypertension. 2. GERD. 3. Hyperlipidemia. 4. History of CVA. 5. FTT 6. PNA 7. bacteremia marinol> 5 mg ensure TID abx per ID neg stool for C.diff abd/chest CT reviewed pending KENNETH and LP will fu Jarocho Ugalde MD Jan 31, 2020 11:59
[2020-01-31] MEDS ORDERED: LR 1000ml ONE (13:00)
--- NOTE | 2020-01-31 13:35 | General Progress Note ---
Assessment/Plan Status: stable Assessment/Plan: #Sepsis - r/o COVID #staph bacteremia #Leukocytosis #Hyponatremia #Possible syncope #Hypokalemia #HTN #Dementia - Pending KENNETH and LP today. - cardiology consulted - IV abx per ID - COVID r/o - pulm eval - monitor BP - monitor resp status - cardiology eval for possible syncope - continue metop 25 daily - amlodipine 10mg daily - continue losartan 100mg daily Subjective Allergies: Coded Allergies: PENICILLINS (Verified Allergy, Unknown, 01/23/20) nurse unable to enter a coded PENICILLIN allergy. still need to obtain reaction Subjective IMPRESSION: Lungs demonstrate bilateral multifocal patchy and nodular infiltrates. This most likely represents multifocal pneumonia, May correlate with stated clinical history of suspected septic emboli. Pending KENNETH and LP today. Objective Last 24 Hour Vital Signs Date Time Temp Pulse Resp B/P (MAP) Pulse Ox O2 Delivery O2 Flow Rate FiO2 01/31/20 12:00 97.5 74 18 130/81 (97) 97 01/31/20 09:00 Room Air 01/31/20 08:25 86 132/75 01/31/20 08:24 86 132/75 01/31/20 08:23 132/75 01/31/20 08:00 98.0 86 18 132/75 (94) 96 01/31/20 04:00 98.3 98 18 136/69 (91) 96 01/31/20 00:00 98.1 94 20 110/57 (74) 96 01/30/20 21:49 95 Room Air 21 01/30/20 21:47 93 18 95 Room Air 21 01/30/20 21:00 Room Air 01/30/20 20:00 97.6 97 18 105/59 (74) 96 01/30/20 16:00 98.1 89 17 129/76 (93) 96 Intake and Output 01/30/20 01/31/20 19:00 07:00 Intake Total 1590 ml 459 ml Output Total 1200 ml Balance 1590 ml -741 ml Intake Oral 240 ml IV Total 1350 ml 459 ml Output Urine Total 1200 ml # Bowel Movements 1 Laboratory Tests 01/31/20 04:43: White Blood Count 8.5, Red Blood Count 3.87L, Hemoglobin 12.2, Hematocrit 37.0, Mean Corpuscular Volume 95, Mean Corpuscular Hemoglobin 31.5H, Mean Corpuscular Hemoglobin Concent 33.0, Red Cell Distribution Width 11.6, Platelet Count 382, Mean Platelet Volume 5.0L, Neutrophils (%) (Auto) 69.1, Lymphocytes (%) (Auto) 22.0, Monocytes (%) (Auto) 7.3, Eosinophils (%) (Auto) 0.9, Basophils (%) (Auto) 0.8, CSF Herpes Simplex II DNA (PCR) [Pending], Sodium Level 143, Potassium Level 3.6, Chloride Level 108H, Carbon Dioxide Level 29, Anion Gap 6, Blood Urea Nitrogen 5L, Creatinine 0.5L, Estimat Glomerular Filtration Rate > 60, Glucose Level 118H, Calcium Level 8.1L, Magnesium Level 1.9, Cytomegalovirus DNA Qual (PCR) [Pending], Herpes Simplex Virus I DNA (PCR) [Pending] 01/31/20 10:10: Prothrombin Time 10.7, Prothromb Time International Ratio 1.0, Activated Partial Thromboplast Time 25 Height (Feet): 5 Height (Inches): 3.00 Weight (Pounds): 140 Silvina Kohli M.D. Jan 31, 2020 13:35
[2020-01-31] MEDS ORDERED: oxyCODONE HCL/Acetaminophen 5/325mg ORAL PRN (13:45)
[2020-01-31] MEDS ORDERED: Hydromorphone 0.5mg/0.5ml inj IVP PRN (13:45)
[2020-01-31] MEDS ORDERED: Labetalol 5mg/ml 20ml vial IV PRN (13:45)
[2020-01-31] MEDS ORDERED: Meperidine 25mg/1ml Inj (FOR RIGORS ONLY) IV PRN (13:45)
[2020-01-31] MEDS ORDERED: LR 1000ml 1,000 ML IVLG SCH (13:45)
[2020-01-31] MEDS ORDERED: Midazolam 2mg/2ml Inj IVP PRN (13:45)
[2020-01-31] MEDS ORDERED: Metoclopramide 10mg/2ml Inj IVP PRN (13:45)
[2020-01-31] MEDS ORDERED: Atropine Sulfate 0.4mg/ml inj IVP PRN (13:45)
[2020-01-31] MEDS ORDERED: DiphenhydrAMINE 50mg/ml Inj IVP PRN (13:45)
[2020-01-31] MEDS ORDERED: LORazepam Inj 2mg/ml 1ml IV PRN (13:45)
[2020-01-31] MEDS ORDERED: HYDROcodone/Acetamin 7.5/325 tab ORAL PRN (13:45)
[2020-01-31] MEDS ORDERED: HYDROcodone/Acetamin 5/325 tab ORAL PRN (13:45)
[2020-01-31] MEDS ORDERED: fentaNYL 100 mcg/2 mL IV PRN (13:45)
[2020-01-31] MEDS ORDERED: NS 500ML IVPB ONE (13:50)
--- NOTE | 2020-01-31 13:58 | Anethesia Preoperative Eval ---
Anesthesia Pre-op PMH/ROS General Date of Evaluation: Jan 31, 2020 Time of Evaluation: 13:47 Anesthesiologist: Hansel ASA Score: ASA 4 Mallampati Score Class I : Soft palate, uvula, fauces, pillars visible Class II: Soft palate, uvula, fauces visible Class III: Soft palate, base of uvula visible Class IV: Only hard plate visible Mallampati Classification: Class III Surgeon: Popeye Diagnosis: Sepsis Surgical Procedure: KENNETH Anesthesia History: none Family History: no anesthesia problems Allergies: Coded Allergies: PENICILLINS (Verified Allergy, Unknown, 01/23/20) nurse unable to enter a coded PENICILLIN allergy. still need to obtain reaction Medications: see eMAR Patient NPO?: Yes Past Medical History Cardiovascular: Reports: HTN Neurologic/Psychiatric: Reports: dementia, CVA Hematology/Immune: Reports: other - Sepsis Anesthesia Pre-op Phys. Exam Physician Exam Last Vital Signs Date Time Temp Pulse Resp B/P (MAP) Pulse Ox O2 Delivery O2 Flow Rate FiO2 01/31/20 12:00 97.5 74 18 130/81 (97) 97 01/31/20 09:00 Room Air 01/30/20 21:49 21 01/26/20 21:00 2.0 Constitutional: NAD Neurologic: CN 2-12 intact Cardiovascular: RRR Respiratory: CTA Gastrointestinal: S/NT/ND Airway Exam Mallampati Score: Class III MO: limited ROM: limited Teeth: missing Anesthesia Pre-op A/P Labs Hematology Test 01/31/20 04:43 White Blood Count 8.5 K/UL (4.8-10.8) Red Blood Count 3.87 M/UL (4.20-5.40) L Hemoglobin 12.2 G/DL (12.0-16.0) Hematocrit 37.0 % (37.0-47.0) Mean Corpuscular Volume 95 FL (80-99) Mean Corpuscular Hemoglobin 31.5 PG (27.0-31.0) H Mean Corpuscular Hemoglobin Concent 33.0 G/DL (32.0-36.0) Red Cell Distribution Width 11.6 % (11.6-14.8) Platelet Count 382 K/UL (150-450) Mean Platelet Volume 5.0 FL (6.5-10.1) L Neutrophils (%) (Auto) 69.1 % (45.0-75.0) Lymphocytes (%) (Auto) 22.0 % (20.0-45.0) Monocytes (%) (Auto) 7.3 % (1.0-10.0) Eosinophils (%) (Auto) 0.9 % (0.0-3.0) Basophils (%) (Auto) 0.8 % (0.0-2.0) Coagulation Test 01/31/20 10:10 Prothrombin Time 10.7 SEC (9.30-11.50) Prothromb Time International Ratio 1.0 (0.9-1.1) Activated Partial Thromboplast Time 25 SEC (23-33) Chemistry Test 01/31/20 04:43 Sodium Level 143 MMOL/L (136-145) Potassium Level 3.6 MMOL/L (3.5-5.1) Chloride Level 108 MMOL/L (98-107) H Carbon Dioxide Level 29 MMOL/L (21-32) Anion Gap 6 mmol/L (5-15) Blood Urea Nitrogen 5 mg/dL (7-18) L Creatinine 0.5 MG/DL (0.55-1.30) L Estimat Glomerular Filtration Rate > 60 mL/min (>60) Glucose Level 118 MG/DL (74-106) H Calcium Level 8.1 MG/DL (8.5-10.1) L Magnesium Level 1.9 MG/DL (1.8-2.4) Risk Assessment & Plan Assessment: ASA 4 Plan: TIVA Status Change Before Surgery: No Pascual Ledesma MD Jan 31, 2020 13:58
--- NOTE | 2020-01-31 13:58 | Immediate Post-Op Evaluation ---
Immediate Post-Op Evalulation Immediate Post-Op Evalulation Procedure: KENNETH Date of Evaluation: Jan 31, 2020 Time of Evaluation: 14:48 IV Fluids: 300 NS Blood Products: 0 Estimated Blood Loss: 10 Urinary Output: 0 Blood Pressure Systolic: 112 Blood Pressure Diastolic: 82 Pulse Rate: 105 Respiratory Rate: 16 O2 Sat by Pulse Oximetry: 98 Temperature (Fahrenheit): 98.4 Pain Score (1-10): 2 Nausea: No Vomiting: No Complications 0 Patient Status: awake, reacts, patent, none Hydration Status: adequate Pascual Ledesma MD Jan 31, 2020 13:58
--- NOTE | 2020-01-31 13:59 | 48 Hour Post Anesthesia Eval ---
Post Anesthesia Evaluation Procedure: KENNETH Date of Evaluation: Jan 31, 2020 Time of Evaluation: 16:56 Blood Pressure Systolic: 141 0: 89 Pulse Rate: 107 Respiratory Rate: 18 Temperature (Fahrenheit): 98.5 O2 Sat by Pulse Oximetry: 98 Airway: patent Nausea: No Vomiting: No Pain Intensity: 1 Hydration Status: adequate Cardiopulmonary Status: Stable Mental Status/LOC: patient returned to baseline Follow-up Care/Observations: 0 Post-Anesthesia Complications: 0 Follow-up care needed: N/A Pascual Ledesma MD Jan 31, 2020 13:59
--- NOTE | 2020-01-31 14:06 | Pre-Procedure Note/Attestation ---
Pre-Procedure Note/Attestation Complete Prior to Procedure Procedure Narrative: KENNETH Indications for Procedure Pre-Operative Diagnosis: Bacteremia Attestation I attest that I discussed the nature of the procedure; its benefits; risks and complications; and alternatives (and the risks and benefits of such alternatives), prior to the procedure, with the patient (or the patient's legal career representative). I attest that, if there was a reasonable possibility of needing a blood transfusion, the patient (or the patient's legal career representative) was given the [facility] standardized written summary, pursuant to the Christian Marcus Blood Safety Act ([place] Health and Safety Code # 1645, as amended). I attest that I re-evaluated the patient just prior to the surgery and that there has been no change in the patient's H&P, except as documented below: Piotr Nye MD Jan 31, 2020 14:06
--- NOTE | 2020-01-31 14:32 | Cardiology Progress Note ---
Assessment/Plan Assessment/Plan The patient is seen and examined, full consult note is dictated. Objective Last 24 Hour Vital Signs Date Time Temp Pulse Resp B/P (MAP) Pulse Ox O2 Delivery O2 Flow Rate FiO2 01/31/20 12:00 97.5 74 18 130/81 (97) 97 01/31/20 09:00 Room Air 01/31/20 08:25 86 132/75 01/31/20 08:24 86 132/75 01/31/20 08:23 132/75 01/31/20 08:00 98.0 86 18 132/75 (94) 96 01/31/20 04:00 98.3 98 18 136/69 (91) 96 01/31/20 00:00 98.1 94 20 110/57 (74) 96 01/30/20 21:49 95 Room Air 21 01/30/20 21:47 93 18 95 Room Air 21 01/30/20 21:00 Room Air 01/30/20 20:00 97.6 97 18 105/59 (74) 96 01/30/20 16:00 98.1 89 17 129/76 (93) 96 Intake and Output 01/30/20 01/31/20 19:00 07:00 Intake Total 1590 ml 459 ml Output Total 1200 ml Balance 1590 ml -741 ml Intake Oral 240 ml IV Total 1350 ml 459 ml Output Urine Total 1200 ml # Bowel Movements 1 Laboratory Tests Test 01/31/20 04:43 01/31/20 10:10 White Blood Count 8.5 K/UL (4.8-10.8) Red Blood Count 3.87 M/UL (4.20-5.40) L Hemoglobin 12.2 G/DL (12.0-16.0) Hematocrit 37.0 % (37.0-47.0) Mean Corpuscular Volume 95 FL (80-99) Mean Corpuscular Hemoglobin 31.5 PG (27.0-31.0) H Mean Corpuscular Hemoglobin Concent 33.0 G/DL (32.0-36.0) Red Cell Distribution Width 11.6 % (11.6-14.8) Platelet Count 382 K/UL (150-450) Mean Platelet Volume 5.0 FL (6.5-10.1) L Neutrophils (%) (Auto) 69.1 % (45.0-75.0) Lymphocytes (%) (Auto) 22.0 % (20.0-45.0) Monocytes (%) (Auto) 7.3 % (1.0-10.0) Eosinophils (%) (Auto) 0.9 % (0.0-3.0) Basophils (%) (Auto) 0.8 % (0.0-2.0) CSF Herpes Simplex II DNA (PCR) Pending Sodium Level 143 MMOL/L (136-145) Potassium Level 3.6 MMOL/L (3.5-5.1) Chloride Level 108 MMOL/L (98-107) H Carbon Dioxide Level 29 MMOL/L (21-32) Anion Gap 6 mmol/L (5-15) Blood Urea Nitrogen 5 mg/dL (7-18) L Creatinine 0.5 MG/DL (0.55-1.30) L Estimat Glomerular Filtration Rate > 60 mL/min (>60) Glucose Level 118 MG/DL (74-106) H Calcium Level 8.1 MG/DL (8.5-10.1) L Magnesium Level 1.9 MG/DL (1.8-2.4) Cytomegalovirus DNA Qual (PCR) Pending Herpes Simplex Virus I DNA (PCR) Pending Prothrombin Time 10.7 SEC (9.30-11.50) Prothromb Time International Ratio 1.0 (0.9-1.1) Activated Partial Thromboplast Time 25 SEC (23-33) Piotr Nye MD Jan 31, 2020 14:32
--- NOTE | 2020-01-31 14:46 | Brief Operative Note ---
Immediate Post Operative Note Operative Note Pre-op Diagnosis: Bacteremia Procedure: KENNETH Post-op Diagnosis: Bacteremia Surgeon: Piotr Nye MD Equipment Washer: None Anesthesia: general Specimen: none Complications: none Condition: stable Fluids: None Estimated Blood Loss: none Drains: none Implant(s) used?: Piotr Morrison MD Jan 31, 2020 14:46
--- NOTE | 2020-01-31 16:15 | Consultation ---
DATE OF CONSULTATION: 01/31/2020 INVASIVE CARDIOLOGY CONSULTATION CONSULTING PHYSICIAN: Piotr Nye MD. REFERRING PHYSICIAN: Dr. Sauer. REASON FOR CONSULTATION: Transesophageal echocardiography evaluation for possible infective endocarditis. HISTORY OF PRESENT ILLNESS: The patient is a very unfortunate 84-year-old female who initially presented to the hospital with generalized weakness and episode of syncope. The patient at the time of arrival to this facility denied any chest pain or shortness of breath. Workup of syncope from the cardiac standpoint included 2D echocardiography, which showed normal left ventricular ejection fraction estimated at 60%, mild left ventricular hypertrophy, grade 1 LV diastolic dysfunction, and right ventricular systolic pressure of approximately 31 mmHg. The patient had a chest x-ray, which showed mild bilateral interstitial congestion. At the time of arrival to the hospital, the patient's blood pressure was 145/67 mmHg, but she was febrile with a temperature of 100.8 degrees Fahrenheit and heart rate of 122. The patient had Infectious Disease, Dr. Armijo on board which assessed the patient and concluded the patient has Staph aureus bacteremia with possibility of pneumonia, septic emboli, and there was a question arise about possibility of infective endocarditis. A transesophageal echocardiography again did not disclose any valvular vegetations. Dr. Sauer and Dr. Armijo decided the patient will benefit from transesophageal echocardiography; therefore, invasive cardiology consultation was made at the request of the above providers. At the time of my evaluation, the patient was not communicating well due to altered level of consciousness and language barrier. PAST MEDICAL HISTORY: Includes hyperlipidemia, hypertension, psychiatric disorder, osteoporosis, and GERD. ALLERGIES: Penicillin. PAST SURGICAL HISTORY: None. COVID-19 screen test is negative. SOCIAL HISTORY: Denies any tobacco, alcohol, or illicit drug use. FAMILY HISTORY: No premature coronary artery disease in first-degree relatives. MEDICATIONS: List of medications at home, alendronate 70 mg p.o. once a week, amlodipine 5 mg p.o. daily, Klonopin 1 mg q.6 hours, cyclosporine drops to the right eye, Dexilant 60 mg p.o. daily, levocetirizine 5 mg p.o. daily, Creon DR 36,000 capsule three times a day, losartan 100 mg p.o. daily, metoprolol 25 mg p.o. daily, and simvastatin 20 mg p.o. nightly. REVIEW OF SYSTEMS: At the time of my evaluation, 12-system review could not be obtained, however, it is mainly described in the history of present illness. PHYSICAL EXAMINATION: VITAL SIGNS: Blood pressure was 130/81 mmHg, heart rate was 74, respiratory rate of 18, temperature was 97.5 degrees Fahrenheit. O2 saturation 97% on room air. GENERAL: The patient is a very unfortunate 84-year-old female, in no apparent respiratory distress. HEENT: Atraumatic and normocephalic. Anicteric. Pupils are equal, round, and reactive to light and accommodation. Extraocular muscles intact. NECK: JVP less than 5 cm. No carotid bruit. Carotid upstrokes 2+ bilaterally. CARDIOVASCULAR: Normal S1, S2. Regular rate and rhythm. No murmurs, gallops, or rubs. PMI is at fourth intercostal space in the midclavicular line. LUNGS: Clear to auscultation bilaterally. ABDOMEN: Soft, nontender, and nondistended. No hepatosplenomegaly. Positive bowel sounds. EXTREMITIES: No evidence of edema, clubbing, or cyanosis. LABORATORY FINDINGS: WBC is 8.5, hemoglobin of 12.2, hematocrit of 37.0, platelet count 382,000. Sodium 143, potassium 3.6, chloride 108, bicarbonate 29, BUN 5, and creatinine 0.5. Glucose is 118. Calcium is 8.1. INR was 1.0. Chest x-ray on 01/30/2020 showed improved bilateral infiltrates over five days. Normal cardiac silhouette. ASSESSMENT AND PLAN: The patient is a very unfortunate 84-year-old female seen in invasive Cardiology consultation. The patient was explained and discussed the risks, benefits, and alternatives of procedure, and informed consent was obtained. The importance of transesophageal echocardiography to rule out the infective endocarditis as a more sensitive test is clear for the patient. Transesophageal echocardiography images were reviewed and do not show any evidence of valvular vegetations or valvular regurgitation. The patient's left ventricular ejection fraction is 60% for the purpose of anesthesia, use of anesthetic agents. Further therapeutic and diagnostic decision regarding the course of antibiotic by Infectious Disease will be based on the results of this test. I would like to thank Dr. Sauer for involving me in the care of this most pleasant patient. Piotr Nye M.D. DR: STANLEY JOB#: [id number] CC:
--- NOTE | 2020-01-31 16:35 | Surgery Progress Note ---
Surgery Progress Note Subjective Symptoms: improved, tolerating diet, passing flatus Objective Last 24 Hour Vital Signs Date Time Temp Pulse Resp B/P (MAP) Pulse Ox O2 Delivery O2 Flow Rate FiO2 01/31/20 14:58 98.4 98 20 143/87 97 Room Air 01/31/20 14:48 99 20 140/88 98 Room Air 01/31/20 14:38 100 19 139/89 99 Room Air 01/31/20 14:33 105 18 135/85 100 Simple Mask 6.0 01/31/20 14:32 107 18 98 01/31/20 14:31 105 16 98 01/31/20 14:28 98.4 101 16 112/82 98 Simple Mask 6.0 01/31/20 12:00 97.5 74 18 130/81 (97) 97 01/31/20 09:00 Room Air 01/31/20 08:25 86 132/75 01/31/20 08:24 86 132/75 01/31/20 08:23 132/75 01/31/20 08:00 98.0 86 18 132/75 (94) 96 01/31/20 04:00 98.3 98 18 136/69 (91) 96 01/31/20 00:00 98.1 94 20 110/57 (74) 96 01/30/20 21:49 95 Room Air 21 01/30/20 21:47 93 18 95 Room Air 21 01/30/20 21:00 Room Air 01/30/20 20:00 97.6 97 18 105/59 (74) 96 I&O Intake and Output 01/30/20 01/31/20 19:00 07:00 Intake Total 1590 ml 459 ml Output Total 1200 ml Balance 1590 ml -741 ml Intake Oral 240 ml IV Total 1350 ml 459 ml Output Urine Total 1200 ml # Bowel Movements 1 Dressing: saturated Cardiovascular: RSR Respiratory: decreased breath sounds Abdomen: non-tender, present bowel sounds Extremities: no cyanosis Laboratory Tests Test 01/31/20 04:43 01/31/20 10:10 White Blood Count 8.5 K/UL (4.8-10.8) Red Blood Count 3.87 M/UL (4.20-5.40) L Hemoglobin 12.2 G/DL (12.0-16.0) Hematocrit 37.0 % (37.0-47.0) Mean Corpuscular Volume 95 FL (80-99) Mean Corpuscular Hemoglobin 31.5 PG (27.0-31.0) H Mean Corpuscular Hemoglobin Concent 33.0 G/DL (32.0-36.0) Red Cell Distribution Width 11.6 % (11.6-14.8) Platelet Count 382 K/UL (150-450) Mean Platelet Volume 5.0 FL (6.5-10.1) L Neutrophils (%) (Auto) 69.1 % (45.0-75.0) Lymphocytes (%) (Auto) 22.0 % (20.0-45.0) Monocytes (%) (Auto) 7.3 % (1.0-10.0) Eosinophils (%) (Auto) 0.9 % (0.0-3.0) Basophils (%) (Auto) 0.8 % (0.0-2.0) CSF Herpes Simplex II DNA (PCR) Pending Sodium Level 143 MMOL/L (136-145) Potassium Level 3.6 MMOL/L (3.5-5.1) Chloride Level 108 MMOL/L (98-107) H Carbon Dioxide Level 29 MMOL/L (21-32) Anion Gap 6 mmol/L (5-15) Blood Urea Nitrogen 5 mg/dL (7-18) L Creatinine 0.5 MG/DL (0.55-1.30) L Estimat Glomerular Filtration Rate > 60 mL/min (>60) Glucose Level 118 MG/DL (74-106) H Calcium Level 8.1 MG/DL (8.5-10.1) L Magnesium Level 1.9 MG/DL (1.8-2.4) Cytomegalovirus DNA Qual (PCR) Pending Herpes Simplex Virus I DNA (PCR) Pending Prothrombin Time 10.7 SEC (9.30-11.50) Prothromb Time International Ratio 1.0 (0.9-1.1) Activated Partial Thromboplast Time 25 SEC (23-33) Plan Problems: (1) Pulmonary edema (2) Hypokalemia (3) Leukocytosis Assessment & Plan: 84-year-old female afebrile hemodynamic stable bacteremia leukocytosis LFTs okay hypoalbuminemia BMI 22 failure to thrive. UTI /pna on antibiotics appreciate ID input. Agree with GI as to calorie count feeding trial swallow eval and continue Marinol. May need feeding tube given failure to thrive. Will follow with recommendations Participation's care labs improving on abx cont abx comfortable diet as tolerated No acute intracranial hemorrhage or edema. No mass effect nor midline shift. There is age-related enlargement of the ventricles and extra axial CSF sp aces. There is periventricular deep white matter low-attenuation, consistent with chronic microvascular ischemic changes. Old lacunar infarcts are seen in the basal ganglia bilaterally. The mastoids are clear. There is fairly extensive sphenoid and ethmoid sinus disease. The calvarium is intact. Impression: Chronic and age-related changes. Old bilateral basal ganglia lacunar infarcts. Negative for acute intracranial bleed or mass effect Increasing interstitial and airspace infiltrates are seen diffusely within the lungs bilaterally. The heart is borderline enlarged. There is torturous ectatic and calcified Impression: Increasing bilateral infiltrates versus edema, over one day (4) Fever (5) Bacteremia Alvarado Tolliver Jan 31, 2020 16:35
--- NOTE | 2020-01-31 16:55 | Infectious Diseases Prog Note ---
Assessment/Plan Assessment/Plan ASSESSMENT AND PLAN: 1. mrsa bacteremia, sepsis, leukocytosis, fevers, ? endocarditis, persistent bacteremia, ? other source ? pna? staph aureus septic emboli, ? endocarditis persistent TELLEZ - ? meningitis oral herpes simplex virus infection - vancomycin - d/w pharmacy about vancomycin dosing for therapeutic trough - surveillance blood cultures - 01/27/20 - now negative - KENNETH - no vegetations - d/w cardiology - Dr. Nye - acyclovir - day # 4 - CT - abdomen/pelvis/chest - noted, ? pna, ? septic emboli, no abscess - monitor labs and chest x-ray, surveillance blood cultures now negative - 01/27/20 - - indium scan for persistent bacteremia, results pending - LP to rule out meningitis - done, results pending - d/w Dr. Sauer - d/w Dr. Nye 2. Hypertension. Blood pressure treatment per primary care team. 3. GERD. 4. HLP, which I think is hyperlipidemia, but I am not sure. 5. Per the records, history of CVA. 6. Cardiac disease. 7. Allergic to penicillin, tolerates cephalosporins. 8. Social History is negative. 9. Family History is noncontributory . 10. MAR was noted. 11. Case was discussed with RN. 12. Continue treatment per primary consultants. 13. multiple orders entered Subjective Constitutional: Reports: fatigue HEENT: Reports: other - + TELLEZ; Denies: congestion Respiratory: Denies: shortness of breath Cardiovascular: Denies: chest pain Gastrointestinal/Abdominal: Denies: nausea, diarrhea Neurologic: Reports: headache Skin: Denies: rash Hematologic: Denies: bleeding Musculoskeletal: Denies: pain Allergies: Coded Allergies: PENICILLINS (Verified Allergy, Unknown, 01/23/20) nurse unable to enter a coded PENICILLIN allergy. still need to obtain reaction Objective Last 24 Hour Vital Signs Date Time Temp Pulse Resp B/P (MAP) Pulse Ox O2 Delivery O2 Flow Rate FiO2 01/31/20 14:58 98.4 98 20 143/87 97 Room Air 01/31/20 14:48 99 20 140/88 98 Room Air 01/31/20 14:38 100 19 139/89 99 Room Air 01/31/20 14:33 105 18 135/85 100 Simple Mask 6.0 01/31/20 14:32 107 18 98 01/31/20 14:31 105 16 98 01/31/20 14:28 98.4 101 16 112/82 98 Simple Mask 6.0 01/31/20 12:00 97.5 74 18 130/81 (97) 97 01/31/20 09:00 Room Air 01/31/20 08:25 86 132/75 01/31/20 08:24 86 132/75 01/31/20 08:23 132/75 01/31/20 08:00 98.0 86 18 132/75 (94) 96 01/31/20 04:00 98.3 98 18 136/69 (91) 96 01/31/20 00:00 98.1 94 20 110/57 (74) 96 01/30/20 21:49 95 Room Air 21 01/30/20 21:47 93 18 95 Room Air 21 01/30/20 21:00 Room Air 01/30/20 20:00 97.6 97 18 105/59 (74) 96 Height (Feet): 5 Height (Inches): 3.00 Weight (Pounds): 132 General Appearance: no acute distress HEENT: normocephalic, atraumatic, anicteric, mucous membranes moist, EOMI, supple, no JVD, other - hsv oral/lip lesions scabbing over Respiratory/Chest: no respiratory distress, no accessory muscle use, crackles/rales, rhonchi - bilaterally Cardiovascular: normal rate, regular rhythm, no gallop/murmur, no JVD Abdomen: normal bowel sounds, soft, non tender, no organomegaly, non distended Genitourinary: other - no nieves Extremities: no cyanosis Skin: no rash Neurologic/Psychiatric: editorial clerk II-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 The heart is borderline enlarged. There is torturous ectatic and calcified Impression: Increasing bilateral infiltrates versus edema, over one day Chest x-ray - 01/25/20 - Procedure: XRAY Chest 1v EXAM: XR Chest, 1 View CLINICAL HISTORY: INFECT TECHNIQUE: Frontal view of the chest. COMPARISON: No relevant prior studies available. FINDINGS/IMPRESSION: Low lung volume secondary to poor inspiration. Mild, patchy airspace opacity within the left upper lung field, suspicious for infiltrate. Follow-up 2 view chest radiograph recommended. No pleural effusion or pneumothorax. CT chest/abdomen/pelvis: IMPRESSION: Lungs demonstrate bilateral multifocal patchy and nodular infiltrates. This most likely represents multifocal pneumonia, May correlate with stated clinical history of suspected septic emboli. Generalized pulmonary venous congestion, may indicate central venous hypertension Small bilateral pleural effusions Mild cardiomegaly No acute abdominal or pelvic abnormality 12 mm left adrenal nodule. This is nonspecific in appearance. 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 Lungs and pleural spaces currently clear. The heart size is normal. The aorta is tortuous. Impression: Improved bilateral infiltrates, over 5 days Microbiology Date/Time Source Procedure Growth Status 01/27/20 19:05 Blood Blood Culture - Preliminary NO GROWTH AFTER 72 HOURS Resulted 01/25/20 18:00 Stool Clostridium difficile Toxin Assay - Final Complete 01/22/20 04:30 Nasopharynx Coronavirus COVID-19 PCR ([facility]) - Final Complete Microbiology Date/Time Source Procedure Growth Status 01/27/20 19:05 Blood Blood Culture - Preliminary NO GROWTH AFTER 72 HOURS Resulted 01/25/20 18:00 Stool Clostridium difficile Toxin Assay - Final Complete 01/22/20 04:30 Nasopharynx Coronavirus COVID-19 PCR ([facility]) - Final Complete Laboratory Tests Test 01/31/20 04:43 01/31/20 10:10 White Blood Count 8.5 K/UL (4.8-10.8) Red Blood Count 3.87 M/UL (4.20-5.40) L Hemoglobin 12.2 G/DL (12.0-16.0) Hematocrit 37.0 % (37.0-47.0) Mean Corpuscular Volume 95 FL (80-99) Mean Corpuscular Hemoglobin 31.5 PG (27.0-31.0) H Mean Corpuscular Hemoglobin Concent 33.0 G/DL (32.0-36.0) Red Cell Distribution Width 11.6 % (11.6-14.8) Platelet Count 382 K/UL (150-450) Mean Platelet Volume 5.0 FL (6.5-10.1) L Neutrophils (%) (Auto) 69.1 % (45.0-75.0) Lymphocytes (%) (Auto) 22.0 % (20.0-45.0) Monocytes (%) (Auto) 7.3 % (1.0-10.0) Eosinophils (%) (Auto) 0.9 % (0.0-3.0) Basophils (%) (Auto) 0.8 % (0.0-2.0) CSF Herpes Simplex II DNA (PCR) Pending Sodium Level 143 MMOL/L (136-145) Potassium Level 3.6 MMOL/L (3.5-5.1) Chloride Level 108 MMOL/L (98-107) H Carbon Dioxide Level 29 MMOL/L (21-32) Anion Gap 6 mmol/L (5-15) Blood Urea Nitrogen 5 mg/dL (7-18) L Creatinine 0.5 MG/DL (0.55-1.30) L Estimat Glomerular Filtration Rate > 60 mL/min (>60) Glucose Level 118 MG/DL (74-106) H Calcium Level 8.1 MG/DL (8.5-10.1) L Magnesium Level 1.9 MG/DL (1.8-2.4) Cytomegalovirus DNA Qual (PCR) Pending Herpes Simplex Virus I DNA (PCR) Pending Prothrombin Time 10.7 SEC (9.30-11.50) Prothromb Time International Ratio 1.0 (0.9-1.1) Activated Partial Thromboplast Time 25 SEC (23-33) Current Medications Medications (Trade) Dose Ordered Sig/Altagracia Route PRN Reason Start Time Stop Time Status Last Admin Dose Admin Acetaminophen (Tylenol) 650 mg Q4H PRN ORAL Temp >100.5 01/21/20 14:00 02/20/20 13:59 01/23/20 05:00 Acetaminophen (Tylenol) 650 mg Q4H PRN ORAL Mild Pain (Pain Scale 1-3) 01/21/20 14:00 02/20/20 13:59 01/25/20 10:50 Acetaminophen (Tylenol) 650 mg Q6H ORAL 01/25/20 11:30 02/24/20 11:29 01/31/20 10:42 Acetaminophen/ Hydrocodone Bitart ([place] 5/325) 1 tab Q1H PRN ORAL Mild Pain (Pain Scale 1-3) 01/31/20 13:45 01/31/20 21:00 Acetaminophen/ Hydrocodone Bitart ([place] 5/325) 1 tab Q4H PRN ORAL Moderate Pain (Pain Scale 4-6) 01/31/20 10:15 02/07/20 10:14 Acetaminophen/ Hydrocodone Bitart ([place] 7.5/325) 1 tab Q1H PRN ORAL Moderate Pain (Pain Scale 4-6) 01/31/20 13:45 01/31/20 21:00 Acyclovir (Zovirax) 400 mg EVERY 8 HOURS ORAL 01/28/20 14:00 02/27/20 13:59 01/31/20 05:40 Al Hydroxide/Mg Hydroxide (Mylanta) 15 ml Q1H PRN ORAL gi upset 01/31/20 13:45 01/31/20 21:00 Albuterol/ Ipratropium (Albuterol/ Ipratropium) 3 ml Q4H PRN HHN Shortness of Breath 01/21/20 14:00 02/01/20 13:59 Alendronate Sodium (Fosamax) 70 mg ONCE A WEEK ORAL 01/22/20 06:30 02/21/20 06:29 01/29/20 10:13 Amlodipine Besylate (Norvasc) 5 mg DAILY ORAL 01/22/20 09:00 02/21/20 08:59 01/31/20 08:25 Amylase/Lipase/ Protease (Creon DR 36,000 units cap) 1 ea TIDPRN PRN ORAL Abdominal cramps 01/21/20 15:45 04/20/20 15:44 Atorvastatin Calcium (Lipitor) 20 mg BEDTIME ORAL 01/22/20 21:00 04/21/20 20:59 01/30/20 21:33 Atropine Sulfate (Atropine 0.4mg/ ml) 0.5 mg Q5M PRN IVP HR<40 01/31/20 13:45 01/31/20 21:00 Clonazepam (KlonoPIN) 1 mg Q6H PRN ORAL For Anxiety 01/27/20 09:15 02/03/20 09:14 Diphenhydramine HCl (Benadryl) 25 mg Q15M PRN IVP Itching 01/31/20 13:45 01/31/20 21:00 Dronabinol (Marinol) 5 mg BID ORAL 01/27/20 18:00 04/26/20 17:59 01/31/20 08:23 Fentanyl Citrate (Sublimaze 100 mcg/2 mL) 25 mcg Q10M PRN IV Moderate Pain (Pain Scale 4-6) 01/31/20 13:45 01/31/20 21:00 Heparin Sodium (Porcine) (Heparin 5000 units/ml) 5,000 units EVERY 12 HOURS SUBQ 01/21/20 21:00 03/06/20 20:59 01/30/20 21:34 Hydralazine HCl (Apresoline) 5 mg Q30M PRN IV SBP>160 / DBP>90 01/31/20 13:45 01/31/20 21:00 Hydromorphone HCl (Dilaudid) 0.5 mg Q15M PRN IVP Severe Pain (Pain Scale 7-10) 01/31/20 13:45 01/31/20 21:00 Ibuprofen (Motrin) 600 mg Q6H PRN ORAL pain 4-10 01/29/20 11:45 02/28/20 11:44 01/31/20 08:24 Labetalol HCl (Normodyne) 5 mg Q10M PRN IV SBP>160 / DBP>90 01/31/20 13:45 01/31/20 21:00 Loratadine (Claritin 10mg) 10 mg DAILY ORAL 01/23/20 09:00 02/22/20 08:59 01/31/20 08:24 Lorazepam (Ativan 2mg/ml 1ml) 1 mg Q15M PRN IV For Anxiety 01/31/20 13:45 01/31/20 21:00 Losartan Potassium (Cozaar) 100 mg DAILY ORAL 01/22/20 09:00 02/21/20 08:59 01/31/20 08:23 Meperidine HCl (Demerol) 25 mg Q5M PRN IV SHIVERING.MAY REPEAT X 1 01/31/20 13:45 01/31/20 21:00 Metoclopramide HCl (Reglan) 10 mg Q1H PRN IVP Nausea & Vomiting 01/31/20 13:45 01/31/20 21:00 Metoprolol Succinate (Toprol XL) 25 mg DAILY ORAL 01/22/20 09:00 04/21/20 08:59 01/31/20 08:24 Midazolam HCl (Versed 2mg/2ml vial) 1 mg Q15M PRN IVP For Anxiety 01/31/20 13:45 01/31/20 21:00 Mirtazapine (Remeron) 15 mg BEDTIME ORAL 01/27/20 21:00 04/26/20 20:59 01/30/20 21:33 Ondansetron HCl (Zofran) 4 mg Q1H PRN IVP Nausea & Vomiting 01/31/20 13:45 01/31/20 21:00 Oxycodone/ Acetaminophen (Percocet 5-325) 1 tab Q1H PRN ORAL Severe Pain (Pain Scale 7-10) 01/31/20 13:45 01/31/20 21:00 Pantoprazole (Protonix) 40 mg ACBREAKFAST IVP 01/23/20 06:30 02/22/20 06:29 01/31/20 05:40 Vancomycin HCl (Vanco pharmacy to dose) 1 ea DAILY PRN MISC Per rx protocol 01/22/20 08:00 02/21/20 07:59 Vancomycin HCl 1 gm/Dextrose 275 ml @ 184 mls/hr Q8HR IVPB 01/29/20 14:15 02/03/20 14:14 01/31/20 13:21 Tiny Armijo MD Jan 31, 2020 16:55
--- NOTE | 2020-01-31 17:08 | Pre-Procedure Note/Attestation ---
Pre-Procedure Note/Attestation Complete Prior to Procedure Planned Procedure: not applicable Procedure Narrative: LP Indications for Procedure Pre-Operative Diagnosis: AMS Attestation I attest that I discussed the nature of the procedure; its benefits; risks and complications; and alternatives (and the risks and benefits of such alternatives), prior to the procedure, with the patient (or the patient's legal livestock sales representative). I attest that, if there was a reasonable possibility of needing a blood transfusion, the patient (or the patient's legal livestock sales representative) was given the [facility] standardized written summary, pursuant to the Christian Marcus Blood Safety Act ([place] Health and Safety Code # 1645, as amended). I attest that I re-evaluated the patient just prior to the surgery and that there has been no change in the patient's H&P, except as documented below: Discussed by phone with pt's. daughter Corky Ledesma MD Jan 31, 2020 17:08
--- NOTE | 2020-01-31 17:08 | Brief Operative Note ---
Immediate Post Operative Note Operative Note Pre-op Diagnosis: AMS Procedure: LP Post-op Diagnosis: same as pre-op Surgeon: Ángel Blackman Anesthesia: local Specimen: none Complications: none Fluids: none Implant(s) used?: No Corky Blackman MD Jan 31, 2020 17:08
--- NOTE | 2020-01-31 18:15 | Diagnostic Imaging Report ---
INDICATION: Sepsis, back pain, suspected meningitis TECHNIQUE: Informed consent obtained prior to commencement of the procedure from patient's daughter. With the patient prone, fluoroscopy used to localize optimal puncture site. Sterile prepping and draping. Local anesthesia with 1% lidocaine. Under direct fluoroscopic supervision, a 21-gauge spinal needle was advanced into the spinal canal at L3-4. Despite apparent adequate position of the needle as visualized on orthogonal fluoroscopy, no fluid returned. The puncture was repeated. Spontaneous return of CSF was observed. Opening pressure measured, found to be 13 cm of H2O. Total 4 mL of slightly blood-tinged spinal fluid obtained, divided into 4 vials, sent to the lab. The patient tolerated the procedure well, without immediate complication. Fluoroscopy time: 131.8 seconds Total dose: 0.05555 mGym2 Total number of images: 3 COMPARISON: None FINDINGS: As above. Opening pressure 13 cm H2O IMPRESSION: Successful lumbar puncture, as described. Slight blood tinge appearance of fluid presumed secondary to traumatic tap as 2 puncture attempts were required
[2020-01-31] MEDS ORDERED: Cyclobenzaprine 10mg Tab ORAL SCH (21:00)
[2020-01-31] MEDS: Atorvastatin 20mg tab ORAL SCH (21:36)
[2020-02-01] VITALS: BP 138/75
[2020-02-01] MEDS: HYDROcodone/Acetamin 5/325 tab ORAL PRN (03:46)
[2020-02-01 04:00] VITALS: BP 135/81
[2020-02-01] MEDS: Acyclovir 200mg Cap ORAL SCH (05:51)
[2020-02-01] MEDS: Pantoprazole Inj IVP SCH (05:51)
[2020-02-01] MEDS: Vancomycin 1gm in Dextrose 275ml IVPB SCH (05:51)
[2020-02-01 07:10] LABS: BASOPHILS % (AUTO) 0.5 % (0.0-2.0); EOSINOPHILS % (AUTO) 0.6 % (0.0-3.0); HEMATOCRIT 38.2 % (37.0-47.0); HEMOGLOBIN 12.5 G/DL (12.0-16.0); LYMPHOCYTES % (AUTO) 16.7 % (20.0-45.0); MEAN CORPUSCULAR VOLUME 95 FL (80-99); MONOCYTES % (AUTO) 6.1 % (1.0-10.0); NEUTROPHILS % (AUTO) 76.2 % (45.0-75.0); PLATELET COUNT 416 K/UL (150-450); RED BLOOD COUNT 4.03 M/UL (4.20-5.40); RED CELL DISTRIBUTION WIDTH 11.6 % (11.6-14.8); WHITE BLOOD COUNT 8.2 K/UL (4.8-10.8)
[2020-02-01 07:19] LABS: ANION GAP 7 mmol/L (5-15); BLOOD UREA NITROGEN 5 mg/dL (7-18); CALCIUM 8.2 MG/DL (8.5-10.1); CARBON DIOXIDE 27 MMOL/L (21-32); CHLORIDE 103 MMOL/L (98-107); CREATININE 0.6 MG/DL (0.55-1.30); PHOSPHORUS 3.5 MG/DL (2.5-4.9); POTASSIUM 3.8 MMOL/L (3.5-5.1); SODIUM 137 MMOL/L (136-145)
[2020-02-01 08:00] VITALS: BP 126/69
[2020-02-01] MEDS: Dronabinol 2.5mg Cap ORAL SCH ×2 (08:44→17:28)
[2020-02-01] MEDS: Heparin 5000 units/ml inj SUBQ SCH ×2 (08:45→21:31)
[2020-02-01] MEDS: Losartan 50mg tab ORAL SCH (08:45)
[2020-02-01] MEDS: Metoprolol Succinate XL 25mg tab ORAL SCH (08:46)
--- NOTE | 2020-02-01 09:47 | General Progress Note ---
Subjective Constitutional: Denies: no symptoms, chills, diaphoresis, fever, malaise, weakness, other HEENT: Denies: no symptoms, eye pain, blurred vision, tearing, double vision, ear pain, ear discharge, nose pain, nose congestion, throat pain, throat swelling, mouth pain, mouth swelling, other Cardiovascular: Denies: no symptoms, chest pain, edema, irregular heart rate, lightheadedness, palpitations, syncope, other Respiratory: Denies: no symptoms, cough, orthopnea, shortness of breath, SOB with excertion, SOB at rest, sputum, stridor, wheezing, other Gastrointestinal/Abdominal: Denies: no symptoms, abdomen distended, abdominal pain, black stools, tarry stools, blood in stool, constipated, diarrhea, difficulty swallowing, nausea, poor appetite, poor fluid intake, rectal bleeding, vomiting, other Genitourinary: Denies: no symptoms, burning, discharge, frequency, flank pain, hematuria, incontinence, pain, urgency, other Neurologic/Psychiatric: Reports: headache; Denies: no symptoms, anxiety, depressed, emotional problems, numbness, paresthesia, pre-existing deficit, seizure, tingling, tremors, weakness, other Endocrine: Denies: no symptoms, excessive sweating, flushing, intolerance to cold, intolerance to heat, increased hunger, increased thirst, increased urine, unexplained weight gain, unexplained weight loss, other Hematologic/Lymphatic: Denies: no symptoms, anemia, easy bleeding, easy bruising, other Allergies: Coded Allergies: PENICILLINS (Verified Allergy, Unknown, 01/23/20) nurse unable to enter a coded PENICILLIN allergy. still need to obtain reaction Subjective no acute events overnight. Headache ongoing. Muscle relaxer did not help. KENNETH negative for vegetations. LP showing elevated WBC and protein, normal glucose. Objective Last 24 Hour Vital Signs Date Time Temp Pulse Resp B/P (MAP) Pulse Ox O2 Delivery O2 Flow Rate FiO2 02/01/20 08:46 95 126/69 02/01/20 08:45 126/69 02/01/20 08:44 95 126/69 02/01/20 08:00 97.0 95 20 126/69 (88) 95 02/01/20 04:00 98.1 105 18 135/81 (99) 95 02/01/20 00:00 98.6 97 18 138/75 (96) 95 01/31/20 21:00 Room Air 01/31/20 20:30 98.0 86 18 102/60 (74) 94 01/31/20 19:35 97 18 95 Room Air 21 01/31/20 19:30 97.0 105 18 105/55 (72) 94 01/31/20 18:50 98.1 97 18 120/67 (84) 98 01/31/20 18:20 97.3 100 19 125/72 (89) 95 01/31/20 17:35 97.6 95 18 139/77 (97) 97 01/31/20 17:20 98.1 100 20 143/75 (97) 95 01/31/20 17:05 97.3 99 19 152/79 (103) 98 01/31/20 14:58 98.4 98 20 143/87 97 Room Air 01/31/20 14:48 99 20 140/88 98 Room Air 01/31/20 14:38 100 19 139/89 99 Room Air 01/31/20 14:33 105 18 135/85 100 Simple Mask 6.0 01/31/20 14:32 107 18 98 01/31/20 14:31 105 16 98 01/31/20 14:28 98.4 101 16 112/82 98 Simple Mask 6.0 01/31/20 12:00 97.5 74 18 130/81 (97) 97 Intake and Output 01/31/20 02/01/20 19:00 07:00 Intake Total 491 ml 275 ml Output Total 300 ml 1300 ml Balance 191 ml -1025 ml Intake Oral 200 ml IV Total 291 ml 275 ml Output Urine Total 300 ml 1300 ml # Voids 2 Laboratory Tests 01/31/20 10:10: Prothrombin Time 10.7, Prothromb Time International Ratio 1.0, Activated Partial Thromboplast Time 25 01/31/20 16:15: CSF Appearance Hazy, CSF Color [place], CSF WBC 133*H, CSF RBC 1478, CSF Neutrophils % 43, CSF Lymphocytes % 37, CSF Monocytes % 20, CSF Crenated Cells 0, CSF Glucose 46, CSF Total Protein 117H, CSF VDRL [Pending], CSF Coccidioides Antibody [Pending] 02/01/20 06:00: White Blood Count 8.2, Red Blood Count 4.03L, Hemoglobin 12.5, Hematocrit 38.2, Mean Corpuscular Volume 95, Mean Corpuscular Hemoglobin 31.0, Mean Corpuscular Hemoglobin Concent 32.6, Red Cell Distribution Width 11.6, Platelet Count 416, Mean Platelet Volume 4.8L, Neutrophils (%) (Auto) 76.2H, Lymphocytes (%) (Auto) 16.7L, Monocytes (%) (Auto) 6.1, Eosinophils (%) (Auto) 0.6, Basophils (%) (Auto) 0.5, Sodium Level 137, Potassium Level 3.8, Chloride Level 103, Carbon Dioxide Level 27, Anion Gap 7, Blood Urea Nitrogen 5L, Creatinine 0.6, Estimat Glomerular Filtration Rate > 60, Glucose Level 114H, Calcium Level 8.2L, Phosphorus Level 3.5, Magnesium Level 1.9 Height (Feet): 5 Height (Inches): 3.00 Weight (Pounds): 132 General Appearance: alert, mild distress, alert oriented x3 EENT: PERRL/EOMI Neck: normal alignment, normal inspection Cardiovascular: normal rate, regular rhythm, no JVD Respiratory/Chest: lungs clear, normal breath sounds, respiratory distress Abdomen: normal bowel sounds, non tender, soft Extremities: normal range of motion, non-tender Edema: no edema noted Arm (L), no edema noted Arm (R), no edema noted Leg (L), no edema noted Leg (R), no edema noted Pedal (L), no edema noted Pedal (R), no edema noted Generalized 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 Walker is a 84 year old female with HTN, HLD who presented with syncope and weakness, found to have S. 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 vs Echovirus, EBV, CMV # Severe sepsis 2/2 MRSA Bacteremia # Complicated MRSA Bacteremia # Multifocal PNA # Frontal lobe and Occipital Headaches # Herpes Simplex 1 on Lips # Essential HTN # Poor Oral Intake # ?Depression P: - hemodynamically stable - sat well on room air, keep sat O2 > 92% - repeat BC 01/26 negative - continue vancomycin for 2-3 more weeks from 01/26, ID recs - LP: WBC 133, elevated protein and normal glucose > likely viral meningitis/encephalitis - will start IV acyclovir - f/u PCR, gram stains/cultures of CSF - KENNETH negative for vegetations - PICC line ordered - Tylenol, Ibuprofen prn headaches - continue metop 25 daily - amlodipine 5mg daily - continue losartan 100mg daily - Marinol continue 5 mg - continue Remeron 15 mg qhs. monitor. - nutritional consult, continue nutritional supplements - IVF - PT - CM - consult Dr. Ortega ID, recs appreciated - consult Dr. Aftab WALKER, recs appreciated - consult Dr. Kohli, Nephrology, recs appreciated - consult Dr. Payan, Pulm, recs appreciated - consult Dr. Nye, Cardiology, recs appreciated CODE: Full DVT: Heparin 5000U BID GI: PPI Diet: Cardiac Dispo: PICC line placement, will need IV abx for 2-3 weeks, can likely d/c home with home health next week if no PT ok with home discharge Time spent on encounter, 31 mins. 21 on counseling, coordination of care. d/w RN, consultants. Time of note doesn't accurately reflect time of encounter. Kyle Sauer D.O Feb 01, 2020 09:47
--- NOTE | 2020-02-01 09:58 | Pulmonology Progress Note ---
Subjective ROS Limited/Unobtainable: No Interval Events: None new Constitutional: Reports: fatigue HEENT: Repors: no symptoms Respiratory: Reports: no symptoms Cardiovascular: Reports: no symptoms Gastrointestinal/Abdominal: Denies: nausea, diarrhea Psychiatric: Reports: other - NA Skin: Denies: rash Musculoskeletal: Denies: pain Allergies: Coded Allergies: PENICILLINS (Verified Allergy, Unknown, 01/23/20) nurse unable to enter a coded PENICILLIN allergy. still need to obtain reaction All Systems: reviewed and negative except above Objective Last 24 Hour Vital Signs Date Time Temp Pulse Resp B/P (MAP) Pulse Ox O2 Delivery O2 Flow Rate FiO2 02/01/20 08:46 95 126/69 02/01/20 08:45 126/69 02/01/20 08:44 95 126/69 02/01/20 08:00 97.0 95 20 126/69 (88) 95 02/01/20 04:00 98.1 105 18 135/81 (99) 95 02/01/20 00:00 98.6 97 18 138/75 (96) 95 01/31/20 21:00 Room Air 01/31/20 20:30 98.0 86 18 102/60 (74) 94 01/31/20 19:35 97 18 95 Room Air 21 01/31/20 19:30 97.0 105 18 105/55 (72) 94 01/31/20 18:50 98.1 97 18 120/67 (84) 98 01/31/20 18:20 97.3 100 19 125/72 (89) 95 01/31/20 17:35 97.6 95 18 139/77 (97) 97 01/31/20 17:20 98.1 100 20 143/75 (97) 95 01/31/20 17:05 97.3 99 19 152/79 (103) 98 01/31/20 14:58 98.4 98 20 143/87 97 Room Air 01/31/20 14:48 99 20 140/88 98 Room Air 01/31/20 14:38 100 19 139/89 99 Room Air 01/31/20 14:33 105 18 135/85 100 Simple Mask 6.0 01/31/20 14:32 107 18 98 01/31/20 14:31 105 16 98 01/31/20 14:28 98.4 101 16 112/82 98 Simple Mask 6.0 01/31/20 12:00 97.5 74 18 130/81 (97) 97 Intake and Output 01/31/20 02/01/20 19:00 07:00 Intake Total 491 ml 275 ml Output Total 300 ml 1300 ml Balance 191 ml -1025 ml Intake Oral 200 ml IV Total 291 ml 275 ml Output Urine Total 300 ml 1300 ml # Voids 2 HEENT: normocephalic Respiratory: chest wall non-tender, lungs clear Cardiovascular: normal peripheral pulses, normal rate Microbiology Date/Time Source Procedure Growth Status 01/31/20 16:15 Cerebral Spinal Fluid Gram Stain - Final Resulted 01/31/20 16:15 Cerebral Spinal Fluid CSF Culture Pending Resulted 01/30/20 05:50 Blood Blood Culture - Preliminary NO GROWTH AFTER 24 HOURS Resulted 01/30/20 05:39 Blood Blood Culture - Preliminary NO GROWTH AFTER 24 HOURS Resulted Laboratory Tests 01/31/20 10:10: Prothrombin Time 10.7, Prothromb Time International Ratio 1.0, Activated Partial Thromboplast Time 25 01/31/20 16:15: CSF Appearance Hazy, CSF Color [place], CSF WBC 133*H, CSF RBC 1478, CSF Neutrophils % 43, CSF Lymphocytes % 37, CSF Monocytes % 20, CSF Crenated Cells 0, CSF Glucose 46, CSF Total Protein 117H, CSF VDRL [Pending], CSF Coccidioides Antibody [Pending] 02/01/20 06:00: White Blood Count 8.2, Red Blood Count 4.03L, Hemoglobin 12.5, Hematocrit 38.2, Mean Corpuscular Volume 95, Mean Corpuscular Hemoglobin 31.0, Mean Corpuscular Hemoglobin Concent 32.6, Red Cell Distribution Width 11.6, Platelet Count 416, Mean Platelet Volume 4.8L, Neutrophils (%) (Auto) 76.2H, Lymphocytes (%) (Auto) 16.7L, Monocytes (%) (Auto) 6.1, Eosinophils (%) (Auto) 0.6, Basophils (%) (Auto) 0.5, Sodium Level 137, Potassium Level 3.8, Chloride Level 103, Carbon Dioxide Level 27, Anion Gap 7, Blood Urea Nitrogen 5L, Creatinine 0.6, Estimat Glomerular Filtration Rate > 60, Glucose Level 114H, Calcium Level 8.2L, Phosphorus Level 3.5, Magnesium Level 1.9 Current Medications Medications (Trade) Dose Ordered Sig/Altagracia Route PRN Reason Start Time Stop Time Status Last Admin Dose Admin Acetaminophen (Tylenol) 650 mg Q4H PRN ORAL Temp >100.5 01/21/20 14:00 02/20/20 13:59 01/23/20 05:00 Acetaminophen (Tylenol) 650 mg Q4H PRN ORAL Mild Pain (Pain Scale 1-3) 01/21/20 14:00 02/20/20 13:59 01/25/20 10:50 Acetaminophen (Tylenol) 650 mg Q6H ORAL 01/25/20 11:30 02/24/20 11:29 02/01/20 05:52 Acetaminophen/ Hydrocodone Bitart ([place] 5/325) 1 tab Q4H PRN ORAL Moderate Pain (Pain Scale 4-6) 01/31/20 10:15 02/07/20 10:14 02/01/20 03:46 Acyclovir 750 mg/ Sodium Chloride 110 ml @ 110 mls/hr Q8HR IV 02/01/20 10:00 03/02/20 09:59 UNV Albuterol/ Ipratropium (Albuterol/ Ipratropium) 3 ml Q4H PRN HHN Shortness of Breath 01/21/20 14:00 02/01/20 13:59 Alendronate Sodium (Fosamax) 70 mg ONCE A WEEK ORAL 01/22/20 06:30 02/21/20 06:29 01/29/20 10:13 Amlodipine Besylate (Norvasc) 5 mg DAILY ORAL 01/22/20 09:00 02/21/20 08:59 02/01/20 08:44 Amylase/Lipase/ Protease (Chelsy DR 36,000 units cap) 1 ea TIDPRN PRN ORAL Abdominal cramps 01/21/20 15:45 04/20/20 15:44 Atorvastatin Calcium (Lipitor) 20 mg BEDTIME ORAL 01/22/20 21:00 04/21/20 20:59 01/31/20 21:36 Clonazepam (KlonoPIN) 1 mg Q6H PRN ORAL For Anxiety 01/27/20 09:15 02/03/20 09:14 Dronabinol (Marinol) 5 mg BID ORAL 01/27/20 18:00 04/26/20 17:59 02/01/20 08:44 Heparin Sodium (Porcine) (Heparin 5000 units/ml) 5,000 units EVERY 12 HOURS SUBQ 01/21/20 21:00 03/06/20 20:59 02/01/20 08:45 Ibuprofen (Motrin) 600 mg Q6H PRN ORAL pain 4-10 01/29/20 11:45 02/28/20 11:44 02/01/20 08:46 Loratadine (Claritin 10mg) 10 mg DAILY ORAL 01/23/20 09:00 02/22/20 08:59 02/01/20 08:44 Losartan Potassium (Cozaar) 100 mg DAILY ORAL 01/22/20 09:00 02/21/20 08:59 02/01/20 08:45 Metoprolol Succinate (Toprol XL) 25 mg DAILY ORAL 01/22/20 09:00 04/21/20 08:59 02/01/20 08:46 Mirtazapine (Remeron) 15 mg BEDTIME ORAL 01/27/20 21:00 04/26/20 20:59 01/31/20 21:36 Pantoprazole (Protonix) 40 mg ACBREAKFAST IVP 01/23/20 06:30 02/22/20 06:29 02/01/20 05:51 Vancomycin HCl (Vanco pharmacy to dose) 1 ea DAILY PRN MISC Per rx protocol 01/22/20 08:00 02/21/20 07:59 Vancomycin HCl 1 gm/Dextrose 275 ml @ 184 mls/hr Q8HR IVPB 01/29/20 14:15 02/03/20 14:14 02/01/20 05:51 Assessment/Plan Assessment/Plan IMPRESSION: 1. Sepsis with bacteremia. 2. Pulmonary vascular congestion. 3. GERD. 4. Hypertension. 5. Hyperlipidemia. 6. Previous CVA. DISCUSSION: Currently saturating well on RA No additional pulmonary intervention required. Broad-spectrum antibiotics. Will follow Gil Mattson Omar Syed MD Feb 01, 2020 09:58
--- NOTE | 2020-02-01 11:24 | Infectious Diseases Prog Note ---
Assessment/Plan Assessment/Plan ASSESSMENT AND PLAN: 1. mrsa bacteremia, sepsis, leukocytosis, fevers, ? endocarditis, KENNETH negative, ? pneumonia, ? 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 Nye - CT - abdomen/pelvis/chest - noted, ? pna, ? septic emboli, no abscess - monitor labs and chest x-ray, surveillance blood cultures now negative - 01/27/20 - indium scan for persistent bacteremia, results pending - MRI brain ordered - f/u on results - d/w Dr. Sauer - d/w Dr. Nye - d/w pharmacy - orders noted and entered - monitor headaches - fevers and leukocytosis resolved - picc line ordered 2. Hypertension. Blood pressure treatment per primary care team. 3. GERD. 4. HLP, which I think is hyperlipidemia, but I am not sure. 5. Per the records, history of CVA. 6. Cardiac disease. 7. Allergic to penicillin, tolerates cephalosporins. 8. Social History is negative. 9. Family History is noncontributory . 10. MAR was noted. 11. Case was discussed with RN. 12. Continue treatment per primary consultants. 13. multiple orders entered 14. 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 still need to obtain reaction Objective Last 24 Hour Vital Signs Date Time Temp Pulse Resp B/P (MAP) Pulse Ox O2 Delivery O2 Flow Rate FiO2 02/01/20 09:00 Room Air 02/01/20 08:46 95 126/69 02/01/20 08:45 126/69 02/01/20 08:44 95 126/69 02/01/20 08:00 97.0 95 20 126/69 (88) 95 02/01/20 04:00 98.1 105 18 135/81 (99) 95 02/01/20 00:00 98.6 97 18 138/75 (96) 95 01/31/20 21:00 Room Air 01/31/20 20:30 98.0 86 18 102/60 (74) 94 01/31/20 19:35 97 18 95 Room Air 21 01/31/20 19:30 97.0 105 18 105/55 (72) 94 01/31/20 18:50 98.1 97 18 120/67 (84) 98 01/31/20 18:20 97.3 100 19 125/72 (89) 95 01/31/20 17:35 97.6 95 18 139/77 (97) 97 01/31/20 17:20 98.1 100 20 143/75 (97) 95 01/31/20 17:05 97.3 99 19 152/79 (103) 98 01/31/20 14:58 98.4 98 20 143/87 97 Room Air 01/31/20 14:48 99 20 140/88 98 Room Air 01/31/20 14:38 100 19 139/89 99 Room Air 01/31/20 14:33 105 18 135/85 100 Simple Mask 6.0 01/31/20 14:32 107 18 98 01/31/20 14:31 105 16 98 01/31/20 14:28 98.4 101 16 112/82 98 Simple Mask 6.0 01/31/20 12:00 97.5 74 18 130/81 (97) 97 Height (Feet): 5 Height (Inches): 3.00 Weight (Pounds): 132 General Appearance: no acute distress HEENT: normocephalic, atraumatic, anicteric, mucous membranes moist, supple, other - + headache per patient, HSV oral lesions dryer Respiratory/Chest: lungs clear, normal breath sounds, no respiratory distress, no accessory muscle use Cardiovascular: normal rate, regular rhythm, no gallop/murmur, no JVD Abdomen: normal bowel sounds, soft, non tender, no organomegaly, non distended Genitourinary: other - no nieves Extremities: no cyanosis Skin: no rash Neurologic/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 The heart is borderline enlarged. There is torturous ectatic and calcified Impression: Increasing bilateral infiltrates versus edema, over one day Chest x-ray - 01/25/20 - Procedure: XRAY Chest 1v EXAM: XR Chest, 1 View CLINICAL HISTORY: INFECT TECHNIQUE: Frontal view of the chest. COMPARISON: No relevant prior studies available. FINDINGS/IMPRESSION: Low lung volume secondary to poor inspiration. Mild, patchy airspace opacity within the left upper lung field, suspicious for infiltrate. Follow-up 2 view chest radiograph recommended. No pleural effusion or pneumothorax. CT chest/abdomen/pelvis: IMPRESSION: Lungs demonstrate bilateral multifocal patchy and nodular infiltrates. This most likely represents multifocal pneumonia, May correlate with stated clinical history of suspected septic emboli. Generalized pulmonary venous congestion, may indicate central venous hypertension Small bilateral pleural effusions Mild cardiomegaly No acute abdominal or pelvic abnormality 12 mm left adrenal nodule. This is nonspecific in appearance. 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 Lungs and pleural spaces currently clear. The heart size is normal. The aorta is tortuous. Impression: Improved bilateral infiltrates, over 5 days Microbiology Date/Time Source Procedure Growth Status 01/31/20 16:15 Cerebral Spinal Fluid Gram Stain - Final Resulted 01/31/20 16:15 Cerebral Spinal Fluid CSF Culture Pending Resulted 01/30/20 05:50 Blood Blood Culture - Preliminary NO GROWTH AFTER 24 HOURS Resulted 01/25/20 18:00 Stool Clostridium difficile Toxin Assay - Final Complete 01/22/20 04:30 Nasopharynx Coronavirus COVID-19 PCR ([facility]) - Final Complete Microbiology Date/Time Source Procedure Growth Status 01/31/20 16:15 Cerebral Spinal Fluid Gram Stain - Final Resulted 01/31/20 16:15 Cerebral Spinal Fluid CSF Culture Pending Resulted 01/30/20 05:50 Blood Blood Culture - Preliminary NO GROWTH AFTER 24 HOURS Resulted 01/30/20 05:39 Blood Blood Culture - Preliminary NO GROWTH AFTER 24 HOURS Resulted Laboratory Tests Test 01/31/20 16:15 02/01/20 06:00 CSF Appearance Hazy (Clear) CSF Color [place] (Colorless) CSF WBC 133 /CU MM (0-5) *H CSF RBC 1478 /CU MM CSF Neutrophils % 43 % CSF Lymphocytes % 37 % CSF Monocytes % 20 % CSF Crenated Cells 0 % CSF Glucose 46 mg/dL (40-70) CSF Total Protein 117 MG/DL (15-45) H CSF VDRL Pending CSF Coccidioides Antibody Pending White Blood Count 8.2 K/UL (4.8-10.8) Red Blood Count 4.03 M/UL (4.20-5.40) L Hemoglobin 12.5 G/DL (12.0-16.0) Hematocrit 38.2 % (37.0-47.0) Mean Corpuscular Volume 95 FL (80-99) Mean Corpuscular Hemoglobin 31.0 PG (27.0-31.0) Mean Corpuscular Hemoglobin Concent 32.6 G/DL (32.0-36.0) Red Cell Distribution Width 11.6 % (11.6-14.8) Platelet Count 416 K/UL (150-450) Mean Platelet Volume 4.8 FL (6.5-10.1) L Neutrophils (%) (Auto) 76.2 % (45.0-75.0) H Lymphocytes (%) (Auto) 16.7 % (20.0-45.0) L Monocytes (%) (Auto) 6.1 % (1.0-10.0) Eosinophils (%) (Auto) 0.6 % (0.0-3.0) Basophils (%) (Auto) 0.5 % (0.0-2.0) Sodium Level 137 MMOL/L (136-145) Potassium Level 3.8 MMOL/L (3.5-5.1) Chloride Level 103 MMOL/L (98-107) Carbon Dioxide Level 27 MMOL/L (21-32) Anion Gap 7 mmol/L (5-15) Blood Urea Nitrogen 5 mg/dL (7-18) L Creatinine 0.6 MG/DL (0.55-1.30) Estimat Glomerular Filtration Rate > 60 mL/min (>60) Glucose Level 114 MG/DL (74-106) H Calcium Level 8.2 MG/DL (8.5-10.1) L Phosphorus Level 3.5 MG/DL (2.5-4.9) Magnesium Level 1.9 MG/DL (1.8-2.4) Current Medications Medications (Trade) Dose Ordered Sig/Altagracia Route PRN Reason Start Time Stop Time Status Last Admin Dose Admin Acetaminophen (Tylenol) 650 mg Q4H PRN ORAL Temp >100.5 01/21/20 14:00 02/20/20 13:59 01/23/20 05:00 Acetaminophen (Tylenol) 650 mg Q4H PRN ORAL Mild Pain (Pain Scale 1-3) 01/21/20 14:00 02/20/20 13:59 01/25/20 10:50 Acetaminophen (Tylenol) 650 mg Q6H ORAL 01/25/20 11:30 02/24/20 11:29 02/01/20 10:55 Acetaminophen/ Hydrocodone Bitart ([place] 5/325) 1 tab Q4H PRN ORAL Moderate Pain (Pain Scale 4-6) 01/31/20 10:15 02/07/20 10:14 02/01/20 03:46 Acyclovir 600 mg/ Sodium Chloride 110 ml @ 110 mls/hr Q8HR IV 02/01/20 14:00 03/02/20 13:59 Albuterol/ Ipratropium (Albuterol/ Ipratropium) 3 ml Q4H PRN HHN Shortness of Breath 01/21/20 14:00 02/01/20 13:59 Alendronate Sodium (Fosamax) 70 mg ONCE A WEEK ORAL 01/22/20 06:30 02/21/20 06:29 01/29/20 10:13 Amlodipine Besylate (Norvasc) 5 mg DAILY ORAL 01/22/20 09:00 02/21/20 08:59 02/01/20 08:44 Amylase/Lipase/ Protease (Chelsy HUFF 36,000 units cap) 1 ea TIDPRN PRN ORAL Abdominal cramps 01/21/20 15:45 04/20/20 15:44 Atorvastatin Calcium (Lipitor) 20 mg BEDTIME ORAL 01/22/20 21:00 04/21/20 20:59 01/31/20 21:36 Ceftriaxone Sodium 2 gm/ Dextrose 100 ml @ 200 mls/hr EVERY 12 HOURS IVPB 02/01/20 21:00 02/08/20 20:59 UNV Clonazepam (KlonoPIN) 1 mg Q6H PRN ORAL For Anxiety 01/27/20 09:15 02/03/20 09:14 Dronabinol (Marinol) 5 mg BID ORAL 01/27/20 18:00 04/26/20 17:59 02/01/20 08:44 Heparin Sodium (Porcine) (Heparin 5000 units/ml) 5,000 units EVERY 12 HOURS SUBQ 01/21/20 21:00 03/06/20 20:59 02/01/20 08:45 Ibuprofen (Motrin) 600 mg Q6H PRN ORAL pain 4-10 01/29/20 11:45 02/28/20 11:44 02/01/20 08:46 Loratadine (Claritin 10mg) 10 mg DAILY ORAL 01/23/20 09:00 02/22/20 08:59 02/01/20 08:44 Losartan Potassium (Cozaar) 100 mg DAILY ORAL 01/22/20 09:00 02/21/20 08:59 02/01/20 08:45 Metoprolol Succinate (Toprol XL) 25 mg DAILY ORAL 01/22/20 09:00 04/21/20 08:59 02/01/20 08:46 Mirtazapine (Remeron) 15 mg BEDTIME ORAL 01/27/20 21:00 04/26/20 20:59 01/31/20 21:36 Pantoprazole (Protonix) 40 mg ACBREAKFAST IVP 01/23/20 06:30 02/22/20 06:29 02/01/20 05:51 Sodium Chloride 1,000 ml @ 75 mls/hr [id number] IV 02/01/20 10:00 03/02/20 09:59 02/01/20 10:58 Vancomycin HCl (Vanco pharmacy to dose) 1 ea DAILY PRN MISC Per rx protocol 01/22/20 08:00 02/21/20 07:59 Vancomycin HCl 1 gm/Dextrose 275 ml @ 184 mls/hr Q8HR IVPB 02/01/20 14:00 02/06/20 13:59 Tiny Maya MD Feb 01, 2020 11:24
--- NOTE | 2020-02-01 12:59 | Surgery Progress Note ---
Surgery Progress Note Subjective Additional Comments labs improved LP done pending micro no n/v Objective Last 24 Hour Vital Signs Date Time Temp Pulse Resp B/P (MAP) Pulse Ox O2 Delivery O2 Flow Rate FiO2 02/01/20 09:00 Room Air 02/01/20 08:46 95 126/69 02/01/20 08:45 126/69 02/01/20 08:44 95 126/69 02/01/20 08:00 97.0 95 20 126/69 (88) 95 02/01/20 04:00 98.1 105 18 135/81 (99) 95 02/01/20 00:00 98.6 97 18 138/75 (96) 95 01/31/20 21:00 Room Air 01/31/20 20:30 98.0 86 18 102/60 (74) 94 01/31/20 19:35 97 18 95 Room Air 21 01/31/20 19:30 97.0 105 18 105/55 (72) 94 01/31/20 18:50 98.1 97 18 120/67 (84) 98 01/31/20 18:20 97.3 100 19 125/72 (89) 95 01/31/20 17:35 97.6 95 18 139/77 (97) 97 01/31/20 17:20 98.1 100 20 143/75 (97) 95 01/31/20 17:05 97.3 99 19 152/79 (103) 98 01/31/20 14:58 98.4 98 20 143/87 97 Room Air 01/31/20 14:48 99 20 140/88 98 Room Air 01/31/20 14:38 100 19 139/89 99 Room Air 01/31/20 14:33 105 18 135/85 100 Simple Mask 6.0 01/31/20 14:32 107 18 98 01/31/20 14:31 105 16 98 01/31/20 14:28 98.4 101 16 112/82 98 Simple Mask 6.0 I&O Intake and Output 01/31/20 02/01/20 19:00 07:00 Intake Total 491 ml 275 ml Output Total 300 ml 1300 ml Balance 191 ml -1025 ml Intake Oral 200 ml IV Total 291 ml 275 ml Output Urine Total 300 ml 1300 ml # Voids 2 Cardiovascular: RSR Respiratory: decreased breath sounds Abdomen: non-tender, present bowel sounds Extremities: no edema, no tenderness, no cyanosis Laboratory Tests Test 01/31/20 16:15 02/01/20 06:00 CSF Appearance Hazy (Clear) CSF Color [place] (Colorless) CSF WBC 133 /CU MM (0-5) *H CSF RBC 1478 /CU MM CSF Neutrophils % 43 % CSF Lymphocytes % 37 % CSF Monocytes % 20 % CSF Crenated Cells 0 % CSF Glucose 46 mg/dL (40-70) CSF Total Protein 117 MG/DL (15-45) H CSF VDRL Pending CSF Coccidioides Antibody Pending White Blood Count 8.2 K/UL (4.8-10.8) Red Blood Count 4.03 M/UL (4.20-5.40) L Hemoglobin 12.5 G/DL (12.0-16.0) Hematocrit 38.2 % (37.0-47.0) Mean Corpuscular Volume 95 FL (80-99) Mean Corpuscular Hemoglobin 31.0 PG (27.0-31.0) Mean Corpuscular Hemoglobin Concent 32.6 G/DL (32.0-36.0) Red Cell Distribution Width 11.6 % (11.6-14.8) Platelet Count 416 K/UL (150-450) Mean Platelet Volume 4.8 FL (6.5-10.1) L Neutrophils (%) (Auto) 76.2 % (45.0-75.0) H Lymphocytes (%) (Auto) 16.7 % (20.0-45.0) L Monocytes (%) (Auto) 6.1 % (1.0-10.0) Eosinophils (%) (Auto) 0.6 % (0.0-3.0) Basophils (%) (Auto) 0.5 % (0.0-2.0) Sodium Level 137 MMOL/L (136-145) Potassium Level 3.8 MMOL/L (3.5-5.1) Chloride Level 103 MMOL/L (98-107) Carbon Dioxide Level 27 MMOL/L (21-32) Anion Gap 7 mmol/L (5-15) Blood Urea Nitrogen 5 mg/dL (7-18) L Creatinine 0.6 MG/DL (0.55-1.30) Estimat Glomerular Filtration Rate > 60 mL/min (>60) Glucose Level 114 MG/DL (74-106) H Calcium Level 8.2 MG/DL (8.5-10.1) L Phosphorus Level 3.5 MG/DL (2.5-4.9) Magnesium Level 1.9 MG/DL (1.8-2.4) Plan Problems: (1) Pulmonary edema (2) Hypokalemia (3) Leukocytosis Assessment & Plan: 84-year-old female afebrile hemodynamic stable bacteremia leukocytosis LFTs okay hypoalbuminemia BMI 22 failure to thrive. UTI /pna on antibiotics appreciate ID input. Agree with GI as to calorie count feeding trial swallow eval and continue Marinol. May need feeding tube given failure to thrive. Will follow with recommendations Participation's care labs improving on abx cont abx comfortable diet as tolerated Informed consent obtained prior to commencement of the procedure from patient's daughter. With the patient prone, fluoroscopy used to localize optimal puncture site. Sterile prepping and draping. Local anesthesia with 1% lidocaine. Under direct fluoroscopic supervision, a 21-gauge spinal needle was advanced into the spinal canal at L3-4. Despite apparent adequate position of the needle as visualized on orthogonal fluoroscopy, no fluid returned. The puncture was repeated. Spontaneous return of CSF was observed. Opening pressure measured, found to be 13 cm of H2O. Total 4 mL of slightly blood-tinged spinal fluid obtained, divided into 4 vials, sent to the lab. The patient tolerated the procedure well, without immediate complication No acute intracranial hemorrhage or edema. No mass effect nor midline shift. There is age-related enlargement of the ventricles and extra axial CSF spaces. There is periventricular deep white matter low-attenuation, consistent with chronic microvascular ischemic changes. Old lacunar infarcts are seen in the basal ganglia bilaterally. The mastoids are clear. There is fairly extensive sphenoid and ethmoid sinus disease. The calvarium is intact. Impression: Chronic and age-related changes. Old bilateral basal ganglia lacunar infarcts. Negative for acute intracranial bleed or mass effect Increasing interstitial and airspace infiltrates are seen diffusely within the lungs bilaterally. The heart is borderline enlarged. There is torturous ectatic and calcified Impression: Increasing bilateral infiltrates versus edema, over one day (4) Fever (5) Bacteremia Alvarado Tolliver Feb 01, 2020 12:59
[2020-02-01] MEDS: Vancomycin 1 GM in D5W 275 ML IVPB SCH ×2 (13:37→22:22)
--- NOTE | 2020-02-01 14:41 | General Progress Note ---
Assessment/Plan Status: stable Assessment/Plan: #Sepsis - r/o COVID #staph bacteremia #Leukocytosis #Hyponatremia #Possible syncope #Hypokalemia #HTN #Dementia - KENNETH neg for vegetations - LP: WBC 133, elevated protein and normal glucose > likely viral meningitis/encephalitis - cardiology consulted - IV abx per ID - COVID r/o - pulm eval - monitor BP - monitor resp status - cardiology eval for possible syncope - continue metop 25 daily - amlodipine 10mg daily - continue losartan 100mg daily Subjective ROS Limited/Unobtainable: No Allergies: Coded Allergies: PENICILLINS (Verified Allergy, Unknown, 01/23/20) nurse unable to enter a coded PENICILLIN allergy. still need to obtain reaction All Systems: reviewed and negative except above Subjective IMPRESSION: Lungs demonstrate bilateral multifocal patchy and nodular infilt rates. This most likely represents multifocal pneumonia, May correlate with stated clinical history of suspected septic emboli. s/p LP and KENNETH Objective Last 24 Hour Vital Signs Date Time Temp Pulse Resp B/P (MAP) Pulse Ox O2 Delivery O2 Flow Rate FiO2 02/01/20 09:00 Room Air 02/01/20 08:46 95 126/69 02/01/20 08:45 126/69 02/01/20 08:44 95 126/69 02/01/20 08:00 97.0 95 20 126/69 (88) 95 02/01/20 04:00 98.1 105 18 135/81 (99) 95 02/01/20 00:00 98.6 97 18 138/75 (96) 95 01/31/20 21:00 Room Air 01/31/20 20:30 98.0 86 18 102/60 (74) 94 01/31/20 19:35 97 18 95 Room Air 21 01/31/20 19:30 97.0 105 18 105/55 (72) 94 01/31/20 18:50 98.1 97 18 120/67 (84) 98 01/31/20 18:20 97.3 100 19 125/72 (89) 95 01/31/20 17:35 97.6 95 18 139/77 (97) 97 01/31/20 17:20 98.1 100 20 143/75 (97) 95 01/31/20 17:05 97.3 99 19 152/79 (103) 98 01/31/20 14:58 98.4 98 20 143/87 97 Room Air 01/31/20 14:48 99 20 140/88 98 Room Air Intake and Output 01/31/20 02/01/20 19:00 07:00 Intake Total 491 ml 275 ml Output Total 300 ml 1300 ml Balance 191 ml -1025 ml Intake Oral 200 ml IV Total 291 ml 275 ml Output Urine Total 300 ml 1300 ml # Voids 2 Laboratory Tests 01/31/20 16:15: CSF Appearance Hazy, CSF Color [place], CSF WBC 133*H, CSF RBC 1478, CSF Neutrophils % 43, CSF Lymphocytes % 37, CSF Monocytes % 20, CSF Crenated Cells 0, CSF Glucose 46, CSF Total Protein 117H, CSF VDRL [Pending], CSF Coccidioides Antibody [Pending] 02/01/20 06:00: White Blood Count 8.2, Red Blood Count 4.03L, Hemoglobin 12.5, Hematocrit 38.2, Mean Corpuscular Volume 95, Mean Corpuscular Hemoglobin 31.0, Mean Corpuscular Hemoglobin Concent 32.6, Red Cell Distribution Width 11.6, Platelet Count 416, Mean Platelet Volume 4.8L, Neutrophils (%) (Auto) 76.2H, Lymphocytes (%) (Auto) 16.7L, Monocytes (%) (Auto) 6.1, Eosinophils (%) (Auto) 0.6, Basophils (%) (Auto) 0.5, Sodium Level 137, Potassium Level 3.8, Chloride Level 103, Carbon Dioxide Level 27, Anion Gap 7, Blood Urea Nitrogen 5L, Creatinine 0.6, Estimat Glomerular Filtration Rate > 60, Glucose Level 114H, Calcium Level 8.2L, Phosphorus Level 3.5, Magnesium Level 1.9 Height (Feet): 5 Height (Inches): 3.00 Weight (Pounds): 132 Silvina Kohli M.D. Feb 01, 2020 14:40
[2020-02-01] MEDS: ACYCLOVIR IV SCH ×2 (15:25→22:21)
[2020-02-01] MEDS: NS IV SCH ×2 (15:25→22:21)
[2020-02-01 16:00] VITALS: BP 124/70
[2020-02-01 20:00] VITALS: BP 130/73
[2020-02-01] MEDS: Atorvastatin 20mg tab ORAL SCH (21:20)
[2020-02-02] VITALS (7 sets, daily range): BP systolic 118–155; BP diastolic 67–90
[2020-02-02] MEDS: Vancomycin 1 GM in D5W 275 ML IVPB SCH ×3 (05:05→23:12)
[2020-02-02] MEDS: ACYCLOVIR IV SCH ×3 (05:05→21:50)
[2020-02-02] MEDS: NS IV SCH ×3 (05:05→21:50)
[2020-02-02 07:48] LABS: BASOPHILS % (AUTO) 0.8 % (0.0-2.0); EOSINOPHILS % (AUTO) 0.5 % (0.0-3.0); HEMATOCRIT 38.2 % (37.0-47.0); HEMOGLOBIN 12.2 G/DL (12.0-16.0); MEAN CORPUSCULAR VOLUME 96 FL (80-99); MONOCYTES % (AUTO) 4.9 % (1.0-10.0); NEUTROPHILS % (AUTO) 80.9 % (45.0-75.0); PLATELET COUNT 357 K/UL (150-450); RED BLOOD COUNT 3.98 M/UL (4.20-5.40); RED CELL DISTRIBUTION WIDTH 12.2 % (11.6-14.8); WHITE BLOOD COUNT 8.8 K/UL (4.8-10.8)
[2020-02-02 08:25] LABS: ANION GAP 11 mmol/L (5-15); BLOOD UREA NITROGEN 4 mg/dL (7-18); CALCIUM 8.2 MG/DL (8.5-10.1); CARBON DIOXIDE 26 MMOL/L (21-32); CHLORIDE 102 MMOL/L (98-107); CREATININE 0.5 MG/DL (0.55-1.30); PHOSPHORUS 3.5 MG/DL (2.5-4.9); POTASSIUM 4.1 MMOL/L (3.5-5.1); SODIUM 139 MMOL/L (136-145)
[2020-02-02] MEDS: Losartan 50mg tab ORAL SCH (08:49)
[2020-02-02] MEDS: Dronabinol 2.5mg Cap ORAL SCH ×2 (08:49→17:33)
[2020-02-02] MEDS: Metoprolol Succinate XL 25mg tab ORAL SCH (08:49)
[2020-02-02] MEDS: Heparin 5000 units/ml inj SUBQ SCH ×2 (08:50→20:09)
--- NOTE | 2020-02-02 11:23 | Pulmonology Progress Note ---
Subjective ROS Limited/Unobtainable: No Interval Events: None new Constitutional: Reports: fatigue; Denies: fever HEENT: Repors: no symptoms Respiratory: Reports: no symptoms Cardiovascular: Reports: no symptoms Gastrointestinal/Abdominal: Denies: nausea, vomiting, diarrhea Psychiatric: Denies: depression Skin: Denies: rash Musculoskeletal: Reports: pain - headache Allergies: Coded Allergies: PENICILLINS (Verified Allergy, Unknown, 01/23/20) nurse unable to enter a coded PENICILLIN allergy. still need to obtain reaction All Systems: reviewed and negative except above Objective Last 24 Hour Vital Signs Date Time Temp Pulse Resp B/P (MAP) Pulse Ox O2 Delivery O2 Flow Rate FiO2 02/02/20 09:00 Room Air 02/02/20 08:49 104 155/90 02/02/20 08:49 155/90 02/02/20 08:49 104 155/90 02/02/20 08:00 97.6 104 18 155/90 (111) 96 02/02/20 04:00 99.1 101 22 151/81 (104) 96 02/02/20 00:00 98.6 100 20 122/71 (88) 97 02/01/20 21:00 Room Air 02/01/20 20:24 92 18 96 Room Air 21 02/01/20 20:00 98.1 94 20 130/73 (92) 95 02/01/20 16:00 99.1 89 20 124/70 (88) 96 Intake and Output 02/01/20 02/02/20 19:00 07:00 Intake Total 1168 ml 784 ml Output Total 1200 ml Balance 1168 ml -416 ml Intake Oral 240 ml 240 ml IV Total 928 ml 544 ml Output Urine Total 1200 ml # Voids 2 HEENT: normocephalic Respiratory: chest wall non-tender, lungs clear Cardiovascular: normal peripheral pulses, normal rate Microbiology Date/Time Source Procedure Growth Status 01/31/20 16:15 Cerebral Spinal Fluid Gram Stain - Final Resulted 01/31/20 16:15 Cerebral Spinal Fluid CSF Culture - Preliminary NO GROWTH Resulted Laboratory Tests 02/01/20 16:50: Cryptococcus Antigen [Pending] 02/02/20 06:15: White Blood Count 8.8, Red Blood Count 3.98L, Hemoglobin 12.2, Hematocrit 38.2, Mean Corpuscular Volume 96, Mean Corpuscular Hemoglobin 30.7, Mean Corpuscular Hemoglobin Concent 32.0, Red Cell Distribution Width 12.2, Platelet Count 357, Mean Platelet Volume 4.8L, Neutrophils (%) (Auto) 80.9H, Lymphocytes (%) (Auto) 13.0L, Monocytes (%) (Auto) 4.9, Eosinophils (%) (Auto) 0.5, Basophils (%) (Auto) 0.8, Sodium Level 139, Potassium Level 4.1, Chloride Level 102, Carbon Dioxide Level 26, Anion Gap 11, Blood Urea Nitrogen 4L, Creatinine 0.5L, Estimat Glomerular Filtration Rate > 60, Glucose Level 111H, Calcium Level 8.2L, Phosphorus Level 3.5, Magnesium Level 2.0 Current Medications Medications (Trade) Dose Ordered Sig/Altagracia Route PRN Reason Start Time Stop Time Status Last Admin Dose Admin Acetaminophen (Tylenol) 650 mg Q4H PRN ORAL Temp >100.5 01/21/20 14:00 02/20/20 13:59 01/23/20 05:00 Acetaminophen (Tylenol) 650 mg Q4H PRN ORAL Mild Pain (Pain Scale 1-3) 01/21/20 14:00 02/20/20 13:59 01/25/20 10:50 Acetaminophen (Tylenol) 650 mg Q6H ORAL 01/25/20 11:30 02/24/20 11:29 02/02/20 05:06 Acetaminophen/ Hydrocodone Bitart ([place] 5/325) 1 tab Q4H PRN ORAL Moderate Pain (Pain Scale 4-6) 01/31/20 10:15 02/07/20 10:14 02/01/20 03:46 Acyclovir 600 mg/ Sodium Chloride 110 ml @ 110 mls/hr Q8HR IV 02/01/20 14:00 03/02/20 13:59 02/02/20 05:05 Alendronate Sodium (Fosamax) 70 mg ONCE A WEEK ORAL 01/22/20 06:30 02/21/20 06:29 01/29/20 10:13 Amlodipine Besylate (Norvasc) 5 mg DAILY ORAL 01/22/20 09:00 02/21/20 08:59 02/02/20 08:49 Amylase/Lipase/ Protease (Chelsy HUFF 36,000 units cap) 1 ea TIDPRN PRN ORAL Abdominal cramps 01/21/20 15:45 04/20/20 15:44 Atorvastatin Calcium (Lipitor) 20 mg BEDTIME ORAL 01/22/20 21:00 04/21/20 20:59 02/01/20 21:20 Ceftriaxone Sodium 2 gm/ Dextrose 100 ml @ 200 mls/hr EVERY 12 HOURS IVPB 02/01/20 21:00 02/08/20 20:59 02/02/20 08:52 Clonazepam (KlonoPIN) 1 mg Q6H PRN ORAL For Anxiety 01/27/20 09:15 02/03/20 09:14 Dronabinol (Marinol) 5 mg BID ORAL 01/27/20 18:00 04/26/20 17:59 02/02/20 08:49 Heparin Sodium (Porcine) (Heparin 5000 units/ml) 5,000 units EVERY 12 HOURS SUBQ 01/21/20 21:00 03/06/20 20:59 02/02/20 08:50 Ibuprofen (Motrin) 600 mg Q6H PRN ORAL pain 4-10 01/29/20 11:45 02/28/20 11:44 02/01/20 08:46 Loratadine (Claritin 10mg) 10 mg DAILY ORAL 01/23/20 09:00 02/22/20 08:59 02/02/20 08:49 Losartan Potassium (Cozaar) 100 mg DAILY ORAL 01/22/20 09:00 02/21/20 08:59 02/02/20 08:49 Metoprolol Succinate (Toprol XL) 25 mg DAILY ORAL 01/22/20 09:00 04/21/20 08:59 02/02/20 08:49 Mirtazapine (Remeron) 15 mg BEDTIME ORAL 01/27/20 21:00 04/26/20 20:59 02/01/20 21:20 Pantoprazole (Protonix) 40 mg ACBREAKFAST ORAL 02/02/20 06:30 03/03/20 06:29 02/02/20 05:58 Sodium Chloride 1,000 ml @ 75 mls/hr [id number] IV 02/01/20 10:00 03/02/20 09:59 02/02/20 05:11 Vancomycin HCl [facility]) 1 ea DAILY PRN MISC Per rx protocol 01/22/20 08:00 02/21/20 07:59 Vancomycin HCl 1 gm/Dextrose 275 ml @ 184 mls/hr Q8HR IVPB 02/01/20 14:00 02/06/20 13:59 02/02/20 05:05 Assessment/Plan Assessment/Plan IMPRESSION: 1. Sepsis with bacteremia. 2. Pulmonary vascular congestion. 3. GERD. 4. Hypertension. 5. Hyperlipidemia. 6. Previous CVA. DISCUSSION: Currently saturating well on RA No additional pulmonary intervention required. Broad-spectrum antibiotics. Will follow Gil Mattson Omar Syed MD Feb 02, 2020 11:23
--- NOTE | 2020-02-02 11:37 | General Progress Note ---
Subjective Constitutional: Reports: malaise, weakness; Denies: no symptoms, chills, diaphoresis, fever, other HEENT: Denies: no symptoms, eye pain, blurred vision, tearing, double vision, ear pain, ear discharge, nose pain, nose congestion, throat pain, throat swelling, mouth pain, mouth swelling, other Cardiovascular: Denies: no symptoms, chest pain, edema, irregular heart rate, lightheadedness, palpitations, syncope, other Respiratory: Denies: no symptoms, cough, orthopnea, shortness of breath, SOB with excertion, SOB at rest, sputum, stridor, wheezing, other Gastrointestinal/Abdominal: Denies: no symptoms, abdomen distended, abdominal pain, black stools, tarry stools, blood in stool, constipated, diarrhea, difficulty swallowing, nausea, poor appetite, poor fluid intake, rectal bleeding, vomiting, other Genitourinary: Denies: no symptoms, burning, discharge, frequency, flank pain, hematuria, incontinence, pain, urgency, other Neurologic/Psychiatric: Reports: headache; Denies: no symptoms, anxiety, depressed, emotional problems, numbness, paresthesia, pre-existing deficit, seizure, tingling, tremors, weakness, other Endocrine: Denies: no symptoms, excessive sweating, flushing, intolerance to cold, intolerance to heat, increased hunger, increased thirst, increased urine, unexplained weight gain, unexplained weight loss, other Hematologic/Lymphatic: Denies: no symptoms, anemia, easy bleeding, easy bruising, other Allergies: Coded Allergies: PENICILLINS (Verified Allergy, Unknown, 01/23/20) nurse unable to enter a coded PENICILLIN allergy. still need to obtain reaction Subjective no acute events overnight. Headache ongoing. Feels better today. PT at bedside and notes increased energy and strength from previous sessions. No fevers. Objective Last 24 Hour Vital Signs Date Time Temp Pulse Resp B/P (MAP) Pulse Ox O2 Delivery O2 Flow Rate FiO2 02/02/20 09:00 Room Air 02/02/20 08:49 104 155/90 02/02/20 08:49 155/90 02/02/20 08:49 104 155/90 02/02/20 08:00 97.6 104 18 155/90 (111) 96 02/02/20 04:00 99.1 101 22 151/81 (104) 96 02/02/20 00:00 98.6 100 20 122/71 (88) 97 02/01/20 21:00 Room Air 02/01/20 20:24 92 18 96 Room Air 21 02/01/20 20:00 98.1 94 20 130/73 (92) 95 02/01/20 16:00 99.1 89 20 124/70 (88) 96 Intake and Output 02/01/20 02/02/20 19:00 07:00 Intake Total 1168 ml 784 ml Output Total 1200 ml Balance 1168 ml -416 ml Intake Oral 240 ml 240 ml IV Total 928 ml 544 ml Output Urine Total 1200 ml # Voids 2 Laboratory Tests 02/01/20 16:50: Cryptococcus Antigen [Pending] 02/02/20 06:15: White Blood Count 8.8, Red Blood Count 3.98L, Hemoglobin 12.2, Hematocrit 38.2, Mean Corpuscular Volume 96, Mean Corpuscular Hemoglobin 30.7, Mean Corpuscular Hemoglobin Concent 32.0, Red Cell Distribution Width 12.2, Platelet Count 357, Mean Platelet Volume 4.8L, Neutrophils (%) (Auto) 80.9H, Lymphocytes (%) (Auto) 13.0L, Monocytes (%) (Auto) 4.9, Eosinophils (%) (Auto) 0.5, Basophils (%) (Auto) 0.8, Sodium Level 139, Potassium Level 4.1, Chloride Level 102, Carbon Dioxide Level 26, Anion Gap 11, Blood Urea Nitrogen 4L, Creatinine 0.5L, Estimat Glomerular Filtration Rate > 60, Glucose Level 111H, Calcium Level 8.2L, Phosphorus Level 3.5, Magnesium Level 2.0 Height (Feet): 5 Height (Inches): 3.00 Weight (Pounds): 132 General Appearance: alert, mild distress, alert oriented x3 EENT: PERRL/EOMI, normal ENT inspection Neck: non-tender, normal alignment Cardiovascular: normal rate, regular rhythm, no JVD Respiratory/Chest: lungs clear, normal breath sounds, respiratory distress Abdomen: normal bowel sounds, non tender, soft Extremities: normal range of motion Edema: no edema noted Arm (L), no edema noted Arm (R), no edema noted Leg (L), no edema noted Leg (R), no edema noted Pedal (L), no edema noted Pedal (R), no edema noted Generalized Neurologic: pigment pusher II-XII grossly normal, alert, oriented x 3 Assessment/Plan Status: stable Assessment/Plan: Ms. Walker is a 84 year old female with HTN, HLD who presented with syncope and weakness, found to have S. 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 vs Echovirus, EBV, CMV # Severe sepsis 2/2 MRSA Bacteremia # Complicated MRSA Bacteremia # Multifocal PNA # Frontal lobe and Occipital Headaches 2/2 Meningitis # Herpes Simplex 1 on Lips # Essential HTN # Poor Oral Intake # ?Depression P: - hemodynamically stable - sat well on room air, keep sat O2 > 92% - repeat BC 01/26 negative - continue vancomycin for 2-3 more weeks from 01/26, ID recs - LP: WBC 133, elevated protein and normal glucose > likely viral meningitis/encephalitis - continue IV acyclovir - f/u PCR, AFB, gram stains/cultures of CSF - KENNETH negative for vegetations - f/u MRI brain for persistent headaches - PICC line ordered - Tylenol, Ibuprofen prn headaches - continue metop 25 daily - amlodipine 5mg daily - continue losartan 100mg daily - Marinol continue 5 mg - continue Remeron 15 mg qhs. monitor. - nutritional consult, continue nutritional supplements - IVF - PT - CM - consult Dr. Ortega ID, recs appreciated - consult Dr. Ugalde GI, recs appreciated - consult Dr. Kohli, Nephrology, recs appreciated - consult Dr. Payan, Pulm, recs appreciated - consult Dr. Nye, Cardiology, recs appreciated CODE: Full DVT: Heparin 5000U BID GI: PPI Diet: Cardiac Dispo: PICC line placement, will need IV abx for 2-3 weeks, d/c SNF once me ningitis work up completed and headaches improved Time spent on encounter, 31 mins. 21 on counseling, coordination of care. d/w RN, consultants. Time of note doesn't accurately reflect time of encounter. Kyle Sauer D.O Feb 02, 2020 11:37
--- NOTE | 2020-02-02 12:30 | General Progress Note ---
Assessment/Plan Status: stable Assessment/Plan: #Sepsis - r/o COVID #staph bacteremia #Leukocytosis #Hyponatremia #Possible syncope #Hypokalemia #HTN #Dementia - dc ivf - KENNETH neg for vegetations - LP: WBC 133, elevated protein and normal glucose > likely viral meningitis/encephalitis - cardiology consulted - IV abx per ID - COVID r/o - pulm eval - monitor BP - monitor resp status - cardiology eval for possible syncope - continue metop 25 daily -increase amlodipine 5mg BID - continue losartan 100mg daily Subjective ROS Limited/Unobtainable: No Constitutional: Reports: weakness HEENT: Denies: no symptoms, eye pain, blurred vision, tearing, double vision, ear pain, ear discharge, nose pain, nose congestion, throat pain, throat swelling, mouth pain, mouth swelling, other Cardiovascular: Denies: no symptoms, chest pain, edema, irregular heart rate, l ightheadedness, palpitations, syncope, other Respiratory: Denies: no symptoms, cough, orthopnea, shortness of breath, SOB with excertion, SOB at rest, sputum, stridor, wheezing, other Gastrointestinal/Abdominal: Denies: no symptoms, abdomen distended, abdominal pain, black stools, tarry stools, blood in stool, constipated, diarrhea, diffi culty swallowing, nausea, poor appetite, poor fluid intake, rectal bleeding, vomiting, other Genitourinary: Denies: no symptoms, burning, discharge, frequency, flank pain, hematuria, incontinence, pain, urgency, other Neurologic/Psychiatric: Denies: no symptoms, anxiety, depressed, emotional problems, headache, numbness, paresthesia, pre-existing deficit, seizure, tingling, tremors, weakness, other Endocrine: Denies: no symptoms, excessive sweating, flushing, intolerance to cold, intolerance to heat, increased hunger, increased thirst, increased urine, unexplained weight gain, unexplained weight loss, other Allergies: Coded Allergies: PENICILLINS (Verified Allergy, Unknown, 01/23/20) nurse unable to enter a coded PENICILLIN allergy. still need to obtain reaction All Systems: reviewed and negative except above Subjective IMPRESSION: Lungs demonstrate bilateral multifocal patchy and nodular infiltrates. This most likely represents multifocal pneumonia, May correlate with stated clinical history of suspected septic emboli. s/p LP and KENNETH Objective Last 24 Hour Vital Signs Date Time Temp Pulse Resp B/P (MAP) Pulse Ox O2 Delivery O2 Flow Rate FiO2 02/02/20 09:00 Room Air 02/02/20 08:49 104 155/90 02/02/20 08:49 155/90 02/02/20 08:49 104 155/90 02/02/20 08:00 97.6 104 18 155/90 (111) 96 02/02/20 04:00 99.1 101 22 151/81 (104) 96 02/02/20 00:00 98.6 100 20 122/71 (88) 97 02/01/20 21:00 Room Air 02/01/20 20:24 92 18 96 Room Air 21 02/01/20 20:00 98.1 94 20 130/73 (92) 95 02/01/20 16:00 99.1 89 20 124/70 (88) 96 Intake and Output 02/01/20 02/02/20 19:00 07:00 Intake Total 1168 ml 784 ml Output Total 1200 ml Balance 1168 ml -416 ml Intake Oral 240 ml 240 ml IV Total 928 ml 544 ml Output Urine Total 1200 ml # Voids 2 Laboratory Tests 02/01/20 16:50: Cryptococcus Antigen [Pending] 02/02/20 06:15: White Blood Count 8.8, Red Blood Count 3.98L, Hemoglobin 12.2, Hematocrit 38.2, Mean Corpuscular Volume 96, Mean Corpuscular Hemoglobin 30.7, Mean Corpuscular Hemoglobin Concent 32.0, Red Cell Distribution Width 12.2, Platelet Count 357, Mean Platelet Volume 4.8L, Neutrophils (%) (Auto) 80.9H, Lymphocytes (%) (Auto) 13.0L, Monocytes (%) (Auto) 4.9, Eosinophils (%) (Auto) 0.5, Basophils (%) (Auto) 0.8, Sodium Level 139, Potassium Level 4.1, Chloride Level 102, Carbon Dioxide Level 26, Anion Gap 11, Blood Urea Nitrogen 4L, Creatinine 0.5L, Estimat Glomerular Filtration Rate > 60, Glucose Level 111H, Calcium Level 8.2L, Phosphorus Level 3.5, Magnesium Level 2.0 Height (Feet): 5 Height (Inches): 3.00 Weight (Pounds): 132 Silvina Kohli M.D. Feb 02, 2020 12:30
--- NOTE | 2020-02-02 14:09 | Infectious Diseases Prog Note ---
Assessment/Plan Assessment/Plan ASSESSMENT AND PLAN: 1. mrsa bacteremia, sepsis, leukocytosis, fevers, ? endocarditis, KENNETH negative, ? pneumonia, ? 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 Nye - CT - abdomen/pelvis/chest - noted, ? pna, ? septic emboli, no abscess - monitor labs and chest x-ray, surveillance blood cultures now negative - 01/27/20 - indium scan for persistent bacteremia, results pending - MRI brain ordered - f/u on results - monitor headaches - fevers and leukocytosis resolved 2. Hypertension. Blood pressure treatment per primary care team. 3. GERD. 4. HLP, which I think is hyperlipidemia, but I am not sure. 5. Per the records, history of CVA. 6. Cardiac disease. 7. Allergic to penicillin, tolerates cephalosporins. 8. Social History is negative. 9. Family History is noncontributory . 10. MAR was noted. 11. Case was discussed with RN. 12. Continue treatment per primary consultants. Subjective Constitutional: Reports: fatigue; Denies: fever HEENT: Denies: congestion Respiratory: Denies: shortness of breath Cardiovascular: Denies: chest pain Gastrointestinal/Abdominal: Denies: nausea, vomiting Genitourinary: Denies: dysuria, hematuria, frequency Neurologic: Reports: headache Psychiatric: Denies: depression Skin: Denies: rash Hematologic: Denies: bleeding Musculoskeletal: Denies: pain Allergies: Coded Allergies: PENICILLINS (Verified Allergy, Unknown, 01/23/20) nurse unable to enter a coded PENICILLIN allergy. still need to obtain reaction Objective Last 24 Hour Vital Signs Date Time Temp Pulse Resp B/P (MAP) Pulse Ox O2 Delivery O2 Flow Rate FiO2 02/02/20 12:00 98.4 105 18 133/71 (91) 96 02/02/20 09:00 Room Air 02/02/20 08:49 104 155/90 02/02/20 08:49 155/90 02/02/20 08:49 104 155/90 02/02/20 08:00 97.6 104 18 155/90 (111) 96 02/02/20 04:00 99.1 101 22 151/81 (104) 96 02/02/20 00:00 98.6 100 20 122/71 (88) 97 02/01/20 21:00 Room Air 02/01/20 20:24 92 18 96 Room Air 21 02/01/20 20:00 98.1 94 20 130/73 (92) 95 02/01/20 16:00 99.1 89 20 124/70 (88) 96 Height (Feet): 5 Height (Inches): 3.00 Weight (Pounds): 132 General Appearance: no acute distress HEENT: normocephalic, atraumatic, anicteric, mucous membranes moist, EOMI, pharynx normal, supple, no JVD, other - oral hsv lesjons improving Respiratory/Chest: lungs clear, normal breath sounds, no respiratory distress, no accessory muscle use Cardiovascular: normal rate, regular rhythm, no gallop/murmur, no JVD Abdomen: normal bowel sounds, soft, non tender, no organomegaly, non distended Genitourinary: other - no nieves, no cva pain Extremities: no cyanosis Skin: no rash Neurologic/Psychiatric: orientation and mobility specialist II-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 The heart is borderline enlarged. There is torturous ectatic and calcified Impression: Increasing bilateral infiltrates versus edema, over one day Chest x-ray - 01/25/20 - Procedure: XRAY Chest 1v EXAM: XR Chest, 1 View CLINICAL HISTORY: INFECT TECHNIQUE: Frontal view of the chest. COMPARISON: No relevant prior studies available. FINDINGS/IMPRESSION: Low lung volume secondary to poor inspiration. Mild, patchy airspace opacity within the left upper lung field, suspicious for infiltrate. Follow-up 2 view chest radiograph recommended. No pleural effusion or pneumothorax. CT chest/abdomen/pelvis: IMPRESSION: Lungs demonstrate bilateral multifocal patchy and nodular infiltrates. This most likely represents multifocal pneumonia, May correlate with stated clinical history of suspected septic emboli. Generalized pulmonary venous congestion, may indicate central venous hypertension Small bilateral pleural effusions Mild cardiomegaly No acute abdominal or pelvic abnormality 12 mm left adrenal nodule. This is nonspecific in appearance. 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 Lungs and pleural spaces currently clear. The heart size is normal. The aorta is tortuous. Impression: Improved bilateral infiltrates, over 5 days Microbiology Date/Time Source Procedure Growth Status 01/31/20 16:15 Cerebral Spinal Fluid Gram Stain - Final Resulted 01/31/20 16:15 Cerebral Spinal Fluid CSF Culture - Preliminary NO GROWTH Resulted 01/30/20 05:50 Blood Blood Culture - Preliminary NO GROWTH AFTER 48 HOURS Resulted 01/25/20 18:00 Stool Clostridium difficile Toxin Assay - Final Complete 01/22/20 04:30 Nasopharynx Coronavirus COVID-19 PCR ([facility]) - Final Complete Microbiology Date/Time Source Procedure Growth Status 01/31/20 16:15 Cerebral Spinal Fluid Gram Stain - Final Resulted 01/31/20 16:15 Cerebral Spinal Fluid CSF Culture - Preliminary NO GROWTH Resulted Laboratory Tests Test 02/01/20 16:50 02/02/20 06:15 Cryptococcus Antigen Pending White Blood Count 8.8 K/UL (4.8-10.8) Red Blood Count 3.98 M/UL (4.20-5.40) L Hemoglobin 12.2 G/DL (12.0-16.0) Hematocrit 38.2 % (37.0-47.0) Mean Corpuscular Volume 96 FL (80-99) Mean Corpuscular Hemoglobin 30.7 PG (27.0-31.0) Mean Corpuscular Hemoglobin Concent 32.0 G/DL (32.0-36.0) Red Cell Distribution Width 12.2 % (11.6-14.8) Platelet Count 357 K/UL (150-450) Mean Platelet Volume 4.8 FL (6.5-10.1) L Neutrophils (%) (Auto) 80.9 % (45.0-75.0) H Lymphocytes (%) (Auto) 13.0 % (20.0-45.0) L Monocytes (%) (Auto) 4.9 % (1.0-10.0) Eosinophils (%) (Auto) 0.5 % (0.0-3.0) Basophils (%) (Auto) 0.8 % (0.0-2.0) Sodium Level 139 MMOL/L (136-145) Potassium Level 4.1 MMOL/L (3.5-5.1) Chloride Level 102 MMOL/L (98-107) Carbon Dioxide Level 26 MMOL/L (21-32) Anion Gap 11 mmol/L (5-15) Blood Urea Nitrogen 4 mg/dL (7-18) L Creatinine 0.5 MG/DL (0.55-1.30) L Estimat Glomerular Filtration Rate > 60 mL/min (>60) Glucose Level 111 MG/DL (74-106) H Calcium Level 8.2 MG/DL (8.5-10.1) L Phosphorus Level 3.5 MG/DL (2.5-4.9) Magnesium Level 2.0 MG/DL (1.8-2.4) Current Medications Medications (Trade) Dose Ordered Sig/Altagracia Route PRN Reason Start Time Stop Time Status Last Admin Dose Admin Acetaminophen (Tylenol) 650 mg Q4H PRN ORAL Temp >100.5 01/21/20 14:00 02/20/20 13:59 01/23/20 05:00 Acetaminophen (Tylenol) 650 mg Q4H PRN ORAL Mild Pain (Pain Scale 1-3) 01/21/20 14:00 02/20/20 13:59 01/25/20 10:50 Acetaminophen (Tylenol) 650 mg Q6H ORAL 01/25/20 11:30 02/24/20 11:29 02/02/20 12:05 Acetaminophen/ Hydrocodone Bitart ([place] 5/325) 1 tab Q4H PRN ORAL Moderate Pain (Pain Scale 4-6) 01/31/20 10:15 02/07/20 10:14 02/01/20 03:46 Acyclovir 600 mg/ Sodium Chloride 110 ml @ 110 mls/hr Q8HR IV 02/01/20 14:00 03/02/20 13:59 02/02/20 13:33 Alendronate Sodium (Fosamax) 70 mg ONCE A WEEK ORAL 01/22/20 06:30 02/21/20 06:29 01/29/20 10:13 Amlodipine Besylate (Norvasc) 5 mg DAILY ORAL 01/22/20 09:00 02/21/20 08:59 02/02/20 08:49 Amylase/Lipase/ Protease (Chelsy HUFF 36,000 units cap) 1 ea TIDPRN PRN ORAL Abdominal cramps 01/21/20 15:45 04/20/20 15:44 Atorvastatin Calcium (Lipitor) 20 mg BEDTIME ORAL 01/22/20 21:00 04/21/20 20:59 02/01/20 21:20 Ceftriaxone Sodium 2 gm/ Dextrose 100 ml @ 200 mls/hr EVERY 12 HOURS IVPB 02/01/20 21:00 02/08/20 20:59 02/02/20 08:52 Clonazepam (KlonoPIN) 1 mg Q6H PRN ORAL For Anxiety 01/27/20 09:15 02/03/20 09:14 Dronabinol (Marinol) 5 mg BID ORAL 01/27/20 18:00 04/26/20 17:59 02/02/20 08:49 Heparin Sodium (Porcine) (Heparin 5000 units/ml) 5,000 units EVERY 12 HOURS SUBQ 01/21/20 21:00 03/06/20 20:59 02/02/20 08:50 Ibuprofen (Motrin) 600 mg Q6H PRN ORAL pain 4-10 01/29/20 11:45 02/28/20 11:44 02/01/20 08:46 Loratadine (Claritin 10mg) 10 mg DAILY ORAL 01/23/20 09:00 02/22/20 08:59 02/02/20 08:49 Losartan Potassium (Cozaar) 100 mg DAILY ORAL 01/22/20 09:00 02/21/20 08:59 02/02/20 08:49 Metoprolol Succinate (Toprol XL) 25 mg DAILY ORAL 01/22/20 09:00 04/21/20 08:59 02/02/20 08:49 Mirtazapine (Remeron) 15 mg BEDTIME ORAL 01/27/20 21:00 04/26/20 20:59 02/01/20 21:20 Pantoprazole (Protonix) 40 mg ACBREAKFAST ORAL 02/02/20 06:30 03/03/20 06:29 02/02/20 05:58 Sodium Chloride 1,000 ml @ 75 mls/hr [id number] IV 02/01/20 10:00 03/02/20 09:59 02/02/20 05:11 Vancomycin HCl (Vanco pharmacy to dose) 1 ea DAILY PRN MISC Per rx protocol 01/22/20 08:00 02/21/20 07:59 Vancomycin HCl 1 gm/Dextrose 275 ml @ 184 mls/hr Q8HR IVPB 02/01/20 14:00 02/06/20 13:59 02/02/20 05:05 Tiny Armijo MD Feb 02, 2020 14:09
--- NOTE | 2020-02-02 19:09 | Surgery Progress Note ---
Surgery Progress Note Subjective Additional Comments Patient seen exam bedside. States abdominal flank and all other pain resolved now only has a headache. No nausea vomiting fever chills. Labs noted micro rev iewed Objective Last 24 Hour Vital Signs Date Time Temp Pulse Resp B/P (MAP) Pulse Ox O2 Delivery O2 Flow Rate FiO2 02/02/20 18:00 104 105/63 02/02/20 16:00 98.2 107 18 134/82 (99) 96 02/02/20 12:00 98.4 105 18 133/71 (91) 96 02/02/20 09:00 Room Air 02/02/20 08:49 104 155/90 02/02/20 08:49 155/90 02/02/20 08:49 104 155/90 02/02/20 08:48 102 20 95 Room Air 21 02/02/20 08:00 97.6 104 18 155/90 (111) 96 02/02/20 04:00 99.1 101 22 151/81 (104) 96 02/02/20 00:00 98.6 100 20 122/71 (88) 97 02/01/20 21:00 Room Air 02/01/20 20:24 92 18 96 Room Air 21 02/01/20 20:00 98.1 94 20 130/73 (92) 95 I&O Intake and Output 02/01/20 02/02/20 19:00 07:00 Intake Total 1168 ml 784 ml Output Total 1200 ml Balance 1168 ml -416 ml Intake Oral 240 ml 240 ml IV Total 928 ml 544 ml Output Urine Total 1200 ml # Voids 2 Cardiovascular: RSR Respiratory: clear Abdomen: soft, non-tender, present bowel sounds Extremities: no edema, no tenderness, no cyanosis Laboratory Tests Test 02/02/20 06:15 White Blood Count 8.8 K/UL (4.8-10.8) Red Blood Count 3.98 M/UL (4.20-5.40) L Hemoglobin 12.2 G/DL (12.0-16.0) Hematocrit 38.2 % (37.0-47.0) Mean Corpuscular Volume 96 FL (80-99) Mean Corpuscular Hemoglobin 30.7 PG (27.0-31.0) Mean Corpuscular Hemoglobin Concent 32.0 G/DL (32.0-36.0) Red Cell Distribution Width 12.2 % (11.6-14.8) Platelet Count 357 K/UL (150-450) Mean Platelet Volume 4.8 FL (6.5-10.1) L Neutrophils (%) (Auto) 80.9 % (45.0-75.0) H Lymphocytes (%) (Auto) 13.0 % (20.0-45.0) L Monocytes (%) (Auto) 4.9 % (1.0-10.0) Eosinophils (%) (Auto) 0.5 % (0.0-3.0) Basophils (%) (Auto) 0.8 % (0.0-2.0) Sodium Level 139 MMOL/L (136-145) Potassium Level 4.1 MMOL/L (3.5-5.1) Chloride Level 102 MMOL/L (98-107) Carbon Dioxide Level 26 MMOL/L (21-32) Anion Gap 11 mmol/L (5-15) Blood Urea Nitrogen 4 mg/dL (7-18) L Creatinine 0.5 MG/DL (0.55-1.30) L Estimat Glomerular Filtration Rate > 60 mL/min (>60) Glucose Level 111 MG/DL (74-106) H Calcium Level 8.2 MG/DL (8.5-10.1) L Phosphorus Level 3.5 MG/DL (2.5-4.9) Magnesium Level 2.0 MG/DL (1.8-2.4) Plan Problems: (1) Pulmonary edema (2) Hypokalemia (3) Leukocytosis Assessment & Plan: 84-year-old female afebrile hemodynamic stable bacteremia leukocytosis LFTs okay hypoalbuminemia BMI 22 failure to thrive. UTI /pna on antibiotics appreciate ID input. Agree with GI as to calorie count feeding trial swallow eval and continue Marinol. May need feeding tube given failure to thrive. Will follow with recommendations Participation's care labs improving on abx cont abx comfortable diet as tolerated Informed consent obtained prior to commencement of the procedure from patient's daughter. With the patient prone, fluoroscopy used to localize optimal puncture site. Sterile prepping and draping. Local anesthesia with 1% lidocaine. Under direct fluoroscopic supervision, a 21-gauge spinal needle was advanced into the spinal canal at L3-4. Despite apparent adequate position of the needle as visualized on orthogonal fluoroscopy, no fluid returned. The puncture was repeated. Spontaneous return of CSF was observed. Opening pressure measured, found to be 13 cm of H2O. Total 4 mL of slightly blood-tinged spinal fluid obtained, divided into 4 vials, sent to the lab. The patient tolerated the procedure well, without immediate complication No acute intracranial hemorrhage or edema. No mass effect nor midline shift. There is age-related enlargement of the ventricles and extra axial CSF spaces. There is periventricular deep white matter low-attenuation, consistent with chronic microvascular ischemic changes. Old lacunar infarcts are seen in the basal ganglia bilaterally. The mastoids are clear. There is fairly extensive sphenoid and ethmoid sinus disease. The calvarium is intact. Impression: Chronic and age-related changes. Old bilateral basal ganglia lacunar infarcts. Negative for acute intracranial bleed or mass effect Increasing interstitial and airspace infiltrates are seen diffusely within the lungs bilaterally. The heart is borderline enlarged. There is torturous ectatic and calcified Impression: Increasing bilateral infiltrates versus edema, over one day (4) Fever (5) Bacteremia Alvarado Tolliver Feb 02, 2020 19:09
[2020-02-02] MEDS: Atorvastatin 20mg tab ORAL SCH (20:08)
[2020-02-03 04:00] VITALS: BP 129/76
[2020-02-03] MEDS: ACYCLOVIR IV SCH ×3 (04:59→22:04)
[2020-02-03] MEDS: NS IV SCH ×3 (04:59→22:04)
[2020-02-03] MEDS: Vancomycin 1 GM in D5W 275 ML IVPB SCH ×3 (06:09→23:21)
[2020-02-03 07:30] LABS: BASOPHILS % (AUTO) 1.2 % (0.0-2.0); EOSINOPHILS % (AUTO) 1.1 % (0.0-3.0); HEMATOCRIT 37.1 % (37.0-47.0); HEMOGLOBIN 12.3 G/DL (12.0-16.0); LYMPHOCYTES % (AUTO) 20.1 % (20.0-45.0); MEAN CORPUSCULAR VOLUME 95 FL (80-99); MONOCYTES % (AUTO) 9.5 % (1.0-10.0); NEUTROPHILS % (AUTO) 68.2 % (45.0-75.0); PLATELET COUNT 402 K/UL (150-450); RED BLOOD COUNT 3.91 M/UL (4.20-5.40); RED CELL DISTRIBUTION WIDTH 12.6 % (11.6-14.8); WHITE BLOOD COUNT 5.5 K/UL (4.8-10.8)
[2020-02-03 07:51] LABS: ANION GAP 8 mmol/L (5-15); BLOOD UREA NITROGEN 5 mg/dL (7-18); CALCIUM 7.9 MG/DL (8.5-10.1); CARBON DIOXIDE 26 MMOL/L (21-32); CHLORIDE 106 MMOL/L (98-107); CREATININE 0.6 MG/DL (0.55-1.30); POTASSIUM 3.3 MMOL/L (3.5-5.1); SODIUM 140 MMOL/L (136-145)
[2020-02-03 08:00] VITALS: BP 122/92
[2020-02-03] MEDS: Losartan 50mg tab ORAL SCH (09:11)
[2020-02-03] MEDS: Metoprolol Succinate XL 25mg tab ORAL SCH (09:12)
[2020-02-03] MEDS: Dronabinol 2.5mg Cap ORAL SCH ×2 (09:13→17:19)
[2020-02-03] MEDS: Heparin 5000 units/ml inj SUBQ SCH ×2 (09:13→20:15)
--- NOTE | 2020-02-03 09:22 | General Progress Note ---
Subjective Constitutional: Reports: weakness; Denies: no symptoms, chills, diaphoresis, fever, malaise, other HEENT: Denies: no symptoms, eye pain, blurred vision, tearing, double vision, ear pain, ear discharge, nose pain, nose congestion, throat pain, throat swelling, mouth pain, mouth swelling, other Cardiovascular: Denies: no symptoms, chest pain, edema, irregular heart rate, lightheadedness, palpitations, syncope, other Respiratory: Denies: no symptoms, cough, orthopnea, shortness of breath, SOB with excertion, SOB at rest, sputum, stridor, wheezing, other Gastrointestinal/Abdominal: Denies: no symptoms, abdomen distended, abdominal pain, black stools, tarry stools, blood in stool, constipated, diarrhea, difficulty swallowing, nausea, poor appetite, poor fluid intake, rectal bleeding, vomiting, other Genitourinary: Denies: no symptoms, burning, discharge, frequency, flank pain, hematuria, incontinence, pain, urgency, other Neurologic/Psychiatric: Reports: headache; Denies: no symptoms, anxiety, depressed, emotional problems, numbness, paresthesia, pre-existing deficit, seizure, tingling, tremors, weakness, other Endocrine: Denies: no symptoms, excessive sweating, flushing, intolerance to cold, intolerance to heat, increased hunger, increased thirst, increased urine, unexplained weight gain, unexplained weight loss, other Hematologic/Lymphatic: Denies: no symptoms, anemia, easy bleeding, easy bruising, other Allergies: Coded Allergies: PENICILLINS (Verified Allergy, Unknown, 01/23/20) nurse unable to enter a coded PENICILLIN allergy. still need to obtain reaction Subjective no acute events overnight. Headache still persist but slightly better. Noted to have a little bit more energy. No new complaints. MRI pending today. Objective Last 24 Hour Vital Signs Date Time Temp Pulse Resp B/P (MAP) Pulse Ox O2 Delivery O2 Flow Rate FiO2 02/03/20 09:12 103 122/92 02/03/20 09:12 103 122/92 02/03/20 09:11 122/92 02/03/20 08:00 98.2 103 20 122/92 (102) 96 02/03/20 07:43 95 18 96 Room Air 21 02/03/20 04:00 98.1 108 19 129/76 (93) 93 02/02/20 23:55 97.3 106 20 127/77 (94) 96 02/02/20 20:56 Room Air 02/02/20 20:00 99.0 95 20 118/67 (84) 95 02/02/20 19:36 97 18 96 Room Air 21 02/02/20 18:00 104 105/63 02/02/20 16:00 98.2 107 18 134/82 (99) 96 02/02/20 12:00 98.4 105 18 133/71 (91) 96 Intake and Output 02/02/20 02/03/20 19:00 07:00 Intake Total 1550 ml Output Total 800 ml 1000 ml Balance 750 ml -1000 ml Intake Oral 540 ml IV Total 1010 ml Output Urine Total 800 ml 1000 ml Laboratory Tests 02/03/20 06:35: White Blood Count 5.5, Red Blood Count 3.91L, Hemoglobin 12.3, Hematocrit 37.1, Mean Corpuscular Volume 95, Mean Corpuscular Hemoglobin 31.5H, Mean Corpuscular Hemoglobin Concent 33.2, Red Cell Distribution Width 12.6, Platelet Count 402, Mean Platelet Volume 4.5L, Neutrophils (%) (Auto) 68.2, Lymphocytes (%) (Auto) 20.1, Monocytes (%) (Auto) 9.5, Eosinophils (%) (Auto) 1.1, Basophils (%) (Auto) 1.2, Sodium Level 140, Potassium Level 3.3L, Chloride Level 106, Carbon Dioxide Level 26, Anion Gap 8, Blood Urea Nitrogen 5L, Creatinine 0.6, Estimat Glomerular Filtration Rate > 60, Glucose Level 148H, Calcium Level 7.9L, Magnesium Level 2.0 Height (Feet): 5 Height (Inches): 2.00 Weight (Pounds): 133 General Appearance: alert, mild distress, alert oriented x3 EENT: PERRL/EOMI Neck: non-tender, normal alignment Cardiovascular: normal rate, regular rhythm, no JVD Respiratory/Chest: lungs clear, normal breath sounds, no respiratory distress Abdomen: normal bowel sounds, non tender, soft Extremities: normal range of motion, non-tender Edema: no edema noted Arm (L), no edema noted Arm (R), no edema noted Leg (L), no edema noted Leg (R), no edema noted Pedal (L), no edema noted Pedal (R), no edema noted 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 Walker is a 84 year old female with HTN, HLD who presented with syncope and weakness, found to have S. 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 vs Echovirus, EBV, CMV # Severe sepsis 2/2 MRSA Bacteremia # Complicated MRSA Bacteremia # Multifocal PNA # Frontal lobe and Occipital Headaches 2/2 Meningitis # Herpes Simplex 1 on Lips # Essential HTN # Poor Oral Intake # ?Depression P: - hemodynamically stable - sat well on room air, keep sat O2 > 92% - repeat BC 01/26 negative - continue vancomycin for 2-3 more weeks from 01/26, ID recs - LP: WBC 133, elevated protein and normal glucose > likely viral meningitis/encephalitis - continue IV acyclovir, Rocephin until cultures and PCR panel finalized - f/u PCR, AFB, gram stains/cultures of CSF - KENNETH negative for vegetations - f/u MRI brain for persistent headaches - PICC line ordered - Tylenol, Ibuprofen prn headaches - continue metop 25 daily - amlodipine 5mg daily - continue losartan 100mg daily - Marinol continue 5 mg - continue Remeron 15 mg qhs. monitor. - nutritional consult, continue nutritional supplements - PT - CM - consult Dr. Ortega ID, recs appreciated - consult Dr. Ugalde GI, recs appreciated - consult Dr. Kohli, Nephrology, recs appreciated - consult Dr. Payan, Pulm, recs appreciated - consult Dr. Nye, Cardiology, recs appreciated CODE: Full DVT: Heparin 5000U BID GI: PPI Diet: Cardiac Dispo: PICC line placement, will need IV abx for 2-3 weeks, d/c SNF once meningitis work up completed and headaches improved Time spent on encounter, 31 mins. 17 on counseling, coordination of care. d/w RN, consultants. Time of note doesn't accurately reflect time of encounter. Kyle Sauer D.O Feb 03, 2020 09:22
--- NOTE | 2020-02-03 09:58 | Diagnostic Imaging Report ---
Indication: Persistent headaches Technique: sagittal T1 fast spin echo, axial T1 FLAIR, axial T2 FLAIR, axial T2 FS PROPELLER, axial T2* GRE, axial diffusion weighted images. ADC and exponential ADC maps generated Comparison: No comparison MRI. Reference made to head CT dated Findings: There is unusual high diffusion signal within the trigone of the lateral ventricles bilaterally, but no signal abnormality is seen on the other sequences. No abnormal areas of restricted diffusion to suggest acute infarction. No acute hemorrhage or edema. There is a punctate focus of susceptibility artifact in the posterior right temporal lobe. No mass effect nor midline shift. There is age-related enlargement of the ventricles and extra axial CSF spaces. There is some periventricular deep white matter high T2 signal, consistent with chronic microvascular ischemic change. The sphenoid sinus is completely filled with a large polyp or mucous retention cyst, and there is also ethmoid sinus disease. There is evidence of prior bilateral cataract surgery. There is some fluid within the right mastoid air cells, not evident on recent CT. The vascular flow voids are preserved. Impression: Chronic and age-related changes Sphenoid and ethmoid sinus disease Negative for acute intracranial bleed or mass effect, or infarct Punctate focus of susceptibility artifact in the right temporal lobe, may represent old microbleed Right mastoid disease
--- NOTE | 2020-02-03 10:07 | Pulmonology Progress Note ---
Subjective ROS Limited/Unobtainable: No Interval Events: None new Constitutional: Reports: fatigue; Denies: fever HEENT: Repors: no symptoms Respiratory: Reports: no symptoms Cardiovascular: Reports: no symptoms Gastrointestinal/Abdominal: Denies: nausea, vomiting Psychiatric: Denies: depression Skin: Denies: rash Musculoskeletal: Denies: pain Allergies: Coded Allergies: PENICILLINS (Verified Allergy, Unknown, 01/23/20) nurse unable to enter a coded PENICILLIN allergy. still need to obtain reaction All Systems: reviewed and negative except above Objective Last 24 Hour Vital Signs Date Time Temp Pulse Resp B/P (MAP) Pulse Ox O2 Delivery O2 Flow Rate FiO2 02/03/20 09:12 103 122/92 02/03/20 09:12 103 122/92 02/03/20 09:11 122/92 02/03/20 08:00 98.2 103 20 122/92 (102) 96 02/03/20 07:43 95 18 96 Room Air 21 02/03/20 04:00 98.1 108 19 129/76 (93) 93 02/02/20 23:55 97.3 106 20 127/77 (94) 96 02/02/20 20:56 Room Air 02/02/20 20:00 99.0 95 20 118/67 (84) 95 02/02/20 19:36 97 18 96 Room Air 21 02/02/20 18:00 104 105/63 02/02/20 16:00 98.2 107 18 134/82 (99) 96 02/02/20 12:00 98.4 105 18 133/71 (91) 96 Intake and Output 02/02/20 02/03/20 19:00 07:00 Intake Total 1550 ml Output Total 800 ml 1000 ml Balance 750 ml -1000 ml Intake Oral 540 ml IV Total 1010 ml Output Urine Total 800 ml 1000 ml HEENT: normocephalic Respiratory: chest wall non-tender, lungs clear Cardiovascular: normal peripheral pulses, normal rate Microbiology Date/Time Source Procedure Growth Status 01/31/20 16:15 Cerebral Spinal Fluid Gram Stain - Final Resulted 01/31/20 16:15 Cerebral Spinal Fluid CSF Culture - Preliminary NO GROWTH Resulted Laboratory Tests 02/03/20 06:35: White Blood Count 5.5, Red Blood Count 3.91L, Hemoglobin 12.3, Hematocrit 37.1, Mean Corpuscular Volume 95, Mean Corpuscular Hemoglobin 31.5H, Mean Corpuscular Hemoglobin Concent 33.2, Red Cell Distribution Width 12.6, Platelet Count 402, Mean Platelet Volume 4.5L, Neutrophils (%) (Auto) 68.2, Lymphocytes (%) (Auto) 20.1, Monocytes (%) (Auto) 9.5, Eosinophils (%) (Auto) 1.1, Basophils (%) (Auto) 1.2, Sodium Level 140, Potassium Level 3.3L, Chloride Level 106, Carbon Dioxide Level 26, Anion Gap 8, Blood Urea Nitrogen 5L, Creatinine 0.6, Estimat Glomerular Filtration Rate > 60, Glucose Level 148H, Calcium Level 7.9L, Magnesium Level 2.0 Current Medications Medications (Trade) Dose Ordered Sig/Altagracia Route PRN Reason Start Time Stop Time Status Last Admin Dose Admin Acetaminophen (Tylenol) 650 mg Q4H PRN ORAL Temp >100.5 01/21/20 14:00 02/20/20 13:59 01/23/20 05:00 Acetaminophen (Tylenol) 650 mg Q4H PRN ORAL Mild Pain (Pain Scale 1-3) 01/21/20 14:00 02/20/20 13:59 01/25/20 10:50 Acetaminophen (Tylenol) 650 mg Q6H ORAL 01/25/20 11:30 02/24/20 11:29 02/03/20 04:57 Acetaminophen/ Hydrocodone Bitart ([place] 5/325) 1 tab Q4H PRN ORAL Moderate Pain (Pain Scale 4-6) 01/31/20 10:15 02/07/20 10:14 02/01/20 03:46 Acyclovir 600 mg/ Sodium Chloride 110 ml @ 110 mls/hr Q8HR IV 02/01/20 14:00 03/02/20 13:59 02/03/20 04:59 Alendronate Sodium (Fosamax) 70 mg ONCE A WEEK ORAL 01/22/20 06:30 02/21/20 06:29 01/29/20 10:13 Amlodipine Besylate (Norvasc) 5 mg BID ORAL 02/02/20 18:00 02/21/20 08:59 02/03/20 09:12 Amylase/Lipase/ Protease (Creon DR 36,000 units cap) 1 ea TIDPRN PRN ORAL Abdominal cramps 01/21/20 15:45 04/20/20 15:44 Atorvastatin Calcium (Lipitor) 20 mg BEDTIME ORAL 01/22/20 21:00 04/21/20 20:59 02/02/20 20:08 Ceftriaxone Sodium 2 gm/ Dextrose 100 ml @ 200 mls/hr EVERY 12 HOURS IVPB 02/01/20 21:00 02/08/20 20:59 02/03/20 09:11 Dronabinol (Marinol) 5 mg BID ORAL 01/27/20 18:00 04/26/20 17:59 02/03/20 09:13 Heparin Sodium (Porcine) (Heparin 5000 units/ml) 5,000 units EVERY 12 HOURS SUBQ 01/21/20 21:00 03/06/20 20:59 02/03/20 09:13 Ibuprofen (Motrin) 600 mg Q6H PRN ORAL pain 4-10 01/29/20 11:45 02/28/20 11:44 02/03/20 09:21 Loratadine (Claritin 10mg) 10 mg DAILY ORAL 01/23/20 09:00 02/22/20 08:59 02/03/20 09:11 Losartan Potassium (Cozaar) 100 mg DAILY ORAL 01/22/20 09:00 02/21/20 08:59 02/03/20 09:11 Metoprolol Succinate (Toprol XL) 25 mg DAILY ORAL 01/22/20 09:00 04/21/20 08:59 02/03/20 09:12 Mirtazapine (Remeron) 15 mg BEDTIME ORAL 01/27/20 21:00 04/26/20 20:59 02/02/20 20:07 Pantoprazole (Protonix) 40 mg ACBREAKFAST ORAL 02/02/20 06:30 03/03/20 06:29 02/03/20 06:10 Potassium Chloride (K-Dur) 40 meq ONCE ORAL 02/03/20 09:30 02/03/20 11:30 Vancomycin HCl (Vanco pharmacy to dose) 1 ea DAILY PRN MISC Per rx protocol 01/22/20 08:00 02/21/20 07:59 Vancomycin HCl 1 gm/Dextrose 275 ml @ 184 mls/hr Q8HR IVPB 02/01/20 14:00 11/12/20 13:59 02/03/20 06:09 Assessment/Plan Assessment/Plan IMPRESSION: 1. Sepsis with bacteremia. 2. Pulmonary vascular congestion. 3. GERD. 4. Hypertension. 5. Hyperlipidemia. 6. Previous CVA. DISCUSSION: Currently saturating well on RA No additional pulmonary intervention required. Broad-spectrum antibiotics. Will follow Gil Mattson Omar Syed MD Feb 03, 2020 10:07
--- NOTE | 2020-02-03 10:30 | General Progress Note ---
Subjective ROS Limited/Unobtainable: No Allergies: Coded Allergies: PENICILLINS (Verified Allergy, Unknown, 01/23/20) nurse unable to enter a coded PENICILLIN allergy. still need to obtain reaction Objective Last 24 Hour Vital Signs Date Time Temp Pulse Resp B/P (MAP) Pulse Ox O2 Delivery O2 Flow Rate FiO2 02/03/20 09:12 103 122/92 02/03/20 09:12 103 122/92 02/03/20 09:11 122/92 02/03/20 08:00 98.2 103 20 122/92 (102) 96 02/03/20 07:43 95 18 96 Room Air 21 02/03/20 04:00 98.1 108 19 129/76 (93) 93 02/02/20 23:55 97.3 106 20 127/77 (94) 96 02/02/20 20:56 Room Air 02/02/20 20:00 99.0 95 20 118/67 (84) 95 02/02/20 19:36 97 18 96 Room Air 21 02/02/20 18:00 104 105/63 02/02/20 16:00 98.2 107 18 134/82 (99) 96 02/02/20 12:00 98.4 105 18 133/71 (91) 96 Intake and Output 02/02/20 02/03/20 19:00 07:00 Intake Total 1550 ml Output Total 800 ml 1000 ml Balance 750 ml -1000 ml Intake Oral 540 ml IV Total 1010 ml Output Urine Total 800 ml 1000 ml Laboratory Tests 02/03/20 06:35: White Blood Count 5.5, Red Blood Count 3.91L, Hemoglobin 12.3, Hematocrit 37.1, Mean Corpuscular Volume 95, Mean Corpuscular Hemoglobin 31.5H, Mean Corpuscular Hemoglobin Concent 33.2, Red Cell Distribution Width 12.6, Platelet Count 402, Mean Platelet Volume 4.5L, Neutrophils (%) (Auto) 68.2, Lymphocytes (%) (Auto) 20.1, Monocytes (%) (Auto) 9.5, Eosinophils (%) (Auto) 1.1, Basophils (%) (Auto) 1.2, Sodium Level 140, Potassium Level 3.3L, Chloride Level 106, Carbon Dioxide Level 26, Anion Gap 8, Blood Urea Nitrogen 5L, Creatinine 0.6, Estimat Glomerular Filtration Rate > 60, Glucose Level 148H, Calcium Level 7.9L, Magnesium Level 2.0 Height (Feet): 5 Height (Inches): 2.00 Weight (Pounds): 133 General Appearance: no apparent distress EENT: normal ENT inspection Neck: supple Cardiovascular: normal rate Respiratory/Chest: decreased breath sounds Abdomen: hypoactive bowel sounds Extremities: non-tender Assessment/Plan Status: stable Assessment/Plan: 1. Hypertension. 2. GERD. 3. Hyperlipidemia. 4. History of CVA. 5. FTT 6. PNA 7. bacteremia 8. 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 Severe sepsis 2/2 MRSA Bacteremia marinol> 5 mg remeron ensure TID abx per ID neg stool for C.diff abd/chest CT reviewed will Jarocho Clarke MD Feb 03, 2020 10:30
[2020-02-03 12:00] VITALS: BP 111/59
--- NOTE | 2020-02-03 13:04 | Infectious Diseases Prog Note ---
Assessment/Plan Assessment/Plan ASSESSMENT AND PLAN: 1. mrsa bacteremia, sepsis, leukocytosis, fevers, ? endocarditis, KENNETH negative, ? pneumonia, ? mrsa septic emboli to lung headache - LP c/w meningitis - more likely viral meningitis but also partially treated bacterial meningitis is possible, patient has been on prior iv ceftriaxone must consider herpes simplex virus meningitis with oral hsv lesions on exam - vancomycin - surveillance blood cultures - 01/27/20 -negative - iv acyclovir - day # 3 - ceftriaxone - day # 3 - await final csf culture and pcr studies - csf culture negative to date, hsv 1, 2 pcr negative - KENNETH - no vegetations - d/w cardiology - Dr. Nye - CT - abdomen/pelvis/chest - noted, ? pna, ? septic emboli, no abscess - monitor labs and chest x-ray, surveillance blood cultures now negative - 01/27/20 - indium scan for persistent bacteremia, results pending - MRI brain ordered - f/u on results - monitor headaches - fevers and leukocytosis resolved 2. Hypertension. Blood pressure treatment per primary care team. 3. GERD. 4. HLP, which I think is hyperlipidemia, but I am not sure. 5. Per the records, history of CVA. 6. Cardiac disease. 7. Allergic to penicillin, tolerates cephalosporins. 8. Social History is negative. 9. Family History is noncontributory . 10. MAR was noted. 11. Case was discussed with RN. 12. Continue treatment per primary consultants. Subjective Constitutional: Denies: fever HEENT: Denies: congestion Respiratory: Denies: shortness of breath Cardiovascular: Denies: chest pain Gastrointestinal/Abdominal: Denies: nausea, vomiting Genitourinary: Reports: other - no nieves Neurologic: Reports: headache - less Allergies: Coded Allergies: PENICILLINS (Verified Allergy, Unknown, 01/23/20) nurse unable to enter a coded PENICILLIN allergy. still need to obtain reaction Objective Last 24 Hour Vital Signs Date Time Temp Pulse Resp B/P (MAP) Pulse Ox O2 Delivery O2 Flow Rate FiO2 02/03/20 12:00 97.2 104 20 111/59 (76) 95 02/03/20 09:12 103 122/92 02/03/20 09:12 103 122/92 02/03/20 09:11 122/92 02/03/20 09:00 Room Air 02/03/20 08:00 98.2 103 20 122/92 (102) 96 02/03/20 07:43 95 18 96 Room Air 21 02/03/20 04:00 98.1 108 19 129/76 (93) 93 02/02/20 23:55 97.3 106 20 127/77 (94) 96 02/02/20 20:56 Room Air 02/02/20 20:00 99.0 95 20 118/67 (84) 95 02/02/20 19:36 97 18 96 Room Air 21 02/02/20 18:00 104 105/63 02/02/20 16:00 98.2 107 18 134/82 (99) 96 Height (Feet): 5 Height (Inches): 2.00 Weight (Pounds): 133 HEENT: normocephalic, atraumatic, anicteric, mucous membranes moist Respiratory/Chest: lungs clear, normal breath sounds, no respiratory distress Cardiovascular: normal rate, regular rhythm, no gallop/murmur Abdomen: normal bowel sounds, soft, non tender, no organomegaly, non distended Chest x-ray - 01/22/20 - Procedure: XRAY Chest 1v Indication: Chest infection Technique: One view of the chest Comparison: 01/21/2020 Findings: Increasing interstitial and airspace infiltrates are seen diffusely within the lungs bilaterally. The heart is borderline enlarged. There is torturous ectatic and calcified Impression: Increasing bilateral infiltrates versus edema, over one day Chest x-ray - 01/25/20 - Procedure: XRAY Chest 1v EXAM: XR Chest, 1 View CLINICAL HISTORY: INFECT TECHNIQUE: Frontal view of the chest. COMPARISON: No relevant prior studies available. FINDINGS/IMPRESSION: Low lung volume secondary to poor inspiration. Mild, patchy airspace opacity within the left upper lung field, suspicious for infiltrate. Follow-up 2 view chest radiograph recommended. No pleural effusion or pneumothorax. CT chest/abdomen/pelvis: IMPRESSION: Lungs demonstrate bilateral multifocal patchy and nodular infiltrates. This most likely represents multifocal pneumonia, May correlate with stated clinical history of suspected septic emboli. Generalized pulmonary venous congestion, may indicate central venous hyper tension Small bilateral pleural effusions Mild cardiomegaly No acute abdominal or pelvic abnormality 12 mm left adrenal nodule. This is nonspecific in appearance. 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 Lungs and pleural spaces currently clear. The heart size is normal. The aorta is tortuous. Impression: Improved bilateral infiltrates, over 5 days Microbiology Date/Time Source Procedure Growth Status 01/31/20 16:15 Cerebral Spinal Fluid Gram Stain - Final Resulted 01/31/20 16:15 Cerebral Spinal Fluid CSF Culture - Preliminary NO GROWTH AFTER 24 HOURS Resulted Laboratory Tests Test 02/03/20 06:35 White Blood Count 5.5 K/UL (4.8-10.8) Red Blood Count 3.91 M/UL (4.20-5.40) L Hemoglobin 12.3 G/DL (12.0-16.0) Hematocrit 37.1 % (37.0-47.0) Mean Corpuscular Volume 95 FL (80-99) Mean Corpuscular Hemoglobin 31.5 PG (27.0-31.0) H Mean Corpuscular Hemoglobin Concent 33.2 G/DL (32.0-36.0) Red Cell Distribution Width 12.6 % (11.6-14.8) Platelet Count 402 K/UL (150-450) Mean Platelet Volume 4.5 FL (6.5-10.1) L Neutrophils (%) (Auto) 68.2 % (45.0-75.0) Lymphocytes (%) (Auto) 20.1 % (20.0-45.0) Monocytes (%) (Auto) 9.5 % (1.0-10.0) Eosinophils (%) (Auto) 1.1 % (0.0-3.0) Basophils (%) (Auto) 1.2 % (0.0-2.0) Sodium Level 140 MMOL/L (136-145) Potassium Level 3.3 MMOL/L (3.5-5.1) L Chloride Level 106 MMOL/L (98-107) Carbon Dioxide Level 26 MMOL/L (21-32) Anion Gap 8 mmol/L (5-15) Blood Urea Nitrogen 5 mg/dL (7-18) L Creatinine 0.6 MG/DL (0.55-1.30) Estimat Glomerular Filtration Rate > 60 mL/min (>60) Glucose Level 148 MG/DL (74-106) H Calcium Level 7.9 MG/DL (8.5-10.1) L Magnesium Level 2.0 MG/DL (1.8-2.4) Current Medications Medications (Trade) Dose Ordered Sig/Altagracia Route PRN Reason Start Time Stop Time Status Last Admin Dose Admin Acetaminophen (Tylenol) 650 mg Q4H PRN ORAL Temp >100.5 01/21/20 14:00 02/20/20 13:59 01/23/20 05:00 Acetaminophen (Tylenol) 650 mg Q4H PRN ORAL Mild Pain (Pain Scale 1-3) 01/21/20 14:00 02/20/20 13:59 01/25/20 10:50 Acetaminophen (Tylenol) 650 mg Q6H ORAL 01/25/20 11:30 02/24/20 11:29 02/03/20 11:06 Acetaminophen/ Hydrocodone Bitart ([place] 5/325) 1 tab Q4H PRN ORAL Moderate Pain (Pain Scale 4-6) 01/31/20 10:15 02/07/20 10:14 02/01/20 03:46 Acyclovir 600 mg/ Sodium Chloride 110 ml @ 110 mls/hr Q8HR IV 02/01/20 14:00 03/02/20 13:59 02/03/20 04:59 Alendronate Sodium (Fosamax) 70 mg ONCE A WEEK ORAL 01/22/20 06:30 02/21/20 06:29 01/29/20 10:13 Amlodipine Besylate (Norvasc) 5 mg BID ORAL 02/02/20 18:00 02/21/20 08:59 02/03/20 09:12 Amylase/Lipase/ Protease (Chelsy HUFF 36,000 units cap) 1 ea TIDPRN PRN ORAL Abdominal cramps 01/21/20 15:45 04/20/20 15:44 Atorvastatin Calcium (Lipitor) 20 mg BEDTIME ORAL 01/22/20 21:00 04/21/20 20:59 02/02/20 20:08 Ceftriaxone Sodium 2 gm/ Dextrose 100 ml @ 200 mls/hr EVERY 12 HOURS IVPB 02/01/20 21:00 02/08/20 20:59 02/03/20 09:11 Dronabinol (Marinol) 5 mg BID ORAL 01/27/20 18:00 04/26/20 17:59 02/03/20 09:13 Heparin Sodium (Porcine) (Heparin 5000 units/ml) 5,000 units EVERY 12 HOURS SUBQ 01/21/20 21:00 03/06/20 20:59 02/03/20 09:13 Ibuprofen (Motrin) 600 mg Q6H PRN ORAL pain 4-10 01/29/20 11:45 02/28/20 11:44 02/03/20 09:21 Loratadine (Claritin 10mg) 10 mg DAILY ORAL 01/23/20 09:00 02/22/20 08:59 02/03/20 09:11 Losartan Potassium (Cozaar) 100 mg DAILY ORAL 01/22/20 09:00 02/21/20 08:59 02/03/20 09:11 Metoprolol Succinate (Toprol XL) 25 mg DAILY ORAL 01/22/20 09:00 04/21/20 08:59 02/03/20 09:12 Mirtazapine (Remeron) 15 mg BEDTIME ORAL 01/27/20 21:00 04/26/20 20:59 02/02/20 20:07 Pantoprazole (Protonix) 40 mg ACBREAKFAST ORAL 02/02/20 06:30 03/03/20 06:29 02/03/20 06:10 Vancomycin HCl (Vanco pharmacy to dose) 1 ea DAILY PRN MISC Per rx protocol 01/22/20 08:00 02/21/20 07:59 Vancomycin HCl 1 gm/Dextrose 275 ml @ 184 mls/hr Q8HR IVPB 02/01/20 14:00 02/06/20 13:59 02/03/20 06:09 Tiny Armijo MD Feb 03, 2020 13:04
[2020-02-03 16:00] VITALS: BP 117/61
--- NOTE | 2020-02-03 16:09 | General Progress Note ---
Assessment/Plan Status: stable Assessment/Plan: #Sepsis - r/o COVID #staph bacteremia #Leukocytosis #Hyponatremia #Possible syncope #Hypokalemia #HTN #Dementia - dc ivf - KENNETH neg for vegetations - LP: WBC 133, elevated protein and normal glucose > likely viral meningitis/encephalitis - cardiology consulted - IV abx per ID - COVID r/o - pulm eval - monitor BP - monitor resp status - cardiology eval for possible syncope - continue metop 25 daily -increase amlodipine 5mg BID - continue losartan 100mg daily Subjective Allergies: Coded Allergies: PENICILLINS (Verified Allergy, Unknown, 01/23/20) nurse unable to enter a coded PENICILLIN allergy. still need to obtain reaction Subjective IMPRESSION: Lungs demonstrate bilateral multifocal patchy and nodular infiltrates. This most likely represents multifocal pneumonia, May correlate with stated clinical history of suspected septic emboli. s/p LP and KENNETH Objective Last 24 Hour Vital Signs Date Time Temp Pulse Resp B/P (MAP) Pulse Ox O2 Delivery O2 Flow Rate FiO2 02/03/20 12:00 97.2 104 20 111/59 (76) 95 02/03/20 09:12 103 122/92 02/03/20 09:12 103 122/92 02/03/20 09:11 122/92 02/03/20 09:00 Room Air 02/03/20 08:00 98.2 103 20 122/92 (102) 96 02/03/20 07:43 95 18 96 Room Air 21 02/03/20 04:00 98.1 108 19 129/76 (93) 93 02/02/20 23:55 97.3 106 20 127/77 (94) 96 02/02/20 20:56 Room Air 02/02/20 20:00 99.0 95 20 118/67 (84) 95 02/02/20 19:36 97 18 96 Room Air 21 02/02/20 18:00 104 105/63 Intake and Output 02/02/20 02/03/20 19:00 07:00 Intake Total 1550 ml Output Total 800 ml 1000 ml Balance 750 ml -1000 ml Intake Oral 540 ml IV Total 1010 ml Output Urine Total 800 ml 1000 ml Laboratory Tests 02/03/20 06:35: White Blood Count 5.5, Red Blood Count 3.91L, Hemoglobin 12.3, Hematocrit 37.1, Mean Corpuscular Volume 95, Mean Corpuscular Hemoglobin 31.5H, Mean Corpuscular Hemoglobin Concent 33.2, Red Cell Distribution Width 12.6, Platelet Count 402, Mean Platelet Volume 4.5L, Neutrophils (%) (Auto) 68.2, Lymphocytes (%) (Auto) 20.1, Monocytes (%) (Auto) 9.5, Eosinophils (%) (Auto) 1.1, Basophils (%) (Auto) 1.2, Sodium Level 140, Potassium Level 3.3L, Chloride Level 106, Carbon Dioxide Level 26, Anion Gap 8, Blood Urea Nitrogen 5L, Creatinine 0.6, Estimat Glomerular Filtration Rate > 60, Glucose Level 148H, Calcium Level 7.9L, Magnes ium Level 2.0 Height (Feet): 5 Height (Inches): 2.00 Weight (Pounds): 133 Silvina Kohli M.D. Feb 03, 2020 16:09
--- NOTE | 2020-02-03 17:15 | Surgery Progress Note ---
Surgery Progress Note Subjective Additional Comments MRI noted no n/v slight headache Objective Last 24 Hour Vital Signs Date Time Temp Pulse Resp B/P (MAP) Pulse Ox O2 Delivery O2 Flow Rate FiO2 02/03/20 16:00 98.2 94 20 117/61 (79) 96 02/03/20 12:00 97.2 104 20 111/59 (76) 95 02/03/20 09:12 103 122/92 02/03/20 09:12 103 122/92 02/03/20 09:11 122/92 02/03/20 09:00 Room Air 02/03/20 08:00 98.2 103 20 122/92 (102) 96 02/03/20 07:43 95 18 96 Room Air 21 02/03/20 04:00 98.1 108 19 129/76 (93) 93 02/02/20 23:55 97.3 106 20 127/77 (94) 96 02/02/20 20:56 Room Air 02/02/20 20:00 99.0 95 20 118/67 (84) 95 02/02/20 19:36 97 18 96 Room Air 21 02/02/20 18:00 104 105/63 I&O Intake and Output 02/02/20 02/03/20 19:00 07:00 Intake Total 1550 ml Output Total 800 ml 1000 ml Balance 750 ml -1000 ml Intake Oral 540 ml IV Total 1010 ml Output Urine Total 800 ml 1000 ml Cardiovascular: RSR Respiratory: decreased breath sounds Abdomen: soft, flat, non-tender, present bowel sounds Extremities: no edema, no tenderness, no cyanosis Laboratory Tests Test 02/03/20 06:35 White Blood Count 5.5 K/UL (4.8-10.8) Red Blood Count 3.91 M/UL (4.20-5.40) L Hemoglobin 12.3 G/DL (12.0-16.0) Hematocrit 37.1 % (37.0-47.0) Mean Corpuscular Volume 95 FL (80-99) Mean Corpuscular Hemoglobin 31.5 PG (27.0-31.0) H Mean Corpuscular Hemoglobin Concent 33.2 G/DL (32.0-36.0) Red Cell Distribution Width 12.6 % (11.6-14.8) Platelet Count 402 K/UL (150-450) Mean Platelet Volume 4.5 FL (6.5-10.1) L Neutrophils (%) (Auto) 68.2 % (45.0-75.0) Lymphocytes (%) (Auto) 20.1 % (20.0-45.0) Monocytes (%) (Auto) 9.5 % (1.0-10.0) Eosinophils (%) (Auto) 1.1 % (0.0-3.0) Basophils (%) (Auto) 1.2 % (0.0-2.0) Sodium Level 140 MMOL/L (136-145) Potassium Level 3.3 MMOL/L (3.5-5.1) L Chloride Level 106 MMOL/L (98-107) Carbon Dioxide Level 26 MMOL/L (21-32) Anion Gap 8 mmol/L (5-15) Blood Urea Nitrogen 5 mg/dL (7-18) L Creatinine 0.6 MG/DL (0.55-1.30) Estimat Glomerular Filtration Rate > 60 mL/min (>60) Glucose Level 148 MG/DL (74-106) H Calcium Level 7.9 MG/DL (8.5-10.1) L Magnesium Level 2.0 MG/DL (1.8-2.4) Plan Problems: (1) Pulmonary edema (2) Hypokalemia (3) Leukocytosis Assessment & Plan: 84-year-old female afebrile hemodynamic stable bacteremia leukocytosis LFTs okay hypoalbuminemia BMI 22 failure to thrive. UTI /pna on antibiotics appreciate ID input. Agree with GI as to calorie count feeding trial swallow eval and continue Marinol. May need feeding tube given failure to thrive. Will follow with recommendations Participation's care labs improving on abx cont abx comfortable diet as tolerated There is unusual high diffusion signal within the trigone of the lateral ventricles bilaterally, but no signal abnormality is seen on the other sequences. No abnormal areas of restricted diffusion to suggest acute infarction. No acute hemorrhage or edema. There is a punctate focus of susceptibility artifact in the posterior right temporal lobe. No mass effect nor midline shift. There is age- related enlargement of the ventricles and extra axial CSF spaces. There is some periventricular deep white matter high T2 signal, consistent with chronic microvascular ischemic change. The sphenoid sinus is completely filled with a large polyp or mucous retention cyst, and there is also ethmoid sinus disease. There is evidence of prior bilateral cataract surgery. There is some fluid within the right mastoid air cells, not evident on recent CT. The vascular flow voids are preserved. Impression: Chronic and age-related changes Sphenoid and ethmoid sinus disease Negative for acute intracranial bleed or mass effect, or infarct Punctate focus of susceptibility artifact in the right temporal lobe, may represent old microbleed Right mastoid disease Informed consent obtained prior to commencement of the procedure from patient's daughter. With the patient prone, fluoroscopy used to localize optimal puncture site. Sterile prepping and draping. Local anesthesia with 1% lidocaine. Under direct fluoroscopic supervision, a 21-gauge spinal needle was advanced into the spinal canal at L3-4. Despite apparent adequate position of the needle as visualized on orthogonal fluoroscopy, no fluid returned. The puncture was repeated. Spontaneous return of CSF was observed. Opening pressure measured, found to be 13 cm of H2O. Total 4 mL of slightly blood-tinged spinal fluid obtained, divided into 4 vials, sent to the lab. The patient tolerated the procedure well, without immediate complication No acute intracranial hemorrhage or edema. No mass effect nor midline shift. There is age-related enlargement of the ventricles and extra axial CSF spaces. There is periventricular deep white matter low-attenuation, consistent with chronic microvascular ischemic changes. Old lacunar infarcts are seen in the basal ganglia bilaterally. The mastoids are clear. There is fairly extensive sphenoid and e thmoid sinus disease. The calvarium is intact. Impression: Chronic and age-related changes. Old bilateral basal ganglia lacunar infarcts. Negative for acute intracranial bleed or mass effect Increasing interstitial and airspace infiltrates are seen diffusely within the lungs bilaterally. The heart is borderline enlarged. There is torturous ectatic and calcified Impression: Increasing bilateral infiltrates versus edema, over one day (4) Fever (5) Bacteremia Alvarado Tolliver Feb 03, 2020 17:15
[2020-02-03 20:00] VITALS: BP 108/69
[2020-02-03] MEDS: Atorvastatin 20mg tab ORAL SCH (20:14)
[2020-02-03] MEDS: HYDROcodone/Acetamin 5/325 tab ORAL PRN (22:04)
[2020-02-04] VITALS: BP 110/64
[2020-02-04] MEDS: HYDROcodone/Acetamin 5/325 tab ORAL PRN (03:05)
[2020-02-04 04:00] VITALS: BP 110/68
[2020-02-04] MEDS: NS IV SCH ×3 (05:29→23:11)
[2020-02-04] MEDS: ACYCLOVIR IV SCH ×3 (05:29→23:11)
[2020-02-04 05:49] LABS: ANION GAP 7 mmol/L (5-15); BLOOD UREA NITROGEN 5 mg/dL (7-18); CALCIUM 8.3 MG/DL (8.5-10.1); CARBON DIOXIDE 26 MMOL/L (21-32); CHLORIDE 104 MMOL/L (98-107); CREATININE 0.6 MG/DL (0.55-1.30); POTASSIUM 3.9 MMOL/L (3.5-5.1); SODIUM 136 MMOL/L (136-145)
--- NOTE | 2020-02-04 06:56 | General Progress Note ---
Subjective ROS Limited/Unobtainable: No Allergies: Coded Allergies: PENICILLINS (Verified Allergy, Unknown, 01/23/20) nurse unable to enter a coded PENICILLIN allergy. still need to obtain reaction Objective Last 24 Hour Vital Signs Date Time Temp Pulse Resp B/P (MAP) Pulse Ox O2 Delivery O2 Flow Rate FiO2 02/04/20 04:00 98.7 98 20 110/68 (82) 94 02/04/20 00:00 98.0 101 18 110/64 (79) 94 02/03/20 21:00 Room Air 02/03/20 20:00 98.6 102 20 108/69 (82) 94 02/03/20 19:51 99 18 95 Room Air 21 02/03/20 17:19 94 117/61 02/03/20 16:00 98.2 94 20 117/61 (79) 96 02/03/20 12:00 97.2 104 20 111/59 (76) 95 02/03/20 09:12 103 122/92 02/03/20 09:12 103 122/92 02/03/20 09:11 122/92 02/03/20 09:00 Room Air 02/03/20 08:00 98.2 103 20 122/92 (102) 96 02/03/20 07:43 95 18 96 Room Air 21 Intake and Output 02/03/20 02/04/20 19:00 07:00 Intake Total 1342 ml Output Total 200 ml 600 ml Balance 1142 ml -600 ml Intake Oral 480 ml IV Total 862 ml Output Urine Total 200 ml 600 ml # Voids 3 Laboratory Tests 02/04/20 05:16: Sodium Level 136, Potassium Level 3.9, Chloride Level 104, Carbon Dioxide Level 26, Anion Gap 7, Blood Urea Nitrogen 5L, Creatinine 0.6, Estimat Glomerular Filtration Rate > 60, Glucose Level 120H, Calcium Level 8.3L, Magnesium Level 1.9, Vancomycin Level Trough 23.3H Height (Feet): 5 Height (Inches): 2.00 Weight (Pounds): 133 General Appearance: no apparent distress EENT: PERRL/EOMI Neck: supple Cardiovascular: normal rate Respiratory/Chest: decreased breath sounds Abdomen: normal bowel sounds, non tender, soft Extremities: non-tender Assessment/Plan Status: stable Assessment/Plan: 1. Hypertension. 2. GERD. 3. Hyperlipidemia. 4. History of CVA. 5. FTT 6. PNA 7. bacteremia 8. 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 Severe sepsis 2/2 MRSA Bacteremia marinol> 5 mg remeron ensure TID abx per ID neg stool for C.diff abd/chest CT reviewed will Jarocho Clarke MD Feb 04, 2020 06:56
[2020-02-04 08:00] VITALS: BP 127/86
[2020-02-04] MEDS: Losartan 50mg tab ORAL SCH (09:00)
[2020-02-04] MEDS: Heparin 5000 units/ml inj SUBQ SCH ×2 (09:00→20:25)
[2020-02-04] MEDS: Dronabinol 2.5mg Cap ORAL SCH ×2 (09:00→17:41)
[2020-02-04] MEDS: Metoprolol Succinate XL 25mg tab ORAL SCH (09:00)
--- NOTE | 2020-02-04 09:45 | Pulmonology Progress Note ---
Subjective ROS Limited/Unobtainable: No Interval Events: None new Constitutional: Denies: fever HEENT: Repors: no symptoms Respiratory: Reports: no symptoms Cardiovascular: Reports: no symptoms Gastrointestinal/Abdominal: Denies: nausea, vomiting Psychiatric: Denies: depression Skin: Denies: rash Musculoskeletal: Denies: pain Allergies: Coded Allergies: PENICILLINS (Verified Allergy, Unknown, 01/23/20) nurse unable to enter a coded PENICILLIN allergy. still need to obtain reaction All Systems: reviewed and negative except above Objective Last 24 Hour Vital Signs Date Time Temp Pulse Resp B/P (MAP) Pulse Ox O2 Delivery O2 Flow Rate FiO2 02/04/20 09:00 95 127/86 02/04/20 09:00 95 127/86 02/04/20 09:00 127/86 02/04/20 08:43 95 18 96 Room Air 21 02/04/20 08:00 97.8 64 18 127/86 (100) 94 02/04/20 04:00 98.7 98 20 110/68 (82) 94 02/04/20 00:00 98.0 101 18 110/64 (79) 94 02/03/20 21:00 Room Air 02/03/20 20:00 98.6 102 20 108/69 (82) 94 02/03/20 19:51 99 18 95 Room Air 21 02/03/20 17:19 94 117/61 02/03/20 16:00 98.2 94 20 117/61 (79) 96 02/03/20 12:00 97.2 104 20 111/59 (76) 95 Intake and Output0 02/03/20 02/04/20 19:00 07:00 Intake Total 1342 ml Output Total 200 ml 600 ml Balance 1142 ml -600 ml Intake Oral 480 ml IV Total 862 ml Output Urine Total 200 ml 600 ml # Voids 3 HEENT: normocephalic Respiratory: chest wall non-tender, lungs clear Cardiovascular: normal peripheral pulses, normal rate Laboratory Tests 02/04/20 05:16: Sodium Level 136, Potassium Level 3.9, Chloride Level 104, Carbon Dioxide Level 26, Anion Gap 7, Blood Urea Nitrogen 5L, Creatinine 0.6, Estimat Glomerular Filtration Rate > 60, Glucose Level 120H, Calcium Level 8.3L, Magnesium Level 1. 9, Vancomycin Level Trough 23.3H Current Medications Medications (Trade) Dose Ordered Sig/Altagracia Route PRN Reason Start Time Stop Time Status Last Admin Dose Admin Acetaminophen (Tylenol) 650 mg Q4H PRN ORAL Temp >100.5 01/21/20 14:00 02/20/20 13:59 01/23/20 05:00 Acetaminophen (Tylenol) 650 mg Q4H PRN ORAL Mild Pain (Pain Scale 1-3) 01/21/20 14:00 02/20/20 13:59 01/25/20 10:50 Acetaminophen (Tylenol) 650 mg Q6H ORAL 01/25/20 11:30 02/24/20 11:29 02/04/20 06:09 Acetaminophen/ Hydrocodone Bitart ([place] 5/325) 1 tab Q4H PRN ORAL Moderate Pain (Pain Scale 4-6) 01/31/20 10:15 02/07/20 10:14 02/04/20 03:05 Acyclovir 600 mg/ Sodium Chloride 110 ml @ 110 mls/hr Q8HR IV 02/01/20 14:00 03/02/20 13:59 02/04/20 05:29 Alendronate Sodium (Fosamax) 70 mg ONCE A WEEK ORAL 01/22/20 06:30 02/21/20 06:29 01/29/20 10:13 Amlodipine Besylate (Norvasc) 5 mg BID ORAL 02/02/20 18:00 02/21/20 08:59 02/04/20 09:00 Amylase/Lipase/ Protease (Creon DR 36,000 units cap) 1 ea TIDPRN PRN ORAL Abdominal cramps 01/21/20 15:45 04/20/20 15:44 Atorvastatin Calcium (Lipitor) 20 mg BEDTIME ORAL 01/22/20 21:00 04/21/20 20:59 02/03/20 20:14 Ceftriaxone Sodium 2 gm/ Dextrose 100 ml @ 200 mls/hr EVERY 12 HOURS IVPB 02/01/20 21:00 02/08/20 20:59 02/04/20 09:00 Dronabinol (Marinol) 5 mg BID ORAL 01/27/20 18:00 04/26/20 17:59 02/04/20 09:00 Heparin Sodium (Porcine) (Heparin 5000 units/ml) 5,000 units EVERY 12 HOURS SUBQ 01/21/20 21:00 03/06/20 20:59 02/04/20 09:00 Ibuprofen (Motrin) 600 mg Q6H PRN ORAL pain 4-10 01/29/20 11:45 02/28/20 11:44 02/04/20 09:43 Loratadine (Claritin 10mg) 10 mg DAILY ORAL 01/23/20 09:00 02/22/20 08:59 02/04/20 09:00 Losartan Potassium (Cozaar) 100 mg DAILY ORAL 01/22/20 09:00 02/21/20 08:59 02/04/20 09:00 Metoprolol Succinate (Toprol XL) 25 mg DAILY ORAL 01/22/20 09:00 04/21/20 08:59 02/04/20 09:00 Mirtazapine (Remeron) 15 mg BEDTIME ORAL 01/27/20 21:00 04/26/20 20:59 02/03/20 20:14 Pantoprazole (Protonix) 40 mg ACBREAKFAST ORAL 02/02/20 06:30 03/03/20 06:29 02/04/20 06:08 Vancomycin HCl (Vanco pharmacy to dose) 1 ea DAILY PRN MISC Per rx protocol 01/22/20 08:00 02/21/20 07:59 Vancomycin HCl 750 mg/Dextrose 275 ml @ 183.333 mls/hr Q8H IVPB 02/04/20 13:00 02/09/20 12:59 Assessment/Plan Assessment/Plan IMPRESSION: 1. Sepsis with bacteremia. 2. Pulmonary vascular congestion. 3. GERD. 4. Hypertension. 5. Hyperlipidemia. 6. Previous CVA. DISCUSSION: Currently saturating well on RA No additional pulmonary intervention required. Broad-spectrum antibiotics. Will follow Gil Mattson Omar Syed MD Feb 04, 2020 09:45
[2020-02-04 12:00] VITALS: BP 101/60
[2020-02-04] MEDS: Vancomycin 750mg/D5W 275ml IVPB SCH ×4 (12:28→20:20)
--- NOTE | 2020-02-04 12:28 | Surgery Progress Note ---
Surgery Progress Note Subjective Additional Comments no acute events labs okay exam stable no n/v Objective Last 24 Hour Vital Signs Date Time Temp Pulse Resp B/P (MAP) Pulse Ox O2 Delivery O2 Flow Rate FiO2 02/04/20 09:00 Room Air 02/04/20 09:00 95 127/86 02/04/20 09:00 95 127/86 02/04/20 09:00 127/86 02/04/20 08:43 95 18 96 Room Air 21 02/04/20 08:00 97.8 64 18 127/86 (100) 94 02/04/20 04:00 98.7 98 20 110/68 (82) 94 02/04/20 00:00 98.0 101 18 110/64 (79) 94 02/03/20 21:00 Room Air 02/03/20 20:00 98.6 102 20 108/69 (82) 94 02/03/20 19:51 99 18 95 Room Air 21 02/03/20 17:19 94 117/61 02/03/20 16:00 98.2 94 20 117/61 (79) 96 I&O Intake and Output 02/03/20 02/04/20 19:00 07:00 Intake Total 1342 ml Output Total 200 ml 600 ml Balance 1142 ml -600 ml Intake Oral 480 ml IV Total 862 ml Output Urine Total 200 ml 600 ml # Voids 3 Cardiovascular: RSR Respiratory: decreased breath sounds Abdomen: non-tender, present bowel sounds Extremities: no tenderness, no cyanosis Laboratory Tests Test 02/04/20 05:16 Sodium Level 136 MMOL/L (136-145) Potassium Level 3.9 MMOL/L (3.5-5.1) Chloride Level 104 MMOL/L (98-107) Carbon Dioxide Level 26 MMOL/L (21-32) Anion Gap 7 mmol/L (5-15) Blood Urea Nitrogen 5 mg/dL (7-18) L Creatinine 0.6 MG/DL (0.55-1.30) Estimat Glomerular Filtration Rate > 60 mL/min (>60) Glucose Level 120 MG/DL (74-106) H Calcium Level 8.3 MG/DL (8.5-10.1) L Magnesium Level 1.9 MG/DL (1.8-2.4) Vancomycin Level Trough 23.3 ug/mL (5.0-12.0) H Plan Problems: (1) Pulmonary edema (2) Hypokalemia (3) Leukocytosis Assessment & Plan: 84-year-old female afebrile hemodynamic stable bacteremia leukocytosis LFTs okay hypoalbuminemia BMI 22 failure to thrive. UTI /pna on antibiotics appreciate ID input. Agree with GI as to calorie count feeding trial swallow eval and continue Marinol. May need feeding tube given failure to thrive. Will follow with recommendations Participation's care labs improving on abx cont abx comfortable diet as tolerated There is unusual high diffusion signal within the trigone of the lateral ventricles bilaterally, but no signal abnormality is seen on the other sequences. No abnormal areas of restricted diffusion to suggest acute infarction. No acute hemorrhage or edema. There is a punctate focus of susceptibility artifact in the posterior right temporal lobe. No mass effect nor midline shift. There is age- related enlargement of the ventricles and extra axial CSF spaces. There is some periventricular deep white matter high T2 signal, consistent with chronic microvascular ischemic change. The sphenoid sinus is completely filled with a large polyp or mucous retention cyst, and there is also ethmoid sinus disease. There is evidence of prior bilateral cataract surgery. There is some fluid within the right mastoid air cells, not evident on recent CT. The vascular flow voids are preserved. Impression: Chronic and age-related changes Sphenoid and ethmoid sinus disease Negative for acute intracranial bleed or mass effect, or infarct Punctate focus of susceptibility artifact in the right temporal lobe, may represent old microbleed Right mastoid disease Informed consent obtained prior to commencement of the procedure from patient's daughter. With the patient prone, fluoroscopy used to localize optimal puncture site. Sterile prepping and draping. Local anesthesia with 1% lidocaine. Under direct fluoroscopic supervision, a 21-gauge spinal needle was advanced into the spinal canal at L3-4. Despite apparent adequate position of the needle as visualized on orthogonal fluoroscopy, no fluid returned. The puncture was repeated. Spontaneous return of CSF was observed. Opening pressure measured, found to be 13 cm of H2O. Total 4 mL of slightly blood-tinged spinal fluid obtained, divided into 4 vials, sent to the lab. The patient tolerated the procedure well, without immediate complication No acute intracranial hemorrhage or edema. No mass effect nor midline shift. There is age-related enlargement of the ventricles and extra axial CSF s paces. There is periventricular deep white matter low-attenuation, consistent with chronic microvascular ischemic changes. Old lacunar infarcts are seen in the basal ganglia bilaterally. The mastoids are clear. There is fairly extensive sphenoid and ethmoid sinus disease. The calvarium is intact. Impression: Chronic and age-related changes. Old bilateral basal ganglia lacunar infarcts. Negative for acute intracranial bleed or mass effect Increasing interstitial and airspace infiltrates are seen diffusely within the lungs bilaterally. The heart is borderline enlarged. There is torturous ectatic and calcified Impression: Increasing bilateral infiltrates versus edema, over one day (4) Fever (5) Bacteremia HerminiostewartAlvarado Feb 04, 2020 12:27
[2020-02-04 16:00] VITALS: BP 104/61
--- NOTE | 2020-02-04 16:53 | Infectious Diseases Prog Note ---
Assessment/Plan Assessment/Plan ASSESSMENT AND PLAN: 1. mrsa bacteremia, sepsis, leukocytosis, fevers, ? endocarditis, KENNETH negative, ? pneumonia, ? 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 pna, ? septic emboli, no abscess - monitor labs and chest x-ray as indicated - MRI brain results noted - no abscess mentioned - monitor headaches - fevers and leukocytosis resolved 2. Hypertension. Blood pressure treatment per primary care team. 3. GERD. 4. HLP, which I think is hyperlipidemia, but I am not sure. 5. Per the records, history of CVA. 6. Cardiac disease. 7. Allergic to penicillin, tolerates cephalosporins. 8. Social History is negative. 9. Family History is noncontributory . 10. MAR was noted. 11. Case was discussed with RN. 12. Continue treatment per primary consultants. Subjective Constitutional: Denies: fever HEENT: Denies: congestion Respiratory: Denies: shortness of breath Cardiovascular: Denies: chest pain Gastrointestinal/Abdominal: Denies: nausea, vomiting, diarrhea Genitourinary: Reports: other Neurologic: Reports: headache - less, s Psychiatric: Denies: depression Skin: Reports: other - NA Hematologic: Denies: bleeding Musculoskeletal: Denies: pain Allergies: Coded Allergies: PENICILLINS (Verified Allergy, Unknown, 01/23/20) nurse unable to enter a coded PENICILLIN allergy. still need to obtain reaction Objective Last 24 Hour Vital Signs Date Time Temp Pulse Resp B/P (MAP) Pulse Ox O2 Delivery O2 Flow Rate FiO2 02/04/20 12:00 98.1 102 19 101/60 (74) 94 02/04/20 09:00 Room Air 02/04/20 09:00 95 127/86 02/04/20 09:00 95 127/86 02/04/20 09:00 127/86 02/04/20 08:43 95 18 96 Room Air 21 02/04/20 08:00 97.8 64 18 127/86 (100) 94 11/10/20 04:00 98.7 98 20 110/68 (82) 94 02/04/20 00:00 98.0 101 18 110/64 (79) 94 02/03/20 21:00 Room Air 02/03/20 20:00 98.6 102 20 108/69 (82) 94 02/03/20 19:51 99 18 95 Room Air 21 02/03/20 17:19 94 117/61 Height (Feet): 5 Height (Inches): 2.00 Weight (Pounds): 133 General Appearance: no acute distress HEENT: normocephalic, atraumatic, anicteric, mucous membranes moist Respiratory/Chest: lungs clear, normal breath sounds, no respiratory distress, no accessory muscle use Cardiovascular: normal rate, regular rhythm, no gallop/murmur, no JVD Abdomen: normal bowel sounds, soft, non tender, no organomegaly, non distended Genitourinary: other - no nieves Extremities: no cyanosis Skin: no rash 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 The heart is borderline enlarged. There is torturous ectatic and calcified Impression: Increasing bilateral infiltrates versus edema, over one day Chest x-ray - 01/25/20 - Procedure: XRAY Chest 1v EXAM: XR Chest, 1 View CLINICAL HISTORY: INFECT TECHNIQUE: Frontal view of the chest. COMPARISON: No relevant prior studies available. FINDINGS/IMPRESSION: Low lung volume secondary to poor inspiration. Mild, patchy airspace opacity within the left upper lung field, suspicious for infiltrate. Follow-up 2 view chest radiograph recommended. No pleural effusion or pneumothorax. CT chest/abdomen/pelvis: IMPRESSION: Lungs demonstrate bilateral multifocal patchy and nodular infiltrates. This most likely represents multifocal pneumonia, May correlate with stated clinical history of suspected septic emboli. Generalized pulmonary venous congestion, may indicate central venous hypertension Small bilateral pleural effusions Mild cardiomegaly No acute abdominal or pelvic abnormality 12 mm left adrenal nodule. This is nonspecific in appearance. 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 Lungs and pleural spaces currently clear. The heart size is normal. The aorta is tortuous. Impression: Improved bilateral infiltrates, over 5 days Microbiology Date/Time Source Procedure Growth Status 01/31/20 16:15 Cerebral Spinal Fluid Gram Stain - Final Resulted 01/31/20 16:15 Cerebral Spinal Fluid CSF Culture - Preliminary NO GROWTH AFTER 48 HOURS Resulted 01/30/20 05:50 Blood Blood Culture - Preliminary NO GROWTH AFTER 48 HOURS Resulted 01/25/20 18:00 Stool Clostridium difficile Toxin Assay - Final Complete 01/22/20 04:30 Nasopharynx Coronavirus COVID-19 PCR ([facility]) - Final Complete Labs Test 02/02/20 06:15 02/03/20 06:35 02/04/20 05:16 White Blood Count 8.8 K/UL (4.8-10.8) 5.5 K/UL (4.8-10.8) Red Blood Count 3.98 M/UL (4.20-5.40) 3.91 M/UL (4.20-5.40) Hemoglobin 12.2 G/DL (12.0-16.0) 12.3 G/DL (12.0-16.0) Hematocrit 38.2 % (37.0-47.0) 37.1 % (37.0-47.0) Mean Corpuscular Volume 96 FL (80-99) 95 FL (80-99) Mean Corpuscular Hemoglobin 30.7 PG (27.0-31.0) 31.5 PG (27.0-31.0) Mean Corpuscular Hemoglobin Concent 32.0 G/DL (32.0-36.0) 33.2 G/DL (32.0-36.0) Red Cell Distribution Width 12.2 % (11.6-14.8) 12.6 % (11.6-14.8) Platelet Count 357 K/UL (150-450) 402 K/UL (150-450) Mean Platelet Volume 4.8 FL (6.5-10.1) 4.5 FL (6.5-10.1) Neutrophils (%) (Auto) 80.9 % (45.0-75.0) 68.2 % (45.0-75.0) Lymphocytes (%) (Auto) 13.0 % (20.0-45.0) 20.1 % (20.0-45.0) Monocytes (%) (Auto) 4.9 % (1.0-10.0) 9.5 % (1.0-10.0) Eosinophils (%) (Auto) 0.5 % (0.0-3.0) 1.1 % (0.0-3.0) Basophils (%) (Auto) 0.8 % (0.0-2.0) 1.2 % (0.0-2.0) Sodium Level 139 MMOL/L (136-145) 140 MMOL/L (136-145) 136 MMOL/L (136-145) Potassium Level 4.1 MMOL/L (3.5-5.1) 3.3 MMOL/L (3.5-5.1) 3.9 MMOL/L (3.5-5.1) Chloride Level 102 MMOL/L (98-107) 106 MMOL/L (98-107) 104 MMOL/L (98-107) Carbon Dioxide Level 26 MMOL/L (21-32) 26 MMOL/L (21-32) 26 MMOL/L (21-32) Anion Gap 11 mmol/L (5-15) 8 mmol/L (5-15) 7 mmol/L (5-15) Blood Urea Nitrogen 4 mg/dL (7-18) 5 mg/dL (7-18) 5 mg/dL (7-18) Creatinine 0.5 MG/DL (0.55-1.30) 0.6 MG/DL (0.55-1.30) 0.6 MG/DL (0.55-1.30) Estimat Glomerular Filtration Rate > 60 mL/min (>60) > 60 mL/min (>60) > 60 mL/min (>60) Glucose Level 111 MG/DL (74-106) 148 MG/DL (74-106) 120 MG/DL (74-106) Calcium Level 8.2 MG/DL (8.5-10.1) 7.9 MG/DL (8.5-10.1) 8.3 MG/DL (8.5-10.1) Phosphorus Level 3.5 MG/DL (2.5-4.9) Magnesium Level 2.0 MG/DL (1.8-2.4) 2.0 MG/DL (1.8-2.4) 1.9 MG/DL (1.8-2.4) Vancomycin Level Trough 23.3 ug/mL (5.0-12.0) Laboratory Tests Test 02/04/20 05:16 Sodium Level 136 MMOL/L (136-145) Potassium Level 3.9 MMOL/L (3.5-5.1) Chloride Level 104 MMOL/L (98-107) Carbon Dioxide Level 26 MMOL/L (21-32) Anion Gap 7 mmol/L (5-15) Blood Urea Nitrogen 5 mg/dL (7-18) L Creatinine 0.6 MG/DL (0.55-1.30) Estimat Glomerular Filtration Rate > 60 mL/min (>60) Glucose Level 120 MG/DL (74-106) H Calcium Level 8.3 MG/DL (8.5-10.1) L Magnesium Level 1.9 MG/DL (1.8-2.4) Vancomycin Level Trough 23.3 ug/mL (5.0-12.0) H Current Medications Medications (Trade) Dose Ordered Sig/Altagracia Route PRN Reason Start Time Stop Time Status Last Admin Dose Admin Acetaminophen (Tylenol) 650 mg Q4H PRN ORAL Temp >100.5 01/21/20 14:00 02/20/20 13:59 01/23/20 05:00 Acetaminophen (Tylenol) 650 mg Q4H PRN ORAL Mild Pain (Pain Scale 1-3) 01/21/20 14:00 02/20/20 13:59 01/25/20 10:50 Acetaminophen (Tylenol) 650 mg Q6H ORAL 01/25/20 11:30 02/24/20 11:29 02/04/20 12:27 Acetaminophen/ Hydrocodone Bitart ([place] 5/325) 1 tab Q4H PRN ORAL Moderate Pain (Pain Scale 4-6) 01/31/20 10:15 02/07/20 10:14 02/04/20 03:05 Acyclovir 600 mg/ Sodium Chloride 110 ml @ 110 mls/hr Q8HR IV 02/01/20 14:00 03/02/20 13:59 02/04/20 13:42 Alendronate Sodium (Fosamax) 70 mg ONCE A WEEK ORAL 01/22/20 06:30 02/21/20 06:29 01/29/20 10:13 Amlodipine Besylate (Norvasc) 5 mg BID ORAL 02/02/20 18:00 02/21/20 08:59 02/04/20 09:00 Amylase/Lipase/ Protease (Chelsy HUFF 36,000 units cap) 1 ea TIDPRN PRN ORAL Abdominal cramps 01/21/20 15:45 04/20/20 15:44 Atorvastatin Calcium (Lipitor) 20 mg BEDTIME ORAL 01/22/20 21:00 04/21/20 20:59 02/03/20 20:14 Ceftriaxone Sodium 2 gm/ Dextrose 100 ml @ 200 mls/hr EVERY 12 HOURS IVPB 02/01/20 21:00 02/08/20 20:59 02/04/20 09:00 Dronabinol (Marinol) 5 mg BID ORAL 01/27/20 18:00 04/26/20 17:59 02/04/20 09:00 Heparin Sodium (Porcine) (Heparin 5000 units/ml) 5,000 units EVERY 12 HOURS SUBQ 01/21/20 21:00 03/06/20 20:59 02/04/20 09:00 Ibuprofen (Motrin) 600 mg Q6H PRN ORAL pain 4-10 01/29/20 11:45 02/28/20 11:44 02/04/20 09:43 Loratadine (Claritin 10mg) 10 mg DAILY ORAL 01/23/20 09:00 02/22/20 08:59 02/04/20 09:00 Losartan Potassium (Cozaar) 100 mg DAILY ORAL 01/22/20 09:00 02/21/20 08:59 02/04/20 09:00 Metoprolol Succinate (Toprol XL) 25 mg DAILY ORAL 01/22/20 09:00 04/21/20 08:59 02/04/20 09:00 Mirtazapine (Remeron) 15 mg BEDTIME ORAL 01/27/20 21:00 04/26/20 20:59 02/03/20 20:14 Pantoprazole (Protonix) 40 mg ACBREAKFAST ORAL 02/02/20 06:30 03/03/20 06:29 02/04/20 06:08 Vancomycin HCl (Vanco pharmacy to dose) 1 ea DAILY PRN MISC Per rx protocol 01/22/20 08:00 02/21/20 07:59 Vancomycin HCl 750 mg/Dextrose 275 ml @ 183.333 mls/hr Q8H IVPB 02/04/20 13:00 02/09/20 12:59 02/04/20 12:28 Tiny Armijo MD Feb 04, 2020 16:53
[2020-02-04 20:00] VITALS: BP 124/72
[2020-02-04] MEDS: Atorvastatin 20mg tab ORAL SCH (20:21)
--- NOTE | 2020-02-04 23:31 | General Progress Note ---
Subjective Allergies: Coded Allergies: PENICILLINS (Verified Allergy, Unknown, 01/23/20) nurse unable to enter a coded PENICILLIN allergy. still need to obtain reaction Subjective Constitutional: Reports: weakness; Denies: no symptoms, chills, diaphoresis, fever, malaise, other HEENT: Denies: no symptoms, eye pain, blurred vision, tearing, double vision, ear pain, ear discharge, nose pain, nose congestion, throat pain, throat swelling, mouth pain, mouth swelling, other Cardiovascular: Denies: no symptoms, chest pain, edema, irregular heart rate, lightheadedness, palpitations, syncope, other Respiratory: Denies: no symptoms, cough, orthopnea, shortness of breath, SOB with excertion, SOB at rest, sputum, stridor, wheezing, other Gastrointestinal/Abdominal: Denies: no symptoms, abdomen distended, abdominal pain, black stools, tarry stools, blood in stool, constipated, diarrhea, difficulty swallowing, nausea, poor appetite, poor fluid intake, rectal bleeding, vomiting, other Genitourinary: Denies: no symptoms, burning, discharge, frequency, flank pain, hematuria, incontinence, pain, urgency, other Neurologic/Psychiatric: Reports: headache; Denies: no symptoms, anxiety, depressed, emotional problems, numbness, paresthesia, pre-existing deficit, seizure, tingling, tremors, weakness, other Endocrine: Denies: no symptoms, excessive sweating, flushing, intolerance to cold, intolerance to heat, increased hunger, increased thirst, increased urine, unexplained weight gain, unexplained weight loss, other Hematologic/Lymphatic: Denies: no symptoms, anemia, easy bleeding, easy bruising, other Allergies: Coded Allergies: PENICILLINS (Verified Allergy, Unknown, 01/23/20) nurse unable to enter a coded PENICILLIN allergy. still need to obtain reaction Subjective no acute events overnight. Continues to have headache that is slightly improved with tylenol. No new complaints today. Objective Last 24 Hour Vital Signs Date Time Temp Pulse Resp B/P (MAP) Pulse Ox O2 Delivery O2 Flow Rate FiO2 02/04/20 21:00 Room Air 02/04/20 20:00 98.5 101 18 124/72 (89) 93 02/04/20 19:17 97 18 96 Room Air 21 02/04/20 17:41 99 132/67 02/04/20 16:00 97.9 104 19 104/61 (75) 98 02/04/20 12:00 98.1 102 19 101/60 (74) 94 02/04/20 09:00 Room Air 02/04/20 09:00 95 127/86 02/04/20 09:00 95 127/86 02/04/20 09:00 127/86 02/04/20 08:43 95 18 96 Room Air 21 02/04/20 08:00 97.8 64 18 127/86 (100) 94 02/04/20 04:00 98.7 98 20 110/68 (82) 94 02/04/20 00:00 98.0 101 18 110/64 (79) 94 Intake and Output 02/03/20 02/04/20 18:59 06:59 Intake Total 1342 ml Output Total 200 ml 600 ml Balance 1142 ml -600 ml Intake Oral 480 ml IV Total 862 ml Output Urine Total 200 ml 600 ml # Voids 3 Laboratory Tests 02/04/20 05:16: Sodium Level 136, Potassium Level 3.9, Chloride Level 104, Carbon Dioxide Level 26, Anion Gap 7, Blood Urea Nitrogen 5L, Creatinine 0.6, Estimat Glomerular Filtration Rate > 60, Glucose Level 120H, Calcium Level 8.3L, Magnesium Level 1.9, Vancomycin Level Trough 23.3H Height (Feet): 5 Height (Inches): 2.00 Weight (Pounds): 133 Objective General Appearance: alert, no acute distress, alert oriented x3 EENT: PERRL/EOMI, oropharynx without redness or exudates Neck: non-tender, normal alignment Cardiovascular: normal rate, regular rhythm, no JVD Respiratory/Chest: lungs clear, normal breath sounds, no respiratory distress Abdomen: normal bowel sounds, non tender, soft Extremities: normal range of motion, non-tender Edema: no edema noted Arm (L), no edema noted Arm (R), no edema noted Leg (L), no edema noted Leg (R), no edema noted Pedal (L), no edema noted Pedal (R), no edema noted Generalized Neurologic: lock fitter II-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 Able to move tongue without difficulty. Follows commands Skin: normal pigmentation, warm/dry Assessment/Plan Status: stable Assessment/Plan: # Viral Meningitis/encephalitis 2/2 ?HSV vs Echovirus, EBV, CMV # Severe sepsis 2/2 MRSA Bacteremia # Complicated MRSA Bacteremia # Multifocal PNA # Frontal lobe and Occipital Headaches 2/2 Meningitis # Herpes Simplex 1 on Lips # Essential HTN # Poor Oral Intake # ?Depression P: - hemodynamically stable - sat well on room air, keep sat O2 > 92% - repeat BC 01/26 negative - continue vancomycin for 2-3 more weeks from 01/26, ID recs - LP: WBC 133, elevated protein and normal glucose > likely viral meningitis/encephalitis - continue IV acyclovir until cultures and PCR panel finalized - s/p Rocephin course completed 02/03 - f/u PCR, AFB, gram stains/cultures of CSF - KENNETH negative for vegetations - MRI brain without e/o abscess - PICC line ordered - Tylenol, Ibuprofen prn headaches - continue metop 25 daily - amlodipine 5mg daily - continue losartan 100mg daily - Marinol continue 5 mg - continue Remeron 15 mg qhs. monitor. - nutritional consult, continue nutritional supplements - PT - CM - consult Dr. Ortega ID, recs appreciated - consult Dr. Ugalde GI, recs appreciated - consult Dr. Kohli, Nephrology, recs appreciated - consult Dr. Payan, Pulm, recs appreciated - consult Dr. Nye, Cardiology, recs appreciated CODE: Full DVT: Heparin 5000U BID GI: PPI Diet: Cardiac Dispo: PICC line placement, will need IV abx for 2-3 weeks, d/c SNF once meningitis work up completed and headaches improved Time spent on encounter, 35 mins. 18 on counseling, coordination of care. d/w RN, consultants. Time of note doesn't accurately reflect time of encounter. Jamari Cortes M.D. Feb 04, 2020 23:31
[2020-02-05] VITALS: BP 128/63
[2020-02-05 04:00] VITALS: BP 121/76
[2020-02-05] MEDS: Vancomycin 750mg/D5W 275ml IVPB SCH ×6 (04:46→20:58)
[2020-02-05] MEDS: ACYCLOVIR IV SCH ×3 (05:33→22:58)
[2020-02-05] MEDS: NS IV SCH ×3 (05:33→22:58)
[2020-02-05 08:00] VITALS: BP 114/65
--- NOTE | 2020-02-05 09:40 | Pulmonology Progress Note ---
Subjective ROS Limited/Unobtainable: No Interval Events: None new Constitutional: Denies: fever HEENT: Repors: no symptoms Respiratory: Reports: no symptoms Cardiovascular: Reports: no symptoms Gastrointestinal/Abdominal: Denies: nausea, vomiting, diarrhea Psychiatric: Denies: depression Skin: Reports: other - NA Musculoskeletal: Denies: pain Allergies: Coded Allergies: PENICILLINS (Verified Allergy, Unknown, 01/23/20) nurse unable to enter a coded PENICILLIN allergy. still need to obtain reaction All Systems: reviewed and negative except above Objective Last 24 Hour Vital Signs Date Time Temp Pulse Resp B/P (MAP) Pulse Ox O2 Delivery O2 Flow Rate FiO2 02/05/20 04:00 98.1 99 18 121/76 (91) 95 02/05/20 00:00 98.8 100 20 128/63 (84) 93 02/04/20 21:00 Room Air 02/04/20 20:00 98.5 101 18 124/72 (89) 93 02/04/20 19:17 97 18 96 Room Air 21 02/04/20 17:41 99 132/67 02/04/20 16:00 97.9 104 19 104/61 (75) 98 02/04/20 12:00 98.1 102 19 101/60 (74) 94 Intake and Output 02/04/20 02/05/20 19:00 07:00 Intake Total 716.666 ml Output Total 1000 ml Balance 716.666 ml -1000 ml Intake Oral 240 ml IV Total 476.666 ml Output Urine Total 1000 ml # Voids 2 HEENT: normocephalic Respiratory: chest wall non-tender, lungs clear Cardiovascular: normal peripheral pulses, normal rate Current Medications Medications (Trade) Dose Ordered Sig/Altagracia Route PRN Reason Start Time Stop Time Status Last Admin Dose Admin Acetaminophen (Tylenol) 650 mg Q4H PRN ORAL Temp >100.5 01/21/20 14:00 02/20/20 13:59 01/23/20 05:00 Acetaminophen (Tylenol) 650 mg Q4H PRN ORAL Mild Pain (Pain Scale 1-3) 01/21/20 14:00 02/20/20 13:59 01/25/20 10:50 Acetaminophen (Tylenol) 650 mg Q6H ORAL 01/25/20 11:30 02/24/20 11:29 02/05/20 05:33 Acetaminophen/ Hydrocodone Bitart ([place] 5/325) 1 tab Q4H PRN ORAL Moderate Pain (Pain Scale 4-6) 01/31/20 10:15 02/07/20 10:14 02/04/20 03:05 Acyclovir 600 mg/ Sodium Chloride 110 ml @ 110 mls/hr Q8HR IV 02/01/20 14:00 03/02/20 13:59 02/05/20 05:33 Alendronate Sodium (Fosamax) 70 mg ONCE A WEEK ORAL 02/05/20 06:30 03/06/20 06:29 Amlodipine Besylate (Norvasc) 5 mg BID ORAL 02/02/20 18:00 02/21/20 08:59 02/04/20 17:41 Amylase/Lipase/ Protease (Chelsy HUFF 36,000 units cap) 1 ea TIDPRN PRN ORAL Abdominal cramps 01/21/20 15:45 04/20/20 15:44 Atorvastatin Calcium (Lipitor) 20 mg BEDTIME ORAL 01/22/20 21:00 04/21/20 20:59 02/04/20 20:21 Dronabinol (Marinol) 5 mg BID ORAL 01/27/20 18:00 04/26/20 17:59 02/04/20 17:41 Heparin Sodium (Porcine) (Heparin 5000 units/ml) 5,000 units EVERY 12 HOURS SUBQ 01/21/20 21:00 03/06/20 20:59 02/04/20 20:25 Ibuprofen (Motrin) 600 mg Q6H PRN ORAL pain 4-10 01/29/20 11:45 02/28/20 11:44 02/04/20 09:43 Loratadine (Claritin 10mg) 10 mg DAILY ORAL 01/23/20 09:00 02/22/20 08:59 02/04/20 09:00 Losartan Potassium (Cozaar) 100 mg DAILY ORAL 01/22/20 09:00 02/21/20 08:59 02/04/20 09:00 Metoprolol Succinate (Toprol XL) 25 mg DAILY ORAL 01/22/20 09:00 04/21/20 08:59 02/04/20 09:00 Mirtazapine (Remeron) 15 mg BEDTIME ORAL 01/27/20 21:00 04/26/20 20:59 02/04/20 20:21 Pantoprazole (Protonix) 40 mg ACBREAKFAST ORAL 02/02/20 06:30 03/03/20 06:29 02/05/20 05:33 Vancomycin HCl (Vanco pharmacy to dose) 1 ea DAILY PRN MISC Per rx protocol 01/22/20 08:00 02/21/20 07:59 Vancomycin HCl 750 mg/Dextrose 275 ml @ 183.333 mls/hr Q8H IVPB 02/04/20 13:00 02/09/20 12:59 02/05/20 04:46 Assessment/Plan Assessment/Plan IMPRESSION: 1. Sepsis with bacteremia. 2. Pulmonary vascular congestion. 3. GERD. 4. Hypertension. 5. Hyperlipidemia. 6. Previous CVA. DISCUSSION: Currently saturating well on RA No additional pulmonary intervention required. Broad-spectrum antibiotics. Will follow Gil Mattson Omar Syed MD Feb 05, 2020 09:40
--- NOTE | 2020-02-05 10:02 | General Progress Note ---
Subjective ROS Limited/Unobtainable: Yes Allergies: Coded Allergies: PENICILLINS (Verified Allergy, Unknown, 01/23/20) nurse unable to enter a coded PENICILLIN allergy. still need to obtain reaction Objective Last 24 Hour Vital Signs Date Time Temp Pulse Resp B/P (MAP) Pulse Ox O2 Delivery O2 Flow Rate FiO2 02/05/20 04:00 98.1 99 18 121/76 (91) 95 02/05/20 00:00 98.8 100 20 128/63 (84) 93 02/04/20 21:00 Room Air 02/04/20 20:00 98.5 101 18 124/72 (89) 93 02/04/20 19:17 97 18 96 Room Air 21 02/04/20 17:41 99 132/67 02/04/20 16:00 97.9 104 19 104/61 (75) 98 02/04/20 12:00 98.1 102 19 101/60 (74) 94 Intake and Output 02/04/20 02/05/20 18:59 06:59 Intake Total 716.666 ml Output Total 1000 ml Balance 716.666 ml -1000 ml Intake Oral 240 ml IV Total 476.666 ml Output Urine Total 1000 ml # Voids 2 Height (Feet): 5 Height (Inches): 2.00 Weight (Pounds): 133 General Appearance: no apparent distress EENT: normal ENT inspection Neck: supple Cardiovascular: normal rate Respiratory/Chest: decreased breath sounds Abdomen: hypoactive bowel sounds Extremities: non-tender Assessment/Plan Status: stable Assessment/Plan: 1. Hypertension. 2. GERD. 3. Hyperlipidemia. 4. History of CVA. 5. FTT 6. PNA 7. bacteremia 8. 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 Severe sepsis 2/2 MRSA Bacteremia marinol> 5 mg remeron ensure TID abx per ID neg stool for C.diff abd/chest CT reviewed will Jarocho Clarke MD Feb 05, 2020 10:02
[2020-02-05] MEDS: Dronabinol 2.5mg Cap ORAL SCH ×2 (10:03→18:19)
[2020-02-05] MEDS: Heparin 5000 units/ml inj SUBQ SCH ×2 (10:06→20:59)
[2020-02-05 12:00] VITALS: BP 121/80
[2020-02-05] MEDS: Metoprolol Succinate XL 25mg tab ORAL SCH (12:09)
[2020-02-05] MEDS: Losartan 50mg tab ORAL SCH (12:22)
--- NOTE | 2020-02-05 13:42 | General Progress Note ---
Assessment/Plan Status: stable Assessment/Plan: #Sepsis - r/o COVID #staph bacteremia #viral meningitis #Leukocytosis #Hyponatremia #Possible syncope #Hypokalemia #HTN #Dementia - will need 2 weeks iv vancomycin post neg surveillance blood cultures - plan for piccline today - continue acyclovir - KENNETH neg for vegetations - LP: WBC 133, elevated protein and normal glucose > likely viral meningitis/encephalitis - cardiology consulted - IV abx per ID - COVID r/o - pulm eval - monitor BP - monitor resp status - continue metop 25 daily -increase amlodipine 5mg BID - continue losartan 100mg daily Subjective ROS Limited/Unobtainable: No HEENT: Denies: no symptoms, eye pain, blurred vision, tearing, double vision, ear pain, ear discharge, nose pain, nose congestion, throat pain, throat swelling, mouth pain, mouth swelling, other Cardiovascular: Denies: no symptoms, chest pain, edema, irregular heart rate, lightheadedness, palpitations, syncope, other Respiratory: Denies: no symptoms, cough, orthopnea, shortness of breath, SOB with excertion, SOB at rest, sputum, stridor, wheezing, other Gastrointestinal/Abdominal: Denies: no symptoms, abdomen distended, abdominal pain, black stools, tarry stools, blood in stool, constipated, diarrhea, difficulty swallowing, nausea, poor appetite, poor fluid intake, rectal bleeding, vomiting, other Genitourinary: Denies: no symptoms, burning, discharge, frequency, flank pain, hematuria, incontinence, pain, urgency, other Neurologic/Psychiatric: Denies: no symptoms, anxiety, depressed, emotional problems, headache, numbness, paresthesia, pre-existing deficit, seizure, tingling, tremors, weakness, other Endocrine: Denies: no symptoms, excessive sweating, flushing, intolerance to cold, intolerance to heat, increased hunger, increased thirst, increased urine, unexplained weight gain, unexplained weight loss, other Hematologic/Lymphatic: Denies: no symptoms, anemia, easy bleeding, easy bruising, other Allergies: Coded Allergies: PENICILLINS (Verified Allergy, Unknown, 01/23/20) nurse unable to enter a coded PENICILLIN allergy. still need to obtain reaction Subjective IMPRESSION: Lungs demonstrate bilateral multifocal patchy and nodular infiltrates. This most likely represents multifocal pneumonia, May correlate with stated clinical history of suspected septic emboli. s/p LP and KENNETH plan for piccline placement today Objective Last 24 Hour Vital Signs Date Time Temp Pulse Resp B/P (MAP) Pulse Ox O2 Delivery O2 Flow Rate FiO2 02/05/20 12:22 121/80 02/05/20 12:09 120 121/81 02/05/20 09:00 102 114/72 02/05/20 04:00 98.1 99 18 121/76 (91) 95 02/05/20 00:00 98.8 100 20 128/63 (84) 93 02/04/20 21:00 Room Air 02/04/20 20:00 98.5 101 18 124/72 (89) 93 02/04/20 19:17 97 18 96 Room Air 21 02/04/20 17:41 99 132/67 02/04/20 16:00 97.9 104 19 104/61 (75) 98 Intake and Output 02/04/20 02/05/20 19:00 07:00 Intake Total 716.666 ml Output Total 1000 ml Balance 716.666 ml -1000 ml Intake Oral 240 ml IV Total 476.666 ml Output Urine Total 1000 ml # Voids 2 Laboratory Tests 02/05/20 11:50: Vancomycin Level Trough 17.5H Height (Feet): 5 Height (Inches): 2.00 Weight (Pounds): 133 Silvina Kohli M.D. Feb 05, 2020 13:42
[2020-02-05] MEDS ORDERED: Heparin1,000 units/500ml Premix(Conc:2 units/ml) INJ PRN (14:08)
[2020-02-05] MEDS ORDERED: Lidocaine 1% Plain 30 ml INJ PRN (14:08)
--- NOTE | 2020-02-05 15:57 | Surgery Progress Note ---
Surgery Progress Note Subjective Symptoms: improved, tolerating diet, voiding well, passing flatus, BM Objective Last 24 Hour Vital Signs Date Time Temp Pulse Resp B/P (MAP) Pulse Ox O2 Delivery O2 Flow Rate FiO2 02/05/20 14:39 97 02/05/20 14:30 98 02/05/20 12:22 121/80 02/05/20 12:09 120 121/81 02/05/20 12:00 97.3 120 17 121/80 (94) 93 02/05/20 09:00 Room Air 02/05/20 09:00 102 114/72 02/05/20 08:00 98.7 104 17 114/65 (81) 94 02/05/20 04:00 98.1 99 18 121/76 (91) 95 02/05/20 00:00 98.8 100 20 128/63 (84) 93 02/04/20 21:00 Room Air 02/04/20 20:00 98.5 101 18 124/72 (89) 93 02/04/20 19:17 97 18 96 Room Air 21 02/04/20 17:41 99 132/67 02/04/20 16:00 97.9 104 19 104/61 (75) 98 I&O Intake and Output 02/04/20 02/05/20 19:00 07:00 Intake Total 716.666 ml Output Total 1000 ml Balance 716.666 ml -1000 ml Intake Oral 240 ml IV Total 476.666 ml Output Urine Total 1000 ml # Voids 2 Dressing: dry Wound: clean Cardiovascular: RSR Respiratory: clear Abdomen: soft, non-tender, present bowel sounds Extremities: no edema, no tenderness, no cyanosis Laboratory Tests Test 02/05/20 11:50 Vancomycin Level Trough 17.5 ug/mL (5.0-12.0) H Plan Problems: (1) Pulmonary edema (2) Hypokalemia (3) Leukocytosis Assessment & Plan: 84-year-old female afebrile hemodynamic stable bacteremia leukocytosis LFTs okay hypoalbuminemia BMI 22 failure to thrive. UTI /pna on antibiotics appreciate ID input. Agree with GI as to calorie count feeding trial swallow eval and continue Marinol. May need feeding tube given failure to thrive. Will follow with recommendations Participation's care labs improving on abx cont abx comfortable diet as tolerated There is unusual high diffusion signal within the trigone of the lateral ventricles bilaterally, but no signal abnormality is seen on the other sequences. No abnormal areas of restricted diffusion to suggest acute infarction. No acute hemorrhage or edema. There is a punctate focus of susceptibility artifact in the posterior right temporal lobe. No mass effect nor midline shift. There is age- related enlargement of the ventricles and extra axial CSF spaces. There is some periventricular deep white matter high T2 signal, consistent with chronic microvascular ischemic change. The sphenoid sinus is completely filled with a large polyp or mucous retention cyst, and there is also ethmoid sinus disease. There is evidence of prior bilateral cataract surgery. There is some fluid within the right mastoid air cells, not evident on recent CT. The vascular flow voids are preserved. Impression: Chronic and age-related changes Sphenoid and ethmoid sinus disease Negative for acute intracranial bleed or mass effect, or infarct Punctate focus of susceptibility artifact in the right temporal lobe, may represent old microbleed Right mastoid disease Informed consent obtained prior to commencement of the procedure from patient's daughter. With the patient prone, fluoroscopy used to localize optimal puncture site. Sterile prepping and draping. Local anesthesia with 1% lidocaine. Under direct fluoroscopic supervision, a 21-gauge spinal needle was advanced into the spinal canal at L3-4. Despite apparent adequate position of the needle as visualized on orthogonal fluoroscopy, no fluid returned. The puncture was repeated. Spontaneous return of CSF was observed. Opening pressure measured, found to be 13 cm of H2O. Total 4 mL of slightly blood-tinged spinal fluid obtained, divided into 4 vials, sent to the lab. The patient tolerated the procedure well, without immediate complication No acute intracranial hemorrhage or edema. No mass effect nor midline shift. There is age-related enlargement of the ventricles and extra axial CSF spaces. There is periventricular deep white matter low-attenuation, consistent with chronic microvascular ischemic changes. Old lacunar infarcts are seen in the basal ganglia bilaterally. The mastoids are clear. There is fairly extensive sphenoid and ethmoid sinus disease. The calvarium is intact. Impression: Chronic and age-related changes. Old bilateral basal ganglia lacunar infarcts. Negative for acute intracranial bleed or mass effect Increasing interstitial and airspace infiltrates are seen diffusely within the lungs bilaterally. The heart is borderline enlarged. There is torturous ectatic and calcified Impression: Increasing bilateral infiltrates versus edema, over one day (4) Fever (5) Bacteremia Alvarado Tolliver Feb 05, 2020 15:57
[2020-02-05 16:00] VITALS: BP 101/66
--- NOTE | 2020-02-05 17:28 | Brief Operative Note ---
Immediate Post Operative Note Operative Note Pre-op Diagnosis: needs access Procedure: PICC Post-op Diagnosis: same as pre-op Surgeon: Ángle LEDESMA Anesthesia: local Specimen: none Complications: none Fluids: none Implant(s) used?: No Corky Ledesma MD Feb 05, 2020 17:28
[2020-02-05 20:00] VITALS: BP 110/56
[2020-02-05] MEDS: Dyna-Hex 2% Top Sol 2oz TOPIC SCH ×2 (20:16→20:57)
[2020-02-05] MEDS: Atorvastatin 20mg tab ORAL SCH (20:58)
--- NOTE | 2020-02-05 21:07 | Diagnostic Imaging Report ---
Indications: Needs long-term IV access Technique: Ultrasound confirms patent compressible left basilic vein. Total sterile technique, including sterile probe cover and sterile gel, hat, mask, sterile gown, large sterile drape, and preparation with 2% chlorhexidine utilized. Local anesthesia with 1% lidocaine. Under real-time ultrasound guidance, puncture basilic vein using 21-gauge needle, documented and archived, passage 0.018 guidewire under direct fluoroscopy, which was used to determine appropriate catheter length, exchange for 4 Argentine peel-away sheath. 4 Argentine Bard dual-lumen power PICC cut to 39 cm. It was inserted through the peel-away sheath. Peel-away sheath and guidewire removed. Catheter fixed to the skin. Both catheter ports aspirated and flushed. Patient tolerated procedure well, without immediate complication. Digital radiograph documents satisfactory catheter tip position, at the cavoatrial junction. Total fluoroscopy time 12.7 seconds. Total dose area product 0.3896 [id number] Total number of images: 1 Impression: Successful placement of left arm PICC under sonographic and fluoroscopic guidance, as described above.
--- NOTE | 2020-02-05 23:19 | General Progress Note ---
Subjective Date patient seen: Feb 05, 2020 ROS Limited/Unobtainable: No Allergies: Coded Allergies: PENICILLINS (Verified Allergy, Unknown, 01/23/20) nurse unable to enter a coded PENICILLIN allergy. still need to obtain reaction Subjective Constitutional: Reports: weakness; Denies: no symptoms, chills, diaphoresis, fever, malaise, other HEENT: Denies: no symptoms, eye pain, blurred vision, tearing, double vision, ear pain, ear discharge, nose pain, nose congestion, throat pain, throat swelling, mouth pain, mouth swelling, other Cardiovascular: Denies: no symptoms, chest pain, edema, irregular heart rate, lightheadedness, palpitations, syncope, other Respiratory: Denies: no symptoms, cough, orthopnea, shortness of breath, SOB with excertion, SOB at rest, sputum, stridor, wheezing, other Gastrointestinal/Abdominal: Denies: no symptoms, abdomen distended, abdominal pain, black stools, tarry stools, blood in stool, constipated, diarrhea, difficulty swallowing, nausea, poor appetite, poor fluid intake, rectal bleeding, vomiting, other Genitourinary: Denies: no symptoms, burning, discharge, frequency, flank pain, hematuria, incontinence, pain, urgency, other Neurologic/Psychiatric: Reports: headache; Denies: no symptoms, anxiety, depres sed, emotional problems, numbness, paresthesia, pre-existing deficit, seizure, tingling, tremors, weakness, other Endocrine: Denies: no symptoms, excessive sweating, flushing, intolerance to cold, intolerance to heat, increased hunger, increased thirst, increased urine, unexplained weight gain, unexplained weight loss, other Hematologic/Lymphatic: Denies: no symptoms, anemia, easy bleeding, easy bruising, other Allergies: Coded Allergies: PENICILLINS (Verified Allergy, Unknown, 01/23/20) nurse unable to enter a coded PENICILLIN allergy. still need to obtain reaction Subjective no acute events overnight. Reports constant headache, states that ATC tylenol helps some. Working with PT during interview. Objective Last 24 Hour Vital Signs Date Time Temp Pulse Resp B/P (MAP) Pulse Ox O2 Delivery O2 Flow Rate FiO2 02/05/20 20:00 98.3 101 18 110/56 (74) 93 02/05/20 19:39 95 18 95 Room Air 21 02/05/20 18:00 101 102/63 02/05/20 16:00 98.4 111 18 101/66 (78) 93 02/05/20 14:39 97 02/05/20 14:30 98 02/05/20 12:22 121/80 02/05/20 12:09 120 121/81 02/05/20 12:00 97.3 120 17 121/80 (94) 93 02/05/20 09:00 Room Air 02/05/20 09:00 102 114/72 02/05/20 08:00 98.7 104 17 114/65 (81) 94 02/05/20 04:00 98.1 99 18 121/76 (91) 95 02/05/20 00:00 98.8 100 20 128/63 (84) 93 Intake and Output 02/04/20 02/05/20 19:00 07:00 Intake Total 716.666 ml Output Total 1000 ml Balance 716.666 ml -1000 ml Intake Oral 240 ml IV Total 476.666 ml Output Urine Total 1000 ml # Voids 2 Laboratory Tests 02/05/20 11:50: Vancomycin Level Trough 17.5H Height (Feet): 5 Height (Inches): 2.00 Weight (Pounds): 133 Objective General Appearance: alert, no acute distress, alert oriented x3 EENT: PERRL/EOMI, oropharynx without redness or exudates, Neck: non-tender, normal alignment, normal range of motion, no difficulty with neck flexion/extension Cardiovascular: normal rate, regular rhythm, no JVD Respiratory/Chest: lungs clear, normal breath sounds, no respiratory distress Abdomen: normal bowel sounds, non tender, soft Extremities: normal range of motion, non-tender Edema: no edema noted Arm (L), no edema noted Arm (R), no edema noted Leg (L), no edema noted Leg (R), no edema noted Pedal (L), no edema noted Pedal (R), no edema noted 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 Able to move tongue without difficulty. 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 # Severe sepsis 2/2 MRSA Bacteremia - stable # Complicated MRSA Bacteremia # Multifocal PNA # Frontal lobe and Occipital Headaches 04/28 Meningitis - stable # Herpes Simplex 1 on Lips # Essential HTN # Poor Oral Intake # ?Depression P: - hemodynamically stable - sat well on room air, keep sat O2 > 92% - repeat BC 01/26 negative - continue vancomycin for 2-3 more weeks from 01/26, ID recs - LP: WBC 133, elevated protein and normal glucose > likely viral meningitis/encephalitis - continue IV acyclovir - s/p Rocephin course completed 02/03 - f/u PCR, AFB, gram stains/cultures of CSF - negative so far besides HSV positive sample - KENNETH negative for vegetations - MRI brain without e/o abscess - PICC line ordered - Tylenol, Ibuprofen prn headaches - continue metop 25 daily - amlodipine 5mg daily - continue losartan 100mg daily - Marinol continue 5 mg - continue Remeron 15 mg qhs. monitor. - nutritional consult, continue nutritional supplements - PT - CM - consult Dr. Ortega ID, recs appreciated - consult Dr. Ugalde GI, recs appreciated - consult Dr. Kohli, Nephrology, recs appreciated - consult Dr. Payan, Pulm, recs appreciated - consult Dr. Nye, Cardiology, recs appreciated CODE: Full DVT: Heparin 5000U BID GI: PPI Diet: Cardiac Dispo: PICC line placement, will need IV abx for 2-3 weeks, d/c SNF once meningitis work up completed and headaches improved Time spent on encounter, 33 mins. 19 on counseling, coordination of care. d/w RN, consultants. Time of note doesn't accurately reflect time of encounter. Jamari Cortes M.D. Feb 05, 2020 23:19
--- NOTE | 2020-02-05 23:50 | Cardiology Progress Note ---
Assessment/Plan Assessment/Plan 1. Sinus tachycardia, possibly due to sepsis/MRSA bacteremia, 2D echo has revealed normal LV systolic function with LVEF at 60%. 2. HTN, continue amlodipine and metoprolol. 3. MRSA bacteremia, KENNETH showed no vegetations. 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 5. Multifocal PNA, continue antibiotics. 6. Herpes encephalitis, continue antiviral therapy. Subjective Subjective No cardiac events noted. Tachycardic. Objective Last 24 Hour Vital Signs Date Time Temp Pulse Resp B/P (MAP) Pulse Ox O2 Delivery O2 Flow Rate FiO2 02/05/20 20:00 98.3 101 18 110/56 (74) 93 02/05/20 19:39 95 18 95 Room Air 21 02/05/20 18:00 101 102/63 02/05/20 16:00 98.4 111 18 101/66 (78) 93 02/05/20 14:39 97 02/05/20 14:30 98 02/05/20 12:22 121/80 02/05/20 12:09 120 121/81 02/05/20 12:00 97.3 120 17 121/80 (94) 93 02/05/20 09:00 Room Air 02/05/20 09:00 102 114/72 02/05/20 08:00 98.7 104 17 114/65 (81) 94 02/05/20 04:00 98.1 99 18 121/76 (91) 95 02/05/20 00:00 98.8 100 20 128/63 (84) 93 Intake and Output 02/04/20 02/05/20 19:00 07:00 Intake Total 716.666 ml Output Total 1000 ml Balance 716.666 ml -1000 ml Intake Oral 240 ml IV Total 476.666 ml Output Urine Total 1000 ml # Voids 2 2D Echo: LVEF 60%, Mild LVH, RVSP 31 mmHg, Grade I LVDD Laboratory Tests Test 02/05/20 11:50 Vancomycin Level Trough 17.5 ug/mL (5.0-12.0) H Objective HEENT: Atraumatic and normocephalic. Anicteric. Pupils are equal, round, and reactive to light and accommodation. Extraocular muscles intact. NECK: JVP less than 5 cm. No carotid bruit. Carotid upstrokes 2+ bilaterally. CARDIOVASCULAR: Normal S1, S2. Tachycardic, Regular rate and rhythm. No murmurs, gallops, or rubs. PMI is at fourth intercostal space in the midclavicular line. LUNGS: Clear to auscultation bilaterally. ABDOMEN: Soft, nontender, and nondistended. No hepatosplenomegaly. Positive bowel sounds. EXTREMITIES: No evidence of edema, clubbing, or cyanosis. Piotr Nye MD Feb 05, 2020 23:50
[2020-02-06] VITALS: BP 114/62
[2020-02-06 04:00] VITALS: BP 113/66
[2020-02-06] MEDS: Vancomycin 750mg/D5W 275ml IVPB SCH ×4 (05:08→13:00)
[2020-02-06] MEDS: ACYCLOVIR IV SCH ×2 (06:33→14:47)
[2020-02-06] MEDS: NS IV SCH ×2 (06:33→14:47)
[2020-02-06 06:40] LABS: BASOPHILS % (AUTO) 1.1 % (0.0-2.0); EOSINOPHILS % (AUTO) 1.5 % (0.0-3.0); HEMOGLOBIN 11.8 G/DL (12.0-16.0); LYMPHOCYTES % (AUTO) 27.2 % (20.0-45.0); MEAN CORPUSCULAR VOLUME 96 FL (80-99); MONOCYTES % (AUTO) 8.9 % (1.0-10.0); NEUTROPHILS % (AUTO) 61.3 % (45.0-75.0); PLATELET COUNT 333 K/UL (150-450); RED BLOOD COUNT 3.74 M/UL (4.20-5.40); RED CELL DISTRIBUTION WIDTH 13.3 % (11.6-14.8); WHITE BLOOD COUNT 5.2 K/UL (4.8-10.8)
[2020-02-06 07:12] LABS: ALANINE AMINOTRANSFERASE 32 U/L (12-78); ALBUMIN 2.5 G/DL (3.4-5.0); ALBUMIN/GLOBULIN RATIO 0.7 (1.0-2.7); ALKALINE PHOSPHATASE 88 U/L (46-116); ANION GAP 6 mmol/L (5-15); ASPARTATE AMINO TRANSFERASE 23 U/L (15-37); BILIRUBIN,TOTAL 0.5 MG/DL (0.2-1.0); BLOOD UREA NITROGEN 6 mg/dL (7-18); CALCIUM 8.2 MG/DL (8.5-10.1); CARBON DIOXIDE 28 MMOL/L (21-32); CHLORIDE 106 MMOL/L (98-107); CREATININE 0.6 MG/DL (0.55-1.30); POTASSIUM 3.5 MMOL/L (3.5-5.1); SODIUM 140 MMOL/L (136-145)
[2020-02-06 08:00] VITALS: BP 114/68
--- NOTE | 2020-02-06 09:03 | Pulmonology Progress Note ---
Subjective ROS Limited/Unobtainable: No Interval Events: None new Constitutional: Denies: fever HEENT: Repors: no symptoms Respiratory: Reports: no symptoms Cardiovascular: Reports: no symptoms Gastrointestinal/Abdominal: Denies: nausea, vomiting, diarrhea Psychiatric: Denies: depression Skin: Reports: other - NA Musculoskeletal: Denies: pain Allergies: Coded Allergies: PENICILLINS (Verified Allergy, Unknown, 01/23/20) nurse unable to enter a coded PENICILLIN allergy. still need to obtain reaction All Systems: reviewed and negative except above Objective Last 24 Hour Vital Signs Date Time Temp Pulse Resp B/P (MAP) Pulse Ox O2 Delivery O2 Flow Rate FiO2 02/06/20 04:00 98.4 101 18 113/66 (82) 93 02/06/20 00:00 98.2 104 18 114/62 (79) 93 02/05/20 21:00 Room Air 02/05/20 20:00 98.3 101 18 110/56 (74) 93 02/05/20 19:39 95 18 95 Room Air 21 02/05/20 18:00 101 102/63 02/05/20 16:00 98.4 111 18 101/66 (78) 93 02/05/20 14:39 97 02/05/20 14:30 98 02/05/20 12:22 121/80 02/05/20 12:09 120 121/81 02/05/20 12:00 97.3 120 17 121/80 (94) 93 Intake and Output 02/05/20 02/06/20 19:00 07:00 Intake Total 480 ml 1140.000 ml Output Total 1000 ml Balance 480 ml 140.000 ml Intake Oral 480 ml 480 ml IV Total 660.000 ml Output Urine Total 1000 ml # Voids 2 1 HEENT: normocephalic Respiratory: chest wall non-tender, lungs clear Cardiovascular: normal peripheral pulses, normal rate Laboratory Tests 02/05/20 11:50: Vancomycin Level Trough 17.5H 02/06/20 05:40: White Blood Count 5.2, Red Blood Count 3.74L, Hemoglobin 11.8L, Hematocrit 36.0L , Mean Corpuscular Volume 96, Mean Corpuscular Hemoglobin 31.6H, Mean Corpuscular Hemoglobin Concent 32.9, Red Cell Distribution Width 13.3, Platelet Count 333, Mean Platelet Volume 4.8L, Neutrophils (%) (Auto) 61.3, Lymphocytes (%) (Auto) 27.2, Monocytes (%) (Auto) 8.9, Eosinophils (%) (Auto) 1.5, Basophils (%) (Auto) 1.1, Sodium Level 140, Potassium Level 3.5, Chloride Level 106, Carbon Dioxide Level 28, Anion Gap 6, Blood Urea Nitrogen 6L, Creatinine 0.6, Estimat Glomerular Filtration Rate > 60, Glucose Level 115H, Calcium Level 8.2L, Total Bilirubin 0.5, Aspartate Amino Transf (AST/SGOT) 23, Alanine Aminotransferase (ALT/SGPT) 32, Alkaline Phosphatase 88, Total Protein 5.9L, Albumin 2.5L, Globulin 3.4, Albumin/Globulin Ratio 0.7L Current Medications Medications (Trade) Dose Ordered Sig/Altagracia Route PRN Reason Start Time Stop Time Status Last Admin Dose Admin Acetaminophen (Tylenol) 650 mg Q4H PRN ORAL Temp >100.5 01/21/20 14:00 02/20/20 13:59 01/23/20 05:00 Acetaminophen (Tylenol) 650 mg Q4H PRN ORAL Mild Pain (Pain Scale 1-3) 01/21/20 14:00 02/20/20 13:59 01/25/20 10:50 Acetaminophen (Tylenol) 650 mg Q6H ORAL 01/25/20 11:30 02/24/20 11:29 02/06/20 05:09 Acetaminophen/ Hydrocodone Bitart ([place] 5/325) 1 tab Q4H PRN ORAL Moderate Pain (Pain Scale 4-6) 01/31/20 10:15 02/07/20 10:14 02/04/20 03:05 Acyclovir 600 mg/ Sodium Chloride 110 ml @ 110 mls/hr Q8HR IV 02/01/20 14:00 03/02/20 13:59 02/06/20 06:33 Alendronate Sodium (Fosamax) 70 mg ONCE A WEEK ORAL 02/05/20 06:30 03/06/20 06:29 02/05/20 11:01 Amlodipine Besylate (Norvasc) 5 mg BID ORAL 02/02/20 18:00 02/21/20 08:59 02/05/20 09:00 Amylase/Lipase/ Protease (Chelsy HUFF 36,000 units cap) 1 ea TIDPRN PRN ORAL Abdominal cramps 01/21/20 15:45 04/20/20 15:44 Atorvastatin Calcium (Lipitor) 20 mg BEDTIME ORAL 01/22/20 21:00 04/21/20 20:59 02/05/20 20:58 Chlorhexidine Gluconate (Love-Hex 2%) 1 applic DAILY@2000 TOPIC 02/05/20 20:15 05/05/20 20:14 02/05/20 20:57 Dronabinol (Marinol) 5 mg BID ORAL 01/27/20 18:00 04/26/20 17:59 02/05/20 18:19 Heparin Sodium (Porcine) (Heparin 5000 units/ml) 5,000 units EVERY 12 HOURS SUBQ 01/21/20 21:00 03/06/20 20:59 02/05/20 20:59 Ibuprofen (Motrin) 600 mg Q6H PRN ORAL pain 4-10 01/29/20 11:45 02/28/20 11:44 02/04/20 09:43 Loratadine (Claritin 10mg) 10 mg DAILY ORAL 01/23/20 09:00 02/22/20 08:59 02/05/20 10:03 Losartan Potassium (Cozaar) 100 mg DAILY ORAL 01/22/20 09:00 02/21/20 08:59 02/05/20 12:22 Metoprolol Succinate (Toprol XL) 25 mg DAILY ORAL 01/22/20 09:00 04/21/20 08:59 02/05/20 12:09 Mirtazapine (Remeron) 15 mg BEDTIME ORAL 01/27/20 21:00 04/26/20 20:59 02/05/20 20:58 Pantoprazole (Protonix) 40 mg ACBREAKFAST ORAL 02/02/20 06:30 03/03/20 06:29 02/06/20 06:33 Vancomycin HCl ([facility]anco pharmacy to dose) 1 ea DAILY PRN MISC Per rx protocol 01/22/20 08:00 02/21/20 07:59 Vancomycin HCl 750 mg/Dextrose 275 ml @ 183.333 mls/hr Q8H IVPB 02/04/20 13:00 02/09/20 12:59 02/06/20 05:08 Assessment/Plan Assessment/Plan IMPRESSION: 1. Sepsis with bacteremia. 2. Pulmonary vascular congestion. 3. GERD. 4. Hypertension. 5. Hyperlipidemia. 6. Previous CVA. DISCUSSION: Currently saturating well on RA No additional pulmonary intervention required. Broad-spectrum antibiotics. Will follow Gil Mattson Omar Syed MD Feb 06, 2020 09:03
[2020-02-06] MEDS: Dronabinol 2.5mg Cap ORAL SCH ×2 (09:32→18:17)
[2020-02-06] MEDS: Losartan 50mg tab ORAL SCH (09:33)
[2020-02-06] MEDS: Metoprolol Succinate XL 25mg tab ORAL SCH (09:34)
[2020-02-06] MEDS: Heparin 5000 units/ml inj SUBQ SCH (09:37)
--- NOTE | 2020-02-06 09:38 | General Progress Note ---
Assessment/Plan Status: stable Assessment/Plan: #Sepsis - r/o COVID #staph bacteremia #viral meningitis #Leukocytosis #Hyponatremia #Possible syncope #Hypokalemia #HTN #Dementia - will need 2 weeks iv vancomycin post neg surveillance blood cultures - plan for piccline today - continue acyclovir - KENNETH neg for vegetations - LP: WBC 133, elevated protein and normal glucose > likely viral meningitis/encephalitis - cardiology consulted - IV abx per ID - COVID r/o - pulm eval - monitor BP - monitor resp status - continue metop 25 daily -increase amlodipine 5mg BID - continue losartan 100mg daily Subjective Allergies: Coded Allergies: PENICILLINS (Verified Allergy, Unknown, 01/23/20) nurse unable to enter a coded PENICILLIN allergy. still need to obtain reaction Subjective IMPRESSION: Lungs demonstrate bilateral multifocal patchy and nodular infiltrates. This most likely represents multifocal pneumonia, May correlate with stated clinical history of suspected septic emboli. s/p LP and KENNETH plan for piccline placement today Objective Last 24 Hour Vital Signs Date Time Temp Pulse Resp B/P (MAP) Pulse Ox O2 Delivery O2 Flow Rate FiO2 02/06/20 09:34 100 114/68 02/06/20 09:34 100 114/68 02/06/20 09:33 114/68 02/06/20 04:00 98.4 101 18 113/66 (82) 93 02/06/20 00:00 98.2 104 18 114/62 (79) 93 02/05/20 21:00 Room Air 02/05/20 20:00 98.3 101 18 110/56 (74) 93 02/05/20 19:39 95 18 95 Room Air 21 02/05/20 18:00 101 102/63 02/05/20 16:00 98.4 111 18 101/66 (78) 93 02/05/20 14:39 97 02/05/20 14:30 98 02/05/20 12:22 121/80 02/05/20 12:09 120 121/81 02/05/20 12:00 97.3 120 17 121/80 (94) 93 Intake and Output 02/05/20 02/06/20 19:00 07:00 Intake Total 480 ml 1140.000 ml Output Total 1000 ml Balance 480 ml 140.000 ml Intake Oral 480 ml 480 ml IV Total 660.000 ml Output Urine Total 1000 ml # Voids 2 1 Laboratory Tests 02/05/20 11:50: Vancomycin Level Trough 17.5H 02/06/20 05:40: White Blood Count 5.2, Red Blood Count 3.74L, Hemoglobin 11.8L, Hematocrit 36.0L , Mean Corpuscular Volume 96, Mean Corpuscular Hemoglobin 31.6H, Mean Corpuscular Hemoglobin Concent 32.9, Red Cell Distribution Width 13.3, Platelet Count 333, Mean Platelet Volume 4.8L, Neutrophils (%) (Auto) 61.3, Lymphocytes (%) (Auto) 27.2, Monocytes (%) (Auto) 8.9, Eosinophils (%) (Auto) 1.5, Basophils (%) (Auto) 1.1, Sodium Level 140, Potassium Level 3.5, Chloride Level 106, Carbon Dioxide Level 28, Anion Gap 6, Blood Urea Nitrogen 6L, Creatinine 0.6, Estimat Glomerular Filtration Rate > 60, Glucose Level 115H, Calcium Level 8.2L, Total Bilirubin 0.5, Aspartate Amino Transf (AST/SGOT) 23, Alanine Aminotransferase (ALT/SGPT) 32, Alkaline Phosphatase 88, Total Protein 5.9L, Albumin 2.5L, Globulin 3.4, Albumin/Globulin Ratio 0.7L Height (Feet): 5 Height (Inches): 2.00 Weight (Pounds): 133 Silvina Kohli M.D. Feb 06, 2020 09:38
[2020-02-06 12:00] VITALS: BP 120/74
[2020-02-06] MEDS ORDERED: VANCOMYCIN1 GM/2002 IV (13:53)
[2020-02-06] MEDS ORDERED: ACYCLOVIR SODI500 MG IV (13:53)
--- NOTE | 2020-02-06 13:54 | Discharge Instructions ---
Discharge Instructions Discharge Instructions Follow up with: primary care physician in 1 week Call MD/Return to Hospital if: symptoms worsen or fail to improve Services at Discharge: physical therapy, occupational therapy Diet: low fat Resume Normal Activity?: Yes Activity: as tolerated For Congestive Heart Failure Reminder Report to your physician any weight gain of 5 pounds or more in one week. Jamari Cortes M.D. Feb 06, 2020 13:54
--- NOTE | 2020-02-06 13:57 | Infectious Diseases Prog Note ---
Assessment/Plan Assessment/Plan ASSESSMENT AND PLAN: 1. mrsa bacteremia, sepsis, leukocytosis, fevers, ? endocarditis, KENNETH negative, ? pneumonia, ? 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 pna, ? septic emboli, no abscess - monitor labs and chest x-ray as indicated - MRI brain results noted - no abscess mentioned - monitor headaches - fevers and leukocytosis resolved - d/w primary care team - Dr. Cortes 2. Hypertension. Blood pressure treatment per primary care team. 3. GERD. 4. HLP, which I think is hyperlipidemia, but I am not sure. 5. Per the records, history of CVA. 6. Cardiac disease. 7. Allergic to penicillin, tolerates cephalosporins. 8. Social History is negative. 9. Family History is noncontributory . 10. MAR was noted. 11. Case was discussed with RN. 12. Continue treatment per primary consultants. Subjective Constitutional: Reports: fatigue; Denies: fever HEENT: Denies: congestion Respiratory: Denies: shortness of breath, other Cardiovascular: Denies: chest pain Gastrointestinal/Abdominal: Denies: nausea, vomiting, diarrhea Genitourinary: Reports: other - + no nieves Neurologic: Reports: headache - less but still small amount per patient Psychiatric: Denies: depression Skin: Denies: rash Hematologic: Denies: bleeding Musculoskeletal: Denies: pain Allergies: Coded Allergies: PENICILLINS (Verified Allergy, Unknown, 01/23/20) nurse unable to enter a coded PENICILLIN allergy. still need to obtain reaction Objective Last 24 Hour Vital Signs Date Time Temp Pulse Resp B/P (MAP) Pulse Ox O2 Delivery O2 Flow Rate FiO2 02/06/20 12:14 98.4 02/06/20 12:00 97.5 119 17 120/74 (89) 94 02/06/20 09:34 100 114/68 02/06/20 09:34 100 114/68 02/06/20 09:33 114/68 02/06/20 08:00 97.0 100 18 114/68 (83) 94 02/06/20 04:00 98.4 101 18 113/66 (82) 93 02/06/20 00:00 98.2 104 18 114/62 (79) 93 02/05/20 21:00 Room Air 02/05/20 20:00 98.3 101 18 110/56 (74) 93 02/05/20 19:39 95 18 95 Room Air 21 02/05/20 18:00 101 102/63 02/05/20 16:00 98.4 111 18 101/66 (78) 93 02/05/20 14:39 97 02/05/20 14:30 98 Height (Feet): 5 Height (Inches): 2.00 Weight (Pounds): 133 General Appearance: no acute distress HEENT: normocephalic, atraumatic, anicteric, mucous membranes moist Respiratory/Chest: lungs clear, normal breath sounds, no respiratory distress, no accessory muscle use Cardiovascular: normal rate, regular rhythm, no gallop/murmur, no JVD Abdomen: normal bowel sounds, soft, non tender, no organomegaly, non distended Genitourinary: other - no nieves, no cva pain Extremities: no cyanosis Skin: no rash Neurologic/Psychiatric: patternmaker pressure cast II-XII grossly normal, alert, responsive Lymphatic: no neck adenopathy Musculoskeletal: no effusion Chest x-ray - 01/22/20 - Procedure: XRAY Chest 1v Indication: Chest infection Technique: One view of the chest Comparison: 01/21/2020 Findings: Increasing interstitial and airspace infiltrates are seen diffusely within the lungs bilaterally. The heart is borderline enlarged. There is torturous ectatic and calcified Impression: Increasing bilateral infiltrates versus edema, over one day Chest x-ray - 01/25/20 - Procedure: XRAY Chest 1v EXAM: XR Chest, 1 View CLINICAL HISTORY: INFECT TECHNIQUE: Frontal view of the chest. COMPARISON: No relevant prior studies available. FINDINGS/IMPRESSION: Low lung volume secondary to poor inspiration. Mild, patchy airspace opacity within the left upper lung field, suspicious for infiltrate. Follow-up 2 view chest radiograph recommended. No pleural effusion or pneumothorax. CT chest/abdomen/pelvis: IMPRESSION: Lungs demonstrate bilateral multifocal patchy and nodular infiltrates. This most likely represents multifocal pneumonia, May correlate with stated clinical history of suspected septic emboli. Generalized pulmonary venous congestion, may indicate central venous hypertension Small bilateral pleural effusions Mild cardiomegaly No acute abdominal or pelvic abnormality 12 mm left adrenal nodule. This is nonspecific in appearance. 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 Lungs and pleural spaces currently clear. The heart size is normal. The aorta is tortuous. Impression: Improved bilateral infiltrates, over 5 days Microbiology Date/Time Source Procedure Growth Status 01/31/20 16:15 Cerebral Spinal Fluid Gram Stain - Final Complete 01/31/20 16:15 Cerebral Spinal Fluid CSF Culture - Final NO GROWTH Complete 01/30/20 05:50 Blood Blood Culture - Preliminary NO GROWTH AFTER 48 HOURS Resulted 01/25/20 18:00 Stool Clostridium difficile Toxin Assay - Final Complete 01/22/20 04:30 Nasopharynx Coronavirus COVID-19 PCR ([facility]) - Final Complete Laboratory Tests Test 02/06/20 05:40 White Blood Count 5.2 K/UL (4.8-10.8) Red Blood Count 3.74 M/UL (4.20-5.40) L Hemoglobin 11.8 G/DL (12.0-16.0) L Hematocrit 36.0 % (37.0-47.0) L Mean Corpuscular Volume 96 FL (80-99) Mean Corpuscular Hemoglobin 31.6 PG (27.0-31.0) H Mean Corpuscular Hemoglobin Concent 32.9 G/DL (32.0-36.0) Red Cell Distribution Width 13.3 % (11.6-14.8) Platelet Count 333 K/UL (150-450) Mean Platelet Volume 4.8 FL (6.5-10.1) L Neutrophils (%) (Auto) 61.3 % (45.0-75.0) Lymphocytes (%) (Auto) 27.2 % (20.0-45.0) Monocytes (%) (Auto) 8.9 % (1.0-10.0) Eosinophils (%) (Auto) 1.5 % (0.0-3.0) Basophils (%) (Auto) 1.1 % (0.0-2.0) Sodium Level 140 MMOL/L (136-145) Potassium Level 3.5 MMOL/L (3.5-5.1) Chloride Level 106 MMOL/L (98-107) Carbon Dioxide Level 28 MMOL/L (21-32) Anion Gap 6 mmol/L (5-15) Blood Urea Nitrogen 6 mg/dL (7-18) L Creatinine 0.6 MG/DL (0.55-1.30) Estimat Glomerular Filtration Rate > 60 mL/min (>60) Glucose Level 115 MG/DL (74-106) H Calcium Level 8.2 MG/DL (8.5-10.1) L Total Bilirubin 0.5 MG/DL (0.2-1.0) Aspartate Amino Transf (AST/SGOT) 23 U/L (15-37) Alanine Aminotransferase (ALT/SGPT) 32 U/L (12-78) Alkaline Phosphatase 88 U/L (46-116) Total Protein 5.9 G/DL (6.4-8.2) L Albumin 2.5 G/DL (3.4-5.0) L Globulin 3.4 g/dL Albumin/Globulin Ratio 0.7 (1.0-2.7) L Current Medications Medications (Trade) Dose Ordered Sig/Altagracia Route PRN Reason Start Time Stop Time Status Last Admin Dose Admin Acetaminophen (Tylenol) 650 mg Q4H PRN ORAL Temp >100.5 01/21/20 14:00 02/20/20 13:59 01/23/20 05:00 Acetaminophen (Tylenol) 650 mg Q4H PRN ORAL Mild Pain (Pain Scale 1-3) 01/21/20 14:00 02/20/20 13:59 01/25/20 10:50 Acetaminophen (Tylenol) 650 mg Q6H ORAL 01/25/20 11:30 02/24/20 11:29 02/06/20 11:44 Acetaminophen/ Hydrocodone Bitart ([place] 5/325) 1 tab Q4H PRN ORAL Moderate Pain (Pain Scale 4-6) 11/6/20 10:15 02/07/20 10:14 02/04/20 03:05 Acyclovir 600 mg/ Sodium Chloride 110 ml @ 110 mls/hr Q8HR IV 02/01/20 14:00 03/02/20 13:59 02/06/20 06:33 Alendronate Sodium (Fosamax) 70 mg ONCE A WEEK ORAL 02/05/20 06:30 03/06/20 06:29 02/05/20 11:01 Amlodipine Besylate (Norvasc) 5 mg BID ORAL 02/02/20 18:00 02/21/20 08:59 02/06/20 09:34 Amylase/Lipase/ Protease (Chelsy HUFF 36,000 units cap) 1 ea TIDPRN PRN ORAL Abdominal cramps 01/21/20 15:45 04/20/20 15:44 Atorvastatin Calcium (Lipitor) 20 mg BEDTIME ORAL 01/22/20 21:00 04/21/20 20:59 02/05/20 20:58 Chlorhexidine Gluconate (Love-Hex 2%) 1 applic DAILY@2000 TOPIC 02/05/20 20:15 05/05/20 20:14 02/05/20 20:57 Dronabinol (Marinol) 5 mg BID ORAL 01/27/20 18:00 04/26/20 17:59 02/06/20 09:32 Heparin Sodium (Porcine) (Heparin 5000 units/ml) 5,000 units EVERY 12 HOURS SUBQ 01/21/20 21:00 03/06/20 20:59 02/06/20 09:37 Ibuprofen (Motrin) 600 mg Q6H PRN ORAL pain 4-10 01/29/20 11:45 02/28/20 11:44 02/04/20 09:43 Loratadine (Claritin 10mg) 10 mg DAILY ORAL 01/23/20 09:00 02/22/20 08:59 02/06/20 09:33 Losartan Potassium (Cozaar) 100 mg DAILY ORAL 01/22/20 09:00 02/21/20 08:59 02/06/20 09:33 Metoprolol Succinate (Toprol XL) 25 mg DAILY ORAL 01/22/20 09:00 04/21/20 08:59 02/06/20 09:34 Mirtazapine (Remeron) 15 mg BEDTIME ORAL 01/27/20 21:00 04/26/20 20:59 02/05/20 20:58 Pantoprazole (Protonix) 40 mg ACBREAKFAST ORAL 02/02/20 06:30 03/03/20 06:29 02/06/20 06:33 Vancomycin HCl (Vanco pharmacy to dose) 1 ea DAILY PRN MISC Per rx protocol 01/22/20 08:00 02/21/20 07:59 Vancomycin HCl 750 mg/Dextrose 275 ml @ 183.333 mls/hr Q8H IVPB 02/04/20 13:00 02/09/20 12:59 02/06/20 13:00 Tiny Armijo MD Feb 06, 2020 13:56
--- NOTE | 2020-02-06 14:01 | Discharge Summary ---
Discharge Summary Hospital Course Date of Admission Jan 21, 2020 at 11:30 Date of Discharge Feb 06, 2020 Admitting Diagnosis Sepsis Reason for Hospitalization: MRSA bacteremia, HSV meningitis HPI Robbin Walker is a 84 year old female who was admitted on Jan 21, 2020 at 11:30 for Sepsis Consultations Pulmonary Dr. Payan Infectious Disease Dr. Ortega Surgery Dr. Tolliver Cardiology Dr. 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 - stable # Severe sepsis 2/2 MRSA Bacteremia - stable # Complicated MRSA Bacteremia # Multifocal PNA # Frontal lobe and Occipital Headaches 2/2 Meningitis - stable # Herpes Simplex 1 on Lips # Essential HTN # Poor Oral Intake # ?Depression P: - hemodynamically stable - sat well on room air, keep sat O2 > 92% - repeat BC 01/26 negative - continue vancomycin for 2-3 more weeks from 01/26, ID recs - LP: WBC 133, elevated protein and normal glucose > likely viral meningitis/encephalitis - continue IV acyclovir - s/p Rocephin course completed 02/03 - f/u PCR, AFB, gram stains/cultures of CSF - negative so far besides HSV positive sample - KENNETH negative for vegetations - MRI brain without e/o abscess - PICC line ordered - Tylenol, Ibuprofen prn headaches - continue metop 25 daily - amlodipine 5mg daily - continue losartan 100mg daily - Marinol continue 5 mg - continue Remeron 15 mg qhs. monitor. - nutritional consult, continue nutritional supplements - PT - CM - consult Dr. Ortega ID, recs appreciated - consult Dr. Aftab WALKER, recs appreciated - consult Dr. Kohli, Nephrology, recs appreciated - consult Dr. Payan, Pulm, recs appreciated - consult Dr. Nye, Cardiology, recs appreciated CODE: Full DVT: Heparin 5000U BID GI: PPI Diet: Cardiac Dispo: PICC line placement, will need IV abx for 2-3 weeks, d/c SNF once meningitis work up completed and headaches improved Time spent on encounter, 33 mins. 19 on counseling, coordination of care. d/w RN, consultants. Time of note doesn't accurately reflect time of encounter. Discharge Medications New Medications: Acyclovir Sodium (Acyclovir Sodium) 500 Mg Vial 600 MG IV EVERY 8 HOURS for 5 Days, #15 VIAL Vancomycin/Water For Inj (Peg) (Vancomycin 1 Gram/200 ml Bag) 1 Gm/200 Ml Piggyback 750 MG IV EVERY 8 HOURS for 5 Days, BAG Continued Medications: Alendronate Sodium* (Fosamax*) 70 Mg Tablet 70 MG ORAL ONCE A WEEK for osteoporosis, TAB Amlodipine Besylate* (Amlodipine Besylate*) 5 Mg Tablet 5 MG ORAL DAILY for Hypertension, TAB Clonazepam* (Klonopin*) 1 Mg Tablet 1 MG ORAL Q6H for ., #15 TAB 0 Refills Cyclosporine (Restasis) 1 Each Droperette 1 DROP RIGHT EYE for ., #1 EA 0 Refills Dexlansoprazole (Dexilant) 60 Mg Cap..bp 60 MG ORAL DAILY for indigetion, CAP Levocetirizine Dihydrochloride (Levocetirizine Dihydrochloride) 5 Mg Tablet 5 MG ORAL DAILY for allergy, TAB Lipase/Protease/Amylase (Chelsy Dr 36,000 Units Capsule) 1 Each Capsule.dr 1 EACH PO TID for indigestion, CAP Losartan Potassium* (Losartan Potassium*) 50 Mg Tablet 100 MG ORAL DAILY for HTN, TAB Metoprolol Succinate* (Metoprolol Succinate*) 25 Mg Tab.er.24h 25 MG ORAL DAILY for HTN, TAB Simvastatin (Zocor) 20 Mg Tablet 20 MG ORAL BEDTIME for high cholesterol , TAB Discharge Condition Upon Discharge: improving Discharge Vital Signs Last Vital Signs Date Time Temp Pulse Resp B/P (MAP) Pulse Ox O2 Delivery O2 Flow Rate FiO2 02/06/20 12:14 98.4 02/06/20 12:00 119 17 120/74 (89) 94 02/05/20 21:00 Room Air 02/05/20 19:39 21 01/31/20 14:33 6.0 Exam on day of discharge: General Appearance: alert, no acute distress, alert oriented x3 EENT: PERRL/EOMI, oropharynx without redness or exudates, resolving herpes lesions on lips Neck: non-tender, normal alignment, normal range of motion, no difficulty with neck flexion/extension Cardiovascular: normal rate, regular rhythm, no JVD Respiratory/Chest: lungs clear, normal breath sounds, no respiratory distress Abdomen: normal bowel sounds, non tender, soft Extremities: normal range of motion, non-tender Edema: no edema noted Arm (L), no edema noted Arm (R), no edema noted Leg (L), no edema noted Leg (R), no edema noted Pedal (L), no edema noted Pedal (R), no edema noted Generalized Neurologic: 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 Able to move tongue without difficulty. 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 Feb 06, 2020 14:01
--- NOTE | 2020-02-06 15:17 | General Progress Note ---
Subjective ROS Limited/Unobtainable: No Allergies: Coded Allergies: PENICILLINS (Verified Allergy, Unknown, 01/23/20) nurse unable to enter a coded PENICILLIN allergy. still need to obtain reaction Objective Last 24 Hour Vital Signs Date Time Temp Pulse Resp B/P (MAP) Pulse Ox O2 Delivery O2 Flow Rate FiO2 02/06/20 12:14 98.4 02/06/20 12:00 97.5 119 17 120/74 (89) 94 02/06/20 09:34 100 114/68 02/06/20 09:34 100 114/68 02/06/20 09:33 114/68 02/06/20 08:00 97.0 100 18 114/68 (83) 94 02/06/20 04:00 98.4 101 18 113/66 (82) 93 02/06/20 00:00 98.2 104 18 114/62 (79) 93 02/05/20 21:00 Room Air 02/05/20 20:00 98.3 101 18 110/56 (74) 93 02/05/20 19:39 95 18 95 Room Air 21 02/05/20 18:00 101 102/63 02/05/20 16:00 98.4 111 18 101/66 (78) 93 Intake and Output 02/05/20 02/06/20 19:00 07:00 Intake Total 480 ml 1140.000 ml Output Total 1000 ml Balance 480 ml 140.000 ml Intake Oral 480 ml 480 ml IV Total 660.000 ml Output Urine Total 1000 ml # Voids 2 1 Laboratory Tests 02/06/20 05:40: White Blood Count 5.2, Red Blood Count 3.74L, Hemoglobin 11.8L, Hematocrit 36.0L , Mean Corpuscular Volume 96, Mean Corpuscular Hemoglobin 31.6H, Mean Corpuscular Hemoglobin Concent 32.9, Red Cell Distribution Width 13.3, Platelet Count 333, Mean Platelet Volume 4.8L, Neutrophils (%) (Auto) 61.3, Lymphocytes (%) (Auto) 27.2, Monocytes (%) (Auto) 8.9, Eosinophils (%) (Auto) 1.5, Basophils (%) (Auto) 1.1, Sodium Level 140, Potassium Level 3.5, Chloride Level 106, Carbon Dioxide Level 28, Anion Gap 6, Blood Urea Nitrogen 6L, Creatinine 0.6, Estimat Glomerular Filtration Rate > 60, Glucose Level 115H, Calcium Level 8.2L, Total Bilirubin 0.5, Aspartate Amino Transf (AST/SGOT) 23, Alanine Aminotransferase (ALT/SGPT) 32, Alkaline Phosphatase 88, Total Protein 5.9L, Albumin 2.5L, Globulin 3.4, Albumin/Globulin Ratio 0.7L Height (Feet): 5 Height (Inches): 2.00 Weight (Pounds): 133 General Appearance: no apparent distress EENT: normal ENT inspection Neck: supple Cardiovascular: normal rate Respiratory/Chest: decreased breath sounds Abdomen: normal bowel sounds, non tender, soft Extremities: non-tender Assessment/Plan Status: stable Assessment/Plan: 1. Hypertension. 2. GERD. 3. Hyperlipidemia. 4. History of CVA. 5. FTT 6. PNA 7. bacteremia 8. 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 Severe sepsis 2/2 MRSA Bacteremia marinol> 5 mg remeron ensure TID abx per ID neg stool for C.diff abd/chest CT reviewed will Jarocho Clarke MD Feb 06, 2020 15:17
[2020-02-06 16:00] VITALS: BP 111/63
--- NOTE | 2020-02-06 18:10 | Surgery Progress Note ---
Surgery Progress Note Subjective Symptoms: improved, tolerating diet, passing flatus Objective Last 24 Hour Vital Signs Date Time Temp Pulse Resp B/P (MAP) Pulse Ox O2 Delivery O2 Flow Rate FiO2 02/06/20 12:14 98.4 02/06/20 12:00 97.5 119 17 120/74 (89) 94 02/06/20 09:34 100 114/68 02/06/20 09:34 100 114/68 02/06/20 09:33 114/68 02/06/20 09:00 Room Air 02/06/20 08:00 97.0 100 18 114/68 (83) 94 02/06/20 04:00 98.4 101 18 113/66 (82) 93 02/06/20 00:00 98.2 104 18 114/62 (79) 93 02/05/20 21:00 Room Air 02/05/20 20:00 98.3 101 18 110/56 (74) 93 02/05/20 19:39 95 18 95 Room Air 21 I&O Intake and Output 02/05/20 02/06/20 19:00 07:00 Intake Total 480 ml 1140.000 ml Output Total 1000 ml Balance 480 ml 140.000 ml Intake Oral 480 ml 480 ml IV Total 660.000 ml Output Urine Total 1000 ml # Voids 2 1 Dressing: dry Cardiovascular: RSR Respiratory: decreased breath sounds Abdomen: non-tender, present bowel sounds Extremities: no edema, no tenderness, no cyanosis Laboratory Tests Test 02/06/20 05:40 White Blood Count 5.2 K/UL (4.8-10.8) Red Blood Count 3.74 M/UL (4.20-5.40) L Hemoglobin 11.8 G/DL (12.0-16.0) L Hematocrit 36.0 % (37.0-47.0) L Mean Corpuscular Volume 96 FL (80-99) Mean Corpuscular Hemoglobin 31.6 PG (27.0-31.0) H Mean Corpuscular Hemoglobin Concent 32.9 G/DL (32.0-36.0) Red Cell Distribution Width 13.3 % (11.6-14.8) Platelet Count 333 K/UL (150-450) Mean Platelet Volume 4.8 FL (6.5-10.1) L Neutrophils (%) (Auto) 61.3 % (45.0-75.0) Lymphocytes (%) (Auto) 27.2 % (20.0-45.0) Monocytes (%) (Auto) 8.9 % (1.0-10.0) Eosinophils (%) (Auto) 1.5 % (0.0-3.0) Basophils (%) (Auto) 1.1 % (0.0-2.0) Sodium Level 140 MMOL/L (136-145) Potassium Level 3.5 MMOL/L (3.5-5.1) Chloride Level 106 MMOL/L (98-107) Carbon Dioxide Level 28 MMOL/L (21-32) Anion Gap 6 mmol/L (5-15) Blood Urea Nitrogen 6 mg/dL (7-18) L Creatinine 0.6 MG/DL (0.55-1.30) Estimat Glomerular Filtration Rate > 60 mL/min (>60) Glucose Level 115 MG/DL (74-106) H Calcium Level 8.2 MG/DL (8.5-10.1) L Total Bilirubin 0.5 MG/DL (0.2-1.0) Aspartate Amino Transf (AST/SGOT) 23 U/L (15-37) Alanine Aminotransferase (ALT/SGPT) 32 U/L (12-78) Alkaline Phosphatase 88 U/L (46-116) Total Protein 5.9 G/DL (6.4-8.2) L Albumin 2.5 G/DL (3.4-5.0) L Globulin 3.4 g/dL Albumin/Globulin Ratio 0.7 (1.0-2.7) L Plan Problems: (1) Pulmonary edema (2) Hypokalemia (3) Leukocytosis Assessment & Plan: 84-year-old female afebrile hemodynamic stable bacteremia leukocytosis LFTs okay hypoalbuminemia BMI 22 failure to thrive. UTI /pna on antibiotics appreciate ID input. Agree with GI as to calorie count feeding trial swallow eval and continue Marinol. May need feeding tube given failure to thrive. Will follow with recommendations Participation's care labs improving on abx cont abx comfortable diet as tolerated There is unusual high diffusion signal within the trigone of the lateral ventricles bilaterally, but no signal abnormality is seen on the other sequences. No abnormal areas of restricted diffusion to suggest acute infarction. No acute hemorrhage or edema. There is a punctate focus of susceptibility artifact in the posterior right temporal lobe. No mass effect nor midline shift. There is age- related enlargement of the ventricles and extra axial CSF spaces. There is some periventricular deep white matter high T2 signal, consistent with chronic microvascular ischemic change. The sphenoid sinus is completely filled with a large polyp or mucous retention cyst, and there is also ethmoid sinus disease. There is evidence of prior bilateral cataract surgery. There is some fluid within the right mastoid air cells, not evident on recent CT. The vascular flow voids are preserved. Impression: Chronic and age-related changes Sphenoid and ethmoid sinus disease Negative for acute intracranial bleed or mass effect, or infarct Punctate focus of susceptibility artifact in the right temporal lobe, may represent old microbleed Right mastoid disease Informed consent obtained prior to commencement of the procedure from patient's daughter. With the patient prone, fluoroscopy used to localize optimal puncture site. Sterile prepping and draping. Local anesthesia with 1% lidocaine. Under direct fluoroscopic supervision, a 21-gauge spinal needle was advanced into the spinal canal at L3-4. Despite apparent adequate position of the needle as visualized on orthogonal fluoroscopy, no fluid returned. The puncture was repeated. Spontaneous return of CSF was observed. Opening pressure measured, found to be 13 cm of H2O. Total 4 mL of slightly blood-tinged spinal fluid obtained, divided into 4 vials, sent to the lab. The patient tolerated the procedure well, without immediate complication No acute intracranial hemorrhage or edema. No mass effect nor midline shift. There is age-related enlargement of the ventricles and extra axial CSF spaces. There is periventricular deep white matter low-attenuation, consistent with chronic microvascular ischemic changes. Old lacunar infarcts are seen in the basal ganglia bilaterally. The mastoids are clear. There is fairly extensive sphenoid and ethmoid sinus disease. The calvarium is intact. Impression: Chronic and age-related changes. Old bilateral basal ganglia lacunar infarcts. Negative for acute intracranial bleed or mass effect Increasing interstitial and airspace infiltrates are seen diffusely within the lungs bilaterally. The heart is borderline enlarged. There is torturous ectatic and calcified Impression: Increasing bilateral infiltrates versus edema, over one day (4) Fever (5) Bacteremia HerminiostewartAlvarado Feb 06, 2020 18:10
[2020-02-06 18:17] VITALS: BP 111/67
--- NOTE | 2020-02-06 21:21 | General Progress Note ---
Subjective Date patient seen: Feb 06, 2020 ROS Limited/Unobtainable: No Allergies: Coded Allergies: PENICILLINS (Verified Allergy, Unknown, 01/23/20) nurse unable to enter a coded PENICILLIN allergy. still need to obtain reaction Subjective Constitutional: Reports: weakness; Denies: no symptoms, chills, diaphoresis, fever, malaise, other HEENT: Denies: no symptoms, eye pain, blurred vision, tearing, double vision, ear pain, ear discharge, nose pain, nose congestion, throat pain, throat swelling, mouth pain, mouth swelling, other Cardiovascular: Denies: no symptoms, chest pain, edema, irregular heart rate, lightheadedness, palpitations, syncope, other Respiratory: Denies: no symptoms, cough, orthopnea, shortness of breath, SOB with excertion, SOB at rest, sputum, stridor, wheezing, other Gastrointestinal/Abdominal: Denies: no symptoms, abdomen distended, abdominal pain, black stools, tarry stools, blood in stool, constipated, diarrhea, difficulty swallowing, nausea, poor appetite, poor fluid intake, rectal bleeding, vomiting, other Genitourinary: Denies: no symptoms, burning, discharge, frequency, flank pain, hematuria, incontinence, pain, urgency, other Neurologic/Psychiatric: Reports: headache; Denies: no symptoms, anxiety, depres sed, emotional problems, numbness, paresthesia, pre-existing deficit, seizure, tingling, tremors, weakness, other Endocrine: Denies: no symptoms, excessive sweating, flushing, intolerance to cold, intolerance to heat, increased hunger, increased thirst, increased urine, unexplained weight gain, unexplained weight loss, other Hematologic/Lymphatic: Denies: no symptoms, anemia, easy bleeding, easy bruising, other Allergies: Coded Allergies: PENICILLINS (Verified Allergy, Unknown, 01/23/20) nurse unable to enter a coded PENICILLIN allergy. still need to obtain reaction Subjective no acute events overnight. Reports headache improving slightly, pain medication still needed to alleviate symptoms. Otherwise no complaints. Objective Last 24 Hour Vital Signs Date Time Temp Pulse Resp B/P (MAP) Pulse Ox O2 Delivery O2 Flow Rate FiO2 02/06/20 19:00 92 18 94 Room Air 21 02/06/20 18:48 98.4 02/06/20 18:17 103 111/67 02/06/20 16:00 97.2 103 18 111/63 (79) 93 02/06/20 12:14 98.4 02/06/20 12:00 97.5 119 17 120/74 (89) 94 02/06/20 09:34 100 114/68 02/06/20 09:34 100 114/68 02/06/20 09:33 114/68 02/06/20 09:00 Room Air 02/06/20 08:00 97.0 100 18 114/68 (83) 94 02/06/20 04:00 98.4 101 18 113/66 (82) 93 02/06/20 00:00 98.2 104 18 114/62 (79) 93 Intake and Output 02/05/20 02/06/20 19:00 07:00 Intake Total 480 ml 1140.000 ml Output Total 1000 ml Balance 480 ml 140.000 ml Intake Oral 480 ml 480 ml IV Total 660.000 ml Output Urine Total 1000 ml # Voids 2 1 Laboratory Tests 02/06/20 05:40: White Blood Count 5.2, Red Blood Count 3.74L, Hemoglobin 11.8L, Hematocrit 36.0L , Mean Corpuscular Volume 96, Mean Corpuscular Hemoglobin 31.6H, Mean Corpuscular Hemoglobin Concent 32.9, Red Cell Distribution Width 13.3, Platelet Count 333, Mean Platelet Volume 4.8L, Neutrophils (%) (Auto) 61.3, Lymphocytes (%) (Auto) 27.2, Monocytes (%) (Auto) 8.9, Eosinophils (%) (Auto) 1.5, Basophils (%) (Auto) 1.1, Sodium Level 140, Potassium Level 3.5, Chloride Level 106, Carbon Dioxide Level 28, Anion Gap 6, Blood Urea Nitrogen 6L, Creatinine 0.6, Estimat Glomerular Filtration Rate > 60, Glucose Level 115H, Calcium Level 8.2L, Total Bilirubin 0.5, Aspartate Amino Transf (AST/SGOT) 23, Alanine Aminotransferase (ALT/SGPT) 32, Alkaline Phosphatase 88, Total Protein 5.9L, Albumin 2.5L, Globulin 3.4, Albumin/Globulin Ratio 0.7L Height (Feet): 5 Height (Inches): 2.00 Weight (Pounds): 133 Objective General Appearance: alert, no acute distress, alert oriented x3, laying in bed EENT: PERRL/EOMI, oropharynx without redness or exudates, resolving herpes lip lesions Neck: non-tender, normal alignment, normal range of motion, no difficulty with neck flexion/extension Cardiovascular: normal rate, regular rhythm, no JVD Respiratory/Chest: lungs clear, normal breath sounds, no respiratory distress Abdomen: normal bowel sounds, non tender, soft Extremities: normal range of motion, non-tender Edema: no edema noted Arm (L), no edema noted Arm (R), no edema noted Leg (L), no edema noted Leg (R), no edema noted Pedal (L), no edema noted Pedal (R), no edema noted 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 Able to move tongue without difficulty. 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 # Severe sepsis 2/2 MRSA Bacteremia - stable # Complicated MRSA Bacteremia # Multifocal PNA # Frontal lobe and Occipital Headaches 2/2 Meningitis - stable # Herpes Simplex 1 on Lips # Essential HTN # Poor Oral Intake # ?Depression P: - hemodynamically stable - sat well on room air, keep sat O2 > 92% - repeat BC 01/26 negative - continue vancomycin for 2 more weeks from 01/26 until 02/09, ID recs - LP: WBC 133, elevated protein and normal glucose > likely viral meningitis/encephalitis - continue IV acyclovir until 02/09 per ID - s/p Rocephin course completed 02/03 - f/u PCR, AFB, gram stains/cultures of CSF - negative so far besides HSV positive sample - KENNETH negative for vegetations - MRI brain without e/o abscess - PICC line placed - Tylenol, Ibuprofen prn headaches - continue metop 25 daily - amlodipine 5mg daily - continue losartan 100mg daily - Marinol continue 5 mg - continue Remeron 15 mg qhs. monitor. - nutritional consult, continue nutritional supplements - PT - CM - consult Dr. Ortega ID, recs appreciated - consult Dr. Ugalde GI, recs appreciated - consult Dr. Kohli, Nephrology, recs appreciated - consult Dr. Payan, Pulm, recs appreciated - consult Dr. Nye, Cardiology, recs appreciated CODE: Full DVT: Heparin 5000U BID GI: PPI Diet: Cardiac Dispo: will need IV abx for several more days, awaiting transfer to SNF Time spent on encounter, 39 mins. 20 minutes spent on counseling, coordination of care. d/w RN, consulting physician infectious disease regarding antibiotic regimen, duration of treatment, stability for SNF placement. Time of note doesn't accurately reflect time of encounter. Jamari Corets M.D. Feb 06, 2020 21:21
== END 2020-02-06 20:20 | DRG 871 ==
LOC: EDBD 08:48 → EMR 09:00 → EDBEDREQSVC 10:18 → 2W 11:30 → EDBEDREQ 11:59 → 2W 21:11 → 2E 01-25 06:00 → 4E 01-27 17:10
PROC: B246ZZ4 Ultrasonography of Right and Left Heart, Transesophageal (ICD-10-PCS; principal; 2020-01-31 14:09)
PROC: 009U3ZX Drainage of Spinal Canal, Percutaneous Approach, Diagnostic (ICD-10-PCS; principal; 2020-01-31 14:09)
PROC: B01BZZZ Fluoroscopy of Spinal Cord (ICD-10-PCS; principal; 2020-01-31 14:09)
PROC: B518ZZA Fluoroscopy of Superior Vena Cava, Guidance (ICD-10-PCS; 2020-02-05)
PROC: 02HV33Z Insertion of Infusion Device into Superior Vena Cava, Percutaneous Approach (ICD-10-PCS; 2020-02-05)
DX: A41.02 Sepsis due to Methicillin resistant Staphylococcus aureus (principal); J18.9 Pneumonia, unspecified organism; B10.09 Other human herpesvirus encephalitis; E87.1 Hypo-osmolality and hyponatremia; R65.20 Severe sepsis without septic shock; F03.90 Unspecified dementia, unspecified severity, without behavioral disturbance, psychotic disturbance, mood disturbance, and anxiety; I10 Essential (primary) hypertension; R62.7 Adult failure to thrive; Z68.24 Body mass index [BMI] 24.0-24.9, adult; E87.6 Hypokalemia; K21.9 Gastro-esophageal reflux disease without esophagitis; Z86.73 Personal history of transient ischemic attack (TIA), and cerebral infarction without residual deficits; F32.9 Major depressive disorder, single episode, unspecified; M81.0 Age-related osteoporosis without current pathological fracture
CPT/HCPCS: 36415; 36573; 70450; 70551; 71045; 71260; 74177; 76937; 80048; 80053; 80202; 81003; 82248; 82550; 82553; 82728; 82945; 83605; 83615; 83735; 83880; 84100; 84157; 84484; 85007; 85025; 85379; 85610; 85730; 86140; 86592; 86635; 86710; 87040; 87070; 87116; 87181; 87205; 87324; 87449; 87496; 87529; 89051; 93005; 93306; 93312; 94003; 94150; 94664; 96365; 96366; 96368; 96375; 99291; J2250; J2765; J7030; J8499; U0002